=== PATIENT | male | born 1955 | race Caucasian/White ===

== ENCOUNTER 2017-06-05 07:06 | Day surgery (SDC) | payer OTHER ==
[2017-06-05] MEDS ORDERED: PROPOFOL INJ 200 MG/20 ML VIAL IV ONE (08:08)
[2017-06-05] MEDS ORDERED: DIPHENHYDRAMINE HCL 50 MG/ML VIAL IV PRN (09:28)
[2017-06-05] MEDS ORDERED: ONDANSETRON HCL INJ/PF 4 MG/2 ML SDV IV PRN (09:28)
[2017-06-05] MEDS ORDERED: FENTANYL CITRATE INJ/PF 100 MCG/2 ML AMPUL IV PRN ×3 (09:28)
[2017-06-05] MEDS ORDERED: SIMETHICONE 80 MG TAB.CHEW PO PRN (10:00)
[2017-06-05] MEDS ORDERED: DEXTROSE 5%-1/2 NORMAL SALINE 1,000 ML IV PRN (10:00)
[2017-06-05] MEDS ORDERED: PROMETHAZINE HCL INJ 25 MG/1 ML VIAL INJ PRN (10:00)
[2017-06-05] MEDS ORDERED: ACETAMINOPHEN 325 MG TABLET PO PRN (10:00)
[2017-06-05 10:26] VITALS: BP 146/88
--- NOTE | 2017-06-05 10:49 | Operative Report ---
Operative Report DATE OF SURGERY: 06/05/17 Operative Report: The risks, benefits and alternatives of the procedure including risks of bleeding, perforation requiring surgery are explained to the patient in detail and informed consent was obtained. Patient was taken back to the endoscopy suite and placed in the left, lateral decubital position. Timeout was called. Propofol medications administered. A rectal examination was done which did not reveal any masses, tears or fissures. An Olympus videoscope was inserted into the patient's rectum. Following insufflation the scope was then carefully advanced all the way to the cecum. The cecum was identified by the usual anatomical landmarks including the ileocecal valve as well as the appendiceal office. Photodocumentation is obtained. The scope was then sequentially pulled back via the various segments of the colon including the ascending colon , hepatic flexure, transverse colon, splenic flexure, descending colon, and finally to the rectosigmoid portions of the colon. Retroflexion maneuvers performed. PREOPERATIVE DIAGNOSIS: Colorectal cancer screening POSTOPERATIVE DIAGNOSIS: Large rectal polyp removed via snare polypectomy. Small polyp also in the rectum removed via snare polypectomy. These were placed in separate containers. Right side colon biopsy obtained. Diverticulosis. Internal hemorrhoids OPERATION: Colonoscopy with snare polypectomy. Colonoscopy with biopsy SURGEON: CECE MOORE ANESTHESIA: LMAC TISSUE REMOVED OR ALTERED: As noted above. COMPLICATIONS: None. ESTIMATED BLOOD LOSS: None. INTRAOPERATIVE FINDINGS: As noted above. PROCEDURE: Patient tolerated procedure well. No immediate postprocedure complications are noted. Patient discharged in good condition. Discharge date 06/05/2017. Discharge diet: Regular. Discharge activity: Regular. 2-3 week follow-up to discuss findings. We will wait on pathology. Likely will need 3 year surveillance colonoscopy. Patient is instructed to call the office or proceed to the emergency room should there be any further problems or questions.
== END 2017-06-05 10:32 | disposition home or self-care (01) ==
LOC: OROUT 07:06
PROVIDERS: ATTEND Internal Medicine Gastroenterology
PROC: 0DBF8ZX Excision of Right Large Intestine, Via Natural or Artificial Opening Endoscopic, Diagnostic (ICD-10-PCS; principal; 2017-06-05 09:00)
PROC: 0DBP8ZX Excision of Rectum, Via Natural or Artificial Opening Endoscopic, Diagnostic (ICD-10-PCS; 2017-06-05 09:00)
DX: Z12.11 Encounter for screening for malignant neoplasm of colon (principal); D12.8 Benign neoplasm of rectum; K64.8 Other hemorrhoids; K57.30 Diverticulosis of large intestine without perforation or abscess without bleeding; K63.5 Polyp of colon; F17.210 Nicotine dependence, cigarettes, uncomplicated; Z79.899 Other long term (current) drug therapy
CPT/HCPCS: 45380; 45385; 88305 ×2; J2704; 810

== ENCOUNTER 2019-02-20 09:51 | Emergency (ER) | payer SELFPAY ==
[2019-02-20] MEDS ORDERED: IPRATROPIUM/ALBUTEROL 0.5-2.5 MG/3 ML AMPUL NEB ONE ×2 (10:19→14:00)
[2019-02-20] MEDS ORDERED: METHYLPREDNISOLONE INJ 125 MG/2 ML SDV IV ONE (10:19)
--- NOTE | 2019-02-20 10:24 | ER Document Report ---
ED Medical Screen (RME) - General Chief Complaint: Breathing Difficulty Stated Complaint: DIFFICULTY BREATHING Time Seen by Provider: 02/20/19 10:19 Primary Care Provider: JUDE ROSE PA-C [Primary Care Provider] - Follow up as needed Mode of Arrival: Wheelchair Information source: Patient Notes: 63-year-old male presented to ED for severe difficulty breathing. He can hear him audibly wheezing across the room. Patient and states that he has not been to the doctor in at least 2 years so they do not really know what his medical history is. She states he is always spoken low but his voice is gone lower and lower recently. He states he does smoke close to 2 packs of cigarettes a day and his breathing is gotten worse and worse and worse and he continues to smoke. I have greeted and performed a rapid initial assessment of this patient. A comprehensive ED assessment and evaluation of the patient, analysis of test results and completion of medical decision making process will be conducted by an additional ED providers. Dictation of this chart was performed using voice recognition software; therefore, there may be some unintended grammatical errors. TRAVEL OUTSIDE OF THE [place] IN LAST 30 DAYS: No - Related Data Allergies/Adverse Reactions: No Known Allergies Allergy (Verified 02/20/19 09:51) Past Medical History - Past Medical History Cardiac Medical History: Denies: Hx Coronary Artery Disease, Hx Heart Attack, Hx Hypertension Pulmonary Medical History: Reports: Hx Asthma - as child Denies: Hx Bronchitis, Hx COPD, Hx Pneumonia Neurological Medical History: Denies: Hx Cerebrovascular Accident, Hx Seizures Musculoskeltal Medical History: Reports Hx Arthritis - Immunizations Hx Diphtheria, Pertussis, Tetanus Vaccination: No History of Influenza Vaccine for 05/2017 - 10/2017 Season: No Physical Exam - Vital signs Vitals: Temp Pulse Resp BP Pulse Ox 98.2 F 80 16 148/91 H 98 02/20/19 09:56 02/20/19 09:56 02/20/19 09:56 02/20/19 09:56 02/20/19 09:56 Course - Vital Signs Vital signs: Temp Pulse Resp BP Pulse Ox 98.2 F 80 16 148/91 H 98 02/20/19 09:56 02/20/19 09:56 02/20/19 09:56 02/20/19 09:56 02/20/19 09:56 Doctor's Discharge - Discharge Referrals: JUDE ROSE PA-C [Primary Care Provider] - Follow up as needed
[2019-02-20 11:01] LABS: ABSOLUTE BASOPHILS # (AUTO) 0.1 10^3/uL (0.0-0.2); ABSOLUTE EOSINOPHILS # (AUTO) 0.4 10^3/uL (0.0-0.6); ABSOLUTE LYMPHOCYTES (AUTO) 1.5 10^3/uL (0.5-4.7); ABSOLUTE MONOCYTES (AUTO) 0.8 10^3/uL (0.1-1.4); ABSOLUTE NEUT (AUTO) 10.1 10^3/uL (1.7-8.2); BASOPHILS % (AUTO) 0.5 % (0-2); EOSINOPHILS % (AUTO) 3.2 % (0-6); HEMATOCRIT 42.4 % (37.9-51.0); HEMOGLOBIN 14.5 g/dL (13.5-17.0); LYMPHOCYTES % (AUTO) 11.5 % (13-45); MEAN CORPUSCULAR HGB CONC 34.1 g/dL (32.0-36.0); MEAN CORPUSCULAR VOLUME 91 fl (80-97); MONOCYTES % (AUTO) 6.4 % (3-13); PLATELET COUNT 324 10^3/uL (150-450); RED BLOOD COUNT 4.68 10^6/uL (4.35-5.55); RED CELL DISTRIBUTION WIDTH 13.3 % (11.5-14.0); SEGMENTED NEUTROPHILS % (AUTO) 78.4 % (42-78); TOTAL CELLS COUNTED % (AUTO) 100 %; WHITE BLOOD COUNT 12.9 10^3/uL (4.0-10.5)
--- NOTE | 2019-02-20 11:17 | RADIOLOGY REPORT (SQ) ---
EXAM DESCRIPTION: CHEST 2 VIEWS COMPLETED DATE/TIME: 02/20/2019 11:05 am REASON FOR STUDY: Difficulty breathing COMPARISON: None. EXAM PARAMETERS: NUMBER OF VIEWS: two views TECHNIQUE: Digital Frontal and Lateral radiographic views of the chest acquired. RADIATION DOSE: NA LIMITATIONS: none FINDINGS: LUNGS AND PLEURA: No opacities, masses or pneumothorax. No pleural effusion. MEDIASTINUM AND HILAR STRUCTURES: No masses or contour abnormalities. HEART AND VASCULAR STRUCTURES: Heart normal size. No evidence for failure. BONES: No acute findings. Degenerative changes in the spine. HARDWARE: None in the chest. OTHER: No other significant finding. IMPRESSION: NO ACUTE RADIOGRAPHIC FINDING IN THE CHEST. TECHNICAL DOCUMENTATION: JOB ID: [id number] [employer]- All Rights Reserved Reading location - IP/workstation name: [email or web address]
[2019-02-20 11:24] LABS: ALANINE AMINOTRANSFERASE 38 U/L (21-72); ALBUMIN 4.3 g/dL (3.5-5.0); ALKALINE PHOSPHATASE 70 U/L (38-126); ANION GAP 6 (5-19); ASPARTATE AMINO TRANSFERASE 28 U/L (17-59); BILIRUBIN,DIRECT 0.4 mg/dL (0.0-0.4); BILIRUBIN,TOTAL 0.8 mg/dL (0.2-1.3); BLOOD UREA NITROGEN 10 mg/dL (7-20); CALCIUM 9.1 mg/dL (8.4-10.2); CARBON DIOXIDE 28 mmol/L (22-30); CHLORIDE 104 mmol/L (98-107); CREATINE KINASE 118 U/L (55-170); GLUCOSE 101 mg/dL (75-110); LIPASE 83.4 U/L (23-300); POTASSIUM 4.5 mmol/L (3.6-5.0); SODIUM 138.1 mmol/L (137-145); TOTAL PROTEIN 7.7 g/dL (6.3-8.2)
[2019-02-20 11:36] LABS: CREATINE KINASE MB 3.44 ng/mL (<4.55); TROPONIN I < 0.012 ng/mL
[2019-02-20] MEDS ORDERED: ALBUTEROL SULFATE 0.083% NEB 2.5 MG/3 ML AMPUL NEB ONE (14:01)
--- NOTE | 2019-02-20 14:14 | ER Document Report ---
ED General - General Chief Complaint: Breathing Difficulty Stated Complaint: DIFFICULTY BREATHING Time Seen by Provider: 02/20/19 10:19 Primary Care Provider: JUDE ROSE PA-C [NO LOCAL MD] - Follow up as needed Mode of Arrival: Wheelchair TRAVEL OUTSIDE OF THE [place] IN LAST 30 DAYS: No - HPI Notes: 63-year-old male to the emergency department with his significant other with complaints of progressively worsening shortness of breath for the last 3 days. He admits that over the past several months he has noticed baseline increase in shortness of breath and has more difficulty walking than he used to. However in the past 3 days, his shortness of breath has gotten significantly worse, he is actively wheezing, has difficulty speaking, and has also noticed a productive cough. He denies any fevers, chills, chest pain, lightheadedness, passing out, belly pain, back pain. He denies any leg swelling, recent travel, history of any DVTs. It is noted that he reports he has not seen a physician in over 2 years. He also has been smoking a pack of cigarettes a day for well over 20 years. - Related Data Allergies/Adverse Reactions: No Known Allergies Allergy (Verified 02/20/19 09:51) Past Medical History - General Information source: Patient, Relative - Social History Smoking Status: Current Every Day Smoker Cigarette use (# per day): Yes - 1 pack a day for years Chew tobacco use (# tins/day): No Smoking Education Provided: Yes Frequency of alcohol use: Social Drug Abuse: None Lives with: Spouse/Significant other Family History: Reviewed & Not Pertinent Patient has suicidal ideation: No Patient has homicidal ideation: No - Past Medical History Cardiac Medical History: Denies: Hx Coronary Artery Disease, Hx Heart Attack, Hx Hypertension Pulmonary Medical History: Reports: Hx Asthma - as child Denies: Hx Bronchitis, Hx COPD, Hx Pneumonia Neurological Medical History: Denies: Hx Cerebrovascular Accident, Hx Seizures Renal/ Medical History: Denies: Hx Peritoneal Dialysis Musculoskeletal Medical History: Reports Hx Arthritis Past Surgical History: Reports: Hx Orthopedic Surgery - back - Immunizations Hx Diphtheria, Pertussis, Tetanus Vaccination: No Review of Systems - Review of Systems Constitutional: denies: Chills, Fever EENT: No symptoms reported Cardiovascular: denies: Chest pain, Palpitations, Syncope, Dizziness, Lighthe aded Respiratory: Cough, Short of breath, Wheezing. denies: Hurts to breathe, Stridor Gastrointestinal: denies: Abdominal pain, Diarrhea, Nausea, Vomiting Genitourinary: denies: Frequency, Flank pain Musculoskeletal: denies: Back pain Skin: denies: No symptoms reported Hematologic/Lymphatic: denies: No symptoms reported Neurological/Psychological: denies: No symptoms reported -: No All other systems reviewed and negative Physical Exam - Vital signs Vitals: Temp Pulse Resp BP Pulse Ox 98.2 F 80 16 148/91 H 98 02/20/19 09:56 02/20/19 09:56 02/20/19 09:56 02/20/19 09:56 02/20/19 09:56 Interpretation: Hypertensive - General General appearance: Alert In distress: None - HEENT Head: Normocephalic, Atraumatic Eyes: Normal Pupils: PERRL Nasal: Normal Mouth/Lips: Normal. No: Angioedema Mucous membranes: Normal Pharynx: Normal. No: Erythema, Exudate, Uvular edema Neck: Normal - Respiratory Respiratory status: Other - Prolonged expiration.. No: Pursed lip breathing Chest status: Nontender Breath sounds: Wheezing - Diffuse inspiratory and expiratory wheezing and very coarse breath sounds. Patient gets breathy when he is speaking to me. He does not have any accessory muscle use, he is not diaphoretic, he is not tripoding.. No: Decreased air movement, Rales, Rhonchi, Stridor Chest palpation: Normal - Cardiovascular Rhythm: Regular Heart sounds: Normal auscultation Murmur: No - Abdominal Inspection: Normal Distension: No distension Bowel sounds: Normal Tenderness: Nontender Organomegaly: No organomegaly - Back Back: Normal, Nontender - Extremities General upper extremity: Normal inspection, Nontender, Normal color, Normal ROM, Normal temperature General lower extremity: Normal inspection, Nontender, Normal color, Normal ROM, Normal temperature, Normal weight bearing. No: Sohan's sign - Neurological Neuro grossly intact: Yes Cognition: Normal Orientation: AAOx4 [place] Coma Scale Eye Opening: Spontaneous [place] Coma Scale Verbal: Oriented [place] Coma Scale Motor: Obeys Commands Betito Coma Scale Total: 15 Speech: Normal Motor strength normal: LUE, RUE, LLE, RLE Sensory: Normal - Psychological Associated symptoms: Normal affect, Normal mood - Skin Skin Temperature: Warm Skin Moisture: Dry Skin Color: Normal Course - Vital Signs Vital signs: Temp Pulse Resp BP Pulse Ox 97.9 F 80 17 146/92 H 96 02/20/19 14:15 02/20/19 09:56 02/20/19 13:00 02/20/19 14:15 02/20/19 13:00 - Laboratory Result Diagrams: 02/20/19 10:49 02/20/19 10:49 Laboratory results interpreted by me: 02/20/19 10:49 WBC 12.9 H Seg Neutrophils % 78.4 H Lymphocytes % 11.5 L Absolute Neutrophils 10.1 H - Diagnostic Test Radiology reviewed: Image reviewed, Reports reviewed - Transfer of Care Notes: 02/20/19 after seeing patient we discussed the most important course of action for his wheezing and shortness of breath. Patient did tell me that he does not have a lot of patience states that he was willing to stay for CTA of the chest and further treatments. Approximately 20 minutes after we had our conversation and CT as well as medicines were ordered, he decided he wanted to leave. I rounded back with the patient and expressed my concern over him leaving. I again reiterated the importance of CT scan as well as getting his shortness of breath under better control. Despite this and the urging of his spouse to stay for further treatment patient states that he does not want to stay. Thus, I have the patient sign an AGAINST MEDICAL ADVICE form. We discussed the benefits of him staying to include improvement of his shortness of breath, etiology of his shortness of breath, further management of his wheezing. We also discussed the serious risks of his leaving which include worsening shortness of breath, worsening wheezing, respiratory distress, respiratory arrest, prolonged hospita lization, . He voiced understanding that by leaving he seriously risks these complications and still decided to leave. I urged him to return at any point for further treatment. I also wrote him for steroids as well as albuterol. Also discussed this patient with Dr. Hensley and discussed his wishes to leave AGAINST MEDICAL ADVICE. She is aware our our conversation, of the AMA form. Discharge - Discharge Clinical Impression: Shortness of breath, Tobacco abuse, Wheezing Disposition: AGAINST MEDICAL ADVICE Additional Instructions: PLEASE RETURN AT ANY TIME. YOU HAVE DECIDED TO LEAVE AGAINST MEDICAL ADVICE, DESPITE NEEDING MORE TREATMENT AND FURTHER MANAGEMENT. YOU ARE RISKING WORSENING SHORTNESS OF BREATH, RESPIRATORY DISTRESS, RESPIRATORY ARREST, AND . I RECOMMEND CT OF THE CHEST TO EVALUATE FOR EVALUATION FOR LUNG MASS, PNEUMONIA, PULMONARY EMBOLISM. ALSO RECOMMEND TO GET MORE BREATHING TREATMENTS. YOU HAVE DECIDED TO LEAVE DESPITE THESE RECOMMENDATIONS. YOU MAY RETURN AT ANY TIME FOR FURTHER TESTING AND TREATMENT. Prescriptions: Albuterol Sulfate [Proair HFA Inhalation Aerosol 8.5 gm MDI] 2 puff IH Q4H PRN #1 mdi PRN Reason: Methylprednisolone [Medrol Dosepack (4 mg/Tab) 21 Tab/Dosepak] 4 mg PO ASDIR PRN #21 tab.ds.pk PRN Reason: Referrals: JUDE ROSE PA-C [NO LOCAL MD] - Follow up as needed
[2019-02-20 14:26] VITALS: BP 146/92
--- NOTE | 2019-02-21 23:57 | EKG REPORT ---
SEVERITY:- ABNORMAL ECG - SINUS RHYTHM VENTRICULAR PREMATURE COMPLEXE PROBABLE LEFT ATRIAL ABNORMALITY NONSPECIFIC INTRAVENTRICULAR CONDUCTION DELAY LEFT VENTRICULAR HYPERTROPHY : Confirmed by: Reyes Adame 21-Feb-2019 23:56:37
== END 2019-02-20 14:26 | disposition left against medical advice (07) ==
LOC: ER 09:51
DX: R06.02 Shortness of breath (principal); R06.2 Wheezing; F17.210 Nicotine dependence, cigarettes, uncomplicated
CPT/HCPCS: 93005; 94640; 99285; 96374; 36415; 82553; 82550; 83690; 85025; 80053; 84484; 71046; 93010; J2930; J7620

== ENCOUNTER 2019-02-22 22:59 | Inpatient (IN) | payer SELFPAY ==
[2019-02-22] MEDS ORDERED: IPRATROPIUM/ALBUTEROL 0.5-2.5 MG/3 ML AMPUL NEB ONE ×3 (23:05)
[2019-02-22] MEDS ORDERED: METHYLPREDNISOLONE INJ 125 MG/2 ML SDV IV ONE (23:07)
--- NOTE | 2019-02-22 23:14 | ER Document Report ---
ED Respiratory Problem - General Stated Complaint: DIFFICULTY BREATHING Time Seen by Provider: 02/22/19 23:05 Notes: Patient is a 63-year-old male that comes to the emergency department for chief complaint of difficulty breathing. On arrival patient is in respiratory d istress with severely labored breathing, he is diaphoretic, very decreased breath sounds, barely able to talk. He tells me he smokes and that he was seen 2 days ago, given prednisone and an albuterol inhaler, states he is much worse now. He denies any cardiac history, he denies any medical history otherwise. He denies ever being intubated. TRAVEL OUTSIDE OF THE [place] IN LAST 30 DAYS: No - Related Data Allergies/Adverse Reactions: No Known Allergies Allergy (Verified 02/20/19 09:51) Past Medical History - General Information source: Patient - Social History Smoking Status: Current Every Day Smoker Smoking Education Provided: Yes - <3 min Drug Abuse: None Lives with: Family Family History: Reviewed & Not Pertinent - Past Medical History Cardiac Medical History: Denies: Hx Coronary Artery Disease, Hx Heart Attack, Hx Hypertension Pulmonary Medical History: Reports: Hx Asthma - as child, Hx COPD Denies: Hx Bronchitis, Hx Pneumonia Neurological Medical History: Denies: Hx Cerebrovascular Accident, Hx Seizures Renal/ Medical History: Denies: Hx Peritoneal Dialysis Musculoskeletal Medical History: Reports Hx Arthritis Past Surgical History: Reports: Hx Orthopedic Surgery - back - Immunizations Hx Diphtheria, Pertussis, Tetanus Vaccination: No Review of Systems - Review of Systems Constitutional: No symptoms reported EENT: No symptoms reported Cardiovascular: See HPI Respiratory: See HPI Gastrointestinal: No symptoms reported Genitourinary: No symptoms reported Male Genitourinary: No symptoms reported Musculoskeletal: No symptoms reported Skin: No symptoms reported Hematologic/Lymphatic: No symptoms reported Neurological/Psychological: No symptoms reported Physical Exam - Vital signs Vitals: BP Pulse Ox 223/107 H 91 L 02/22/19 23:01 02/22/19 23:01 - Notes Notes: GENERAL: Severe distress, bent over, diaphoretic, flushed HEAD: Normocephalic, atraumatic. EYES: Pupils equal, round, and reactive to light. Extraocular movements intact. ENT: Oral mucosa moist, tongue midline. Oropharynx unremarkable. Airway patent. NECK: Full range of motion. Supple. Trachea midline. LUNGS: Very decreased breath sounds, rapid and labored breathing with respiratory distress HEART: Regular rate and rhythm. No murmur ABDOMEN: Soft, non-tender. Non-distended. GENITOURINARY: Deferred EXTREMITIES: Moves all 4 extremities spontaneously. No edema, normal radial and dorsalis pedis pulses bilaterally. BACK: no cervical, thoracic, lumbar midline tenderness. Moves all extremities in full range of motion. NEUROLOGICAL: Alert and oriented x3. Cranial nerves II through XII grossly intact. SKIN: Diaphoretic Course - Re-evaluation Re-evalutation: 02/22/19 23:12 I have been in the room up until this time with the patient. On presentation he was in severe respiratory distress with very labored breathing, diaphoretic, very decreased breath sounds, hypoxic at 84% when placed on the monitor after I had already placed him on 4 L nasal cannula. Patient immediately placed on DuoNebs, IV was placed, he was given 125 mg of Solu-Medrol, 2 g of magnesium, and respiratory was called for BIpap. Patient significantly improved with initial treatments although he still remained hypoxic with labored breathing at 89% on 4 L nc. He has been placed on BiPAP now, his respiratory rate has slowed down to 18, his oxygen saturation is up to 97%, he appears much more comfortable, respiratory distress has resolved. 02/22/19 23:46 Patient is much improved. He still has decreased breath sounds and a few sca ttered wheezes but his respiratory distress is gone. CBC that shows leukocytosis but this is nonspecific given patient's prednisone use. Chemistry generally unremarkable. Venous blood gas shows respiratory acidosis with elevated CO2 at 71.2. Chest x-ray shows COPD. Troponin is not elevated. Patient is still requiring BiPAP and will require admission for acute respiratory failure in the setting of COPD exacerbation. I discussed this with patient, he does state agreement with this plan and gratefulness. Discussed with Dr. Castillo, hospitalist, patient accepted for admission. - Vital Signs Vital signs: Temp Pulse Resp BP Pulse Ox 97.7 F 62 18 171/86 H 98 02/23/19 04:11 02/23/19 04:11 02/23/19 04:11 02/23/19 04:11 02/23/19 04:11 - Laboratory Result Diagrams: 02/22/19 23:06 02/22/19 23:06 Laboratory results interpreted by me: 02/22/19 02/22/19 02/22/19 23:06 23:06 23:06 WBC 17.2 H Absolute Neutrophils 13.1 H VBG pH 7.27 L VBG pCO2 71.2 H* Carbon Dioxide 31 H Glucose 124 H Total Protein 8.4 H - EKG Interpretation by Me Additional EKG results interpreted by me: 02/22/19 23:54 EKG shows sinus rhythm at a rate of 94, borderline inferior Q waves, left ventricular hypertrophy although patient is extremely skinny. QTc is 521. No T wave inversions or ST segment changes in consecutive leads. Critical Care Note - Critical Care Note Total time excluding time spent on procedures (mins): 35 - Respiratory distress, hypoxia, COPD exacerbation Comments: Please allow 35 minutes of critical care for evaluation and management of patient with respiratory distress, acute hypercapnic hypoxic respiratory failure. Multiple re-evaluations performed, interventions including oxygen, BiPAP, steroids, magnesium, duo nebs. Time spent reviewing previous records. Time spent consulting and admitting to the hospital. Discharge - Discharge Clinical Impression: Tobacco abuse, Respiratory distress, Hypoxia, Respiratory acidosis, COPD exacerbation Condition: Stable Disposition: ADMITTED INPATIENT Admitting Provider: Anna (Hospitalist) Unit Admitted: [facility]
[2019-02-22 23:16] LABS: ABSOLUTE BASOPHILS # (AUTO) 0.1 10^3/uL (0.0-0.2); ABSOLUTE EOSINOPHILS # (AUTO) 0.3 10^3/uL (0.0-0.6); ABSOLUTE LYMPHOCYTES (AUTO) 2.3 10^3/uL (0.5-4.7); ABSOLUTE MONOCYTES (AUTO) 1.3 10^3/uL (0.1-1.4); ABSOLUTE NEUT (AUTO) 13.1 10^3/uL (1.7-8.2); BASOPHILS % (AUTO) 0.8 % (0-2); HEMATOCRIT 46.1 % (37.9-51.0); HEMOGLOBIN 15.5 g/dL (13.5-17.0); LYMPHOCYTES % (AUTO) 13.2 % (13-45); MEAN CORPUSCULAR HEMOGLOBIN 30.8 pg (27.0-33.4); MEAN CORPUSCULAR HGB CONC 33.6 g/dL (32.0-36.0); MEAN CORPUSCULAR VOLUME 92 fl (80-97); MONOCYTES % (AUTO) 7.8 % (3-13); PLATELET COUNT 415 10^3/uL (150-450); RED BLOOD COUNT 5.02 10^6/uL (4.35-5.55); RED CELL DISTRIBUTION WIDTH 13.9 % (11.5-14.0); SEGMENTED NEUTROPHILS % (AUTO) 76.2 % (42-78); TOTAL CELLS COUNTED % (AUTO) 100 %; WHITE BLOOD COUNT 17.2 10^3/uL (4.0-10.5)
[2019-02-22 23:21] LABS: VENOUS BLOOD BASE EXCESS 2.1 mmol/L; VENOUS BLOOD HCO3 31.7 mmol/L (20-32); VENOUS BLOOD PH 7.27 (7.30-7.42)
[2019-02-22] MEDS: MAGNESIUM SULFATE/D5W 1 GM/100 ML RTUPB IV SCH ×2 (23:21→23:28)
[2019-02-22 23:22] LABS: VENOUS BLOOD PCO2 71.2 mmHg (35-63)
[2019-02-22 23:36] LABS: ALANINE AMINOTRANSFERASE 36 U/L (21-72); ALKALINE PHOSPHATASE 72 U/L (38-126); ANION GAP 10 (5-19); ASPARTATE AMINO TRANSFERASE 28 U/L (17-59); BILIRUBIN,DIRECT 0.4 mg/dL (0.0-0.4); BILIRUBIN,TOTAL 0.5 mg/dL (0.2-1.3); BLOOD UREA NITROGEN 19 mg/dL (7-20); CARBON DIOXIDE 31 mmol/L (22-30); CHLORIDE 100 mmol/L (98-107); GLUCOSE 124 mg/dL (75-110); POTASSIUM 4.3 mmol/L (3.6-5.0); SODIUM 141.3 mmol/L (137-145); TOTAL PROTEIN 8.4 g/dL (6.3-8.2)
--- NOTE | 2019-02-22 23:43 | RADIOLOGY REPORT (SQ) ---
EXAM DESCRIPTION: XR CHEST 1 VIEW COMPLETED DATE/TME: 02/22/2019 23:08 CLINICAL HISTORY: 63 years, Male, shortness of breath, hypoxia EXAM DESCRIPTION: CLINICAL HISTORY: shortness of breath, hypoxia COMPARISON: None. FINDINGS: Single view of the chest is submitted. There is a left ninth rib acute fracture. No pneumothorax. Detail is limited. Cardiac silhouette is normal. No focal parenchymal or pleural disease. There is no significant pulmonary vascular engorgement. IMPRESSION: Left ninth rib fracture. No other evidence of acute cardiopulmonary disease.
[2019-02-23] MEDS ORDERED: MAG HYDROX/AL HYDROX/SIMETH SUSP 30 ML UDCUP PO PRN (01:15)
[2019-02-23] MEDS ORDERED: MAGNESIUM HYDROXIDE SUSP 30 ML UDCUP PO PRN (01:15)
[2019-02-23] MEDS ORDERED: ONDANSETRON HCL INJ/PF 4 MG/2 ML SDV IV PRN (01:15)
[2019-02-23] MEDS ORDERED: TEMAZEPAM 15 MG CAPSULE PO PRN (01:15)
[2019-02-23] MEDS ORDERED: HYDRALAZINE HCL INJ/PF 20 MG/1 ML SDV IV PRN (01:22)
[2019-02-23] MEDS ORDERED: MORPHINE SULFATE 10 MG/ML INJ IV PRN (01:22)
[2019-02-23] MEDS ORDERED: ACETAMINOPHEN 325 MG TABLET PO PRN (01:22)
[2019-02-23] MEDS ORDERED: NICOTINE 21 MG/24 HR PATCH.TD24 TD PRN (01:22)
[2019-02-23] MEDS ORDERED: LEVALBUTEROL HCL NEB 0.63 MG/3 ML AMPUL NEB PRN (01:22)
--- NOTE | 2019-02-23 02:23 | ADVANCED CARE ---
- Diagnosis (1) COPD exacerbation Diagnosis Current: Yes (2) Acute respiratory failure with hypoxia and hypercapnia Diagnosis Current: Yes (3) Closed rib fracture Diagnosis Current: Yes (4) Leukocytosis Diagnosis Current: Yes (5) Tobacco use disorder, severe, dependence Diagnosis Current: Yes Attendance: The patient and myself Resuscitation Status: Full Code Discussion: After brief discussion the patient has determined that he wishes to be a full code resuscitation status if he were to develop a cardiac or respiratory arrest during this hospital stay. Additionally he has named Marie Rascon as his designated surrogate medical decision-maker. Care Planning Goals: 1. Patient will be full CODE STATUS for this admission. 2. Marie Rascon is the patient's designated surrogate medical decision maker Document(s) Completed: Following entries were made into the patient's permanent medical record as well as his current medical orders and record via EMR entry: 1. Patient will be full CODE STATUS for this admission. 2. Marie Rascon is the patient's designated surrogate medical decision maker Time Spent: 7 minutes
--- NOTE | 2019-02-23 02:23 | PDOC H&P ---
History of Present Illness Admission Date/PCP: 02/23/2019 12:25 AM JUDE ROSE PA-C Patient complains of: Dyspnea History of Present Illness: REJI FERRELL is a 63 year old male who presented to the emergency room with a 5- day history of dyspnea. He admits progressively worsening dyspnea over the last 5 days despite therapy. He was seen here in the [facility] ER 2 days prior to this visit and was started on prednisone and an albuterol inhaler. He did continue to smoke (2 packs/day) but complains that his dyspnea is very severe and much worse than at his prior visit. Currently his dyspnea was accompanied by a productive cough (clear phlegm), severe wheezing, diaphoresis and the inability to speak more than 1 or 2 words in a sentence. He acknowledges his current dyspnea became much worse with any activity. He has not identified any additional aggravating or ameliorating factors for his dyspnea. He denies prior similar episodes. In the emergency room he was found to be severely hypoxic as well as hypercapnic with a respiratory acidosis and was placed on BiPAP and treated with intravenous steroids and nebulizer therapy. He showed significant improvement but will need to be hospitalized for further evaluation and treatment. Past Medical History Cardiac Medical History: Denies: Atrial Fibrillation, Congestive Heart Failure, Coronary Artery Disease, Myocardial Infarction, Hyperlipidema, Hypertension, Peripheral Vascular Disease Pulmonary Medical History: Reports: Asthma - as child, Chronic Obstructive Pulmonary Disease (COPD) - Recently diagnosed on his previous ER visit Denies: Bronchitis, Intubation, Pneumonia, Respiratory Failure, Sleep Apnea EENT Medical History: Denies: Cataracts, Ears - Hearing aids Neurological Medical History: Denies: Hemorrhagic CVA, Ischemic CVA, Multiple Sclerosis, Seizures Endocrine Medical History: Denies: Diabetes Mellitus Type 1, Diabetes Mellitus Type 2, Hyperthyroidism, Hypothyroidism Renal/ Medical History: Denies: Chronic Kidney Disease, Nephrolithiasis Malignancy Medical History: Reports: None GI Medical History: Denies: Cirrhosis, Crohn's Disease, Hepatitis, Ulcerative Colitis Musculoskeltal Medical History: Reports: Other - Back problems Denies: Arthritis, Gout Skin Medical History: Denies: Eczema, Psoriasis Psychiatric Medical History: Reports: Tobacco Dependency Denies: Alcohol Dependency, Substance Abuse Traumatic Medical History: Reports: None Hematology: Denies: Anemia, Bleeding Tendencies Infectious Medical History: Reports: None Past Surgical History Past Surgical History: Reports: Appendectomy, Orthopedic Surgery - back surgery, right femur fracture, left wrist fracture, Other - Colonoscopy Social History Information Source: Patient Lives with: Spouse/Significant other Smoking Status: Current Every Day Smoker Cigarettes Packs Per Day: 2 Frequency of Alcohol Use: Rare Hx Recreational Drug Use: No Drugs: None Hx Prescription Drug Abuse: No - Advance Directive Resuscitation Status: Full Code Surrogate healthcare decision maker:: Marie Rascon Family History Family History: Other - Many if not most of his immediate family members have of unnatural causes. denies: CAD, CVA, DM, Hypertension, Malignancy Parental Family History Reviewed: Yes Children Family History Reviewed: No Sibling(s) Family History Reviewed.: Yes Medication/Allergy Home Medications: Dronabinol [Marinol] 15 mg PO QID 06/04/17 Flexeril 1 tab PO BID 06/04/17 Albuterol Sulfate [Proair HFA Inhalation Aerosol 8.5 gm MDI] 2 puff IH Q4H PRN #1 mdi 02/20/19 Methylprednisolone [Medrol Dosepack (4 mg/Tab) 21 Tab/Dosepak] 4 mg PO ASDIR PRN #21 tab.ds.pk 02/20/19 Allergies/Adverse Reactions: No Known Allergies Allergy (Verified 02/20/19 09:51) Review of Systems Constitutional: ABSENT: chills, fever(s) Eyes: ABSENT: visual disturbances, other - Eye pain Ears: ABSENT: hearing changes, other - Ear pain Nose, Mouth, and Throat: ABSENT: headache(s), mouth pain, sore throat Cardiovascular: PRESENT: as per HPI, dyspnea on exertion. ABSENT: chest pain, orthropnea, palpitations Respiratory: PRESENT: as per HPI, cough, dyspnea, sputum - Clear phlegm, other - Wheezing. ABSENT: hemoptysis Gastrointestinal: ABSENT: abdominal pain, constipation, diarrhea, nausea, vomiting Genitourinary: ABSENT: difficulty urinating, dysuria, hematuria Musculoskeletal: ABSENT: back pain, joint swelling, muscle weakness Integumentary: PRESENT: as per HPI, diaphoresis. ABSENT: pruritus, rash Neurological: PRESENT: as per HPI, abnormal speech. ABSENT: confusion, convulsions, focal weakness, memory loss, syncope Psychiatric: ABSENT: anxiety, depression Endocrine: ABSENT: cold intolerance, heat intolerance Hematologic/Lymphatic: ABSENT: easy bleeding, easy bruising Physical Exam Vital Signs: Temp Pulse Resp BP Pulse Ox 16 97 02/22/19 23:15 02/22/19 23:15 Intake & Output 02/21/19 02/22/19 02/23/19 23:59 23:59 23:59 Intake Total 12 Balance 12 General appearance: PRESENT: cooperative, mild distress - Mild respiratory distress even on BiPAP, other - Currently on BiPAP Head exam: PRESENT: atraumatic, normocephalic Eye exam: PRESENT: conjunctiva pink. ABSENT: conjunctival injection, scleral icterus Ear exam: PRESENT: normal external ear exam. ABSENT: bleeding, drainage Mouth exam: PRESENT: dry mucosa, neck supple Neck exam: ABSENT: JVD, thyromegaly, tracheal deviation Respiratory exam: PRESENT: accessory muscle use - Mild accessory muscle use is noted, decreased breath sounds - Moderately diminished breath sounds throughout all la consistent with moderate to severe COPD, prolonged expiratory phas - Moderately prolonged expiratory phase in all la, retraction - Mild supraclavicular and subclavicular retractions are present, symmetrical, wheezes - High-pitched "tight" and expiratory wheezes noted in all la, other - On BiPAP. ABSENT: chest wall tenderness Cardiovascular exam: PRESENT: RRR. ABSENT: clicks, gallop, rubs Pulses: PRESENT: normal radial pulses, normal dorsalis pedis pul Vascular exam: PRESENT: normal capillary refill. ABSENT: pallor GI/Abdominal exam: PRESENT: normal bowel sounds, soft Rectal exam: PRESENT: deferred Extremities exam: ABSENT: joint swelling, pedal edema Musculoskeletal exam: PRESENT: full ROM, normal inspection Neurological exam: PRESENT: alert, oriented to person, oriented to place, o riented to time, oriented to situation, CN II-XII grossly intact. ABSENT: motor sensory deficit Psychiatric exam: PRESENT: appropriate affect, normal mood Skin exam: PRESENT: dry, intact, warm. ABSENT: jaundice, rash, urticaria Results Laboratory Results: 02/22/19 23:06 02/22/19 23:06 02/22/19 02/22/19 02/22/19 23:06 23:06 23:06 WBC 17.2 H RBC 5.02 Hgb 15.5 Hct 46.1 MCV 92 MCH 30.8 MCHC 33.6 RDW 13.9 Plt Count 415 Seg Neutrophils % 76.2 Lymphocytes % 13.2 Monocytes % 7.8 Eosinophils % 2.0 Basophils % 0.8 Absolute Neutrophils 13.1 H Absolute Lymphocytes 2.3 Absolute Monocytes 1.3 Absolute Eosinophils 0.3 Absolute Basophils 0.1 VBG pH 7.27 L VBG pCO2 71.2 H* VBG HCO3 31.7 VBG Base Excess 2.1 Sodium 141.3 Potassium 4.3 Chloride 100 Carbon Dioxide 31 H Anion Gap 10 BUN 19 Creatinine 0.86 Est GFR ( Amer) > 60 Est GFR (Non-Af Amer) > 60 Glucose 124 H Calcium 10.0 Total Bilirubin 0.5 AST 28 ALT 36 Alkaline Phosphatase 72 Total Protein 8.4 H Albumin 5.0 02/22/19 23:06 Troponin I < 0.012 EKG Comments: EKG interpreted by me with the following findings: Normal sinus rhythm at 94 bpm, left ventricular hypertrophy with mild strain pattern changes in the lateral leads, nonspecific interventricular conduction defect, left atrial enlargement. Impressions: Chest X-Ray 02/22/19 23:08 IMPRESSION: Left ninth rib fracture. No other evidence of acute cardiopulmonary disease. Status: Image reviewed by me - Chest x-ray reviewed by me with the following findings: Marked hyperlucency and volumetric increase of the thorax. Marked flattening of the diaphragms noted. All findings consistent with moderate to severe COPD. No acute cardiopulmonary processes are noted. I see no evidence of the left 9th rib fracture reported by radiology. Assessment and Plan - Diagnosis (1) COPD exacerbation Is this a current diagnosis for this admission?: Yes Plan: Patient be treated with an aggressive pulmonary toilet utilizing nebulized Xopenex, Atrovent and Pulmicort. He will also receive IV Solu-Medrol and will be given supplemental oxygen as required to maintain an O2 sat between 90 and 94% utilizing BiPAP until the patient can tolerate being on nasal cannula oxygen or no oxygen supplementation. A daily CBC, metabolic profile and magnesium level will be obtained as a means to follow patient's therapeutic process and course of improvement. ABGs will be obtained as necessary. (2) Acute respiratory failure with hypoxia and hypercapnia Is this a current diagnosis for this admission?: Yes Plan: Patient will be treated with supplemental oxygen and noninvasive airway pressure support in order to maintain adequate oxygenation at 90 to 94% O2 sat. His O2 sat will be monitored on a regular basis for his hospital course. ABGs will be obtained as necessary. (3) Closed rib fracture Qualifiers: Encounter type: initial encounter Rib fracture type: single rib Laterality: left Qualified Code(s): S22.32XA - Fracture of one rib, left side, initial encounter for closed fracture Is this a current diagnosis for this admission?: Yes Plan: Patient will be treated with usual supportive and symptomatic therapy. He will receive morphine sulfate 2 to 4 mg IV every 2 hours as needed for pain based on a sliding scale. It is noted that I have not able to appreciate the rib fracture on the patient's chest x-ray and the patient is asymptomatic for palpation over all of his ribs and he has no pain or discomfort with deep inspiration or cough. (4) Leukocytosis Qualifiers: Leukocytosis type: unspecified Qualified Code(s): D72.829 - Elevated white blood cell count, unspecified Is this a current diagnosis for this admission?: Yes Plan: Patient will have a daily CBC during his hospital course. Most likely cause of patient's leukocytosis is his steroid therapy. (5) Tobacco use disorder, severe, dependence Is this a current diagnosis for this admission?: Yes Plan: Smoking cessation is advised and counseled briefly. Patient will have a nicotine replacement patch available for his use. - Time Time Spent with patient: 25-34 minutes Smoking Cessation Education: 3 to 10 minutes Medications reviewed and adjusted accordingly: Yes Anticipated discharge: Home - Inpatient Certification Based on my medical assessment, after consideration of the patient's comorbidities, presenting symptoms, or acuity I expect that the services needed warrant INPATIENT care.: Yes I certify that my determination is in accordance with my understanding of Medicare's requirements for reasonable and necessary INPATIENT services [42 CFR 412.3e].: Yes Medical Necessity: Failure to Improve With Outpatient Therapy, Need Close Monit oring Due to Risk of Patient Decompensation, Need for Nebulizer Therapy and Monitoring of Response, Need for Pain Control, Risk of Complication if Not Cared For in Hospital
[2019-02-23] MEDS: HEPARIN SOD (PORCINE) 5,000 UNIT/ML 1 ML SYRINGE SUBCUT SCH ×3 (05:39→22:00)
[2019-02-23] MEDS: METHYLPREDNISOLONE INJ 40 MG/1 ML SDV IV SCH ×2 (05:39→12:28)
[2019-02-23] MEDS ORDERED: KETOROLAC TROMETHAMINE INJ/PF 30 MG/1 ML SDV IV SCH (06:00)
[2019-02-23] MEDS: RINGERS SOLUTION,LACTATED 1,000 ML IV PRN ×2 (07:43→14:31)
[2019-02-23] MEDS ORDERED: LEVALBUTEROL HCL NEB 1.25 MG/3 ML AMPUL NEB SCH (08:00)
[2019-02-23] MEDS: IPRATROPIUM BROMIDE 0.02% NEB 0.5 MG/2.5 ML AMPUL NEB SCH ×3 (08:22→20:24)
[2019-02-23] MEDS: BUDESONIDE NEB 0.5 MG/2 ML AMPUL NEB SCH ×2 (08:23→20:24)
[2019-02-23] MEDS: LEVALBUTEROL HCL NEB 1.25 MG/3 ML AMPUL NEB SCH ×3 (08:27→20:24)
[2019-02-23 08:29] LABS: ARTERIAL BLOOD BASE EXCESS 5.9 mmol/L; ARTERIAL BLOOD H2CO3 1.22 mmol/L (1.05-1.35); ARTERIAL BLOOD HCO3 29.8 mmol/L (20-24); ARTERIAL BLOOD O2 SATURATION 98.3 % (94-98); ARTERIAL BLOOD PCO2 40.6 mmHg (35-45); ARTERIAL BLOOD PH 7.48 (7.35-7.45); ARTERIAL BLOOD PO2 109.2 mmHg (80-100); ARTERIAL BLOOD TOTAL CO2 31.1 mmol/L (23-27)
[2019-02-23 08:33] LABS: ARTERIAL BLOOD FIO2 28%
[2019-02-23] MEDS: FAMOTIDINE 20 MG TABLET PO SCH ×2 (10:16→21:59)
[2019-02-23] MEDS: DOCUSATE SODIUM 100 MG CAPSULE PO SCH ×2 (10:16→17:19)
[2019-02-23] MEDS ORDERED: BENZOCAINE 20% AEROSOL SPRAY 60 GM TP PRN (15:00)
[2019-02-23] MEDS ORDERED: BENZOCAINE/MENTHOL SORE THROAT LOZENGE BUCCAL PRN (15:00)
--- NOTE | 2019-02-23 15:00 | Progress Note ---
Provider Note Provider Note: 63 y.o. M with a PMH of COPD and tobacco dependence. He presented to [facility] emergency department with shortness of breath. Complains of a recent URI symptoms. He is admitted to the hospitalist service for COPD exacerbation. 1. Acute hypercapnic respiratory failure: Secondary to COPD exacerbation stemming from URI. Scheduled and PRN nebulizer treatments. IV steroids. Will initiate long-acting inhalers. Twice daily Mucinex. Endorses coughing up green mucus, will place patient on a course of doxycycline. 2. COPD exacerbation: See plan as above 3. Laryngitis: Stemming from URI, likely viral in nature. Hurricane spray. Throat lozenges
[2019-02-23] MEDS: METHYLPREDNISOLONE INJ 125 MG/2 ML SDV IV SCH ×2 (17:20→23:38)
[2019-02-23] MEDS: DOXYCYCLINE HYCLATE 100 MG TABLET PO SCH (21:58)
[2019-02-23] MEDS: GUAIFENESIN 600 MG TABLET.SA PO SCH (21:58)
--- NOTE | 2019-02-24 00:32 | EKG REPORT ---
SEVERITY:- ABNORMAL ECG - SINUS RHYTHM LEFT ATRIAL ABNORMALITY NONSPECIFIC INTRAVENTRICULAR CONDUCTION DELAY LEFT VENTRICULAR HYPERTROPHY BORDERLINE INFERIOR Q WAVES : Confirmed by: Reyes Adame 24-Feb-2019 00:31:12
[2019-02-24] MEDS: LEVALBUTEROL HCL NEB 1.25 MG/3 ML AMPUL NEB SCH ×3 (02:01→14:33)
[2019-02-24] MEDS: IPRATROPIUM BROMIDE 0.02% NEB 0.5 MG/2.5 ML AMPUL NEB SCH ×3 (02:01→14:33)
[2019-02-24 05:14] LABS: HEMATOCRIT 37.5 % (37.9-51.0); MEAN CORPUSCULAR HGB CONC 33.9 g/dL (32.0-36.0); MEAN CORPUSCULAR VOLUME 92 fl (80-97); PLATELET COUNT 296 10^3/uL (150-450); RED BLOOD COUNT 4.09 10^6/uL (4.35-5.55); RED CELL DISTRIBUTION WIDTH 13.3 % (11.5-14.0); WHITE BLOOD COUNT 13.5 10^3/uL (4.0-10.5)
[2019-02-24] MEDS: METHYLPREDNISOLONE INJ 125 MG/2 ML SDV IV SCH (05:23)
[2019-02-24] MEDS: HEPARIN SOD (PORCINE) 5,000 UNIT/ML 1 ML SYRINGE SUBCUT SCH ×2 (05:24→14:24)
[2019-02-24 05:25] LABS: HEMOGLOBIN 12.7 g/dL (13.5-17.0)
[2019-02-24 05:33] LABS: ANION GAP 6 (5-19); BLOOD UREA NITROGEN 20 mg/dL (7-20); CARBON DIOXIDE 29 mmol/L (22-30); CHLORIDE 102 mmol/L (98-107); CHOLESTEROL 126.09 mg/dL (0-200); GLUCOSE 98 mg/dL (75-110); POTASSIUM 4.4 mmol/L (3.6-5.0); SODIUM 136.5 mmol/L (137-145); TRIGLYCERIDES 83 mg/dL (<150)
[2019-02-24 05:48] LABS: FREE T3 3.05 pg/mL (2.77-5.27); FREE T4 (FREE THYROXINE) 1.05 ng/dL (0.78-2.19)
[2019-02-24 05:50] LABS: DIRECT LDL 68 mg/dL (<100)
[2019-02-24 06:02] LABS: THYROID STIMULATING HORMONE 0.46 uIU/mL (0.47-4.68)
[2019-02-24] MEDS: BUDESONIDE NEB 0.5 MG/2 ML AMPUL NEB SCH (08:54)
[2019-02-24] MEDS: DOCUSATE SODIUM 100 MG CAPSULE PO SCH (09:03)
[2019-02-24] MEDS: DOXYCYCLINE HYCLATE 100 MG TABLET PO SCH (09:03)
[2019-02-24] MEDS: FAMOTIDINE 20 MG TABLET PO SCH (09:03)
[2019-02-24] MEDS: GUAIFENESIN 600 MG TABLET.SA PO SCH (09:03)
[2019-02-24] MEDS ORDERED: ALBUTEROL SULFATE HFA (90 MCG/PUFF) 8 GM MDI (1 MDI/ER DISP) IH ONE (13:30)
[2019-02-24] MEDS ORDERED: FLUTICASONE/VILANTEROL 200-25 MCG/DOSE IH SCH (13:30)
--- NOTE | 2019-02-24 13:58 | PDOC DISCHARGE SUMMARY ---
General - Admit/Disc Date/PCP Admission Date/Primary Care Provider: 02/23/19 00:54 Discharge Date: 02/24/19 - Discharge Diagnosis (1) COPD exacerbation Is this a current diagnosis for this admission?: Yes Summary: Improved; patient with minimal wheezing, comfortable at rest. He is maintaining oxygen saturations while ambulatory on room air without difficulty. Requesting to be discharged home. Patient endorses a history of COPD. He is not on any maintenance inhalers at home secondary to insurance/financial concerns. Patient was admitted to the medical floor on continuous cardiac telemetry. He was provided supplemental oxygen and BiPAP as needed to maintain saturations. He was started on scheduled and as needed nebulizer treatments. He is provided IV Solu-Medrol; have weaned to a prednisone taper. Patient was placed on p.o. doxycycline secondary to COPD exacerbation with productive cough. At time of discharge, patient is in stable condition, maintaining oxygen s aturations while ambulatory on room air, and requesting to be discharged home. He is provided prescriptions for Breo, Ventolin rescue inhaler, doxycycline, guaifenesin, NicoDerm patches, and a prednisone taper. He is instructed to stop smoking. He is advised to follow-up with his primary care provider within 1 week and to return to the emergency department as needed for concerning symptoms. (2) Acute respiratory failure with hypoxia and hypercapnia Is this a current diagnosis for this admission?: Yes Summary: Resolved; now maintaining oxygen saturations in the high 90s while ambulatory on room air. Secondary to #1 (3) Closed rib fracture Is this a current diagnosis for this admission?: Yes Summary: Incidental finding on CXR. OTC Tylenol or Motrin as needed for discomfort. (4) Tobacco use disorder, severe, dependence Is this a current diagnosis for this admission?: Yes Summary: Smoking cessation strongly encouraged. Nicotine replacement therapies provided while admitted. Discharge with prescription for NicoDerm patches. (5) Leukocytosis Is this a current diagnosis for this admission?: Yes Summary: Trending down; patient is afebrile. Likely secondary to steroid therapy. No indications for active infection. - Additional Information Resuscitation Status: Full Code Discharge Diet: Regular Discharge Activity: Activity As Tolerated, Balance Activity w/Rest Prescriptions: Albuterol Sulfate [Ventolin Hfa 8 gm Mdi (1 Mdi/ER Disp)] 2 puff IH Q4HP PRN #1 inhaler PRN Reason: Shortness Of Breath Doxycycline Hyclate [Vibramycin 100 mg Tablet] 100 mg PO Q12 #20 tablet Fluticasone/Vilanterol [Breo 200-25 Mcg Ellipta 14 Dose/Dpi] 1 inh IH DAILY #1 inhaler Guaifenesin [Mucinex Sr 600 mg Tablet.sa] 600 mg PO Q12 #28 tablet.sa Nicotine [Nicoderm 21 mg/24 Hr Transderm Patch] 1 each TD DAILYP PRN #30 patch.td24 PRN Reason: Phenol/Glycerin [Chloraseptic Max [place]] 30 ml MM Q2HP PRN #1 bottle PRN Reason: Sore throat Prednisone [Deltasone 20 mg Tablet] 20 mg PO ASDIR PRN #20 tablet PRN Reason: Home Medications: Ibuprofen 200 mg PO ASDIR PRN 02/23/19 Acetaminophen [Tylenol 325 mg Tablet] 650 mg PO Q4HP PRN tablet 02/24/19 Albuterol Sulfate [Ventolin Hfa 8 gm Mdi (1 Mdi/ER Disp)] 2 puff IH Q4HP PRN #1 inhaler 02/24/19 Docusate Sodium [Colace 100 mg Capsule] 100 mg PO BID capsule 02/24/19 Doxycycline Hyclate [Vibramycin 100 mg Tablet] 100 mg PO Q12 #20 tablet 02/24/19 Fluticasone/Vilanterol [Breo 200-25 Mcg Ellipta 14 Dose/Dpi] 1 inh IH DAILY #1 inhaler 02/24/19 Guaifenesin [Mucinex Sr 600 mg Tablet.sa] 600 mg PO Q12 #28 tablet.sa 02/24/19 Nicotine [Nicoderm 21 mg/24 Hr Transderm Patch] 1 each TD DAILYP PRN #30 patch.td24 02/24/19 Phenol/Glycerin [Chloraseptic Max [place]] 30 ml MM Q2HP PRN #1 bottle 02/24/19 Prednisone [Deltasone 20 mg Tablet] 20 mg PO ASDIR PRN #20 tablet 02/24/19 History of Present Illness History of Present Illness: Per H&P by Dr. Castillo: REJI FERRELL is a 63 year old male who presented to the emergency room with a 5-day history of dyspnea. He admits progressively worseni ng dyspnea over the last 5 days despite therapy. He was seen here in the [facility] ER 2 days prior to this visit and was started on prednisone and an albuterol inhaler. He did continue to smoke (2 packs/day) but complains that his dyspnea is very severe and much worse than at his prior visit. Currently his dyspnea was accompanied by a productive cough (clear phlegm), severe wheezing, diaphoresis and the inability to speak more than 1 or 2 words in a sentence. He acknowledges his current dyspnea became much worse with any activity. He has not identified any additional aggravating or ameliorating factors for his dyspnea. He denies prior similar episodes. In the emergency room he was found to be severely hypoxic as well as hypercapnic with a respiratory acidosis and was placed on BiPAP and treated with intravenous steroids and nebulizer therapy. He showed significant improvement but will need to be hospitalized for further evaluation and treatment. Physical Exam Vital Signs: Temp Pulse Resp BP Pulse Ox 98.1 F 61 16 135/79 H 95 02/24/19 12:45 02/24/19 12:45 02/24/19 12:45 02/24/19 12:45 02/24/19 12:45 Intake & Output 02/23/19 02/24/19 02/25/19 06:59 06:59 06:59 Intake Total 332 2445 980 Output Total 300 800 Balance 32 1645 980 Weight 67.7 kg 67.8 kg General appearance: PRESENT: no acute distress, cooperative, well-developed, well-nourished Head exam: PRESENT: atraumatic, normocephalic Eye exam: PRESENT: conjunctiva pink, EOMI, PERRLA. ABSENT: scleral icterus Ear exam: PRESENT: normal external ear exam Mouth exam: PRESENT: moist, tongue midline Neck exam: ABSENT: carotid bruit, JVD, lymphadenopathy, thyromegaly Respiratory exam: PRESENT: prolonged expiratory phas, symmetrical, unlabored, wheezes - slight expiratory wheeze, other - ambulatory on room air. ABSENT: r ales, rhonchi Cardiovascular exam: PRESENT: RRR, +S1, +S2. ABSENT: diastolic murmur, rubs, systolic murmur Pulses: PRESENT: normal dorsalis pedis pul Vascular exam: PRESENT: normal capillary refill GI/Abdominal exam: PRESENT: normal bowel sounds, soft. ABSENT: distended, guarding, mass, organolmegaly, rebound, tenderness Rectal exam: PRESENT: deferred Extremities exam: PRESENT: full ROM. ABSENT: calf tenderness, clubbing, pedal edema Musculoskeletal exam: PRESENT: ambulatory Neurological exam: PRESENT: alert, awake, oriented to person, oriented to place, oriented to time, oriented to situation, CN II-XII grossly intact. ABSENT: motor sensory deficit Psychiatric exam: PRESENT: appropriate affect, normal mood. ABSENT: homicidal ideation, suicidal ideation Skin exam: PRESENT: dry, intact, warm. ABSENT: cyanosis, rash Results Laboratory Results: 02/24/19 04:16 02/24/19 04:16 02/24/19 02/24/19 02/24/19 04:16 04:16 04:16 WBC 13.5 H RBC 4.09 L Hgb 12.7 L D Hct 37.5 L MCV 92 MCH 31.0 MCHC 33.9 RDW 13.3 Plt Count 296 Sodium 136.5 L Potassium 4.4 Chloride 102 Carbon Dioxide 29 Anion Gap 6 BUN 20 Creatinine 0.74 Est GFR ( Amer) > 60 Est GFR (Non-Af Amer) > 60 Glucose 98 Calcium 9.0 Magnesium 2.2 Triglycerides 83 Cholesterol 126.09 LDL Cholesterol Direct 68 VLDL Cholesterol 17.0 HDL Cholesterol 47 TSH 0.46 L Free T4 1.05 Free T3 pg/mL 3.05 02/22/19 23:06 Troponin I < 0.012 Impressions: Chest X-Ray 02/22/19 23:08 IMPRESSION: Left ninth rib fracture. No other evidence of acute cardiopulmonary disease. Qualifiers - * PATIENT BEING DISCHARGED WITH ANY OF THE FOLLOWING DIAGNOSIS: No Acute Heart Failure - Is this a Heart Failure Patient?: No Plan Discharge Plan: Follow-up with primary care provider within 1 week. Stop smoking. Avoid known triggers (heat/humidity, pollen, dust, pet dander, smoke exposure). Return to the emergency department as needed for concerning symptoms. Time Spent: Greater than 30 Minutes
[2019-02-24] MEDS ORDERED: METHYLPREDNISOLONE INJ 40 MG/1 ML SDV IV SCH (14:00)
[2019-02-24] MEDS ORDERED: ALBUTEROL SULFATE HFA (90 MCG/PUFF) 200 PUFF/8.5 GM MDI IH ONE (14:00)
[2019-02-24 14:47] VITALS: BP 135/79
== END 2019-02-24 15:43 | disposition home or self-care (01) | DRG 190 ==
LOC: ER 22:59 → EH 02-23 00:54 → 4S 02-23 04:05
PROVIDERS: ADMIT Emergency Medicine; ATTEND Emergency Medicine
PROC: 5A09357 Assistance with Respiratory Ventilation, Less than 24 Consecutive Hours, Continuous Positive Airway Pressure (ICD-10-PCS; principal; 2019-02-22)
DX: J44.1 Chronic obstructive pulmonary disease with (acute) exacerbation (principal); J96.01 Acute respiratory failure with hypoxia; J96.02 Acute respiratory failure with hypercapnia; S22.39XA Fracture of one rib, unspecified side, initial encounter for closed fracture; F17.210 Nicotine dependence, cigarettes, uncomplicated; X58.XXXA Exposure to other specified factors, initial encounter; Z59.9 Problem related to housing and economic circumstances, unspecified; Z91.19 Patient's noncompliance with other medical treatment and regimen; Z79.899 Other long term (current) drug therapy
CPT/HCPCS: 36415; 36600; 71045; 80048; 80053; 80061; 82803; 83735; 84439; 84443; 84481; 84484; 85025; 85027; 93005; 93010; 94640; 94660; 96365; 96366; 96375; 99285; J0360; J1644; J2920; J2930; J3475; J3490; J7120; J7620

== ENCOUNTER 2019-02-25 23:56 | Inpatient (IN) | payer SELFPAY ==
[2019-02-26] MEDS ORDERED: IPRATROPIUM/ALBUTEROL 0.5-2.5 MG/3 ML AMPUL NEB ONE
--- NOTE | 2019-02-26 00:02 | ER Document Report ---
ED General - General Stated Complaint: DIFFICULTY BREATHING Time Seen by Provider: 02/26/19 00:00 Notes: Patient is a pleasant 63-year-old male presents with complaint of difficulty breathing and wheezing. Patient was just recently admitted for COPD exacerbation discharged home yesterday. Does not have a primary care doctor. He says he did smoke 2 cigarettes today. Describes the wheezing difficulty breathing which was not improving at home and therefore called 9 months. When EMS arrived he was in respiratory distress I did place him on CPAP. Patient denies any fevers. No other complaints this time. Denies chest pain. TRAVEL OUTSIDE OF THE [place] IN LAST 30 DAYS: No - Related Data Allergies/Adverse Reactions: No Known Allergies Allergy (Verified 02/20/19 09:51) Past Medical History - Social History Smoking Status: Current Every Day Smoker Frequency of alcohol use: None Drug Abuse: None Family History: Reviewed & Not Pertinent - Past Medical History Cardiac Medical History: Denies: Hx Atrial Fibrillation, Hx Congestive Heart Failure, Hx Coronary Artery Disease, Hx Heart Attack, Hx Hypercholesterolemia, Hx Hypertension, Hx Peripheral Vascular Disease Pulmonary Medical History: Reports: Hx Asthma - as child, Hx COPD Denies: Hx Bronchitis, Hx Pneumonia, Hx Intubation, Hx Respiratory Failure, Hx Sleep Apnea Neurological Medical History: Denies: Hx Cerebrovascular Accident, Hx Seizures Endocrine Medical History: Denies: Hx Diabetes Mellitus Type 1, Hx Diabetes Mellitus Type 2, Hx Hyperthyroidism, Hx Hypothyroidism Renal/ Medical History: Denies: Hx Peritoneal Dialysis GI Medical History: Denies: Hx Cirrhosis, Hx Crohn's Disease, Hx Hepatitis, Hx Ulcerative Colitis Musculoskeletal Medical History: Reports Hx Arthritis, Denies Hx Gout Skin Medical History: Denies Hx Eczema, Denies Hx Psoriasis Infectious Medical History: Denies: Hx Hepatitis Past Surgical History: Reports: Hx Appendectomy, Hx Orthopedic Surgery - back, Other - Colonoscopy - Immunizations Hx Diphtheria, Pertussis, Tetanus Vaccination: No Review of Systems - Review of Systems Notes: My Normal Review Basic REVIEW OF SYSTEMS: CONSTITUTIONAL : Denies fever, chills, or sweats. Denies recent illness. EENT: Denies eye, ear, throat, or mouth pain or symptoms. Denies nasal or sin us congestion. CARDIOVASCULAR: Denies chest pain. RESPIRATORY: Difficulty breathing. GASTROINTESTINAL: Denies abdominal pain. Denies nausea, vomiting, or diarrhea. MUSCULOSKELETAL: Denies neck or back pain or joint pain or swelling. SKIN: Denies rash or skin lesions. NEUROLOGICAL: Denies altered mental status or loss of consciousness. Denies headache. Denies weakness or paralysis or loss of use of either side. Denies problems with gait or speech. Denies sensory or motor loss. ALL OTHER SYSTEMS REVIEWED AND NEGATIVE. Physical Exam - Notes Notes: General Appearance: Well nourished, alert, cooperative, moderate acute distress, no obvious discomfort. Vitals: reviewed, See vital signs table. Head: no swelling or tenderness to the head Eyes: PERRL, EOMI, Conjuctiva clear Mouth: No decreasd moisture Neck: Supple, no neck tenderness Lungs: Diffuse wheezing. Fair air exchange. Heart: Normal rate, Regular rythm, No murmur, no rub Abdomen: Normal BS, soft, No rigidity, No abdominal tenderness, No guarding, no rebound, Extremities: strength 5/5 in all extremities, good pulses in all extremities, no edema. Skin: warm, dry, appropriate color, no rash Neuro: speech clear, oriented x 3, normal affect, responds appropriately to questions. Course - Re-evaluation Re-evalutation: 02/26/19 00:01 Patient presents with respiratory distress. Placed on CPAP by the paramedics. Has had one DuoNeb treatment and Solu-Medrol 125 mg IV as well as 2 mg of magnesium. Had some improvement in his distress but still has some obvious distress. He still has diffuse wheezing with some tightness and restriction his air movement. He was recently discharged admits to smoking 2 cigarettes today. I will give him further breathing treatments. We will place him on BiPAP. We will place him on a monitor. We will continue to closely monitor to make sure he is improving. 02/26/19 01:00 On reevaluation patient's difficulty breathing is improving. His distress seems to be resolved on the BiPAP. He still has diffuse wheezing but he has better air movement that he did when he initially arrived. I will order another albuterol treatment for him. - Laboratory Result Diagrams: 02/26/19 00:12 02/26/19 00:12 Laboratory results interpreted by me: 02/26/19 02/26/19 02/26/19 00:12 00:12 00:12 WBC 12.7 H Absolute Neutrophils 9.1 H Glucose 136 H Creatine Kinase 298 H CK-MB (CK-2) 02/26/19 00:12 WBC Absolute Neutrophils Glucose Creatine Kinase CK-MB (CK-2) 5.89 H - EKG Interpretation by Me Additional EKG results interpreted by me: 02/26/19 00:11 EKG is reviewed and interpreted by me. EKG shows sinus rhythm with rate of 87 bpm. There is occasional PACs. [place] interval within normal range. QRS duration is just slightly prolonged. QTc interval is within normal range. No concerning ST segment changes in comparison to old EKG from February 22, 2019. 02/26/19 00:12 Discharge - Discharge Clinical Impression: COPD exacerbation, Tobacco use disorder, severe, dependence Condition: Stable Disposition: ADMITTED OBSERVATION Admitting Provider: Jovi (Hospitalist) Unit Admitted: Telemetry
[2019-02-26 00:24] LABS: VENOUS BLOOD BASE EXCESS 2.7 mmol/L; VENOUS BLOOD HCO3 29.3 mmol/L (20-32); VENOUS BLOOD PCO2 52.7 mmHg (35-63); VENOUS BLOOD PH 7.36 (7.30-7.42)
[2019-02-26 00:28] LABS: ABSOLUTE EOSINOPHILS # (AUTO) 0.6 10^3/uL (0.0-0.6); ABSOLUTE LYMPHOCYTES (AUTO) 2.1 10^3/uL (0.5-4.7); ABSOLUTE NEUT (AUTO) 9.1 10^3/uL (1.7-8.2); BASOPHILS % (AUTO) 0.4 % (0-2); EOSINOPHILS % (AUTO) 4.5 % (0-6); HEMATOCRIT 44.3 % (37.9-51.0); LYMPHOCYTES % (AUTO) 16.2 % (13-45); MEAN CORPUSCULAR HEMOGLOBIN 30.7 pg (27.0-33.4); MEAN CORPUSCULAR HGB CONC 33.4 g/dL (32.0-36.0); MEAN CORPUSCULAR VOLUME 92 fl (80-97); MONOCYTES % (AUTO) 7.8 % (3-13); PLATELET COUNT 336 10^3/uL (150-450); RED BLOOD COUNT 4.83 10^6/uL (4.35-5.55); RED CELL DISTRIBUTION WIDTH 13.7 % (11.5-14.0); SEGMENTED NEUTROPHILS % (AUTO) 71.1 % (42-78); TOTAL CELLS COUNTED % (AUTO) 100 %; WHITE BLOOD COUNT 12.7 10^3/uL (4.0-10.5)
[2019-02-26 00:30] LABS: HEMOGLOBIN 14.8 g/dL (13.5-17.0)
[2019-02-26 00:36] LABS: ANION GAP 9 (5-19); BLOOD UREA NITROGEN 16 mg/dL (7-20); CALCIUM 8.9 mg/dL (8.4-10.2); CARBON DIOXIDE 30 mmol/L (22-30); CHLORIDE 98 mmol/L (98-107); GLUCOSE 136 mg/dL (75-110); POTASSIUM 3.7 mmol/L (3.6-5.0); SODIUM 137.2 mmol/L (137-145)
[2019-02-26] MEDS ORDERED: ALBUTEROL SULFATE 0.083% NEB 2.5 MG/3 ML AMPUL NEB ONE (01:00)
--- NOTE | 2019-02-26 01:19 | RADIOLOGY REPORT (SQ) ---
EXAM DESCRIPTION: XR CHEST 1 VIEW COMPLETED DATE/TME: 02/26/2019 00:00 CLINICAL HISTORY: 63 years Male, dyspnea COMPARISON:Feb 23 2019 NUMBER OF VIEWS/TECHNIQUE: 1/AP FINDINGS: Increased emphysematous lung volume, clear parenchyma, normal cardiac silhouette, and stable left ninth posterior lateral rib deformity. Nuchal soft tissue emphysema. IMPRESSION: 1. Nuchal soft tissue emphysema. 2. Emphysematous hyperinflation.
[2019-02-26] MEDS ORDERED: IPRATROPIUM/ALBUTEROL 0.5-2.5 MG/3 ML AMPUL NEB PRN (02:21)
[2019-02-26] MEDS ORDERED: HYDRALAZINE HCL INJ/PF 20 MG/1 ML SDV IV PRN (02:21)
[2019-02-26] MEDS ORDERED: ACETAMINOPHEN 325 MG TABLET PO PRN (02:21)
[2019-02-26] MEDS ORDERED: GUAIFENESIN SYRP 200 MG/10 ML UDC PO PRN (02:21)
[2019-02-26 02:57] LABS: CREATINE KINASE MB 5.89 ng/mL (<4.55)
[2019-02-26 03:02] LABS: TROPONIN I < 0.012 ng/mL
[2019-02-26] MEDS ORDERED: AZITHROMYCIN INJ 500 MG VIAL IV PRN (03:06)
[2019-02-26] MEDS ORDERED: NICOTINE 21 MG/24 HR PATCH.TD24 TD ONE (03:30)
[2019-02-26] MEDS ORDERED: AZITHROMYCIN 500 MG in DEXTROSE 5%-WATER 250 ML IV ONE (04:00)
--- NOTE | 2019-02-26 04:53 | PDOC H&P ---
History of Present Illness Admission Date/PCP: 02/26/19 02:31 Patient complains of: Shortness of breath History of Present Illness: REJI FERRELL is a 63 year old male with a past medical history of COPD, chronic bronchitis and persistent tobacco abuse. Patient was discharged at his insistence yesterday following an observation of COPD exacerbation. At home he resumed smoking triggering exacerbation of shortness of breath prompting reevaluation the emergency room is found to be in acute respiratory distress. He receives several albuterol, atropine nebulizer treatments, stress dose steroids with suboptimal response. He is referred to the hospitalist for admission. Patient denies chest pain Past Medical History Cardiac Medical History: Denies: Atrial Fibrillation, Congestive Heart Failure, Coronary Artery Dis ease, Myocardial Infarction, Hyperlipidema, Hypertension, Peripheral Vascular Disease Pulmonary Medical History: Reports: Asthma - as child, Chronic Obstructive Pulmonary Disease (COPD) Denies: Bronchitis, Intubation, Pneumonia, Respiratory Failure, Sleep Apnea Neurological Medical History: Denies: Seizures Endocrine Medical History: Denies: Diabetes Mellitus Type 1, Diabetes Mellitus Type 2, Hyperthyroidism, Hypothyroidism GI Medical History: Denies: Cirrhosis, Crohn's Disease, Hepatitis, Ulcerative Colitis Musculoskeltal Medical History: Reports: Arthritis Denies: Gout Skin Medical History: Denies: Eczema, Psoriasis Psychiatric Medical History: Reports: Tobacco Dependency Hematology: Denies: Anemia, Bleeding Tendencies Past Surgical History Past Surgical History: Reports: Appendectomy, Orthopedic Surgery - back, Other - Colonoscopy Social History Information Source: Patient, [facility] Records Smoking Status: Current Every Day Smoker Frequency of Alcohol Use: Occasional Hx Recreational Drug Use: No - denies Drugs: None Hx Prescription Drug Abuse: No Family History Family History: COPD, Hypertension Parental Family History Reviewed: Yes Children Family History Reviewed: Yes Sibling(s) Family History Reviewed.: Yes Medication/Allergy Home Medications: Ibuprofen 200 mg PO ASDIR PRN 02/23/19 Acetaminophen [Tylenol 325 mg Tablet] 650 mg PO Q4HP PRN tablet 02/24/19 Albuterol Sulfate [Ventolin Hfa 8 gm Mdi (1 Mdi/ER Disp)] 2 puff IH Q4HP PRN #1 inhaler 02/24/19 Docusate Sodium [Colace 100 mg Capsule] 100 mg PO BID capsule 02/24/19 Doxycycline Hyclate [Vibramycin 100 mg Tablet] 100 mg PO Q12 #20 tablet 02/24/19 Fluticasone/Vilanterol [Breo 200-25 Mcg Ellipta 14 Dose/Dpi] 1 inh IH DAILY #1 inhaler 02/24/19 Guaifenesin [Mucinex Sr 600 mg Tablet.sa] 600 mg PO Q12 #28 tablet.sa 02/24/19 Nicotine [Nicoderm 21 mg/24 Hr Transderm Patch] 1 each TD DAILYP PRN #30 patch.td24 02/24/19 Phenol/Glycerin [Chloraseptic Max [place]] 30 ml MM Q2HP PRN #1 bottle 02/24/19 Prednisone [Deltasone 20 mg Tablet] 20 mg PO ASDIR PRN #20 tablet 02/24/19 Allergies/Adverse Reactions: No Known Allergies Allergy (Verified 02/20/19 09:51) Review of Systems Constitutional: PRESENT: as per HPI, anorexia, fatigue, weakness. ABSENT: chills, fever(s), headache(s), weight gain, weight loss Eyes: ABSENT: visual disturbances Ears: ABSENT: hearing changes Cardiovascular: PRESENT: dyspnea on exertion. ABSENT: chest pain, edema, orthropnea, palpitations Respiratory: PRESENT: as per HPI, cough, dyspnea. ABSENT: hemoptysis, sputum Gastrointestinal: ABSENT: abdominal pain, constipation, diarrhea, hematemesis, hematochezia, nausea, vomiting Genitourinary: ABSENT: dysuria, hematuria Musculoskeletal: ABSENT: joint swelling Integumentary: ABSENT: rash, wounds Neurological: ABSENT: abnormal gait, abnormal speech, confusion, dizziness, focal weakness, syncope Psychiatric: ABSENT: anxiety, depression, homidical ideation, suicidal ideation Endocrine: ABSENT: cold intolerance, heat intolerance, polydipsia, polyuria Hematologic/Lymphatic: ABSENT: easy bleeding, easy bruising Physical Exam Vital Signs: Temp Pulse Resp BP Pulse Ox 97.8 F 13 133/94 H 99 02/26/19 03:47 02/26/19 04:02 02/26/19 04:02 02/26/19 04:02 Intake & Output 02/24/19 02/25/19 02/26/19 11:59 11:59 11:59 Weight 72.575 kg General appearance: PRESENT: cooperative, severe distress, thin, well-developed, well-nourished Head exam: PRESENT: atraumatic, normocephalic Eye exam: PRESENT: conjunctiva pink, EOMI, PERRLA. ABSENT: scleral icterus Ear exam: PRESENT: normal external ear exam Mouth exam: PRESENT: moist, tongue midline Neck exam: ABSENT: carotid bruit, JVD, lymphadenopathy, thyromegaly Respiratory exam: PRESENT: accessory muscle use, crackles, decreased breath sounds, prolonged expiratory phas, retraction, symmetrical Cardiovascular exam: PRESENT: RRR. ABSENT: diastolic murmur, rubs, systolic murmur Pulses: PRESENT: normal dorsalis pedis pul Vascular exam: PRESENT: normal capillary refill GI/Abdominal exam: PRESENT: normal bowel sounds, soft. ABSENT: distended, guarding, mass, organolmegaly, rebound, tenderness Rectal exam: PRESENT: deferred Extremities exam: PRESENT: full ROM. ABSENT: calf tenderness, clubbing, pedal edema Neurological exam: PRESENT: alert, awake, oriented to person, oriented to place, oriented to time, oriented to situation, CN II-XII grossly intact. ABSENT: motor sensory deficit Psychiatric exam: PRESENT: appropriate affect, normal mood. ABSENT: homicidal ideation, suicidal ideation Skin exam: PRESENT: dry, intact, warm. ABSENT: cyanosis, rash Results Laboratory Results: 02/26/19 00:12 02/26/19 00:12 02/26/19 02/26/19 02/26/19 00:12 00:12 00:12 WBC 12.7 H RBC 4.83 Hgb 14.8 D Hct 44.3 MCV 92 MCH 30.7 MCHC 33.4 RDW 13.7 Plt Count 336 Seg Neutrophils % 71.1 Lymphocytes % 16.2 Monocytes % 7.8 Eosinophils % 4.5 Basophils % 0.4 Absolute Neutrophils 9.1 H Absolute Lymphocytes 2.1 Absolute Monocytes 1.0 Absolute Eosinophils 0.6 Absolute Basophils 0.0 VBG pH 7.36 VBG pCO2 52.7 VBG HCO3 29.3 VBG Base Excess 2.7 Sodium 137.2 Potassium 3.7 Chloride 98 Carbon Dioxide 30 Anion Gap 9 BUN 16 Creatinine 0.77 Est GFR ( Amer) > 60 Est GFR (Non-Af Amer) > 60 Glucose 136 H Calcium 8.9 02/26/19 02/26/19 02/26/19 00:12 00:12 00:12 Creatine Kinase 298 H CK-MB (CK-2) 5.89 H Troponin I < 0.012 NT-Pro-B Natriuret Pep 411 Impressions: Chest X-Ray 02/26/19 00:00 IMPRESSION: 1. Nuchal soft tissue emphysema. 2. Emphysematous hyperinflation. Assessment and Plan - Diagnosis (1) Acute exacerbation of chronic bronchitis Is this a current diagnosis for this admission?: Yes Plan: Prednisone, empiric antibiotics, albuterol and Atrovent, flutter valve and PEEP, follow-up CBC (2) COPD exacerbation Is this a current diagnosis for this admission?: Yes Plan: Please see #1 (3) Tobacco use disorder, severe, dependence Is this a current diagnosis for this admission?: Yes Plan: Tobacco Dependence patient received tobacco cessation counseling and offered nicotine replacement options - Time Time Spent with patient: 25-34 minutes - Inpatient Certification Medical Necessity: Significant Comorbidiites Make Outpatient Treatment Too Risky, Need Close Monitoring Due to Risk of Patient Decompensation
[2019-02-26] MEDS: CHLORPHENIRAMINE MALEATE 4 MG TABLET PO SCH ×3 (05:53→18:50)
[2019-02-26] MEDS: HEPARIN SOD (PORCINE) 5,000 UNIT/ML 1 ML SYRINGE SUBCUT SCH ×3 (05:54→22:01)
[2019-02-26] MEDS: CEFTRIAXONE 1 GM/D5W RTU 1 GM/50 ML RTUPB IV SCH (05:56)
[2019-02-26 06:24] LABS: ABSOLUTE LYMPHOCYTES (AUTO) 0.5 10^3/uL (0.5-4.7); ABSOLUTE MONOCYTES (AUTO) 0.2 10^3/uL (0.1-1.4); ABSOLUTE NEUT (AUTO) 9.4 10^3/uL (1.7-8.2); BASOPHILS % (AUTO) 0.1 % (0-2); EOSINOPHILS % (AUTO) 0.1 % (0-6); HEMATOCRIT 44.3 % (37.9-51.0); HEMOGLOBIN 15.1 g/dL (13.5-17.0); LYMPHOCYTES % (AUTO) 5.1 % (13-45); MEAN CORPUSCULAR HEMOGLOBIN 31.1 pg (27.0-33.4); MEAN CORPUSCULAR VOLUME 92 fl (80-97); MONOCYTES % (AUTO) 1.7 % (3-13); PLATELET COUNT 327 10^3/uL (150-450); RED BLOOD COUNT 4.84 10^6/uL (4.35-5.55); RED CELL DISTRIBUTION WIDTH 13.4 % (11.5-14.0); TOTAL CELLS COUNTED % (AUTO) 100 %; WHITE BLOOD COUNT 10.1 10^3/uL (4.0-10.5)
[2019-02-26 06:33] LABS: ANION GAP 9 (5-19); BLOOD UREA NITROGEN 17 mg/dL (7-20); CALCIUM 9.1 mg/dL (8.4-10.2); CARBON DIOXIDE 31 mmol/L (22-30); CHLORIDE 98 mmol/L (98-107); GLUCOSE 155 mg/dL (75-110); SODIUM 137.7 mmol/L (137-145)
[2019-02-26 06:41] LABS: POTASSIUM 4.8 mmol/L (3.6-5.0)
[2019-02-26 07:07] LABS: CREATINE KINASE MB 4.75 ng/mL (<4.55); TROPONIN I 0.02 ng/mL
[2019-02-26] MEDS: IPRATROPIUM/ALBUTEROL 0.5-2.5 MG/3 ML AMPUL NEB SCH ×2 (08:19→15:41)
[2019-02-26] MEDS: PREDNISONE 20 MG TABLET PO SCH ×2 (09:49→18:50)
[2019-02-26] MEDS: LORAZEPAM INJ 2 MG/1 ML VIAL IV PRN (09:49)
[2019-02-26] MEDS: FLUTICASONE NASAL SPRAY 50 MCG/SPRY 120 SPRAY/16 GM NASL SCH ×2 (10:06→22:00)
[2019-02-26 13:05] LABS: CREATINE KINASE MB 3.2 ng/mL (<4.55); TROPONIN I 0.013 ng/mL
--- NOTE | 2019-02-26 18:32 | EKG REPORT ---
SEVERITY:- ABNORMAL ECG - SINUS RHYTHM MULTIPLE ATRIAL PREMATURE COMPLEXES NONSPECIFIC INTRAVENTRICULAR CONDUCTION DELAY CONSIDER LEFT VENTRICULAR HYPERTROPHY INFERIOR INFARCT, OLD : Confirmed by: Reyes Adame 26-Feb-2019 18:31:35
--- NOTE | 2019-02-26 18:34 | Progress Note ---
Provider Note Provider Note: REJI FERRELL is a 63 year old male with a past medical history of COPD, chronic bronchitis and persistent tobacco abuse who was admitted early this morning by the [employer] for COPD exacerbation. Of note, the patient was discharged seven 10/14 after observational admission for COPD exacerbation. The patient confirms today that he did not fill his prescriptions for prednisone, Mucinex, Breo, or pro-air rescue inhaler. He also reports that he did resume smoking. Patient advises he feels that combination of his tobacco use and high humidity preempted his recurrent COPD exacerbation today. Overnight events, vital signs, laboratory and imaging evaluations reviewed. Agree with the plan of care as established by the previous provider.
[2019-02-26] MEDS: AZITHROMYCIN 500 MG in DEXTROSE 5%-WATER 250 ML IV SCH (22:08)
[2019-02-27] MEDS: CHLORPHENIRAMINE MALEATE 4 MG TABLET PO SCH (00:12)
[2019-02-27] MEDS: IPRATROPIUM/ALBUTEROL 0.5-2.5 MG/3 ML AMPUL NEB SCH ×4 (01:52→20:26)
[2019-02-27] MEDS: HEPARIN SOD (PORCINE) 5,000 UNIT/ML 1 ML SYRINGE SUBCUT SCH ×3 (05:30→21:25)
[2019-02-27] MEDS: CEFTRIAXONE 1 GM/D5W RTU 1 GM/50 ML RTUPB IV SCH (05:31)
[2019-02-27 05:54] LABS: ABSOLUTE EOSINOPHILS # (AUTO) 0.1 10^3/uL (0.0-0.6); ABSOLUTE LYMPHOCYTES (AUTO) 1.4 10^3/uL (0.5-4.7); ABSOLUTE MONOCYTES (AUTO) 0.7 10^3/uL (0.1-1.4); BASOPHILS % (AUTO) 0.2 % (0-2); EOSINOPHILS % (AUTO) 0.9 % (0-6); HEMATOCRIT 40.5 % (37.9-51.0); HEMOGLOBIN 13.7 g/dL (13.5-17.0); LYMPHOCYTES % (AUTO) 12.8 % (13-45); MEAN CORPUSCULAR HEMOGLOBIN 31.1 pg (27.0-33.4); MEAN CORPUSCULAR HGB CONC 33.9 g/dL (32.0-36.0); MEAN CORPUSCULAR VOLUME 92 fl (80-97); MONOCYTES % (AUTO) 6.2 % (3-13); PLATELET COUNT 304 10^3/uL (150-450); RED BLOOD COUNT 4.42 10^6/uL (4.35-5.55); RED CELL DISTRIBUTION WIDTH 13.5 % (11.5-14.0); SEGMENTED NEUTROPHILS % (AUTO) 79.9 % (42-78); TOTAL CELLS COUNTED % (AUTO) 100 %; WHITE BLOOD COUNT 11.3 10^3/uL (4.0-10.5)
[2019-02-27 06:19] LABS: BLOOD UREA NITROGEN 25 mg/dL (7-20); CALCIUM 9.1 mg/dL (8.4-10.2); GLUCOSE 104 mg/dL (75-110); POTASSIUM 4.7 mmol/L (3.6-5.0)
[2019-02-27 06:24] LABS: CARBON DIOXIDE 30 mmol/L (22-30); CHLORIDE 100 mmol/L (98-107)
[2019-02-27 06:26] LABS: ANION GAP 8 (5-19)
[2019-02-27] MEDS ORDERED: LORAZEPAM INJ 2 MG/1 ML VIAL IV ONE (09:14)
[2019-02-27] MEDS ORDERED: METHYLPREDNISOLONE INJ 125 MG/2 ML SDV IV ONE (09:14)
[2019-02-27] MEDS: FLUTICASONE NASAL SPRAY 50 MCG/SPRY 120 SPRAY/16 GM NASL SCH ×2 (09:19→21:26)
[2019-02-27] MEDS: GUAIFENESIN 600 MG TABLET.SA PO SCH ×2 (09:39→21:25)
[2019-02-27 10:04] LABS: ARTERIAL BLOOD BASE EXCESS 5.9 mmol/L; ARTERIAL BLOOD H2CO3 1.57 mmol/L (1.05-1.35); ARTERIAL BLOOD HCO3 32.1 mmol/L (20-24); ARTERIAL BLOOD O2 SATURATION 94.5 % (94-98); ARTERIAL BLOOD PH 7.41 (7.35-7.45); ARTERIAL BLOOD PO2 72.5 mmHg (80-100); ARTERIAL BLOOD TOTAL CO2 33.7 mmol/L (23-27)
[2019-02-27 10:05] LABS: ARTERIAL BLOOD FIO2 30%
[2019-02-27] MEDS: AMLODIPINE BESYLATE 5 MG TABLET PO SCH (11:26)
--- NOTE | 2019-02-27 12:00 | Progress Note Acknowledgement ---
Progress Note Acknowledgement Progess Note Acknowledgement: I, the undersigned member of the medical staff with appropriate privileges and with supervisory authority over Gely Colvin, a [facility] practice allied health professional, acknowledge that I have reviewed the progress notes entered on this patient, and in my professional judgment believe that the assessment made and/or any care evidenced was appropriate
[2019-02-27] MEDS: METHYLPREDNISOLONE INJ 40 MG/1 ML SDV IV SCH ×2 (14:15→21:25)
--- NOTE | 2019-02-27 19:12 | PDOC PROGRESS REPORT ---
Subjective Progress Note for:: 02/27/19 Subjective:: REJI FERRELL is a 63 year old male with a past medical history of COPD, chronic bronchitis and persistent tobacco abuse admitted 02/26/2019 for COPD exacerbation. Patient is seen on morning rounds. He is found sitting high Harrell's in bed on BiPAP with sensory muscle use, retractions, tachypnea, with diminished lung sounds and end expiratory wheezing throughout. Patient is clearly in respiratory distress and worsened from yesterday. He reports productive cough and shortness of breath at rest. He also reports significant anxiety making it difficult for him to tolerate BiPAP. He denies fever, chills, chest pain, palpitations, abdominal pain, nausea vomiting diarrhea. Reason For Visit: COPD EXACERBATION,TOBACCO Physical Exam Vital Signs: Temp Pulse Resp BP Pulse Ox 97.5 F 80 14 150/90 H 95 02/27/19 08:00 02/27/19 08:27 02/27/19 08:27 02/27/19 08:00 02/27/19 08:27 Intake & Output 02/26/19 02/27/19 02/28/19 06:59 06:59 06:59 Intake Total 300 1200 Balance 300 1200 Weight 55.7 kg 55.6 kg General appearance: PRESENT: no acute distress, cooperative, thin, well- developed Head exam: PRESENT: atraumatic, normocephalic Eye exam: PRESENT: conjunctiva pink, EOMI, PERRLA. ABSENT: scleral icterus Ear exam: PRESENT: normal external ear exam Mouth exam: PRESENT: moist, tongue midline Neck exam: ABSENT: carotid bruit, JVD, lymphadenopathy, thyromegaly Respiratory exam: PRESENT: accessory muscle use, decreased breath sounds, prolonged expiratory phas, retraction, rhonchi, symmetrical, tachypnea, wheezes, other - BiPAP. ABSENT: rales Cardiovascular exam: PRESENT: RRR. ABSENT: diastolic murmur, rubs, systolic murmur Pulses: PRESENT: normal dorsalis pedis pul Vascular exam: PRESENT: normal capillary refill GI/Abdominal exam: PRESENT: normal bowel sounds, soft. ABSENT: distended, guarding, mass, organolmegaly, rebound, tenderness Rectal exam: PRESENT: deferred Extremities exam: PRESENT: full ROM. ABSENT: calf tenderness, clubbing, pedal edema Neurological exam: PRESENT: alert, awake, oriented to person, oriented to place, oriented to time, oriented to situation, CN II-XII grossly intact. ABSENT: motor sensory deficit Psychiatric exam: PRESENT: anxious, appropriate affect. ABSENT: homicidal ideation, suicidal ideation Skin exam: PRESENT: dry, intact, warm. ABSENT: cyanosis, rash Results Laboratory Results: 02/27/19 05:12 02/27/19 05:12 02/27/19 02/27/19 02/27/19 05:12 05:12 09:43 WBC 11.3 H RBC 4.42 Hgb 13.7 Hct 40.5 MCV 92 MCH 31.1 MCHC 33.9 RDW 13.5 Plt Count 304 Seg Neutrophils % 79.9 H Lymphocytes % 12.8 L Monocytes % 6.2 Eosinophils % 0.9 Basophils % 0.2 Absolute Neutrophils 9.0 H Absolute Lymphocytes 1.4 Absolute Monocytes 0.7 Absolute Eosinophils 0.1 Absolute Basophils 0.0 Carbonic Acid 1.57 H HCO3/H2CO3 Ratio 20:1 ABG pH 7.41 ABG pCO2 52.0 H ABG pO2 72.5 L ABG HCO3 32.1 H ABG O2 Saturation 94.5 ABG Base Excess 5.9 FiO2 30% Sodium 138.0 Potassium 4.7 Chloride 100 Carbon Dioxide 30 Anion Gap 8 BUN 25 H Creatinine 0.74 Est GFR ( Amer) > 60 Est GFR (Non-Af Amer) > 60 Glucose 104 Calcium 9.1 02/26/19 02/26/19 02/26/19 00:12 00:12 00:12 Creatine Kinase 298 H CK-MB (CK-2) 5.89 H Troponin I < 0.012 NT-Pro-B Natriuret Pep 411 02/26/19 02/26/19 02/26/19 06:11 06:11 12:18 Creatine Kinase 196 H 114 CK-MB (CK-2) 4.75 H Troponin I 0.020 NT-Pro-B Natriuret Pep 02/26/19 12:18 Creatine Kinase CK-MB (CK-2) 3.20 Troponin I 0.013 NT-Pro-B Natriuret Pep Impressions: Chest X-Ray 02/26/19 00:00 IMPRESSION: 1. Nuchal soft tissue emphysema. 2. Emphysematous hyperinflation. Assessment and Plan - Diagnosis (1) COPD exacerbation Is this a current diagnosis for this admission?: Yes Plan: Patient is upgraded to IMCU. He is provided supplemental oxygen and BiPAP as needed to maintain saturations >89% IV Solu-Medrol 125 mg now followed by 40 mg every 8 hours. Scheduled and as needed nebulizer treatments; increased frequency today. Continue empiric IV azithromycin and ceftriaxone for empiric treatment of acute bronchitis Start Mucomyst nebs twice daily. Mucinex twice daily. Incentive spirometer and flutter valve when off BiPAP. (2) Acute on chronic respiratory failure with hypoxia and hypercapnia Is this a current diagnosis for this admission?: Yes Plan: Secondary to COPD exacerbation. Management as above. (3) Hypertension Is this a current diagnosis for this admission?: Yes Plan: Cardiac diet Start amlodipine 5 mg daily IV hydralazine as needed for blood pressure control. (4) Tobacco use disorder, severe, dependence Is this a current diagnosis for this admission?: Yes Plan: Smoking cessation encouraged, nicotine or placement therapies provided. - Time Time Spent with patient: 35 or more minutes Smoking Cessation Education: 3 to 10 minutes Medications reviewed and adjusted accordingly: Yes Anticipated discharge: Home Within: within 72 hours - Inpatient Certification Based on my medical assessment, after consideration of the patient's comorbidities, presenting symptoms, or acuity I expect that the services needed warrant INPATIENT care.: Yes I certify that my determination is in accordance with my understanding of Medicare's requirements for reasonable and necessary INPATIENT services [42 CFR 412.3e].: Yes Medical Necessity: Need Close Monitoring Due to Risk of Patient Decompensation, Need For Continuous Telemetry Monitoring, Need for Nebulizer Therapy and Monitoring of Response, Risk of Complication if Not Cared For in Hospital
[2019-02-27] MEDS: LORAZEPAM INJ 2 MG/1 ML VIAL IV PRN (19:57)
[2019-02-27] MEDS: ACETYLCYSTEINE 20% SOLN 800 MG/4 ML VIAL.NEB NEB SCH (20:26)
[2019-02-27] MEDS: NICOTINE 21 MG/24 HR PATCH.TD24 TD SCH (21:24)
[2019-02-27] MEDS: AZITHROMYCIN 500 MG in DEXTROSE 5%-WATER 250 ML IV SCH (21:25)
[2019-02-28] MEDS: IPRATROPIUM/ALBUTEROL 0.5-2.5 MG/3 ML AMPUL NEB SCH ×4 (02:20→20:12)
[2019-02-28 04:43] LABS: HEMATOCRIT 39.9 % (37.9-51.0); HEMOGLOBIN 13.4 g/dL (13.5-17.0); MEAN CORPUSCULAR HEMOGLOBIN 30.9 pg (27.0-33.4); MEAN CORPUSCULAR HGB CONC 33.5 g/dL (32.0-36.0); MEAN CORPUSCULAR VOLUME 92 fl (80-97); PLATELET COUNT 313 10^3/uL (150-450); RED BLOOD COUNT 4.33 10^6/uL (4.35-5.55); RED CELL DISTRIBUTION WIDTH 13.2 % (11.5-14.0); WHITE BLOOD COUNT 15.8 10^3/uL (4.0-10.5)
[2019-02-28] MEDS: HEPARIN SOD (PORCINE) 5,000 UNIT/ML 1 ML SYRINGE SUBCUT SCH ×3 (05:33→21:07)
[2019-02-28] MEDS: METHYLPREDNISOLONE INJ 40 MG/1 ML SDV IV SCH ×3 (05:34→21:04)
[2019-02-28] MEDS: CEFTRIAXONE SODIUM 1,000 MG in DEXTROSE 5%-WATER 50 ML IV SCH (05:36)
[2019-02-28] MEDS: LORAZEPAM INJ 2 MG/1 ML VIAL IV PRN ×2 (07:39→18:24)
[2019-02-28] MEDS: ACETYLCYSTEINE 20% SOLN 800 MG/4 ML VIAL.NEB NEB SCH ×2 (07:48→20:12)
[2019-02-28] MEDS: NICOTINE 21 MG/24 HR PATCH.TD24 TD SCH (10:34)
[2019-02-28] MEDS: FLUTICASONE NASAL SPRAY 50 MCG/SPRY 120 SPRAY/16 GM NASL SCH ×2 (10:35→21:03)
[2019-02-28] MEDS: GUAIFENESIN 600 MG TABLET.SA PO SCH ×2 (10:35→21:04)
[2019-02-28] MEDS: AMLODIPINE BESYLATE 5 MG TABLET PO SCH (10:35)
[2019-02-28] MEDS: BUSPIRONE HCL 10 MG TABLET PO SCH ×2 (13:10→21:04)
--- NOTE | 2019-02-28 14:16 | PDOC PROGRESS REPORT ---
Subjective Progress Note for:: 02/28/19 Subjective:: REJI FERRELL is a 63 year old male with a past medical history of COPD, chronic bronchitis and persistent tobacco abuse admitted 02/26/2019 for COPD exacerbation. Patient is seen on morning rounds. He is found resting in bed comfortably on supplemental oxygen via NC. He is noted to be tachypnic w/ shallow respirations and accessory muscle use. He does appear to be more comfortable than yesterday and is speaking in full sentences. He reports increased sputum after addition of mucomist nebulizer. He additionally reports anxiety/ptsd symptoms; requests medications to assist w/ management of symptoms. Otherwise, he states that he is feeling better and is requesting to be discharged. He denies fever, chills, chest pain, palpitations, orthopnea, abdominal pain, nausea and vomiting. He has no other questions or concerns. No concerns per nursing. Reason For Visit: ACUTE ON CHRONIC RESPIRATORY FAILURE WITH HYPOXIA Physical Exam Vital Signs: Temp Pulse Resp BP Pulse Ox 97.8 F 89 18 149/91 H 96 02/28/19 08:03 02/28/19 08:03 02/28/19 10:45 02/28/19 08:03 02/28/19 10:45 Intake & Output 02/27/19 02/28/19 03/01/19 06:59 06:59 06:59 Intake Total 1200 240 300 Output Total 525 Balance 1200 -285 300 Weight 55.6 kg 65.8 kg General appearance: PRESENT: no acute distress, well-developed, well-nourished Head exam: PRESENT: atraumatic, normocephalic Eye exam: PRESENT: conjunctiva pink, EOMI, PERRLA. ABSENT: scleral icterus Ear exam: PRESENT: normal external ear exam Mouth exam: PRESENT: moist, tongue midline Neck exam: ABSENT: carotid bruit, JVD, lymphadenopathy, thyromegaly Respiratory exam: PRESENT: accessory muscle use, prolonged expiratory phas, rhonchi, symmetrical, tachypnea, other - supplemental oxygen via NC. ABSENT: rales, wheezes Cardiovascular exam: PRESENT: RRR. ABSENT: diastolic murmur, rubs, systolic murmur Pulses: PRESENT: normal dorsalis pedis pul Vascular exam: PRESENT: normal capillary refill GI/Abdominal exam: PRESENT: normal bowel sounds, soft. ABSENT: distended, guarding, mass, organolmegaly, rebound, tenderness Rectal exam: PRESENT: deferred Extremities exam: PRESENT: full ROM. ABSENT: calf tenderness, clubbing, pedal edema Neurological exam: PRESENT: alert, awake, oriented to person, oriented to place, oriented to time, oriented to situation, CN II-XII grossly intact. ABSENT: motor sensory deficit Psychiatric exam: PRESENT: appropriate affect, normal mood. ABSENT: homicidal ideation, suicidal ideation Skin exam: PRESENT: dry, intact, warm. ABSENT: cyanosis, rash Results Laboratory Results: 02/28/19 03:56 02/27/19 05:12 02/28/19 03:56 WBC 15.8 H RBC 4.33 L Hgb 13.4 L Hct 39.9 MCV 92 MCH 30.9 MCHC 33.5 RDW 13.2 Plt Count 313 02/26/19 02/26/19 02/26/19 00:12 00:12 00:12 Creatine Kinase 298 H CK-MB (CK-2) 5.89 H Troponin I < 0.012 NT-Pro-B Natriuret Pep 411 02/26/19 02/26/19 02/26/19 06:11 06:11 12:18 Creatine Kinase 196 H 114 CK-MB (CK-2) 4.75 H Troponin I 0.020 NT-Pro-B Natriuret Pep 02/26/19 12:18 Creatine Kinase CK-MB (CK-2) 3.20 Troponin I 0.013 NT-Pro-B Natriuret Pep Impressions: Chest X-Ray 02/26/19 00:00 IMPRESSION: 1. Nuchal soft tissue emphysema. 2. Emphysematous hyperinflation. Assessment and Plan - Diagnosis (1) COPD exacerbation Is this a current diagnosis for this admission?: Yes Plan: Patient is admitted to [facility]. He is provided supplemental oxygen and BiPAP as needed IV Solu-Medrol 40 mg every 8 hours. Scheduled and as needed nebulizer treatments Continue empiric IV azithromycin and ceftriaxone for empiric treatment of acute bronchitis Start Mucomyst nebs twice daily. Mucinex twice daily. Incentive spirometer and flutter valve (2) Acute on chronic respiratory failure with hypoxia and hypercapnia Is this a current diagnosis for this admission?: Yes Plan: Secondary to COPD exacerbation. Management as above. (3) Hypertension Is this a current diagnosis for this admission?: Yes Plan: Improved. Cardiac diet Continue amlodipine 5 mg daily IV hydralazine as needed for blood pressure control. (4) Tobacco use disorder, severe, dependence Is this a current diagnosis for this admission?: Yes Plan: Smoking cessation encouraged, nicotine or placement therapies provided. (5) PTSD (post-traumatic stress disorder) Is this a current diagnosis for this admission?: Yes Plan: Start Celexa daily and BuSPAR twice daily. As needed ativan. - Time Time Spent with patient: 25-34 minutes Medications reviewed and adjusted accordingly: Yes Anticipated discharge: Home Within: within 48 hours
[2019-02-28] MEDS: AZITHROMYCIN 500 MG in DEXTROSE 5%-WATER 250 ML IV SCH (21:06)
[2019-02-28] MEDS ORDERED: CITALOPRAM HYDROBROMIDE 20 MG TABLET PO SCH (22:00)
[2019-03-01] MEDS: IPRATROPIUM/ALBUTEROL 0.5-2.5 MG/3 ML AMPUL NEB SCH ×3 (02:31→13:46)
[2019-03-01] MEDS: METHYLPREDNISOLONE INJ 40 MG/1 ML SDV IV SCH ×2 (05:26→13:26)
[2019-03-01] MEDS: CEFTRIAXONE SODIUM 1,000 MG in DEXTROSE 5%-WATER 50 ML IV SCH (05:26)
[2019-03-01] MEDS: HEPARIN SOD (PORCINE) 5,000 UNIT/ML 1 ML SYRINGE SUBCUT SCH ×2 (05:27→13:21)
[2019-03-01 05:44] LABS: HEMATOCRIT 38.7 % (37.9-51.0); HEMOGLOBIN 13.1 g/dL (13.5-17.0); MEAN CORPUSCULAR HEMOGLOBIN 30.8 pg (27.0-33.4); MEAN CORPUSCULAR HGB CONC 33.8 g/dL (32.0-36.0); MEAN CORPUSCULAR VOLUME 91 fl (80-97); PLATELET COUNT 297 10^3/uL (150-450); RED BLOOD COUNT 4.25 10^6/uL (4.35-5.55); RED CELL DISTRIBUTION WIDTH 13.7 % (11.5-14.0); WHITE BLOOD COUNT 16.3 10^3/uL (4.0-10.5)
[2019-03-01 06:12] LABS: ANION GAP 6 (5-19); BLOOD UREA NITROGEN 18 mg/dL (7-20); CALCIUM 9.1 mg/dL (8.4-10.2); CARBON DIOXIDE 33 mmol/L (22-30); CHLORIDE 97 mmol/L (98-107); GLUCOSE 117 mg/dL (75-110); SODIUM 136.2 mmol/L (137-145)
[2019-03-01] MEDS: ACETYLCYSTEINE 20% SOLN 800 MG/4 ML VIAL.NEB NEB SCH (07:30)
[2019-03-01] MEDS: LORAZEPAM INJ 2 MG/1 ML VIAL IV PRN (08:12)
[2019-03-01] MEDS: GUAIFENESIN 600 MG TABLET.SA PO SCH (09:38)
[2019-03-01] MEDS: NICOTINE 21 MG/24 HR PATCH.TD24 TD SCH (09:39)
[2019-03-01] MEDS: AMLODIPINE BESYLATE 5 MG TABLET PO SCH (09:39)
[2019-03-01] MEDS: FLUTICASONE NASAL SPRAY 50 MCG/SPRY 120 SPRAY/16 GM NASL SCH (09:39)
[2019-03-01] MEDS: BUSPIRONE HCL 10 MG TABLET PO SCH (09:39)
[2019-03-01 12:02] VITALS: BP 149/95
--- NOTE | 2019-03-01 12:38 | PDOC PROGRESS REPORT ---
Subjective Progress Note for:: 03/01/19 Subjective:: REJI FERRELL is a 63 year old male with a past medical history of COPD, chronic bronchitis and persistent tobacco abuse admitted 02/26/2019 for COPD exacerbation. Patient is seen on morning rounds. He is found resting in bed comfortably on supplemental oxygen via NC. He icontinues to have accessory muscle use and retractions. Speaking 4-5 word senteces; though w/ frequent pauses to catch breath. He does appear to be more comfortable than yesterday. Continues to have a hoarse/raspy voice. Again asks to be discharged. He denies fever, chills, chest pain, palpitations, orthopnea, abdominal pain, nausea and vomiting. He has no other questions or concerns. No concerns per nursing. Reason For Visit: ACUTE ON CHRONIC RESPIRATORY FAILURE WITH HYPOXIA Physical Exam Vital Signs: Temp Pulse Resp BP Pulse Ox 98.0 F 80 18 149/95 H 100 03/01/19 11:10 03/01/19 11:10 03/01/19 11:10 03/01/19 11:10 03/01/19 11:10 Intake & Output 02/28/19 03/01/19 03/02/19 06:59 06:59 06:59 Intake Total 240 1970 50 Output Total 525 625 Balance -285 1345 50 Weight 65.8 kg 67.7 kg General appearance: PRESENT: no acute distress, thin, well-developed, well- nourished Head exam: PRESENT: atraumatic, normocephalic Eye exam: PRESENT: conjunctiva pink, EOMI, PERRLA. ABSENT: scleral icterus Ear exam: PRESENT: normal external ear exam Mouth exam: PRESENT: moist, tongue midline Teeth exam: PRESENT: poor dentation Neck exam: ABSENT: carotid bruit, JVD, lymphadenopathy, thyromegaly Respiratory exam: PRESENT: accessory muscle use, decreased breath sounds - throughout; tight, prolonged expiratory phas, retraction, rhonchi, symmetrical, wheezes, other - supplemental oxygen. Hoase/raspy voice; not classic stridor. ABSENT: rales Cardiovascular exam: PRESENT: RRR, +S1, +S2. ABSENT: diastolic murmur, rubs, systolic murmur Pulses: PRESENT: normal dorsalis pedis pul Vascular exam: PRESENT: normal capillary refill GI/Abdominal exam: PRESENT: normal bowel sounds, soft. ABSENT: distended, guarding, mass, organolmegaly, rebound, tenderness Rectal exam: PRESENT: deferred Extremities exam: PRESENT: full ROM. ABSENT: calf tenderness, clubbing, pedal edema Musculoskeletal exam: PRESENT: ambulatory Neurological exam: PRESENT: alert, awake, oriented to person, oriented to place, oriented to time, oriented to situation, CN II-XII grossly intact. ABSENT: motor sensory deficit Psychiatric exam: PRESENT: appropriate affect, normal mood. ABSENT: homicidal ideation, suicidal ideation Skin exam: PRESENT: dry, intact, warm. ABSENT: cyanosis, rash Results Laboratory Results: 03/01/19 05:32 03/01/19 05:32 03/01/19 03/01/19 05:32 05:32 WBC 16.3 H RBC 4.25 L Hgb 13.1 L Hct 38.7 MCV 91 MCH 30.8 MCHC 33.8 RDW 13.7 Plt Count 297 Sodium 136.2 L Potassium 5.0 Chloride 97 L Carbon Dioxide 33 H Anion Gap 6 BUN 18 Creatinine 0.67 Est GFR ( Amer) > 60 Est GFR (Non-Af Amer) > 60 Glucose 117 H Calcium 9.1 02/26/19 02/26/19 02/26/19 00:12 00:12 00:12 Creatine Kinase 298 H CK-MB (CK-2) 5.89 H Troponin I < 0.012 NT-Pro-B Natriuret Pep 411 02/26/19 02/26/19 02/26/19 06:11 06:11 12:18 Creatine Kinase 196 H 114 CK-MB (CK-2) 4.75 H Troponin I 0.020 NT-Pro-B Natriuret Pep 02/26/19 12:18 Creatine Kinase CK-MB (CK-2) 3.20 Troponin I 0.013 NT-Pro-B Natriuret Pep Impressions: Chest X-Ray 02/26/19 00:00 IMPRESSION: 1. Nuchal soft tissue emphysema. 2. Emphysematous hyperinflation. Assessment and Plan - Diagnosis (1) COPD exacerbation Is this a current diagnosis for this admission?: Yes Plan: Unchanged; continues to be oxygen/BiPAP dependent with accessory muscle use and retractions. (+) rhonchi and wheezing Patient is admitted to [facility]. He is provided supplemental oxygen and BiPAP as needed IV Solu-Medrol 40 mg every 8 hours. Scheduled and as needed nebulizer treatments Continue empiric IV azithromycin and ceftriaxone for empiric treatment of acute bronchitis Continue Mucomyst nebs twice daily. Start Daliresp and Singulair Mucinex twice daily. Incentive spirometer and flutter valve Plan for Pulmonology consultation tomorrow. (2) Acute on chronic respiratory failure with hypoxia and hypercapnia Is this a current diagnosis for this admission?: Yes Plan: Secondary to COPD exacerbation. Management as above. (3) Hypertension Is this a current diagnosis for this admission?: Yes Plan: Improved. Cardiac diet Continue amlodipine 5 mg daily IV hydralazine as needed for blood pressure control. (4) Tobacco use disorder, severe, dependence Is this a current diagnosis for this admission?: Yes Plan: Smoking cessation encouraged, nicotine or placement therapies provided. (5) PTSD (post-traumatic stress disorder) Is this a current diagnosis for this admission?: Yes Plan: Start Celexa daily and BuSPAR twice daily. As needed ativan. (6) Laryngitis Is this a current diagnosis for this admission?: Yes Plan: Patient with hoarse, raspy voice; no stridor. Patient reports symptoms have been present for 2 to 3 weeks; they were noted during his previous admission on 02/23. Patient has been receiving steroid therapy (for COPD exacerbation) since that time without improvement. History of heavy tobacco use. Will obtain Soft Tissue CT w/ contrast. Consider ENT consultation. - Time Time Spent with patient: 25-34 minutes Medications reviewed and adjusted accordingly: Yes Anticipated discharge: Home
--- NOTE | 2019-03-01 13:06 | RADIOLOGY REPORT (SQ) ---
EXAM DESCRIPTION: CT SOFT TISSUE NECK WITH COMPLETED DATE/TIME: 03/01/2019 12:49 pm REASON FOR STUDY: stridor COMPARISON: Chest films 02/26/2019 TECHNIQUE: Post IV contrasted scanning from skull base through lung apices with review of bone, soft tissue and lung windows. Reconstructed coronal and sagittal MPR images reviewed. All images stored on PACS. All CT scanners at this facility use dose modulation, iterative reconstruction, and/or weight based d osing when appropriate to reduce radiation dose to as low as reasonably achievable (ALARA). [facility]: Dose Right [facility]: CareDose [facility]: Dose Right [facility]: Teradose 4D [facility]: Everypost CONTRAST TYPE AND DOSE: contrast/concentration: Isovue mg/ml; Total Contrast Delivered: 0.0 ml; Tot al Saline Delivered: 20.0 ml RENAL FUNCTION: Creatinine 0.7 RADIATION DOSE: 18 mGy . LIMITATIONS: None. FINDINGS: There is a tumor in the immediate subglottic airway 2.5 cm craniocaudad by 2.5 cm AP by 2 cm transverse. On axial image 66, greater than 75% airway narrowing is present. This is also seen o wn coronal image 16 and sagittal image 25. This report was called as a critical finding to Gely mcclendon COURT REPORTER. Just lateral to the larynx, a 3.7 x 4.7 x 3 cm malignant lymph node is present occluding the left jug ular vein and displacing the left common carotid artery ventrally. Remainder of the airway is patent. No other neck masses or adenopathy. SKULL BASE: Inferior brain parenchyma unremarkable MAJOR SALIVARY GLANDS: No solid or cystic masses. No inflammatory changes. LYMPHADENOPATHY: Malignant left carotid space lymph node MUCOSAL MASSES OR ASYMMETRY: Subglottic airway tumor as above LARYNX/CORDS: Subglottic airway tumor as above VASCULAR STRUCTURES: Occluded left IJ by malignant lymph nodes LUNG APICES: Obstructive lung disease BONES: Multilevel degenerative disc changes in the cervical spine THYROID: Old left lobe thyroidectomy. Right lobe thyroid unremarkable PARANASAL SINUSES: Clear. OTHER: No other significant finding. IMPRESSION: Greater than 75% diameter in subglottic airway narrowing is present due to an endobronch ial tumor 2.5 x 2.5 x 2 cm in size. Left cervical lymph node immediately adjacent to the airway tumor, occluding the left jugular vein an d displacing the left common carotid artery ventrally. COMMENT: Pertinent findings on the imaging study reported as a CRITICAL RESULT to GELY Hu at13:00 on 03/01/2019. Category of Critical Result: Significant Subglottic airway narrowing TECHNICAL DOCUMENTATION: JOB ID: [id number] Quality ID # [id number]: Final reports with documentation of one or more dose reduction techniques (e.g., Au tomated exposure control, adjustment of the mA and/or kV according to patient size, use of iterative reconstruction technique) 2010 [employer]- All Rights Reserved Reading location - IP/workstation name: [email or web address]
[2019-03-01] MEDS ORDERED: LORAZEPAM INJ 2 MG/1 ML VIAL IV PRN (13:56)
--- NOTE | 2019-03-01 14:37 | PDOC TRANSFER SUMMARY ---
General Admission Date/PCP: 02/27/19 19:12 Admission Date: 02/26/19 Transfer Date: 03/01/19 Accepting Facility: [facility] Accepting Physician: Dr. Norman Resuscitation Status: Full Code - Transfer Diagnosis (1) Subglottic stenosis Is this a current diagnosis for this admission?: Yes Diagnosis Summary: Patient with hoarse, raspy voice; no stridor. Patient reports symptoms have been present for 2 to 3 weeks; they were noted during his previous admission on 02/23. Has been receiving steroid therapy (for COPD exacerbation) since that time without improvement. History of heavy tobacco use. CT Soft Tissue Neck w/ contrast demonstrated an Endobronchial mass measuring 2.5 x 2.5 x 2 cm in size with associated left cervical lymphadenopathy. Unfortunately, ENT services are not available at our facility until mid week. Spoke with anesthesiologist, Dr. Quiñonez, who recommended immediate transfer to tertiary care center for further evaluation and airway management. [facility] was contacted. Dr. Norman, energy conservation technician, has graciously agreed to accept this patient for continued care. (2) Endobronchial mass Is this a current diagnosis for this admission?: Yes Diagnosis Summary: CT Soft Tissue Neck w/ contrast demonstrates an Endobronchial mass measuring 2.5 x 2.5 x 2 cm in size with associated left cervical lymphadenopathy. Unfortunately, ENT services are not available at our facility until mid week. Therefore, [facility] was contacted; Dr. Norman has graciously agreed to accept this patient for continued care.cted to arrange transfer. (3) COPD exacerbation Is this a current diagnosis for this admission?: Yes Diagnosis Summary: Unchanged; continues to be oxygen/BiPAP dependent with accessory muscle use and retractions. (+) rhonchi and wheezing ABG (02/27/19 on BiPAP 12/6/30%) revealed 7.41/52/72.5/32.1 Patient was admitted to [facility] and supported with oxygen and BiPAP. He has been provided IV Solu-Medrol 40 mg every 8 hours and scheduled and as needed nebulizer treatments (Duoneb, Mucomyst, and Albuterol). He was empirically placed on IV azithromycin and ceftriaxone for empiric treatment of acute bronchitis; he does have a slightly productive cough but has remained afebrile and leukocytosis is likely secondary to escalation of steroid use. As the patient did not appear to be clinically improving and continues to have a hoarse raspy voice (reportedly present for 2 to 3 weeks following URI) and patient with history of heavy tobacco use a soft tissue CT with contrast was obtained today demonstrating subglottic airway narrowing >75% r/t endobronchial tumor. (4) Acute respiratory failure with hypoxia and hypercapnia Is this a current diagnosis for this admission?: Yes Diagnosis Summary: Secondary to #1-2 Evaluation and management as above. (5) Hypertension Is this a current diagnosis for this admission?: Yes Diagnosis Summary: Improved following initiation of amlodipine 5 mg daily. (6) Tobacco use disorder, severe, dependence Is this a current diagnosis for this admission?: Yes (7) PTSD (post-traumatic stress disorder) Is this a current diagnosis for this admission?: Yes Diagnosis Summary: Started on Celexa and BuSPAR this admission. Have been providing IV ativan 0.5 mg q6h prn anxiety/panic attack. (8) Laryngitis Is this a current diagnosis for this admission?: Yes Diagnosis Summary: Secondary to subglottic airway narrowing r/t endobronchial tumor. - Transfer Medications Home Medications: Ibuprofen [Advil] 200 mg PO ASDIR PRN 02/26/19 Transfer Medications: Current Medications Acetaminophen (Tylenol 325 Mg Tablet) 650 mg PO Q4HP PRN PRN Reason: pain or temp greater than 101F Stop: 03/28/19 02:20 Acetylcysteine (Mucomist 20% Soln 800 Mg/4 Ml) 600 mg NEB RTBID ANA Stop: 03/29/19 19:59 Last Admin: 03/01/19 07:30 Dose: 600 mg Documented by: Albuterol/Ipratropium (Duoneb 3 Ml Ampul) 3 ml NEB [id number] PRN PRN Reason: SHORTNESS OF BREATH Stop: 03/28/19 02:20 Albuterol/Ipratropium (Duoneb 3 Ml Ampul) 3 ml NEB RTQ6 ANA Stop: 03/29/19 13:59 Last Admin: 03/01/19 13:46 Dose: Not Given Documented by: Amlodipine Besylate (Norvasc 5 Mg Tablet) 5 mg PO DAILY [facility] Stop: 03/29/19 10:14 Last Admin: 03/01/19 09:39 Dose: 5 mg Documented by: Buspirone HCl (Buspar 10 Mg Tablet) 10 mg PO Q12 [facility] Stop: 03/30/19 11:59 Last Admin: 03/01/19 09:39 Dose: 10 mg Documented by: Citalopram Hydrobromide (Celexa 20 Mg Tablet) 20 mg PO QHS [facility] Stop: 03/30/19 21:59 Last Admin: 02/28/19 21:04 Dose: 20 mg Documented by: Fluticasone Propionate (Flonase Nasal [place] 50 Mcg/[place] 16 Gm) 2 spray NASL Q12 [facility] Stop: 03/28/19 09:59 Last Admin: 03/01/19 09:39 Dose: 2 spr Documented by: Guaifenesin (Robitussin Syrup 200 Mg/10 Ml Ud Cup) 200 mg PO Q4HP PRN PRN Reason: COUGH Stop: 03/28/19 02:20 Guaifenesin (Mucinex Sr 600 Mg Tablet.Sa) 1,200 mg PO Q12 [facility] Stop: 03/29/19 09:59 Last Admin: 03/01/19 09:38 Dose: 1,200 mg Documented by: Heparin Sodium (Porcine) (Heparin Inj 5,000 Units/Ml 1 Ml Syringe) 5,000 unit SUBCUT Q8 [facility] Stop: 03/28/19 05:59 Last Admin: 03/01/19 13:21 Dose: Not Given Documented by: Hydralazine HCl (Apresoline Inj/Pf 20 Mg/1 Ml Sdv) 10 mg IV Q6HP PRN PRN Reason: Sbp>160 Stop: 03/28/19 02:20 Azithromycin 500 mg/ Dextrose 250 mls @ 250 mls/hr IV QHS [facility] Stop: 03/05/19 21:59 Last Infusion: 02/28/19 22:06 Dose: Infused Documented by: Ceftriaxone Sodium 1,000 mg/ (Dextrose) 50 mls @ 100 mls/hr IV Q6AM [facility] Stop: 03/05/19 05:59 Last Infusion: 03/01/19 08:56 Dose: Infused Documented by: Lorazepam (Ativan Inj 2 Mg/1 Ml Vial) 0.5 mg IV Q6HP PRN PRN Reason: ANXIETY/AGITATION Stop: 03/08/19 13:55 Methylprednisolone Sodium Succinate (Solu-Medrol Inj/Pf 40 Mg/1 Ml Sdv) 40 mg IV Q8 [facility] Stop: 03/29/19 13:59 Last Admin: 03/01/19 13:26 Dose: 40 mg Documented by: Montelukast Sodium (Singulair 10 Mg Tablet) 10 mg PO QHS ANA Stop: 03/31/19 21:59 Nicotine (Nicoderm 21 Mg/24 Hr Transderm Patch) 1 each TD DAILY ANA Stop: 03/29/19 20:29 Last Admin: 03/01/19 09:39 Dose: 1 each Documented by: Roflumilast (Daliresp 500 Mcg Tablet) 500 mcg PO DAILY ANA Stop: 04/01/19 09:59 Sodium Chloride (Saline Flush 2.5 Ml Monoject Prefil Syrin) 2.5 ml IV Q8 ANA Stop: 03/28/19 05:59 Last Admin: 03/01/19 13:26 Dose: 2.5 ml Documented by: - Allergies Allergies/Adverse Reactions: No Known Allergies Allergy (Verified 02/20/19 09:51) - Diet/Activity Discharge Diet: Other (Comments) - NPO; last p.o. intake 1400 Physical Exam Vital Signs: Temp Pulse Resp BP Pulse Ox 98.0 F 80 18 149/95 H 100 03/01/19 11:10 03/01/19 11:10 03/01/19 11:10 03/01/19 11:10 03/01/19 11:10 Intake & Output 02/28/19 03/01/19 03/02/19 06:59 06:59 06:59 Intake Total 240 1970 50 Output Total 525 625 Balance -285 1345 50 Weight 65.8 kg 67.7 kg General appearance: PRESENT: no acute distress, cooperative, mild distress, thin, well-developed Head exam: PRESENT: atraumatic, normocephalic Eye exam: PRESENT: conjunctiva pink, EOMI, PERRLA. ABSENT: scleral icterus Ear exam: PRESENT: normal external ear exam Mouth exam: PRESENT: moist, tongue midline Neck exam: ABSENT: carotid bruit, JVD, lymphadenopathy, thyromegaly Respiratory exam: PRESENT: decreased breath sounds - throughout, prolonged expiratory phas, retraction, symmetrical, tachypnea, wheezes. ABSENT: rales, rhonchi Cardiovascular exam: PRESENT: RRR, +S1, +S2. ABSENT: diastolic murmur, rubs, systolic murmur Pulses: PRESENT: normal dorsalis pedis pul Vascular exam: PRESENT: normal capillary refill GI/Abdominal exam: PRESENT: normal bowel sounds, soft. ABSENT: distended, guarding, mass, organolmegaly, rebound, tenderness Rectal exam: PRESENT: deferred Extremities exam: PRESENT: full ROM. ABSENT: calf tenderness, clubbing, pedal edema Neurological exam: PRESENT: alert, awake, oriented to person, oriented to place, oriented to time, oriented to situation, CN II-XII grossly intact. ABSENT: motor sensory deficit Psychiatric exam: PRESENT: anxious, appropriate affect. ABSENT: homicidal ideation, suicidal ideation Skin exam: PRESENT: dry, intact, warm. ABSENT: cyanosis, rash Results Laboratory Results: 03/01/19 05:32 03/01/19 05:32 03/01/19 03/01/19 05:32 05:32 WBC 16.3 H RBC 4.25 L Hgb 13.1 L Hct 38.7 MCV 91 MCH 30.8 MCHC 33.8 RDW 13.7 Plt Count 297 Sodium 136.2 L Potassium 5.0 Chloride 97 L Carbon Dioxide 33 H Anion Gap 6 BUN 18 Creatinine 0.67 Est GFR ( Amer) > 60 Est GFR (Non-Af Amer) > 60 Glucose 117 H Calcium 9.1 02/26/19 02/26/19 02/26/19 00:12 00:12 00:12 Creatine Kinase 298 H CK-MB (CK-2) 5.89 H Troponin I < 0.012 NT-Pro-B Natriuret Pep 411 02/26/19 02/26/19 02/26/19 06:11 06:11 12:18 Creatine Kinase 196 H 114 CK-MB (CK-2) 4.75 H Troponin I 0.020 NT-Pro-B Natriuret Pep 02/26/19 12:18 Creatine Kinase CK-MB (CK-2) 3.20 Troponin I 0.013 NT-Pro-B Natriuret Pep Impressions: Chest X-Ray 02/26/19 00:00 IMPRESSION: 1. Nuchal soft tissue emphysema. 2. Emphysematous hyperinflation. Soft Tissue Neck CT 03/01/19 00:00 IMPRESSION: Greater than 75% diameter in subglottic airway narrowing is present due to an endobronchial tumor 2.5 x 2.5 x 2 cm in size. Left cervical lymph node immediately adjacent to the airway tumor, occluding the left jugular vein and displacing the left common carotid artery ventrally. Plan Discharge Plan: Transfer to [facility], in the care of Dr. Connolly, energy conservation technician. Time Spent: Greater than 30 Minutes
[2019-03-01] MEDS ORDERED: MONTELUKAST SODIUM 10 MG TABLET PO SCH (22:00)
[2019-03-02] MEDS ORDERED: ROFLUMILAST 500 MCG TABLET PO SCH (10:00)
== END 2019-03-01 15:06 | disposition short-term general hospital (02) | DRG 202 ==
LOC: ER 23:56 → EH 02-26 02:31 → 4S 02-26 12:34 → 3S 02-27 12:27 → OBSVTOIN 02-27 19:12
PROVIDERS: ADMIT Internal Medicine; ATTEND Internal Medicine
PROC: 5A09457 Assistance with Respiratory Ventilation, 24-96 Consecutive Hours, Continuous Positive Airway Pressure (ICD-10-PCS; principal; 2019-02-26)
DX: J20.9 Acute bronchitis, unspecified (principal); J96.21 Acute and chronic respiratory failure with hypoxia; J96.22 Acute and chronic respiratory failure with hypercapnia; J44.1 Chronic obstructive pulmonary disease with (acute) exacerbation; J44.0 Chronic obstructive pulmonary disease with (acute) lower respiratory infection; J38.6 Stenosis of larynx; R91.8 Other nonspecific abnormal finding of lung field; I10 Essential (primary) hypertension; F17.210 Nicotine dependence, cigarettes, uncomplicated; F43.10 Post-traumatic stress disorder, unspecified; J04.0 Acute laryngitis; Z79.899 Other long term (current) drug therapy; Z79.1 Long term (current) use of non-steroidal anti-inflammatories (NSAID)
CPT/HCPCS: 36415; 36600; 70491; 71045; 80048; 82550; 82553; 82803; 82962; 83880; 84484; 85025; 85027; 93005; 93010; 94640; 94660; 94668; 94799; 96365; 96366; 96367; 96375; 99285; G0378; J0456; J0696; J1644; J2060; J2920; J2930; J3490; J7060; J7512; J7620

== ENCOUNTER 2019-04-03 16:09 | Emergency (ER) | payer SELFPAY ==
[2019-04-03 16:15] VITALS: BP 149/90
--- NOTE | 2019-04-03 16:48 | ER Document Report ---
HPI - HPI Patient complains to provider of: pain medication Time Seen by Provider: 04/03/19 16:35 Onset: Other Onset/Duration: Persistent - Since diagnosed with cancer Quality of pain: Achy Pain Level: 3 Context: 63-year-old male presented to ED for complaint of pain to his neck and throat. He states he was recently diagnosed with neck cancer went to [place] and had a trach placed and cannot get into see Dr. Whelan until April 06 at which time he plans to give him pain medications. He states he was given Toradol before and this helped with his pain. He states he has been told he only had a 50-50 chance of living. Associated Symptoms: Other - Neck pain large tumor in the left side of his neck Exacerbated by: Movement Relieved by: Denies Similar symptoms previously: Yes Recently seen / treated by doctor: Yes - ROS ROS below otherwise negative: Yes - CONSTITUTIONAL Constitutional: DENIES: Fever, Chills - EENT EENT: DENIES: Sore Throat, Ear Pain, Nasal Drainage-Clear, Nasal Drainage- Purulent, Congestion, Eye problems Notes: pain to left side of th neck at the sight of the large tumor - NEURO Neurology: DENIES: Headache, Weakness, Vision blurred, Dizzinesss / Vertigo - CARDIOVASCULAR Cardiovascular: DENIES: Chest pain - RESPIRATORY Respiratory: DENIES: Trouble Breathing, Coughing - GASTROINTESTINAL Gastrointestinal: DENIES: Abdominal Pain, Nausea, Patient vomiting, Diarrhea, Constipation, Black / Bloody Stools - URINARY Urinary: DENIES: Dysuria, Urgency, Frequency - REPRODUCTIVE Reproductive: DENIES: :, Postmenopausal, Abnormal bleeding / discharge - MUSCULOSKELETAL Musculoskeletal: REPORTS: Neck Pain. DENIES: Extremity pain, Back Pain, Swelling - DERM Skin Color: Normal Skin Problems: None Past Medical History - General Information source: Patient - Social History Smoking Status: Former Smoker Frequency of alcohol use: Heavy Drug Abuse: None Lives with: Family Family History: COPD, Hypertension - Past Medical History Cardiac Medical History: Reports: Hx Hypertension Pulmonary Medical History: Reports: Hx COPD EENT Medical History: Reports: None Neurological Medical History: Reports: None Endocrine Medical History: Reports: None Renal/ Medical History: Reports: None Malignancy Medical History: Reports Other - neck cancer unsure what type GI Medical History: Reports: None Musculoskeletal Medical History: Reports Hx Arthritis Skin Medical History: Reports None Psychiatric Medical History: Reports: Hx Anxiety Traumatic Medical History: Reports: None Infectious Medical History: Reports: None Past Surgical History: Reports: Hx Appendectomy, Hx Orthopedic Surgery - back, Other - Colonoscopy, trach - Immunizations Hx Diphtheria, Pertussis, Tetanus Vaccination: No Vertical Provider Document - CONSTITUTIONAL Agree With Documented VS: Yes Exam Limitations: No Limitations - INFECTION CONTROL TRAVEL OUTSIDE OF THE [place] IN LAST 30 DAYS: No - HEENT Notes: trach, large neck tumor to left neck - NECK Neck: Other - large tumor left neck - RESPIRATORY Notes: has trach due to neck tumor - CARDIOVASCULAR Cardiovascular: Tachycardia - GI/ABDOMEN Gastrointestinal: Abdomen Soft, Abdomen Non-Tender, No Organomegaly, Normal Bowel Sounds - MUSCULOSKELETAL/EXTREMETIES Musculoskeletal/Extremeties: Tender - left neck - NEURO Level of Consciousness: Awake, Alert, Appropriate Course - Re-evaluation Re-evalutation: 04/03/19 16:59 Patient was given prescription for Toradol to last until April 06 at which time he states he has a doctor's appointment to follow-up concerning his cancer to the neck. He does have a trach which he is able to breathe with no difficulty. He does have lung sounds that are clear at this time. He states there is pain with any movement of his neck. He states he cannot get into see anybody get any medicine until his follow-up appointment on the . - Vital Signs Vital signs: Temp Pulse Resp BP Pulse Ox 99.2 F 101 H 18 149/90 H 99 04/03/19 16:14 04/03/19 16:14 04/03/19 16:14 04/03/19 16:14 04/03/19 16:14 Discharge - Discharge Clinical Impression: pain at site of tumor left neck Condition: Stable Disposition: HOME, SELF-CARE Additional Instructions: You were seen today for pain to the left side your neck where you are at large tumor is. I have agreed to give you enough Ultram to give you 2 a day until April 06 2019 at which time he states she will follow-up with your primary care doctor. Ultram Ultram is an excellent drug for pain relief. It is not a narcotic, but it works in a similar way. Ultram can take up to two hours for full effect. Although not addicting, Ultram is best avoided in patients with a history of drug abuse. Ultram should not be used with alcohol, sleeping pills, or narcotics. If you're prone to seizures, Ultram can make you more likely to have a seizure. Ultram can be hazardous when combined with MAO-inhibitor antidepressants (such as Nardil or Parnate). Be sure your doctor is aware of all medicines you are taking. Persons with severe liver or kidney disease should increase the time between doses of Ultram. Discuss this with your doctor if you're uncertain. Side effects of Ultram can include dizziness, nausea, constipation, sleepiness, and itching. (These side effects are also seen with narcotic pain medicines.) Please call your doctor if you have other disturbing effects. FOLLOW-UP CARE: If you have been referred to a physician for follow-up care, call the physicians office for an appointment as you were instructed or within the next two days. If you experience worsening or a significant change in your symptoms, notify the physician immediately or return to the Emergency Department at any time for re-evaluation. Prescriptions: Tramadol HCl [Ultram 50 mg Tablet] 50 mg PO BIDP PRN #10 tablet PRN Reason: Forms: Elevated Blood Pressure Referrals: TOM WHELAN MD [HONORARY] - Follow up as needed
== END 2019-04-03 16:58 | disposition home or self-care (01) ==
LOC: ER 16:09
DX: G89.3 Neoplasm related pain (acute) (chronic) (principal); M54.2 Cervicalgia; C76.0 Malignant neoplasm of head, face and neck; Z93.0 Tracheostomy status; I10 Essential (primary) hypertension; J44.9 Chronic obstructive pulmonary disease, unspecified; Z87.891 Personal history of nicotine dependence
CPT/HCPCS: 99283

== ENCOUNTER 2019-04-09 14:56 | Emergency (ER) | payer MEDICAID ==
[2019-04-09] MEDS ORDERED: IPRATROPIUM/ALBUTEROL 0.5-2.5 MG/3 ML AMPUL NEB ONE (15:09)
[2019-04-09 15:19] LABS: VENOUS BLOOD BASE EXCESS -3.6 mmol/L; VENOUS BLOOD HCO3 26.4 mmol/L (20-32)
[2019-04-09 15:22] LABS: ABSOLUTE BASOPHILS # (AUTO) 0.2 10^3/uL (0.0-0.2); ABSOLUTE EOSINOPHILS # (AUTO) 1.2 10^3/uL (0.0-0.6); ABSOLUTE LYMPHOCYTES (AUTO) 3.2 10^3/uL (0.5-4.7); ABSOLUTE MONOCYTES (AUTO) 1.7 10^3/uL (0.1-1.4); ABSOLUTE NEUT (AUTO) 10.5 10^3/uL (1.7-8.2); BASOPHILS % (AUTO) 0.9 % (0-2); EOSINOPHILS % (AUTO) 7.2 % (0-6); HEMATOCRIT 37.5 % (37.9-51.0); HEMOGLOBIN 12.3 g/dL (13.5-17.0); MEAN CORPUSCULAR HEMOGLOBIN 30.1 pg (27.0-33.4); MEAN CORPUSCULAR HGB CONC 32.8 g/dL (32.0-36.0); MEAN CORPUSCULAR VOLUME 92 fl (80-97); MONOCYTES % (AUTO) 9.9 % (3-13); PLATELET COUNT 469 10^3/uL (150-450); RED BLOOD COUNT 4.08 10^6/uL (4.35-5.55); RED CELL DISTRIBUTION WIDTH 13.8 % (11.5-14.0); TOTAL CELLS COUNTED % (AUTO) 100 %; VENOUS BLOOD PCO2 72.6 mmHg (35-63); VENOUS BLOOD PH 7.18 (7.30-7.42); WHITE BLOOD COUNT 16.8 10^3/uL (4.0-10.5)
[2019-04-09 15:23] LABS: INTERNATIONAL RATION (INR) 1.06; PROTHROMBIN TIME 13.8 SEC (11.4-15.4)
--- NOTE | 2019-04-09 15:39 | RADIOLOGY REPORT (SQ) ---
EXAM DESCRIPTION: CHEST SINGLE VIEW COMPLETED DATE/TIME: 04/09/2019 3:29 pm REASON FOR STUDY: bed 17 sepsis protocol COMPARISON: 02/26/2019 EXAM PARAMETERS: NUMBER OF VIEWS: One view. TECHNIQUE: Single frontal radiographic view of the chest acquired. RADIATION DOSE: NA LIMITATIONS: None. FINDINGS: LUNGS AND PLEURA: No opacities, masses or pneumothorax. No pleural effusion. MEDIASTINUM AND HILAR STRUCTURES: No masses. Contour normal. HEART AND VASCULAR STRUCTURES: Cardiomegaly. No pulmonary edema. BONES: No acute findings. HARDWARE: Tracheostomy tube. OTHER: No other significant finding. IMPRESSION: Cardiomegaly without pulmonary edema. TECHNICAL DOCUMENTATION: JOB ID: [id number] [employer]- All Rights Reserved Reading location - IP/workstation name: [email or web address]
[2019-04-09 15:41] LABS: ALKALINE PHOSPHATASE 76 U/L (38-126); ANION GAP 17 (5-19); ASPARTATE AMINO TRANSFERASE 15 U/L (17-59); BILIRUBIN,DIRECT 0.4 mg/dL (0.0-0.4); BILIRUBIN,TOTAL 0.8 mg/dL (0.2-1.3); BLOOD UREA NITROGEN 7 mg/dL (7-20); CALCIUM 9.9 mg/dL (8.4-10.2); CARBON DIOXIDE 25 mmol/L (22-30); CHLORIDE 95 mmol/L (98-107); GLUCOSE 181 mg/dL (75-110); TOTAL PROTEIN 7.1 g/dL (6.3-8.2)
--- NOTE | 2019-04-09 16:20 | ER Document Report ---
ED General - General Stated Complaint: DIFFICULTY BREATHING Time Seen by Provider: 04/09/19 15:21 Primary Care Provider: TOM WHELAN MD [Primary Care Provider] - Follow up tomorrow Mode of Arrival: Medic Information source: Patient, Emergency Med Personnel, [facility] Records Cannot obtain history due to: Unstable vital signs Notes: 63-year-old male with hypertension, COPD, laryngeal cancer with tracheostomy presents via EMS from home in severe respiratory distress. Upon my arrival into the room patient is ashen in color. He is unable to speak secondary to his c ancer. EMS reports that upon their arrival patient had an oxygen saturation of 77%. They were able to suction the patient's trach and did see some improvement of his oxygenation. Upon my arrival into the room respiratory is at bedside attempting to suction the patient who is significantly hypoxic, has increased work of breathing, accessory muscle use, diffuse wheezing and is gagging. TRAVEL OUTSIDE OF THE U.S[place] IN LAST 30 DAYS: No - HPI Onset: Just prior to arrival Onset/Duration: Sudden Quality of pain: No pain Severity: None Pain Level: Denies Associated symptoms: Nonproductive cough, Shortness of breath - Related Data Allergies/Adverse Reactions: No Known Allergies Allergy (Verified 04/03/19 16:14) Past Medical History - General Information source: Patient, Emergency Med Personnel, [facility] Records Cannot obtain history due to: Unstable vital signs - Social History Smoking Status: Former Smoker Frequency of alcohol use: Occasional Drug Abuse: None Lives with: Alone Family History: COPD, Hypertension - Past Medical History Cardiac Medical History: Reports: Hx Hypertension Denies: Hx Atrial Fibrillation, Hx Congestive Heart Failure, Hx Coronary Artery Disease, Hx Heart Attack, Hx Hypercholesterolemia, Hx Peripheral Vascular Disease Pulmonary Medical History: Reports: Hx COPD Denies: Hx Asthma, Hx Bronchitis, Hx Pneumonia, Hx Intubation, Hx Respiratory Failure, Hx Sleep Apnea, Hx Tuberculosis Neurological Medical History: Denies: Hx Cerebrovascular Accident, Hx Seizures Endocrine Medical History: Denies: Hx Diabetes Mellitus Type 1, Hx Diabetes Mellitus Type 2, Hx Hyperthyroidism, Hx Hypothyroidism Renal/ Medical History: Denies: Hx Benign Prostatic Hyperplasia, Hx End Stage Renal Disease, Hx Kidney Stones, Hx Peritoneal Dialysis GI Medical History: Denies: Hx Cirrhosis, Hx Crohn's Disease, Hx Gastroesophageal Reflux Disease, Hx Hepatitis, Hx Ulcer, Hx Ulcerative Colitis Musculoskeletal Medical History: Reports Hx Arthritis, Denies Hx Gout, Denies Hx Multiple Sclerosis Skin Medical History: Denies Hx Eczema, Denies Hx Psoriasis Psychiatric Medical History: Reports: Hx Anxiety Denies: Hx Bipolar Disorder, Hx Depression, Hx Schizophrenia Infectious Medical History: Denies: Hx Hepatitis Past Surgical History: Reports: Hx Appendectomy, Hx Orthopedic Surgery - back, Other - Colonoscopy, trach - Immunizations Hx Diphtheria, Pertussis, Tetanus Vaccination: No Review of Systems - Review of Systems -: Yes ROS unobtainable due to patient's medical condition Respiratory: Short of breath, Wheezing Physical Exam - Vital signs Vitals: Resp 17 04/09/19 15:12 - Notes Notes: PHYSICAL EXAMINATION: GENERAL: In extremis, ashen in coloration, severe respiratory distress is tripoding. Cachectic HEAD: Atraumatic, normocephalic. EYES: Pupils equal round and reactive to light, extraocular movements intact, sclera anicteric, conjunctiva are normal. ENT: Nares patent, oropharynx clear without exudates. Moist mucous membranes. NECK: Tracheostomy in place large left-sided neck mass diminished breath sounds throughout with LUNGS: Tachypnea, cyanosis, expiratory wheezing, accessory muscle use, increased work of breathing, bagging through the tracheostomy HEART: Tachycardic, regular rhythm, no murmurs hythm without murmurs ABDOMEN: Soft, nontender, nondistended abdomen. No guarding, no rebound. No masses appreciated. Musculoskeletal: Normal range of motion, no pitting or edema. No cyanosis. NEUROLOGICAL: Cranial nerves grossly intact. Anxious normal gait. Normal sensory, motor exams PSYCH: Anxious SKIN: Ashen, skin tenting Course - Re-evaluation Re-evalutation: Chest X-Ray 04/09/19 15:00 IMPRESSION: Cardiomegaly without pulmonary edema. Temp Pulse Resp BP Pulse Ox 22 H 92 04/09/19 17:00 04/09/19 17:00 04/10/19 15:26 Patient presented via EMS in extremis, severe respiratory distress, hypoxic EMS reported that upon their arrival patient had oxygen saturations in the mid 70s. They were able to suction the patient and did have temporary improvement of patient's oxygenation status. Upon his arrival into the department patient is ashen, in extremis, has severe respiratory distress. Respiratory at the bedside and patient's trach was suctioned with minimal return. We then decided to excha nge the patient's 6 [place] uncuffed trach with a cuffed trach due to concern that the patient may require ventilation. During this exchange patient coughed up a large mucous plug and his oxygen saturation immediately improved. I did place the cuffed trach into the tracheostomy site and the patient did maintain an oxygenation of 98 to 100% but it did not sit flush against the patient's skin. I did contact general surgery Dr. Horan who evaluated the patient and decided to place the uncuffed trach back which did sit flush against the patient's neck comfortably. Patient now able to communicate through writing. He states that he is lacking some supplies that he needs for his treatments at home. He is now joking and standing up stating he is ready to leave. Patient was monitored and taken off any supplemental air support and maintained oxygen saturations in the high 90s on room air. Patient reports that he is due for surgery on April 30 at [facility]. Patient's initial lab work which was reflexively sent down to lab did show significant abnormalities which are associated to the patient's 1 hour bout of hypoxia which has completely resolved. Patient is insistent on discharge home. We did supply him with a chamber and supplies for his trach. Patient was discharged home in stable condition.. - Vital Signs Vital signs: Temp Pulse Resp BP Pulse Ox 22 H 92 04/09/19 17:00 04/09/19 17:00 - Laboratory Result Diagrams: 04/09/19 15:10 04/09/19 15:10 Laboratory results interpreted by me: 04/09/19 04/09/19 04/09/19 15:10 15:10 15:10 WBC 16.8 H RBC 4.08 L Hgb 12.3 L Hct 37.5 L Plt Count 469 H Eosinophils % 7.2 H Absolute Neutrophils 10.5 H Absolute Monocytes 1.7 H Absolute Eosinophils 1.2 H VBG pH VBG pCO2 Chloride 95 L Glucose 181 H Lactic Acid 7.9 H AST 15 L 04/09/19 15:10 WBC RBC Hgb Hct Plt Count Eosinophils % Absolute Neutrophils Absolute Monocytes Absolute Eosinophils VBG pH 7.18 L* VBG pCO2 72.6 H* Chloride Glucose Lactic Acid AST - Diagnostic Test Radiology reviewed: Image reviewed, Reports reviewed Procedures - Additional Procedures Gastric tube replacement Time performed: 15:33 - Trach exchange Critical Care Note - Critical Care Note Total time excluding time spent on procedures (mins): 40 - Minutes of critical care time spent in direct contact evaluating and reevaluating the patient, treating symptoms, reviewing labs and studies and speaking with family and consultants excluding any procedures Discharge - Discharge Clinical Impression: Respiratory distress, COPD exacerbation, Mucus plugging of bronchi Condition: Stable Disposition: HOME, SELF-CARE Instructions: Chronic Obstructive Lung Disease ([facility]), Dyspnea, Nonspecific ([facility]) Additional Instructions: Follow up with your [id number] hours for further care or return to the ED IMMEDIATELY if symptoms worsen or you have any concerns. If you cannot afford to follow up with your primary care physician a list of low cost clinics have been provided at the end of your discharge papers as well. Most prescribed medications have multiple side effects. The safest thing to do is when filling your prescription speak to your pharmacist regarding possible interactions with your normal home medications and over the counter medications such as Ibuprofen, Tylenol, Benadryl. If you experience any symptoms that cause you discomfort or concern you should discontinue the medication immediately and return to the emergency room or call your primary care physician. Referrals: TOM WHELAN MD [Primary Care Provider] - Follow up tomorrow
--- NOTE | 2019-04-09 16:23 | PDOC CONSULTATION ---
Consultation Consult Date: 04/09/19 Provider Consulted: MARCELLUS FERNANDES History of Present Illness Admission Date/PCP: TOM WHELAN MD History of Present Illness: REJI FERRELL is a 63 year old male status post tracheostomy placement several weeks ago for laryngeal cancer who presented to the ER with respiratory distress and was noted with a mucous plug. During initial treatment in the ER, the ER physician had removed his pre-existing trach which was uncuffed and replaced it with a cuffed tracheostomy but had felt some resistance during the passage and could not insert the tracheostomy all the way. The patient has been able to ventilate well however since the mucous plug had been removed. And end-tidal CO2 has been confirmed. S Past Medical History Cardiac Medical History: Reports: Hypertension Denies: Atrial Fibrillation, Congestive Heart Failure, Coronary Artery Disease, Myocardial Infarction, Hyperlipidema, Peripheral Vascular Disease Pulmonary Medical History: Reports: Chronic Obstructive Pulmonary Disease (COPD) Denies: Asthma, Bronchitis, Intubation, Pneumonia, Respiratory Failure, Sleep Apnea, Tuberculosis Neurological Medical History: Denies: Seizures Endocrine Medical History: Denies: Diabetes Mellitus Type 1, Diabetes Mellitus Type 2, Hyperthyroidism, Hypothyroidism Renal/ Medical History: Denies: End Stage Renal Disease GI Medical History: Denies: Cirrhosis, Crohn's Disease, Gastroesophageal Reflux Disease, Hepatitis, Ulcerative Colitis Musculoskeltal Medical History: Reports: Arthritis Denies: Gout Skin Medical History: Denies: Eczema, Psoriasis Psychiatric Medical History: Denies: Bipolar Disorder, Depression Hematology: Denies: Anemia, Bleeding Tendencies Past Surgical History Past Surgical History: Reports: Appendectomy, Orthopedic Surgery - back, Other - Colonoscopy, trach Social History Smoking Status: Smoker,Current Status Unk Frequency of Alcohol Use: Occasional Hx Recreational Drug Use: No - denies Drugs: Marijuana Hx Prescription Drug Abuse: No Family History Family History: COPD, Hypertension Parental Family History Reviewed: No Children Family History Reviewed: No Sibling(s) Family History Reviewed.: No Medication/Allergy Home Medications: Ibuprofen [Advil] 200 mg PO ASDIR PRN 02/26/19 Tramadol HCl [Ultram 50 mg Tablet] 50 mg PO BIDP PRN #10 tablet 04/03/19 Allergies/Adverse Reactions: No Known Allergies Allergy (Verified 04/03/19 16:14) Physical Exam General appearance: PRESENT: no acute distress, cooperative Neck exam: PRESENT: tracheostomy - Tracheostomy in place but it is not all the way in. Patient ventilating easily and his saturations are in the mid 90s. Respiratory exam: PRESENT: clear to auscultation [place] Cardiovascular exam: PRESENT: RRR Results Laboratory Results: 04/09/19 15:10 04/09/19 15:10 04/09/19 04/09/19 04/09/19 15:10 15:10 15:10 WBC 16.8 H RBC 4.08 L Hgb 12.3 L Hct 37.5 L MCV 92 MCH 30.1 MCHC 32.8 RDW 13.8 Plt Count 469 H Seg Neutrophils % 63.0 Lymphocytes % 19.0 Monocytes % 9.9 Eosinophils % 7.2 H Basophils % 0.9 Absolute Neutrophils 10.5 H Absolute Lymphocytes 3.2 Absolute Monocytes 1.7 H Absolute Eosinophils 1.2 H Absolute Basophils 0.2 VBG pH VBG pCO2 VBG HCO3 VBG Base Excess Sodium 137.3 Potassium 4.0 Chloride 95 L Carbon Dioxide 25 Anion Gap 17 BUN 7 Creatinine 0.90 Est GFR ( Amer) > 60 Est GFR (Non-Af Amer) > 60 Glucose 181 H Lactic Acid 7.9 H Calcium 9.9 Total Bilirubin 0.8 AST 15 L Alkaline Phosphatase 76 Total Protein 7.1 Albumin 4.0 04/09/19 15:10 WBC RBC Hgb Hct MCV MCH MCHC RDW Plt Count Seg Neutrophils % Lymphocytes % Monocytes % Eosinophils % Basophils % Absolute Neutrophils Absolute Lymphocytes Absolute Monocytes Absolute Eosinophils Absolute Basophils VBG pH 7.18 L* VBG pCO2 72.6 H* VBG HCO3 26.4 VBG Base Excess -3.6 Sodium Potassium Chloride Carbon Dioxide Anion Gap BUN Creatinine Est GFR ( Amer) Est GFR (Non-Af Amer) Glucose Lactic Acid Calcium Total Bilirubin AST Alkaline Phosphatase Total Protein Albumin Impressions: Chest X-Ray 04/09/19 15:00 IMPRESSION: Cardiomegaly without pulmonary edema. Assessment & Plan - Diagnosis (1) Tracheostomy dysfunction Is this a current diagnosis for this admission?: Yes Plan: After hyperventilating the patient, the tracheostomy balloon was deflated and the tracheostomy was removed. The tract appear very mature although there is some excess tissue on the left externally. Track appear clean with no bleeding. Patient's uncuffed tracheostomy was easily replaced with absolutely no resistance. Patient ventilated well after the replacement. The tracheostomy seated well and the external fixator devices were applied. Will defer to emergency department concerning disposition but currently the tracheostomy is positioned well and functioning well.
--- NOTE | 2019-04-11 10:16 | EKG REPORT ---
SEVERITY:- ABNORMAL ECG - SINUS TACHYCARDIA PROBABLE LEFT ATRIAL ABNORMALITY BORDERLINE RIGHT AXIS DEVIATION BORDERLINE INFERIOR Q WAVES BORDERLINE PROLONGED QT INTERVAL : Confirmed by: Reyes Adame 11-Apr-2019 10:15:40
== END 2019-04-09 17:46 | disposition home or self-care (01) ==
LOC: ER 14:56
DX: T17.590A Other foreign object in bronchus causing asphyxiation, initial encounter (principal); X58.XXXA Exposure to other specified factors, initial encounter; Z43.0 Encounter for attention to tracheostomy; J44.1 Chronic obstructive pulmonary disease with (acute) exacerbation; C32.9 Malignant neoplasm of larynx, unspecified; R06.03 Acute respiratory distress; R05 Cough; R06.02 Shortness of breath; R00.0 Tachycardia, unspecified; I10 Essential (primary) hypertension; Z87.891 Personal history of nicotine dependence
CPT/HCPCS: 93005; 94640; 99291; 36415; 87040; 87070; 87205; 85025; 85610; 87077; 80053; 87186; 82803; 83605; 71045; 93010; J7620

== ENCOUNTER 2019-11-09 12:05 | Emergency (ER) | payer SELFPAY ==
--- NOTE | 2019-11-09 13:26 | ER Document Report ---
ED Medical Screen (RME) - General Chief Complaint: Displaced G-tube Stated Complaint: FEEDING TUBE CAME OUT Time Seen by Provider: 11/09/19 13:20 Primary Care Provider: TOM WHELAN MD [Primary Care Provider] - Follow up as needed Mode of Arrival: Ambulatory Information source: Patient Notes: 64-year-old male with history of throat cancer presents to the emergency department with trach that was put in 2 weeks ago and G-tube that was put in at the end of July. He is here because his G-tube has become dislodged and it is hurting. Patient reports he is able to eat has not been using the G-tube. No other complaints such as fever vomiting diarrhea. Patient is unable to talk mouth everything or right side on a paper. I have greeted and performed a rapid initial assessment of this patient. A comprehensive ED assessment and evaluation of the patient, analysis of test results and completion of the medical decision making process will be conducted by additional ED providers. TRAVEL OUTSIDE OF THE [place] IN LAST 30 DAYS: No - Related Data Allergies/Adverse Reactions: No Known Allergies Allergy (Verified 04/03/19 16:14) Past Medical History - Past Medical History Cardiac Medical History: Reports: Hx Hypertension Denies: Hx Atrial Fibrillation, Hx Congestive Heart Failure, Hx Coronary Artery Disease, Hx Heart Attack, Hx Hypercholesterolemia, Hx Peripheral Vascular Disease Pulmonary Medical History: Reports: Hx COPD Denies: Hx Asthma, Hx Bronchitis, Hx Pneumonia, Hx Intubation, Hx Respiratory Failure, Hx Sleep Apnea, Hx Tuberculosis Neurological Medical History: Denies: Hx Cerebrovascular Accident, Hx Seizures, Hx Parkinson's Disease Endocrine Medical History: Denies: Hx Diabetes Mellitus Type 1, Hx Diabetes Mellitus Type 2, Hx Hyperthyroidism, Hx Hypothyroidism Renal/ Medical History: Denies: Hx Benign Prostatic Hyperplasia, Hx End Stage Renal Disease, Hx Kidney Stones, Hx Peritoneal Dialysis GI Medical History: Denies: Hx Cirrhosis, Hx Crohn's Disease, Hx Gastroesophageal Reflux Disease, Hx Hepatitis, Hx Ulcer, Hx Ulcerative Colitis Musculoskeltal Medical History: Reports Hx Arthritis, Denies Hx Gout, Denies Hx Multiple Sclerosis Skin Medical History: Denies Hx Eczema, Denies Hx Psoriasis Psychiatric Medical History: Reports: Hx Anxiety Denies: Hx Bipolar Disorder, Hx Depression, Hx Schizophrenia Infectious Medical History: Denies: Hx Hepatitis Past Surgical History: Reports: Hx Appendectomy, Hx Orthopedic Surgery - back, Other - Colonoscopy, trach - Immunizations Hx Diphtheria, Pertussis, Tetanus Vaccination: No Physical Exam - Vital signs Vitals: Temp Pulse Resp BP Pulse Ox 98.4 F 52 L 18 144/82 H 100 11/09/19 13:19 11/09/19 13:19 11/09/19 13:19 11/09/19 13:19 11/09/19 13:19 Course - Vital Signs Vital signs: Temp Pulse Resp BP Pulse Ox 98.4 F 52 L 18 144/82 H 100 11/09/19 13:19 11/09/19 13:19 11/09/19 13:19 11/09/19 13:19 11/09/19 13:19 Doctor's Discharge - Discharge Referrals: TOM WHELAN MD [Primary Care Provider] - Follow up as needed
--- NOTE | 2019-11-09 17:44 | ER Document Report ---
ED GI/ - General Chief Complaint: Displaced G-tube Stated Complaint: FEEDING TUBE CAME OUT Time Seen by Provider: 11/09/19 13:20 Primary Care Provider: TOM WHELAN MD [Primary Care Provider] - Follow up as needed Mode of Arrival: Ambulatory Cannot obtain history due to: Other Notes: Patient is a 64-year-old male who has a history of throat cancer and is seen by oncology. Patient comes in today because he wants his G-tube removed. States that it is painful and was placed at [place]. States that he is eating and drinking at this time and he does not need it anymore. He would like me to remove it. TRAVEL OUTSIDE OF THE [place] IN LAST 30 DAYS: No - HPI Patient complains to provider of: Feeding tube problem Quality of pain: Achy, Dull Severity at maximum: Mild Severity in ED: Mild Pain Level: 2 Associated symptoms: denies: None, Blood in emesis, Blood in stool, Chest pain, Chills, Coffee ground emesis, Constipation, Diarrhea, Dizzy, Dysuria, Erection problem, Fever, Foreskin problem, Hard stool, Hematuria, Hematospermia, Hurts to breath, Inguinal mass, Lightheaded, Loss of appetite, Nausea, Painful intercourse, Penile discharge, Radiates to back, Radiates to chest, Radiates to testicles, Radiates to shoulder, Shortness of breath, Sweaty, Syncope, Urinary hesitancy, Urinary frequency, Urinary retention, Urinary urgency, Vomiting, Other - Related Data Allergies/Adverse Reactions: No Known Allergies Allergy (Verified 04/03/19 16:14) Past Medical History - General Information source: Patient - Social History Smoking Status: Unknown if Ever Smoked Frequency of alcohol use: None Drug Abuse: None Family History: COPD, Hypertension Patient has suicidal ideation: No Patient has homicidal ideation: No - Past Medical History Cardiac Medical History: Reports: Hx Hypertension Denies: Hx Atrial Fibrillation, Hx Congestive Heart Failure, Hx Coronary Artery Disease, Hx Heart Attack, Hx Hypercholesterolemia, Hx Peripheral Vascular Disease Pulmonary Medical History: Reports: Hx COPD Denies: Hx Asthma, Hx Bronchitis, Hx Pneumonia, Hx Intubation, Hx Respiratory Failure, Hx Sleep Apnea, Hx Tuberculosis Neurological Medical History: Denies: Hx Cerebrovascular Accident, Hx Seizures, Hx Parkinson's Disease Endocrine Medical History: Denies: Hx Diabetes Mellitus Type 1, Hx Diabetes Mellitus Type 2, Hx Hyperthyroidism, Hx Hypothyroidism Renal/ Medical History: Denies: Hx Benign Prostatic Hyperplasia, Hx End Stage Renal Disease, Hx Kidney Stones, Hx Peritoneal Dialysis GI Medical History: Denies: Hx Cirrhosis, Hx Crohn's Disease, Hx Gastroesophageal Reflux Disease, Hx Hepatitis, Hx Ulcer, Hx Ulcerative Colitis Musculoskeletal Medical History: Reports Hx Arthritis, Denies Hx Gout, Denies Hx Multiple Sclerosis Skin Medical History: Denies Hx Eczema, Denies Hx Psoriasis Psychiatric Medical History: Reports: Hx Anxiety Denies: Hx Bipolar Disorder, Hx Depression, Hx Schizophrenia Infectious Medical History: Denies: Hx Hepatitis Past Surgical History: Reports: Hx Appendectomy, Hx Orthopedic Surgery - back, Other - Colonoscopy, trach - Immunizations Hx Diphtheria, Pertussis, Tetanus Vaccination: No Review of Systems - Review of Systems -: Yes All other systems reviewed and negative Physical Exam - Vital signs Vitals: Temp Pulse Resp BP Pulse Ox 98.4 F 52 L 18 144/82 H 100 11/09/19 13:19 11/09/19 13:19 11/09/19 13:19 11/09/19 13:19 11/09/19 13:19 Interpretation: Normal - General General appearance: Appears well, Alert - HEENT Head: Normocephalic, Atraumatic Eyes: Normal Pupils: PERRL - Respiratory Respiratory status: No respiratory distress Chest status: Nontender Breath sounds: Normal Chest palpation: Normal - Cardiovascular Rhythm: Regular Heart sounds: Normal auscultation Murmur: No - Abdominal Inspection: Other - G tube falling out with skin excoriated at LUQ site. Distension: No distension Organomegaly: No organomegaly - Back Back: Normal, Nontender - Extremities General upper extremity: Normal inspection, Nontender, Normal color, Normal ROM, Normal temperature General lower extremity: Normal inspection, Nontender, Normal color, Normal ROM, Normal temperature, Normal weight bearing. No: Sohan's sign - Neurological Neuro grossly intact: Yes Cognition: Normal Orientation: AAOx4 [place] Coma Scale Eye Opening: Spontaneous [place] Coma Scale Verbal: Oriented [place] Coma Scale Motor: Obeys Commands Betito Coma Scale Total: 15 Speech: Normal Motor strength normal: LUE, RUE, LLE, RLE Sensory: Normal - Psychological Associated symptoms: Normal affect, Normal mood - Skin Skin Temperature: Warm Skin Moisture: Dry Skin Color: Normal Course - Re-evaluation Re-evalutation: 11/09/19 18:29 Spoke with patient's oncologist and Dr. Ortiz. Dr. Ortiz came down to remove the G-tube after discussion with patient. Patient understands that he very well may need this tube as he is still receiving treatment but he would like it removed as it is painful and he does not like it. States that he is otherwise eating and drinking. Vitals are stable. No other concerns. Stable for discharge. - Vital Signs Vital signs: Temp Pulse Resp BP Pulse Ox 98.4 F 52 L 18 144/82 H 100 11/09/19 13:19 11/09/19 13:19 11/09/19 13:19 11/09/19 13:19 11/09/19 13:19 Discharge - Discharge Clinical Impression: Problem with gastrostomy tube Condition: Stable Disposition: HOME, SELF-CARE Instructions: Transdermal Gastric Tube Placement ([facility]) Additional Instructions: Please follow-up with your oncologist and PMD. Keep the g-tube site clean and covered. Prescriptions: Tramadol HCl [Ultram 50 mg Tablet] 50 mg PO BIDP PRN #10 tablet PRN Reason: Referrals: TOM WHELAN MD [Primary Care Provider] - Follow up as needed
[2019-11-09] MEDS ORDERED: TRAMADOL HCL 50 MG TABLET PO ONE (17:46)
--- NOTE | 2019-11-09 18:21 | Operative Report ---
Operative Report DATE OF SURGERY: 11/09/19 PREOPERATIVE DIAGNOSIS: peg tube partially removed with a lot of pain but eating POSTOPERATIVE DIAGNOSIS: same OPERATION: removal of peg tube SURGEON: LEILA [place] ANESTHESIA: Other TISSUE REMOVED OR ALTERED: peg tube COMPLICATIONS: none ESTIMATED BLOOD LOSS: 0 cc QUANTITATIVE BLOOD LOSS: 0 INTRAOPERATIVE FINDINGS: peg tube parially out with tethered sutures keeping it in PROCEDURE: Patient is post laryngectomy wit tracheostomy and peg tube placement last year at [facility]. Has been eating well and peg tube not being used. Complaining of a lot of pain peg tube site.Explained to patient that he might still need the tube but insistent on having tube removed because of pains and also not being used since he is eating. ER physician also talked to Dr Acosta who said that the tube maybe pulled out. Sutures where cut and peg tube aspirated about 2 ccs from baloon which is partially inside the skin level. Peg tube pulled out easily without gastric contents coming out of track indicating proximal site likely healed. Dry dressing placed over tube site. Tolerated well.
[2019-11-09 18:37] VITALS: BP 128/87
== END 2019-11-09 18:37 | disposition home or self-care (01) ==
LOC: ER 12:05
DX: T85.528A Displacement of other gastrointestinal prosthetic devices, implants and grafts, initial encounter (principal); Y83.3 Surgical operation with formation of external stoma as the cause of abnormal reaction of the patient, or of later complication, without mention of misadventure at the time of the procedure; Z46.59 Encounter for fitting and adjustment of other gastrointestinal appliance and device; I10 Essential (primary) hypertension; J44.9 Chronic obstructive pulmonary disease, unspecified; S30.811A Abrasion of abdominal wall, initial encounter; X58.XXXA Exposure to other specified factors, initial encounter
CPT/HCPCS: 99282

== ENCOUNTER 2019-11-11 08:43 | Outpatient (CLI) | payer SELFPAY ==
[~2019-11-11 08:43] MED LIST: NORMAL SALINE 250 ML IV PRN; PEMBROLIZUMAB 200 MG in NORMAL SALINE 50 ML IV PRN
[2019-11-11 09:03] VITALS: BP 112/87
== END 2019-11-11 09:59 | disposition home or self-care (01) ==
LOC: II 08:43 → 5TH 08:43 → II 09:59
PROVIDERS: ATTEND Internal Medicine
DX: Z51.11 Encounter for antineoplastic chemotherapy (principal); D49.1 Neoplasm of unspecified behavior of respiratory system
CPT/HCPCS: 96413; J9271

== ENCOUNTER 2019-12-02 08:03 | Outpatient (CLI) | payer SELFPAY ==
[2019-12-02 08:17] VITALS: BP 132/75
== END 2019-12-02 10:15 | disposition home or self-care (01) ==
LOC: II 08:03 → 5TH 08:04 → II 10:15
PROVIDERS: ATTEND Internal Medicine
DX: Z51.11 Encounter for antineoplastic chemotherapy (principal); C32.0 Malignant neoplasm of glottis
CPT/HCPCS: 96413; J9271

== ENCOUNTER 2019-12-24 10:01 | Outpatient (CLI) | payer SELFPAY ==
[2019-12-24 10:23] VITALS: BP 106/66
== END 2019-12-24 11:18 | disposition home or self-care (01) ==
LOC: II 10:01 → 5TH 10:03 → II 11:18
PROVIDERS: ATTEND Internal Medicine
DX: Z51.11 Encounter for antineoplastic chemotherapy (principal); C32.0 Malignant neoplasm of glottis
CPT/HCPCS: 96413; J9271

== ENCOUNTER → 2020-01-05 | Outpatient (CLI) | payer SELFPAY ==
--- NOTE | 2020-01-05 13:49 | RADIOLOGY REPORT (SQ) ---
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 TECHNIQUE: Blood glucose level was verified. Above dose of FDG was injected intravenously. 2-D seg mented attenuation correction images were obtained from the base of the skull to the midthighs. Nonc ontrast CT images were obtained for attenuation correction and fusion with emission images. CT image s were performed without oral or intravenous contrast and are not sensitive for parenchymal lesions. A series of overlapping emission PET images were obtained. Images reviewed and manipulated at [facility] work station by the radiologist. Images stored on PACS. LIMITATIONS: None. FINDINGS: HEAD AND NECK: There is abnormal uptake in the right and left supraclavicular regions cons istent with adenopathy. SUV is as high as 5.47 consistent with neoplasm. CHEST: Abnormal uptake in both axillary regions. There are large soft tissue masses. On the right s oft tissue mass measures over 9 cm in AP dimensions. On the left the soft tissue mass measures over 5 cm. SUV ranges between 9 and 12. There is central decreased attenuation and decreased metabolic a ctivity consistent with necrosis. Uptake along the left anterior chest wall is most likely postsurgi wanda in nature. ABDOMEN AND PELVIS: No areas of abnormal metabolic activity in the abdomen or pelvis. Expected physi ologic activity is present in the genitourinary system and bowel. PROXIMAL LOWER EXTREMITIES: No areas of abnormal metabolic activity in the soft tissues of the lower extremities. BONES: No abnormal metabolic activity in the visualized skeleton. ADDITIONAL CT FINDINGS: No additional significant findings on the noncontrast CT images. OTHER: No other significant findings. IMPRESSION: Bilateral axillary and supraclavicular adenopathy. SUVs in the axilla range from 9 to 1 2. SUV in the clavicular nodes measures as high as 5.47. Findings are consistent with metastatic di sease. Axillary nodes would be amendable to percutaneous biopsy if clinically indicated. TECHNICAL DOCUMENTATION: JOB ID: [id number] 2011 [employer]- All Rights Reserved Reading location - IP/workstation name: [email or web address]
== END ==
LOC: RAD 08:14
PROVIDERS: ATTEND Physician Assistant Medical
DX: C32.0 Malignant neoplasm of glottis (principal)
CPT/HCPCS: 78815; A9552

== ENCOUNTER 2020-01-08 15:01 | Inpatient (IN) | payer SELFPAY ==
--- NOTE | 2020-01-08 15:27 | ER Document Report ---
ED Medical Screen (RME) - General Chief Complaint: Abscess Stated Complaint: ABSCESS/UNDER RIGHT ARM Time Seen by Provider: 01/08/20 15:23 Primary Care Provider: OJ CASILLAS PA-C [Primary Care Provider] - Follow up as needed Mode of Arrival: Wheelchair Information source: Patient Notes: 64-year-old male patient presenting to the emergency department with concern for abscesses to bilateral axillary areas. Patient is tachypneic and tachycardic on arrival. He has a tracheostomy. He states the abscesses have been present for the last 2 to 3 months. Patient taken straight to a room. I have greeted and performed a rapid initial assessment of this patient. A comprehensive ED assessment and evaluation of the patient, analysis of test results and completion of the medical decision making process will be conducted by additional ED providers. I have specifically instructed the patient or family members with the patient to immediately return to any nursing staff should anything change in the patient's condition or with their chief complaint. TRAVEL OUTSIDE OF THE [place] IN LAST 30 DAYS: No - Related Data Allergies/Adverse Reactions: No Known Allergies Allergy (Verified 04/03/19 16:14) Past Medical History - Past Medical History Cardiac Medical History: Reports: Hx Hypertension Denies: Hx Atrial Fibrillation, Hx Congestive Heart Failure, Hx Coronary Artery Disease, Hx Heart Attack, Hx Hypercholesterolemia, Hx Peripheral Vascular Disease Pulmonary Medical History: Reports: Hx COPD Denies: Hx Asthma, Hx Bronchitis, Hx Pneumonia, Hx Intubation, Hx Respiratory Failure, Hx Sleep Apnea, Hx Tuberculosis Neurological Medical History: Denies: Hx Cerebrovascular Accident, Hx Seizures, Hx Parkinson's Disease Endocrine Medical History: Denies: Hx Diabetes Mellitus Type 1, Hx Diabetes Mellitus Type 2, Hx Hyperthyroidism, Hx Hypothyroidism Renal/ Medical History: Denies: Hx Benign Prostatic Hyperplasia, Hx End Stage Renal Disease, Hx Kidney Stones, Hx Peritoneal Dialysis GI Medical History: Denies: Hx Cirrhosis, Hx Crohn's Disease, Hx Gastroesophageal Reflux Disease, Hx Hepatitis, Hx Ulcer, Hx Ulcerative Colitis Musculoskeltal Medical History: Reports Hx Arthritis, Denies Hx Gout, Denies Hx Multiple Sclerosis Skin Medical History: Denies Hx Eczema, Denies Hx Psoriasis Psychiatric Medical History: Reports: Hx Anxiety Denies: Hx Bipolar Disorder, Hx Depression, Hx Schizophrenia Infectious Medical History: Denies: Hx Hepatitis Past Surgical History: Reports: Hx Appendectomy, Hx Orthopedic Surgery - back, Other - Colonoscopy, trach - Immunizations Hx Diphtheria, Pertussis, Tetanus Vaccination: No Physical Exam - Vital signs Vitals: Temp Pulse Resp BP Pulse Ox 99.4 F 112 H 24 H 150/90 H 94 01/08/20 15:10 01/08/20 15:10 01/08/20 15:10 01/08/20 15:10 01/08/20 15:10 Course - Vital Signs Vital signs: Temp Pulse Resp BP Pulse Ox 99.4 F 112 H 24 H 150/90 H 94 01/08/20 15:10 01/08/20 15:10 01/08/20 15:10 01/08/20 15:10 01/08/20 15:10 Doctor's Discharge - Discharge Referrals: OJ CASILLAS PA-C [Primary Care Provider] - Follow up as needed
[2020-01-08 16:32] LABS: HEMATOCRIT 37.5 % (37.9-51.0); HEMOGLOBIN 12.7 g/dL (13.5-17.0); MEAN CORPUSCULAR HEMOGLOBIN 30.3 pg (27.0-33.4); MEAN CORPUSCULAR HGB CONC 33.9 g/dL (32.0-36.0); MEAN CORPUSCULAR VOLUME 90 fl (80-97); PLATELET COUNT 402 10^3/uL (150-450); RED BLOOD COUNT 4.19 10^6/uL (4.35-5.55); RED CELL DISTRIBUTION WIDTH 14.2 % (11.5-14.0); VENOUS BLOOD BASE EXCESS 6.2 mmol/L; VENOUS BLOOD HCO3 34.4 mmol/L (20-32); VENOUS BLOOD PH 7.33 (7.30-7.42); WHITE BLOOD COUNT 15.9 10^3/uL (4.0-10.5)
--- NOTE | 2020-01-08 16:45 | ER Document Report ---
ED General - General Chief Complaint: Abscess Stated Complaint: ABSCESS/UNDER RIGHT ARM Time Seen by Provider: 01/08/20 15:23 Mode of Arrival: Wheelchair Notes: 64-year-old male past medical history significant for hypertension, COPD, chronic bronchitis, throat cancer who presented to the emergency room today complaining of worsening swelling under both his axillary regions for the past several months. States they have gotten bigger over the past few days and are now draining. Denies any fevers. States he did have a CT and PET scan a few days ago but has not gotten the results as of yet. Patient was brought back to his room from triage and became tachypneic and tachycardic . After patient was placed in his room he did aspirate a moderate amount of emesis causing his trach to fall out of his tracheostomy. TRAVEL OUTSIDE OF THE [place] IN LAST 30 DAYS: No - Related Data Allergies/Adverse Reactions: No Known Allergies Allergy (Verified 04/03/19 16:14) Past Medical History - General Information source: Patient - Social History Smoking Status: Current Every Day Smoker Chew tobacco use (# tins/day): No Frequency of alcohol use: None Drug Abuse: None Family History: COPD, Hypertension Patient has homicidal ideation: No - Past Medical History Cardiac Medical History: Reports: Hx Hypertension Denies: Hx Atrial Fibrillation, Hx Congestive Heart Failure, Hx Coronary Artery Disease, Hx Heart Attack, Hx Hypercholesterolemia, Hx Peripheral Vascular Disease Pulmonary Medical History: Reports: Hx COPD Denies: Hx Asthma, Hx Bronchitis, Hx Pneumonia, Hx Intubation, Hx Respiratory Failure, Hx Sleep Apnea, Hx Tuberculosis Neurological Medical History: Denies: Hx Cerebrovascular Accident, Hx Seizures, Hx Parkinson's Disease Endocrine Medical History: Denies: Hx Diabetes Mellitus Type 1, Hx Diabetes Mellitus Type 2, Hx Hyperthyroidism, Hx Hypothyroidism Renal/ Medical History: Denies: Hx Benign Prostatic Hyperplasia, Hx End Stage Renal Disease, Hx Kidney Stones, Hx Peritoneal Dialysis GI Medical History: Denies: Hx Cirrhosis, Hx Crohn's Disease, Hx Gastroesophageal Reflux Disease, Hx Hepatitis, Hx Ulcer, Hx Ulcerative Colitis Musculoskeletal Medical History: Reports Hx Arthritis, Denies Hx Gout, Denies Hx Multiple Sclerosis Skin Medical History: Denies Hx Eczema, Denies Hx Psoriasis Psychiatric Medical History: Reports: Hx Anxiety Denies: Hx Bipolar Disorder, Hx Depression, Hx Schizophrenia Infectious Medical History: Denies: Hx Hepatitis Past Surgical History: Reports: Hx Appendectomy, Hx Orthopedic Surgery - back, Other - Colonoscopy, trach - Immunizations Hx Diphtheria, Pertussis, Tetanus Vaccination: No Review of Systems - Review of Systems Constitutional: denies: No symptoms reported EENT: No symptoms reported Cardiovascular: No symptoms reported Respiratory: Short of breath Gastrointestinal: No symptoms reported. denies: Abdominal pain, Diarrhea, Nausea, Vomiting Musculoskeletal: No symptoms reported Skin: Other - Bilateral axillary abscesses Neurological/Psychological: No symptoms reported -: Yes All other systems reviewed and negative Physical Exam - Vital signs Vitals: Temp Pulse Resp BP Pulse Ox 99.4 F 112 H 24 H 150/90 H 94 01/08/20 15:10 01/08/20 15:10 01/08/20 15:10 01/08/20 15:10 01/08/20 15:10 - General General appearance: Anxious, Other - Ill-appearing In distress: Moderate - HEENT Head: Normocephalic, Atraumatic Neck: Other - Tracheostomy - Respiratory Respiratory status: Respiratory distress Chest status: Nontender Breath sounds: Wheezing - Audible Chest palpation: Normal - Cardiovascular Rhythm: Tachycardia Heart sounds: Normal auscultation Murmur: No - Abdominal Inspection: Normal Distension: No distension Bowel sounds: Normal Tenderness: Nontender Organomegaly: No organomegaly - Extremities General upper extremity: Other - Right axillary with a 9 cm hardened abscess that is actively draining purulent drainage. Erythema, warm and tender to pa lpation. Unable to fully lift arm secondary to pain. Left axillary region with a 5 cm hardened abscess that is erythematous not actively discharge or draining. - Neurological Neuro grossly intact: Yes Cognition: Normal Orientation: AAOx4 [place] Coma Scale Eye Opening: Spontaneous Betito Coma Scale Verbal: Oriented Betito Coma Scale Motor: Obeys Commands [place] Coma Scale Total: 15 Speech: Normal Motor strength normal: LUE, RUE, LLE, RLE Sensory: Normal - Skin Skin Temperature: Warm Skin Moisture: Dry Skin irregularity: Abscess Location of irregularity: Other - Bilateral axillary regions Irregularity with: Swelling, Tenderness, Warmth, Lymphangitis, Inflammation - Right axillary abscess draining purulent drainage, left axillary abscess erythematous without any active discharge or draining noted. Course - Re-evaluation Re-evalutation: 01/08/20 16:44 Aspirated through his trach which caused his trach to come out. Patient cleaned his own trach and was able to bring up a moderate amount of thick brown and yellow discharge. Now has light-colored sputum noted. Patient came in very tachycardic and tachypneic was put on oxygen, labs and EKG were done. Patient was able to clean out his tracheostomy hole the use of Q-tips that were dipped in hydrogen peroxide solution, was able to produce a moderate amount of sputum that was thick, chunks of yellow and brown were noted. Area was cleansed thoroughly 01/08/20 17:22 Patient requested that we use his old trach instead of a new trach. Trach was cleansed with hydrogen peroxide under sterile technique. Trach was inserted into previous tracheostomy by Dena Costa nurse practitioner. 01/08/20 19:11 Patient is resting comfortably easily arousable. Reviewed lab results with patient. Aware of need for admission. Patient is agreeable to admission. 01/08/20 19:51 Dr. Sheppard consulted and evaluated patient emergency room. States he spoke with patient's oncologist Dr. Brian ramírez vancomycin and meropenem IV antibiotics started. Orders were placed. 01/08/20 22:15 - Vital Signs Vital signs: Temp Pulse Resp BP Pulse Ox 99.5 F 112 H 11 L 134/82 H 98 01/08/20 20:01 01/08/20 15:10 01/08/20 20:01 01/08/20 20:01 01/08/20 20:01 - Laboratory Result Diagrams: 01/08/20 16:10 01/08/20 16:10 Laboratory results interpreted by me: 01/08/20 01/08/20 01/08/20 16:10 16:10 16:10 WBC 15.9 H RBC 4.19 L Hgb 12.7 L Hct 37.5 L RDW 14.2 H Seg Neuts % (Manual) 92 H Lymphocytes % (Manual) 2 L Abs Neuts (Manual) 14.6 H Abs Lymphs (Manual) 0.3 L VBG pH VBG pCO2 67.0 H* VBG HCO3 34.4 H Sodium 132.5 L Potassium 3.4 L Chloride 88 L Carbon Dioxide 37 H Glucose 135 H Calcium 12.9 H* 01/08/20 18:44 WBC RBC Hgb Hct RDW Seg Neuts % (Manual) Lymphocytes % (Manual) Abs Neuts (Manual) Abs Lymphs (Manual) VBG pH 7.44 H VBG pCO2 VBG HCO3 36.7 H Sodium Potassium Chloride Carbon Dioxide Glucose Calcium - Diagnostic Test Radiology reviewed: Reports reviewed - EKG Interpretation by Me EKG shows normal: Sinus rhythm Additional EKG results interpreted by me: 01/08/20 17:47 EKG interpreted by ED MD Dr. Coello. NO acute STEMI flipped T waves - Consults Dr Castillo Time consulted: 19:21 Reason for consultation: 01/08/20 19:21 admission Consulted provider: will see as inpatient Dr Sheppard Time consulted: 19:22 Reason for consultation: 01/08/20 19:24 Possible incision and drainage of abscesses. Consulted provider: will come to ER Discharge - Discharge Clinical Impression: Abscesses of both axillae, Tracheostomy dysfunction, Tachycardia Leukocytosis Qualifiers: Leukocytosis type: unspecified Qualified Code(s): D72.829 - Elevated white blood cell count, unspecified Condition: Stable Disposition: ADMITTED INPATIENT Admitting Provider: Anna (Hospitalist) Unit Admitted: Medical Floor
[2020-01-08 16:48] LABS: ALBUMIN 4.2 g/dL (3.5-5.0); ALKALINE PHOSPHATASE 104 U/L (38-126); ANION GAP 8 (5-19); ASPARTATE AMINO TRANSFERASE 22 U/L (17-59); BILIRUBIN,DIRECT 0.1 mg/dL (0.0-0.4); BILIRUBIN,TOTAL 0.9 mg/dL (0.2-1.3); BLOOD UREA NITROGEN 17 mg/dL (7-20); CARBON DIOXIDE 37 mmol/L (22-30); CHLORIDE 88 mmol/L (98-107); GLUCOSE 135 mg/dL (75-110); POTASSIUM 3.4 mmol/L (3.6-5.0); TOTAL PROTEIN 7.6 g/dL (6.3-8.2)
--- NOTE | 2020-01-08 16:52 | RADIOLOGY REPORT (SQ) ---
EXAM DESCRIPTION: CHEST SINGLE VIEW IMAGES COMPLETED DATE/TIME: 01/08/2020 4:26 pm REASON FOR STUDY: dyspnea COMPARISON: None. EXAM PARAMETERS: NUMBER OF VIEWS: One view. TECHNIQUE: Single frontal radiographic view of the chest acquired. RADIATION DOSE: NA LIMITATIONS: None. FINDINGS: LUNGS AND PLEURA: No opacities, masses or pneumothorax. No pleural effusion. MEDIASTINUM AND HILAR STRUCTURES: No masses. Contour normal. HEART AND VASCULAR STRUCTURES: Tracheostomy tube is not identified. BONES: No acute findings. HARDWARE: None in the chest. OTHER: No other significant finding. IMPRESSION: Tracheostomy tube is not identified. No acute cardiopulmonary findings. TECHNICAL DOCUMENTATION: JOB ID: [id number] 2010 [employer]- All Rights Reserved Reading location - IP/workstation name: [email or web address]
[2020-01-08 16:57] LABS: ABSOLUTE LYMPHOCYTES# (MANUAL) 0.3 10^3/uL (0.5-4.7); ABSOLUTE MONOCYTES # (MANUAL) 0.8 10^3/uL (0.1-1.4); BASOPHILS % (MANUAL) 0 % (0-2); CALCIUM 12.9 mg/dL (8.4-10.2); EOSINOPHILS % (MANUAL) 1 % (0-6); LYMPHOCYTES % (MANUAL) 2 % (13-45); MONOCYTES % (MANUAL) 5 % (3-13); SEGMENTED NEUTROPHILS % (MAN) 92 % (42-78); TOTAL CELLS COUNTED 100
[2020-01-08 16:58] LABS: PLATELET COMMENT ADEQUATE; RBC MORPHOLOGY COMMENT NORMO-CYTIC/CHROMIC
[2020-01-08] MEDS ORDERED: CLINDAMYCIN 600 MG/D5W RTU 600 MG/50 ML RTUPB IV ONE (18:09)
[2020-01-08] MEDS: NORMAL SALINE 1000 ML 1,000 ML IV PRN (18:29)
[2020-01-08 18:54] LABS: VENOUS BLOOD BASE EXCESS 10.3 mmol/L; VENOUS BLOOD HCO3 36.7 mmol/L (20-32); VENOUS BLOOD PCO2 55.9 mmHg (35-63); VENOUS BLOOD PH 7.44 (7.30-7.42)
[2020-01-08] MEDS ORDERED: VANCOMYCIN HCL INJ 1000 MG VIAL IV ONE (19:48)
[2020-01-08] MEDS ORDERED: MEROPENEM 1 GM VIAL IV ONE (19:49)
[2020-01-08] MEDS ORDERED: LEVALBUTEROL HCL NEB 0.63 MG/3 ML AMPUL NEB PRN (20:06)
[2020-01-08] MEDS ORDERED: MAG HYDROX/AL HYDROX/SIMETH SUSP 30 ML UDCUP PO PRN (20:06)
[2020-01-08] MEDS ORDERED: PROMETHAZINE HCL INJ 25 MG/1 ML VIAL IV PRN (20:06)
[2020-01-08] MEDS ORDERED: VANCOMYCIN HCL INJ 1000 MG VIAL IV SCH (20:15)
[2020-01-08] MEDS ORDERED: MEROPENEM 1 GM VIAL IV SCH (20:15)
[2020-01-08] MEDS ORDERED: GUAIFENESIN SYRP 200 MG/10 ML UDC PO PRN (20:20)
[2020-01-08] MEDS ORDERED: HYDRALAZINE HCL INJ/PF 20 MG/1 ML SDV IV PRN (20:20)
[2020-01-08] MEDS ORDERED: ACETAMINOPHEN 325 MG TABLET PO PRN (20:20)
[2020-01-08] MEDS ORDERED: NICOTINE 21 MG/24 HR PATCH.TD24 TD PRN (20:20)
[2020-01-08] MEDS ORDERED: IBUPROFEN 800 MG TABLET PO PRN (20:20)
[2020-01-08] MEDS ORDERED: MORPHINE SULFATE 10 MG/ML INJ IV PRN (20:20)
[2020-01-08] MEDS ORDERED: LORAZEPAM INJ 2 MG/1 ML VIAL IV PRN (20:20)
[2020-01-08] MEDS: HEPARIN SOD (PORCINE) 5,000 UNIT/ML 1 ML VIAL SUBCUT SCH (21:29)
[2020-01-08] MEDS: MORPHINE SULFATE 10 MG/ML INJ IV PRN (21:30)
[2020-01-08] MEDS: FAMOTIDINE 20 MG TABLET PO SCH (21:33)
--- NOTE | 2020-01-08 21:46 | PDOC CONSULTATION ---
Consultation Consult Date: 01/08/20 Attending physician:: WESTLEY LUO Provider Consulted: SHMUEL JOLLY Consult reason:: axillary abscess bilateral History of Present Illness Admission Date/PCP: 01/08/20 19:39 OJ SIMON PA-C History of Present Illness: REJI FERRELL is a 64 year old [id number] male past medical history significant for hypertension, COPD, chronic bronchitis, throat cancer who presented to the emergency room today complaining of worsening swelling under both his axillary regions for the past several months. States they have gotten bigger over the past few days and are now draining. Denies any fevers. States he did have a CT and PET scan a few days ago but has not gotten the results as of yet. Patient was brought back to his room from triage and became tachypneic and tachycardic after aspirating through his tracheostomy Past Medical History Cardiac Medical History: Reports: Hypertension Denies: Atrial Fibrillation, Congestive Heart Failure, Coronary Artery Disease, Myocardial Infarction, Hyperlipidema, Peripheral Vascular Disease Pulmonary Medical History: Reports: Asthma - Childhood asthma, Chronic Obstructive Pulmonary Disease (COPD) Denies: Bronchitis, Intubation, Pneumonia, Respiratory Failure, Sleep Apnea, Tuberculosis EENT Medical History: Denies: Cataracts, Ears - Hearing aids Neurological Medical History: Denies: Hemorrhagic CVA, Ischemic CVA, Seizures Endocrine Medical History: Denies: Diabetes Mellitus Type 1, Diabetes Mellitus Type 2, Hyperthyroidism, Hypothyroidism Renal/ Medical History: Denies: Chronic Kidney Disease, End Stage Renal Disease, Nephrolithiasis Malignancy Medical History: 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 GI Medical History: Denies: Cirrhosis, Crohn's Disease, Gastroesophageal Reflux Disease, Hepatitis, Peptic Ulcer Disease, Ulcerative Colitis Musculoskeltal Medical History: Reports: Arthritis Denies: Gout Skin Medical History: Denies: Eczema, Psoriasis Psychiatric Medical History: Denies: Alcohol Dependency, Bipolar Disorder, Depression, Substance Abuse, Tobacco Dependency Traumatic Medical History: Reports: None Hematology: Denies: Anemia, Bleeding Tendencies Infectious Medical History: Reports: None Past Surgical History Past Surgical History: Reports: Appendectomy, Orthopedic Surgery - Back surgery, right femur fracture, left wrist fracture, Other - Colonoscopy with biopsies, tracheostomy Social History Lives with: Spouse/Significant other Smoking Status: Former Smoker Electronic Cigarette use?: No Frequency of Alcohol Use: Rare Hx Recreational Drug Use: No Drugs: None Hx Prescription Drug Abuse: No - Advance Directive Resuscitation Status: Full Code Family History Family History: COPD, Hypertension, Other - Many family members of other than natural causes. denies: CAD, CVA, DM, Malignancy Parental Family History Reviewed: No Children Family History Reviewed: NA Sibling(s) Family History Reviewed.: NA Medication/Allergy Home Medications: Ibuprofen [Advil] 200 mg PO ASDIR PRN 02/26/19 Tramadol HCl [Ultram 50 mg Tablet] 50 mg PO BIDP PRN #10 tablet 04/03/19 Tramadol HCl [Ultram 50 mg Tablet] 50 mg PO BIDP PRN #10 tablet 11/09/19 Allergies/Adverse Reactions: No Known Allergies Allergy (Verified 04/03/19 16:14) Review of Systems Constitutional: PRESENT: fatigue, weakness, weight loss Eyes: ABSENT: visual disturbances Ears: ABSENT: as per HPI, hearing changes, other Nose, Mouth, and Throat: PRESENT: other - tracheostomy Breasts: ABSENT: as per HPI, other Cardiovascular: PRESENT: dyspnea on exertion Respiratory: PRESENT: cough Gastrointestinal: ABSENT: as per HPI, abdominal pain, bloating, coffee ground emesis, constipation, diarrhea, dysphagia, heartburn, hematemesis, hematochezia, melena, nausea, vomiting, other Genitourinary: ABSENT: as per HPI, difficulty urinating, dysuria, hematuria, nocturia, other Musculoskeletal: ABSENT: as per HPI, back pain, deformity, joint swelling, muscle weakness, other Integumentary: PRESENT: other - draining abscess rt axilla and pain and ten derness left axilla Neurological: ABSENT: as per HPI, abnormal gait, abnormal movements, abnormal speech, confusion, convulsions, dizziness, focal weakness, frequent falls, lack of coordination, memory loss, numbness, paresthesias, restless legs, syncope, tingling, tremor(s), vertigo, weakness, other Endocrine: ABSENT: as per HPI, cold intolerance, flushing, heat intolerance, menstrual abnormalities, polydipsia, polyphagia, polyuria, other Hematologic/Lymphatic: ABSENT: as per HPI, easy bleeding, easy bruising, lymphadenopathy, other Allergic/Immunologic: ABSENT: as per HPI, seasonal rhinorrhea, other Physical Exam Vital Signs: Temp Pulse Resp BP Pulse Ox 99.5 F 112 H 11 L 134/82 H 98 01/08/20 20:01 01/08/20 15:10 01/08/20 20:01 01/08/20 20:01 01/08/20 20:01 Intake & Output 01/07/20 01/08/20 01/09/20 06:59 06:59 06:59 Intake Total 1050 Balance 1050 Weight 67 kg General appearance: PRESENT: cooperative, mild distress, thin Head exam: PRESENT: normocephalic Eye exam: PRESENT: EOMI Ear exam: PRESENT: normal external ear exam Mouth exam: PRESENT: moist Teeth exam: PRESENT: poor dentation - tracheostomy Respiratory exam: PRESENT: rhonchi, other - rt axillia ;with large area of skin necrosis purulent drainage and necrotic tissue wit skin breakdonw axilla is firm with fixed mass extending deep into the axillia. left axilla similiar fixed mass iwth no skin breakdown. Cardiovascular exam: PRESENT: RRR GI/Abdominal exam: PRESENT: soft Rectal exam: PRESENT: deferred Extremities exam: PRESENT: full ROM Musculoskeletal exam: PRESENT: full ROM Neurological exam: PRESENT: alert, awake, oriented to person, oriented to place Psychiatric exam: PRESENT: appropriate affect Skin exam: PRESENT: dry Results Laboratory Results: 01/08/20 16:10 01/08/20 16:10 01/08/20 01/08/20 01/08/20 16:10 16:10 16:10 WBC 15.9 H RBC 4.19 L Hgb 12.7 L Hct 37.5 L MCV 90 MCH 30.3 MCHC 33.9 RDW 14.2 H Plt Count 402 Seg Neutrophils % Not Reportable VBG pH VBG pCO2 VBG HCO3 VBG Base Excess Sodium 132.5 L Potassium 3.4 L Chloride 88 L Carbon Dioxide 37 H Anion Gap 8 BUN 17 Creatinine 1.21 Est GFR ( Amer) > 60 Glucose 135 H Lactic Acid 1.3 Calcium 12.9 H* Total Bilirubin 0.9 AST 22 Alkaline Phosphatase 104 Total Protein 7.6 Albumin 4.2 01/08/20 01/08/20 01/08/20 16:10 18:44 18:44 WBC RBC Hgb Hct MCV MCH MCHC RDW Plt Count Seg Neutrophils % VBG pH 7.33 7.44 H VBG pCO2 67.0 H* 55.9 VBG HCO3 34.4 H 36.7 H VBG Base Excess 6.2 10.3 Sodium Potassium Chloride Carbon Dioxide Anion Gap BUN Creatinine Est GFR ( Amer) Glucose Lactic Acid 1.4 Calcium Total Bilirubin AST Alkaline Phosphatase Total Protein Albumin 01/08/20 18:44 Troponin I 0.025 Impressions: Chest X-Ray 01/08/20 15:50 IMPRESSION: Tracheostomy tube is not identified. No acute cardiopulmonary findings. Assessment & Plan - Plan Summary Plan Summary: Impression is metastatic laryngeal carcinoma bilateral axillary masses and necrotic skin breakdown in the right axilla with a large fixed axillary mass. There is drainage of pus from the right axilla but there is no undrained abscess most of the drainage is necrotic tissue. There is no active bleeding from the open wound. Case discussed with Dr. Luisa victor from hematology oncology at this point surgical excision of the mass would be difficult and fraught with complications such as breakdown of axillary artery and exsanguination. Plan is for consultation with radiation oncology on Saturday. For now we will begin dressing changes to the right axillary necrotic mass.
[2020-01-08] MEDS ORDERED: VANCOMYCIN HCL 1,000 MG in DEXTROSE 5%-WATER 250 ML IV ONE (22:00)
[2020-01-09] MEDS: LEVALBUTEROL HCL NEB 1.25 MG/3 ML AMPUL NEB SCH ×3 (00:14→17:13)
--- NOTE | 2020-01-09 01:49 | PDOC H&P ---
History of Present Illness Admission Date/PCP: 01/08/2020 19:23 OJ SIMON PA-C Patient complains of: Axillary "abscesses" History of Present Illness: REJI FERRELL is a 64 year old male who presented to the emergency room with a 3- month history of axillary "abscesses". He admits to the gradual development and worsening of bilateral axillary "abscesses" over the course of the last 3 months. The "abscesses" have gradually enlarged and have been accompanied by the draining of foul-smelling purulent material for several weeks. 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 He admits the "abscess" of his right axilla is larger and more uncomfortable than the one on the left side. He rates his constant discomfort as a mild to moderate localized "pain" in the bilateral axillae. He denies other associated or accompanying signs and symptoms. He denies prior similar episodes. He has not identified any aggravating or ameliorating factors for his axillary "abscesses". In the emergency room he was found to have a white blood count of 16,000 with a potassium of 3.4 and a temperature of 99.5 F. The purulent drainage of his bilateral axillary absce sses was cultured and blood cultures were obtained. Patient also experienced acute obstruction of his chronic tracheostomy due to mucous plugging, resulting in acute respiratory failure with hypoxia and hypercapnia, and required self- cleaning of the tracheostomy with replacement of the airway device during his ER visit. He was subsequently admitted to the hospital for further evaluation and treatment with Dr. Sheppard agreed to see the patient in consultation. Past Medical History Cardiac Medical History: Reports: Hypertension Denies: Atrial Fibrillation, Congestive Heart Failure, Coronary Artery Disease, Myocardial Infarction, Hyperlipidema, Peripheral Vascular Disease Pulmonary Medical History: Reports: Asthma - Childhood asthma, Chronic Obstructive Pulmonary Disease (COPD) Denies: Bronchitis, Intubation, Pneumonia, Respiratory Failure, Sleep Apnea, Tuberculosis EENT Medical History: Denies: Cataracts, Ears - Hearing aids Neurological Medical History: Denies: Hemorrhagic CVA, Ischemic CVA, Seizures Endocrine Medical History: Denies: Diabetes Mellitus Type 1, Diabetes Mellitus Type 2, Hyperthyroidism, Hypothyroidism Renal/ Medical History: Denies: Chronic Kidney Disease, Nephrolithiasis Malignancy Medical History: 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 GI Medical History: Denies: Cirrhosis, Crohn's Disease, Gastroesophageal Reflux Disease, Hepatitis, Peptic Ulcer Disease, Ulcerative Colitis Musculoskeltal Medical History: Reports: Arthritis Denies: Gout Skin Medical History: Denies: Eczema, Psoriasis Psychiatric Medical History: Denies: Alcohol Dependency, Bipolar Disorder, Depression, Substance Abuse, Tobacco Dependency Traumatic Medical History: Reports: None Hematology: Denies: Anemia, Bleeding Tendencies Infectious Medical History: Reports: None Past Surgical History Past Surgical History: Reports: Appendectomy, Orthopedic Surgery - Back surgery, right femur fracture, left wrist fracture, Other - Colonoscopy with biopsies, tr acheostomy Social History Information Source: Patient Lives with: Spouse/Significant other Smoking Status: Former Smoker Electronic Cigarette use?: No Frequency of Alcohol Use: Rare Hx Recreational Drug Use: No Drugs: None Hx Prescription Drug Abuse: No - Advance Directive Resuscitation Status: Full Code Surrogate healthcare decision maker:: Marie Rascon Family History Family History: COPD, Hypertension, Other - Many family members of other than natural causes. denies: CAD, CVA, DM, Malignancy Parental Family History Reviewed: Yes Children Family History Reviewed: No Sibling(s) Family History Reviewed.: Yes Medication/Allergy Home Medications: Diazepam [Valium 5 mg Tablet] 5 mg PO TID PRN 01/08/20 Levothyroxine Sodium 50 mcg PO QAM 01/08/20 Oxycodone HCl 2 tab PO Q4H PRN 01/08/20 Allergies/Adverse Reactions: No Known Allergies Allergy (Verified 04/03/19 16:14) Review of Systems Constitutional: ABSENT: chills, fever(s) Eyes: ABSENT: visual disturbances, other - Eye pain Ears: ABSENT: hearing changes, other - Ear pain Nose, Mouth, and Throat: ABSENT: headache(s), sore throat Cardiovascular: ABSENT: chest pain, palpitations Respiratory: PRESENT: as per HPI, cough - Chronic, dyspnea - Acute in the ER due to tracheostomy obstruction Gastrointestinal: ABSENT: abdominal pain, constipation, diarrhea, nausea, v omiting Genitourinary: ABSENT: dysuria, hematuria Musculoskeletal: ABSENT: joint swelling, muscle weakness Integumentary: ABSENT: pruritus, rash Neurological: ABSENT: confusion, convulsions, focal weakness, memory loss, syncope Psychiatric: ABSENT: anxiety, depression Endocrine: ABSENT: cold intolerance, heat intolerance, polydipsia, polyphagia, polyuria Hematologic/Lymphatic: ABSENT: easy bleeding, easy bruising Allergic/Immunologic: ABSENT: seasonal rhinorrhea Physical Exam Vital Signs: Temp Pulse Resp BP Pulse Ox 99.5 F 112 H 24 H 150/90 H 99 01/08/20 18:55 01/08/20 15:10 01/08/20 16:00 01/08/20 15:10 01/08/20 16:00 Intake & Output 01/06/20 01/07/20 01/08/20 23:59 23:59 23:59 Weight 67 kg General appearance: PRESENT: no acute distress, cooperative Head exam: PRESENT: atraumatic, normocephalic Eye exam: PRESENT: conjunctiva pink. ABSENT: conjunctival injection, scleral icterus Ear exam: PRESENT: normal external ear exam. ABSENT: bleeding, drainage Mouth exam: PRESENT: dry mucosa, neck supple Neck exam: PRESENT: tracheostomy. ABSENT: JVD, thyromegaly, tracheal deviation Respiratory exam: PRESENT: decreased breath sounds - Mildly decreased breath sounds throughout all la, prolonged expiratory phas - Mildly prolonged expiratory phase in all la, rhonchi - Rare scattered rhonchi, symmetrical, unlabored, wheezes - Mild expiratory wheezes in all la Cardiovascular exam: PRESENT: RRR. ABSENT: clicks, gallop, rubs Pulses: PRESENT: normal radial pulses, normal dorsalis pedis pul Vascular exam: PRESENT: normal capillary refill. ABSENT: pallor GI/Abdominal exam: PRESENT: normal bowel sounds, soft. ABSENT: tenderness Rectal exam: PRESENT: deferred Extremities exam: ABSENT: joint swelling, pedal edema Musculoskeletal exam: ABSENT: deformity, dislocation Neurological exam: PRESENT: CN II-XII grossly intact. ABSENT: alert, oriented to person, oriented to place, oriented to time, oriented to situation, motor sensory deficit Psychiatric exam: PRESENT: appropriate affect, normal mood Skin exam: PRESENT: dry, erythema - Erythema and edema with induration and fluctuant/draining fungating mass/abscesses of the bilateral axillae noted. Right axillary mass/abscess is approximately 9 cm in diameter and left axillary abscess is approximately 5 cm in diameter., warm. ABSENT: jaundice, rash, urticaria Results Laboratory Results: 01/08/20 16:10 01/08/20 16:10 01/08/20 01/08/20 01/08/20 16:10 16:10 16:10 WBC 15.9 H RBC 4.19 L Hgb 12.7 L Hct 37.5 L MCV 90 MCH 30.3 MCHC 33.9 RDW 14.2 H Plt Count 402 Seg Neutrophils % Not Reportable VBG pH VBG pCO2 VBG HCO3 VBG Base Excess Sodium 132.5 L Potassium 3.4 L Chloride 88 L Carbon Dioxide 37 H Anion Gap 8 BUN 17 Creatinine 1.21 Est GFR ( Amer) > 60 Glucose 135 H Lactic Acid 1.3 Calcium 12.9 H* Total Bilirubin 0.9 AST 22 Alkaline Phosphatase 104 Total Protein 7.6 Albumin 4.2 01/08/20 01/08/20 16:10 18:44 WBC RBC Hgb Hct MCV MCH MCHC RDW Plt Count Seg Neutrophils % VBG pH 7.33 7.44 H VBG pCO2 67.0 H* 55.9 VBG HCO3 34.4 H 36.7 H VBG Base Excess 6.2 10.3 Sodium Potassium Chloride Carbon Dioxide Anion Gap BUN Creatinine Est GFR ( Amer) Glucose Lactic Acid Calcium Total Bilirubin AST Alkaline Phosphatase Total Protein Albumin Impressions: Chest X-Ray 01/08/20 15:50 IMPRESSION: Tracheostomy tube is not identified. No acute cardiopulmonary findings. 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 Is this a current diagnosis for this admission?: Yes (3) Leukocytosis Qualifiers: Leukocytosis type: unspecified Qualified Code(s): D72.829 - Elevated white blood cell count, unspecified Is this a current diagnosis for this admission?: Yes (4) Hypokalemia Is this a current diagnosis for this admission?: Yes (5) Tracheostomy dysfunction Is this a current diagnosis for this admission?: Yes (6) Acute respiratory failure with hypoxia and hypercapnia Is this a current diagnosis for this admission?: Yes (7) Endobronchial mass Is this a current diagnosis for this admission?: Yes (8) Chronic obstructive pulmonary disease Qualifiers: COPD type: chronic bronchitis Chronic bronchitis type: mucopurulent Qualified Code(s): J41.1 - Mucopurulent chronic bronchitis Is this a current diagnosis for this admission?: Yes (9) Hypertension Qualifiers: Hypertension type: essential hypertension Qualified Code(s): I10 - Essential (primary) hypertension Is this a current diagnosis for this admission?: Yes - Plan Summary Summary: Patient will be admitted to the medical floor where he will receive routine supportive and symptomatic cares. He will be placed on IV antibiotic therapy utilizing vancomycin and meropenem pending wound and blood culture results. A surgical consultation with Dr. Shailesh Sheppard will be obtained. Patient use morphine sulfate 2 to 4 mg IV every 2 hours as needed for pain using a sliding scale for dosage. He will receive Ativan 1 mg IV every 4 hours as needed for anxiety or restlessness. He will be placed on a standard pulmonary toilet utilizing nebulized Xopenex, Atrovent, Mucomyst and Pulmicort. Serial CBCs, metabolic profiles and magnesium levels will be obtained as appropriate. Add itional laboratory and radiographic diagnostic testing will be obtained as needed. Patient will be on a cardiac diet. Routine tracheostomy cares will be provided. He will be continued on his usual home medications, as appropriate, when his medication list has been verified and reconciled. Consideration for a palliative care referral is recommended. - Time Time Spent with patient: 15-24 minutes Medications reviewed and adjusted accordingly: Yes Anticipated discharge: Home with Homehealth - Inpatient Certification Based on my medical assessment, after consideration of the patient's comorbidities, presenting symptoms, or acuity I expect that the services needed warrant INPATIENT care.: Yes I certify that my determination is in accordance with my understanding of Medicare's requirements for reasonable and necessary INPATIENT services [42 CFR 412.3e].: Yes Medical Necessity: Failure to Improve With Outpatient Therapy, Need for IV Antibiotics, Need for Surgery, Risk of Complication if Not Cared For in Hospital
[2020-01-09] MEDS: MEROPENEM 1 GM in NORMAL SALINE 50 ML IV SCH ×3 (02:45→17:16)
[2020-01-09 04:58] LABS: HEMATOCRIT 33.4 % (37.9-51.0); HEMOGLOBIN 11.4 g/dL (13.5-17.0); MEAN CORPUSCULAR HEMOGLOBIN 30.3 pg (27.0-33.4); MEAN CORPUSCULAR HGB CONC 34.1 g/dL (32.0-36.0); MEAN CORPUSCULAR VOLUME 89 fl (80-97); PLATELET COUNT 302 10^3/uL (150-450); RED BLOOD COUNT 3.76 10^6/uL (4.35-5.55); RED CELL DISTRIBUTION WIDTH 13.7 % (11.5-14.0); WHITE BLOOD COUNT 9.7 10^3/uL (4.0-10.5)
[2020-01-09 05:17] LABS: ANION GAP 8 (5-19); BLOOD UREA NITROGEN 15 mg/dL (7-20); CARBON DIOXIDE 30 mmol/L (22-30); CHLORIDE 95 mmol/L (98-107); GLUCOSE 91 mg/dL (75-110); POTASSIUM 3.2 mmol/L (3.6-5.0)
[2020-01-09 05:27] LABS: CALCIUM 12.2 mg/dL (8.4-10.2)
[2020-01-09] MEDS: HEPARIN SOD (PORCINE) 5,000 UNIT/ML 1 ML VIAL SUBCUT SCH ×3 (06:02→22:39)
[2020-01-09] MEDS: BUDESONIDE NEB 0.5 MG/2 ML AMPUL NEB SCH ×2 (08:03→21:20)
[2020-01-09] MEDS: ACETYLCYSTEINE 20% SOLN 800 MG/4 ML VIAL.NEB NEB SCH ×2 (08:03→21:20)
--- NOTE | 2020-01-09 09:03 | PDOC CONSULTATION ---
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 Had PET on 01/04 and was going to come this week to discuss but comes with R axillary swelling and drainage. The PET does indicate progression of disease w/ b/l axillary LAD enlarging as well as supraclav LAD enlarging but no other organ involvment or bone involvement on imaging. He does have elev calcium on admit also. R axilla is draining pus, called by surgery, he is not surgical candidate, so I recommended broad spec atbx with consult to rad onc on saturday. Past Medical History Cardiac Medical History: Reports: Hypertension Denies: Atrial Fibrillation, Congestive Heart Failure, Coronary Artery Disease, Myocardial Infarction, Hyperlipidema, Peripheral Vascular Disease Pulmonary Medical History: Reports: Asthma - Childhood asthma, Chronic Obstructive Pulmonary Disease (COPD) Denies: Bronchitis, Intubation, Pneumonia, Respiratory Failure, Sleep Apnea, Tuberculosis EENT Medical History: Denies: Cataracts, Ears - Hearing aids Neurological Medical History: Denies: Hemorrhagic CVA, Ischemic CVA, Seizures Endocrine Medical History: Denies: Diabetes Mellitus Type 1, Diabetes Mellitus Type 2, Hyperthyroidism, Hypothyroidism Renal/ Medical History: Denies: Chronic Kidney Disease, End Stage Renal Disease, Nephrolithiasis Malignancy Medical History: 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 GI Medical History: Denies: Cirrhosis, Crohn's Disease, Gastroesophageal Reflux Disease, Hepatitis, Peptic Ulcer Disease, Ulcerative Colitis Musculoskeltal Medical History: Reports: Arthritis Denies: Gout Skin Medical History: Denies: Eczema, Psoriasis Psychiatric Medical History: Denies: Alcohol Dependency, Bipolar Disorder, Depression, Substance Abuse, Tobacco Dependency Traumatic Medical History: Reports: None Hematology: Denies: Anemia, Bleeding Tendencies Infectious Medical History: Reports: None Past Surgical History Past Surgical History: Reports: Appendectomy, Orthopedic Surgery - Back surgery, right femur fracture, left wrist fracture, Other - Colonoscopy with biopsies, tracheostomy Social History Lives with: Spouse/Significant other Smoking Status: Former Smoker Electronic Cigarette use?: No Frequency of Alcohol Use: Rare Hx Recreational Drug Use: No Drugs: None Hx Prescription Drug Abuse: No - Advance Directive Resuscitation Status: Full Code Family History Family History: COPD, Hypertension, Other - Many family members of other than natural causes. denies: CAD, CVA, DM, Malignancy Parental Family History Reviewed: Yes Children Family History Reviewed: Yes Sibling(s) Family History Reviewed.: Yes Medication/Allergy Home Medications: Diazepam [Valium 5 mg Tablet] 5 mg PO TID PRN 01/08/20 Levothyroxine Sodium 50 mcg PO QAM 01/08/20 Oxycodone HCl 2 tab PO Q4H PRN 01/08/20 Allergies/Adverse Reactions: No Known Allergies Allergy (Verified 04/03/19 16:14) Physical Exam Vital Signs: Temp Pulse Resp BP Pulse Ox 98.9 F 65 18 136/69 H 98 01/09/20 08:10 01/09/20 08:10 01/09/20 08:10 01/09/20 08:10 01/09/20 08:10 Intake & Output 01/08/20 01/09/20 01/10/20 06:59 06:59 06:59 Intake Total 2150 Output Total 750 Balance 1400 Weight 63.9 kg Results Laboratory Results: 01/09/20 04:42 01/09/20 04:42 01/08/20 01/08/20 01/08/20 16:10 16:10 16:10 WBC 15.9 H RBC 4.19 L Hgb 12.7 L Hct 37.5 L MCV 90 MCH 30.3 MCHC 33.9 RDW 14.2 H Plt Count 402 Seg Neutrophils % Not Reportable VBG pH VBG pCO2 VBG HCO3 VBG Base Excess Sodium 132.5 L Potassium 3.4 L Chloride 88 L Carbon Dioxide 37 H Anion Gap 8 BUN 17 Creatinine 1.21 Est GFR ( Amer) > 60 Glucose 135 H Lactic Acid 1.3 Calcium 12.9 H* Magnesium Total Bilirubin 0.9 AST 22 Alkaline Phosphatase 104 Total Protein 7.6 Albumin 4.2 01/08/20 01/08/20 01/08/20 16:10 18:44 18:44 WBC RBC Hgb Hct MCV MCH MCHC RDW Plt Count Seg Neutrophils % VBG pH 7.33 7.44 H VBG pCO2 67.0 H* 55.9 VBG HCO3 34.4 H 36.7 H VBG Base Excess 6.2 10.3 Sodium Potassium Chloride Carbon Dioxide Anion Gap BUN Creatinine Est GFR ( Amer) Glucose Lactic Acid 1.4 Calcium Magnesium Total Bilirubin AST Alkaline Phosphatase Total Protein Albumin 01/08/20 01/09/20 01/09/20 21:42 01:36 04:42 WBC RBC Hgb Hct MCV MCH MCHC RDW Plt Count Seg Neutrophils % VBG pH VBG pCO2 VBG HCO3 VBG Base Excess Sodium Potassium Chloride Carbon Dioxide Anion Gap BUN Creatinine Est GFR ( Amer) Glucose Lactic Acid 1.9 0.9 1.3 Calcium Magnesium Total Bilirubin AST Alkaline Phosphatase Total Protein Albumin 01/09/20 01/09/20 04:42 04:42 WBC 9.7 RBC 3.76 L Hgb 11.4 L Hct 33.4 L MCV 89 MCH 30.3 MCHC 34.1 RDW 13.7 Plt Count 302 Seg Neutrophils % VBG pH VBG pCO2 VBG HCO3 VBG Base Excess Sodium 133.1 L Potassium 3.2 L Chloride 95 L Carbon Dioxide 30 Anion Gap 8 BUN 15 Creatinine 0.95 Est GFR ( Amer) > 60 Glucose 91 Lactic Acid Calcium 12.2 H* Magnesium 2.0 Total Bilirubin AST Alkaline Phosphatase Total Protein Albumin 01/08/20 18:44 Troponin I 0.025 Impressions: Chest X-Ray 01/08/20 15:50 IMPRESSION: Tracheostomy tube is not identified. No acute cardiopulmonary findings. Assessment & Plan - Diagnosis (1) Cutaneous abscesses of both axillae Is this a current diagnosis for this admission?: Yes Plan: Cont w/ broad spec atbx, hopefully rad onc can consider xrt palliatively to R axilla to stop drainage but unsure if possible. Will discuss w/ them on saturday. (2) Larynx cancer Is this a current diagnosis for this admission?: Yes Plan: stage IV, was going to offer 3rd line therapy as outpt but we will see first was rad onc says.
[2020-01-09] MEDS: DOCUSATE SODIUM 100 MG CAPSULE PO SCH ×2 (09:43→17:23)
[2020-01-09] MEDS: FAMOTIDINE 20 MG TABLET PO SCH ×2 (09:43→22:38)
[2020-01-09] MEDS: MORPHINE SULFATE 10 MG/ML INJ IV PRN ×4 (10:06→22:56)
[2020-01-09] MEDS: VANCOMYCIN HCL 750 MG in DEXTROSE 5%-WATER 250 ML IV SCH ×2 (11:09→22:38)
--- NOTE | 2020-01-09 14:44 | PDOC PROGRESS REPORT ---
Subjective Progress Note for:: 01/09/20 Reason For Visit: BILATERAL AXILLARY ABSCESSES 01/09/2020 Bilateral axillary abscesses with probable metastatic involvement from age for laryngeal carcinoma Physical Exam Vital Signs: Temp Pulse Resp BP Pulse Ox 98.9 F 65 18 136/69 H 98 01/09/20 08:10 01/09/20 08:10 01/09/20 08:10 01/09/20 08:10 01/09/20 08:10 Intake & Output 01/08/20 01/09/20 01/10/20 06:59 06:59 06:59 Intake Total 2150 50 Output Total 750 Balance 1400 50 Weight 63.9 kg General appearance: PRESENT: no acute distress, other - Patient has long-term trach in place Respiratory exam: PRESENT: clear to auscultation [place]illy. ABSENT: rales, rhonchi, wheezes Cardiovascular exam: PRESENT: RRR. ABSENT: diastolic murmur, rubs, systolic murmur Neurological exam: PRESENT: alert, awake, oriented to person, oriented to place, oriented to time, oriented to situation, CN II-XII grossly intact, other - Commu nicates by writing notes. ABSENT: motor sensory deficit Psychiatric exam: PRESENT: appropriate affect, normal mood. ABSENT: homicidal ideation, suicidal ideation Results Laboratory Results: 01/09/20 04:42 01/09/20 04:42 01/08/20 01/08/20 01/08/20 16:10 16:10 16:10 WBC 15.9 H RBC 4.19 L Hgb 12.7 L Hct 37.5 L MCV 90 MCH 30.3 MCHC 33.9 RDW 14.2 H Plt Count 402 Seg Neutrophils % Not Reportable VBG pH VBG pCO2 VBG HCO3 VBG Base Excess Sodium 132.5 L Potassium 3.4 L Chloride 88 L Carbon Dioxide 37 H Anion Gap 8 BUN 17 Creatinine 1.21 Est GFR ( Amer) > 60 Glucose 135 H Lactic Acid 1.3 Calcium 12.9 H* Magnesium Total Bilirubin 0.9 AST 22 Alkaline Phosphatase 104 Total Protein 7.6 Albumin 4.2 01/08/20 01/08/20 01/08/20 16:10 18:44 18:44 WBC RBC Hgb Hct MCV MCH MCHC RDW Plt Count Seg Neutrophils % VBG pH 7.33 7.44 H VBG pCO2 67.0 H* 55.9 VBG HCO3 34.4 H 36.7 H VBG Base Excess 6.2 10.3 Sodium Potassium Chloride Carbon Dioxide Anion Gap BUN Creatinine Est GFR ( Amer) Glucose Lactic Acid 1.4 Calcium Magnesium Total Bilirubin AST Alkaline Phosphatase Total Protein Albumin 01/08/20 01/09/20 01/09/20 21:42 01:36 04:42 WBC RBC Hgb Hct MCV MCH MCHC RDW Plt Count Seg Neutrophils % VBG pH VBG pCO2 VBG HCO3 VBG Base Excess Sodium Potassium Chloride Carbon Dioxide Anion Gap BUN Creatinine Est GFR ( Amer) Glucose Lactic Acid 1.9 0.9 1.3 Calcium Magnesium Total Bilirubin AST Alkaline Phosphatase Total Protein Albumin 01/09/20 01/09/20 04:42 04:42 WBC 9.7 RBC 3.76 L Hgb 11.4 L Hct 33.4 L MCV 89 MCH 30.3 MCHC 34.1 RDW 13.7 Plt Count 302 Seg Neutrophils % VBG pH VBG pCO2 VBG HCO3 VBG Base Excess Sodium 133.1 L Potassium 3.2 L Chloride 95 L Carbon Dioxide 30 Anion Gap 8 BUN 15 Creatinine 0.95 Est GFR ( Amer) > 60 Glucose 91 Lactic Acid Calcium 12.2 H* Magnesium 2.0 Total Bilirubin AST Alkaline Phosphatase Total Protein Albumin 01/08/20 18:44 Troponin I 0.025 Impressions: Chest X-Ray 01/08/20 15:50 IMPRESSION: Tracheostomy tube is not identified. No acute cardiopulmonary findings. 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 He will be placed on IV antibiotic therapy ut ilizing vancomycin and meropenem pending wound and blood culture results. A surgical consultation with Dr. Shailesh Sheppard will be obtained. Patient use morphine sulfate 2 to 4 mg IV every 2 hours as needed for pain using a sliding scale for dosage. He will receive Ativan 1 mg IV every 4 hours as needed for anxiety or restlessness. He will be placed on a standard pulmonary toilet utilizing nebulized Xopenex, Atrovent, Mucomyst and Pulmicort. Serial CBCs, metabolic profiles and magnesium levels will be obtained as appropriate. Additional laboratory and radiographic diagnostic testing will be obtained as needed. Patient will be on a cardiac diet. Routine tracheostomy cares will be provided. He will be continued on his usual home medications, as appropriate, when his medication list has been verified and reconciled. Consideration for a palliative care referral is recommended. 01/09/2020 Temperature 98.5. Admitted with low-grade fever 99 4. Pulse this morning 66 blood pressure 130/91 weight 57 kg white blood cell count is down to 9.7 from 15.9 Sodium 133 potassium is now 3.2 and it was 3.4 Lactic acids have always been normal since admission Serum remains high at 12.2 magnesium therapeutic at 2 Patient has been seen by general surgery who recommended antibiotics and oncol maikely consult Oncology the patient well and is recommended patient oncology consult Saturday for possible treatment of bilateral metastases to the axilla with abscess formation 10 you broad-spectrum antibiotics in the meantime Repeat labs this afternoon - Time Time Spent with patient: 25-34 minutes
[2020-01-10] MEDS: MEROPENEM 1 GM in NORMAL SALINE 50 ML IV SCH ×3 (02:50→17:07)
[2020-01-10] MEDS: LEVALBUTEROL HCL NEB 1.25 MG/3 ML AMPUL NEB SCH ×2 (05:14→11:15)
[2020-01-10 06:12] LABS: HEMATOCRIT 29.7 % (37.9-51.0); HEMOGLOBIN 10.4 g/dL (13.5-17.0); MEAN CORPUSCULAR HEMOGLOBIN 30.6 pg (27.0-33.4); MEAN CORPUSCULAR HGB CONC 34.9 g/dL (32.0-36.0); MEAN CORPUSCULAR VOLUME 88 fl (80-97); PLATELET COUNT 285 10^3/uL (150-450); RED BLOOD COUNT 3.39 10^6/uL (4.35-5.55); RED CELL DISTRIBUTION WIDTH 13.8 % (11.5-14.0); WHITE BLOOD COUNT 8.6 10^3/uL (4.0-10.5)
[2020-01-10] MEDS: HEPARIN SOD (PORCINE) 5,000 UNIT/ML 1 ML VIAL SUBCUT SCH ×3 (06:39→22:33)
[2020-01-10] MEDS: MORPHINE SULFATE 10 MG/ML INJ IV PRN ×3 (06:44→20:27)
[2020-01-10 10:29] LABS: VANCOMYCIN,TROUGH 8.9 ug/mL (5.0-20.0)
--- NOTE | 2020-01-10 10:35 | EKG REPORT ---
SEVERITY:- ABNORMAL ECG - SINUS RHYTHM MULTIPLE ATRIAL PREMATURE COMPLEXES PROBABLE LEFT VENTRICULAR HYPERTROPHY : Confirmed by: Reyes Adame 10-Jan-2020 10:35:07
[2020-01-10] MEDS: DOCUSATE SODIUM 100 MG CAPSULE PO SCH ×2 (10:40→17:29)
[2020-01-10] MEDS: FAMOTIDINE 20 MG TABLET PO SCH ×2 (10:40→22:33)
[2020-01-10] MEDS: ACETYLCYSTEINE 20% SOLN 800 MG/4 ML VIAL.NEB NEB SCH (11:15)
[2020-01-10] MEDS: BUDESONIDE NEB 0.5 MG/2 ML AMPUL NEB SCH (11:15)
[2020-01-10] MEDS: VANCOMYCIN HCL 750 MG in DEXTROSE 5%-WATER 250 ML IV SCH ×3 (11:57→18:16)
--- NOTE | 2020-01-10 16:39 | PDOC PROGRESS REPORT ---
Subjective Progress Note for:: 01/10/20 Reason For Visit: BILATERAL AXILLARY ABSCESSES 01/10/2020 Bilateral axillary abscesses with probable metastatic involvement from laryngeal carcinoma Physical Exam Vital Signs: Temp Pulse Resp BP Pulse Ox 98.2 F 59 L 15 144/74 H 96 01/10/20 12:00 01/10/20 12:00 01/10/20 12:00 01/10/20 12:00 01/10/20 12:00 Intake & Output 01/09/20 01/10/20 01/11/20 06:59 06:59 06:59 Intake Total 2150 2120 300 Output Total 750 2450 Balance 1400 -330 300 Weight 63.9 kg 64.6 kg General appearance: PRESENT: no acute distress Respiratory exam: PRESENT: clear to auscultation [place]illy. ABSENT: rales, rhonchi, wheezes Cardiovascular exam: PRESENT: RRR. ABSENT: diastolic murmur, rubs, systolic murmur Neurological exam: PRESENT: alert, awake, oriented to person, oriented to place, oriented to time, oriented to situation, CN II-XII grossly intact. ABSENT: motor sensory deficit Psychiatric exam: PRESENT: appropriate affect, normal mood. ABSENT: homicidal ideation, suicidal ideation Results Laboratory Results: 01/10/20 05:04 01/10/20 09:35 01/10/20 01/10/20 05:04 09:35 WBC 8.6 RBC 3.39 L Hgb 10.4 L Hct 29.7 L MCV 88 MCH 30.6 MCHC 34.9 RDW 13.8 Plt Count 285 Creatinine 0.97 Est GFR ( Amer) > 60 01/08/20 18:44 Troponin I 0.025 Impressions: Chest X-Ray 01/08/20 15:50 IMPRESSION: Tracheostomy tube is not identified. No acute cardiopulmonary findings. 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 He will be placed on IV antibiotic therapy utilizing vancomycin and meropenem pending wound and blood culture results. A surgical consultation with Dr. Shailesh Sheppard will be obtained. Patient use morphine sulfate 2 to 4 mg IV every 2 hours as needed for pain using a sliding scale for dosage. He will receive Ativan 1 mg IV every 4 hours as needed for anxiety or restlessness. He will be placed on a standard pulmonary toilet utilizing nebulized Xopenex, Atrovent, Mucomyst and Pulmicort. Serial CBCs, metabolic profiles and magnesium levels will be obtained as appropriate. Additional laboratory and radiographic diagnostic testing will be obtained as needed. Patient will be on a cardiac diet. Routine tracheostomy cares will be provided. He will be continued on his usual home medications, as appropriate, when his medication list has been verified and reconciled. Consideration for a palliative care referral is recommended. 01/09/2020 Temperature 98.5. Admitted with low-grade fever 99 4. Pulse this morning 66 blood pressure 130/91 weight 57 kg white blood cell count is down to 9.7 from 15.9 Sodium 133 potassium is now 3.2 and it was 3.4 Lactic acids have always been normal since admission Serum remains high at 12.2 magnesium therapeutic at 2 Patient has been seen by general surgery who recommended antibiotics and oncology consult Oncology the patient well and is recommended patient oncology consult Saturday for possible treatment of bilateral metastases to the axilla with abscess formation 10 you broad-spectrum antibiotics in the meantime Repeat labs this afternoon 01/10/2020 Temperature 99 pulse 66, blood pressure 137/75, O2 sat 94% on room air. Had a slight temperature last night 100.3 White count on admission 15.9 went down to 9.7 today is 8.6 Wound cultures growing out gram-negative rods. Patient is on vancomycin and meropenem. Patient for discussion tomorrow concerning radiation oncology - Time Time Spent with patient: 25-34 minutes
[2020-01-11] MEDS: VANCOMYCIN HCL 750 MG in DEXTROSE 5%-WATER 250 ML IV SCH ×3 (03:08→19:31)
[2020-01-11] MEDS: MEROPENEM 1 GM in NORMAL SALINE 50 ML IV SCH ×3 (03:08→17:47)
[2020-01-11] MEDS: HEPARIN SOD (PORCINE) 5,000 UNIT/ML 1 ML VIAL SUBCUT SCH ×3 (06:07→23:05)
[2020-01-11] MEDS: MORPHINE SULFATE 10 MG/ML INJ IV PRN ×6 (06:19→23:02)
[2020-01-11 06:26] LABS: HEMATOCRIT 33.4 % (37.9-51.0); HEMOGLOBIN 11.6 g/dL (13.5-17.0); MEAN CORPUSCULAR HEMOGLOBIN 30.3 pg (27.0-33.4); MEAN CORPUSCULAR HGB CONC 34.7 g/dL (32.0-36.0); MEAN CORPUSCULAR VOLUME 88 fl (80-97); PLATELET COUNT 273 10^3/uL (150-450); RED BLOOD COUNT 3.82 10^6/uL (4.35-5.55); RED CELL DISTRIBUTION WIDTH 13.7 % (11.5-14.0); WHITE BLOOD COUNT 10.5 10^3/uL (4.0-10.5)
--- NOTE | 2020-01-11 08:21 | PDOC PROGRESS REPORT ---
Subjective Progress Note for:: 01/11/20 Subjective:: Drainage b/l continually, discussed case with radiation oncology, they will see patient today, patient still having a lot of pain but not asking for pain medications frequently, told nursing to weight loss counselor patient on this. Reason For Visit: BILATERAL AXILLARY ABSCESSES Physical Exam Vital Signs: Temp Pulse Resp BP Pulse Ox 98.4 F 61 16 126/68 H 95 01/11/20 00:00 01/11/20 00:00 01/11/20 00:00 01/11/20 00:00 01/11/20 00:00 Intake & Output 01/10/20 01/11/20 01/12/20 06:59 06:59 06:59 Intake Total 2120 2520 Output Total 2450 3800 Balance -330 -1280 Weight 64.6 kg 64 kg Results Laboratory Results: 01/11/20 05:48 01/10/20 09:35 01/10/20 01/11/20 09:35 05:48 WBC 10.5 RBC 3.82 L Hgb 11.6 L Hct 33.4 L MCV 88 MCH 30.3 MCHC 34.7 RDW 13.7 Plt Count 273 Creatinine 0.97 Est GFR ( Amer) > 60 01/08/20 18:44 Troponin I 0.025 Impressions: Chest X-Ray 01/08/20 15:50 IMPRESSION: Tracheostomy tube is not identified. No acute cardiopulmonary findings. Assessment & Plan - Diagnosis (1) Cutaneous abscesses of both axillae Is this a current diagnosis for this admission?: Yes Plan: Broad-spectrum antibiotics for now. Radiation planned. (2) Larynx cancer Is this a current diagnosis for this admission?: Yes Plan: Would attempt palliative radiation to at least right axilla but bilateral axilla would be reasonable. Thereafter, we will need to consider second line chemotherapy as an outpatient. - Time Time Spent with patient: 35 or more minutes - Inpatient Certification Based on my medical assessment, after consideration of the patient's comorbidities, presenting symptoms, or acuity I expect that the services needed warrant INPATIENT care.: Yes I certify that my determination is in accordance with my understanding of Medicare's requirements for reasonable and necessary INPATIENT services [42 CFR 412.3e].: Yes Medical Necessity: Need for Pain Control, Need for IV Antibiotics
[2020-01-11] MEDS: DOCUSATE SODIUM 100 MG CAPSULE PO SCH ×2 (10:22→17:41)
[2020-01-11] MEDS: FAMOTIDINE 20 MG TABLET PO SCH ×2 (10:25→23:05)
[2020-01-11 10:36] LABS: VANCOMYCIN,TROUGH 16.6 ug/mL (5.0-20.0)
--- NOTE | 2020-01-11 11:46 | PDOC PROGRESS REPORT ---
Subjective Progress Note for:: 01/11/20 Reason For Visit: BILATERAL AXILLARY ABSCESSES Patient admitted with bilateral axillary abscesses secondary to probable metastatic laryngeal carcinoma Physical Exam Vital Signs: Temp Pulse Resp BP Pulse Ox 98.2 F 55 L 16 124/65 96 01/11/20 07:18 01/11/20 07:18 01/11/20 07:18 01/11/20 07:18 01/11/20 07:18 Intake & Output 01/10/20 01/11/20 01/12/20 06:59 06:59 06:59 Intake Total 2120 2520 Output Total 2450 3800 Balance -330 -1280 Weight 64.6 kg 64 kg General appearance: PRESENT: no acute distress Respiratory exam: PRESENT: decreased breath sounds - Right lower lobe, rhonchi - Left lower lobe Cardiovascular exam: PRESENT: RRR. ABSENT: diastolic murmur, rubs, systolic murmur Neurological exam: PRESENT: alert, awake, oriented to person, oriented to place, oriented to time, oriented to situation, CN II-XII grossly intact. ABSENT: motor sensory deficit Psychiatric exam: PRESENT: anxious, appropriate affect, normal mood, other - Patient communicates with writing secondary to trach stoma. ABSENT: homicidal ideation, suicidal ideation Results Laboratory Results: 01/11/20 05:48 01/11/20 09:30 01/11/20 01/11/20 05:48 09:30 WBC 10.5 RBC 3.82 L Hgb 11.6 L Hct 33.4 L MCV 88 MCH 30.3 MCHC 34.7 RDW 13.7 Plt Count 273 Creatinine 0.87 Est GFR ( Amer) > 60 01/08/20 18:44 Troponin I 0.025 Impressions: Chest X-Ray 01/08/20 15:50 IMPRESSION: Tracheostomy tube is not identified. No acute cardiopulmonary findings. 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 He will be placed on IV antibiotic therapy utilizing vancomycin and meropenem pending wound and blood culture results. A surgical consultation with Dr. Shailesh Sheppard will be obtained. Patient use morphine sulfate 2 to 4 mg IV every 2 hours as needed for pain using a sliding s gallo for dosage. He will receive Ativan 1 mg IV every 4 hours as needed for anxiety or restlessness. He will be placed on a standard pulmonary toilet utilizing nebulized Xopenex, Atrovent, Mucomyst and Pulmicort. Serial CBCs, metabolic profiles and magnesium levels will be obtained as appropriate. Additional laboratory and radiographic diagnostic testing will be obtained as needed. Patient will be on a cardiac diet. Routine tracheostomy cares will be provided. He will be continued on his usual home medications, as appropriate, when his medication list has been verified and reconciled. Consideration for a palliative care referral is recommended. 01/09/2020 Temperature 98.5. Admitted with low-grade fever 99 4. Pulse this morning 66 blood pressure 130/91 weight 57 kg white blood cell count is down to 9.7 from 15.9 Sodium 133 potassium is now 3.2 and it was 3.4 Lactic acids have always been normal since admission Serum remains high at 12.2 magnesium therapeutic at 2 Patient has been seen by general surgery who recommended antibiotics and oncology consult Oncology the patient well and is recommended patient oncology consult Saturday for possible treatment of bilateral metastases to the axilla with abscess formation 10 you broad-spectrum antibiotics in the meantime Repeat labs this afternoon 01/10/2020 Temperature 99 pulse 66, blood pressure 137/75, O2 sat 94% on room air. Had a slight temperature last night 100.3 White count on admission 15.9 went down to 9.7 today is 8.6 Wound cultures growing out gram-negative rods. Patient is on vancomycin and meropenem. Patient for discussion tomorrow concerning radiation oncology 01/11/2020 Was originally admitted for bilateral axillary abscesses. Possible metastatic disease from laryngeal cancer Patient's labs are stable in fact his white count is coming down today to 10.5 potassium is a little low at 3.2 Temperature 98.2 pulse 55 blood pressure 124/65 and surprisingly his oxygen saturation is good at 96% on room air Patient is scheduled to see radiation oncology today for further treatment plan Patient currently on day 3 of meropenem and vancomycin And communicates through a note pad since he does not talk. Tell me he sounds as though he got up a big mucous plug this morning Treatment plan will be dictated by oncology and radiation oncology - Time Time Spent with patient: 25-34 minutes
[2020-01-12] MEDS: VANCOMYCIN HCL 750 MG in DEXTROSE 5%-WATER 250 ML IV SCH ×2 (02:28→09:07)
[2020-01-12] MEDS: MEROPENEM 1 GM in NORMAL SALINE 50 ML IV SCH ×3 (02:28→18:28)
[2020-01-12] MEDS: HEPARIN SOD (PORCINE) 5,000 UNIT/ML 1 ML VIAL SUBCUT SCH ×3 (06:46→21:23)
[2020-01-12] MEDS: MORPHINE SULFATE 10 MG/ML INJ IV PRN ×5 (07:03→18:29)
--- NOTE | 2020-01-12 08:30 | PDOC PROGRESS REPORT ---
Subjective Progress Note for:: 01/12/20 Subjective:: Pt had severe pain in back yesterday, could not get XRT simulation, made changes to pain meds, added MSSR and inc morphine IV dose. Hopeful start of xrt today with these changes Reason For Visit: BILATERAL AXILLARY ABSCESSES Physical Exam Vital Signs: Temp Pulse Resp BP Pulse Ox 98.4 F 88 16 132/78 H 93 01/12/20 00:50 01/12/20 00:50 01/12/20 00:50 01/12/20 00:50 01/12/20 00:50 Intake & Output 01/11/20 01/12/20 01/13/20 06:59 06:59 06:59 Intake Total 2520 940 Output Total 3800 800 Balance -1280 140 Weight 64 kg 64 kg General appearance: PRESENT: no acute distress, well-developed, well-nourished Head exam: PRESENT: atraumatic, normocephalic Eye exam: PRESENT: conjunctiva pink, EOMI, PERRLA. ABSENT: scleral icterus Ear exam: PRESENT: normal external ear exam Mouth exam: PRESENT: moist, tongue midline Neck exam: ABSENT: carotid bruit, JVD, lymphadenopathy, thyromegaly Respiratory exam: PRESENT: clear to auscultation philly. ABSENT: rales, rhonchi, wheezes Cardiovascular exam: PRESENT: RRR. ABSENT: diastolic murmur, rubs, systolic murmur Pulses: PRESENT: normal dorsalis pedis pul Vascular exam: PRESENT: normal capillary refill GI/Abdominal exam: PRESENT: normal bowel sounds, soft. ABSENT: distended, guarding, mass, organolmegaly, rebound, tenderness Rectal exam: PRESENT: deferred Extremities exam: PRESENT: full ROM. ABSENT: calf tenderness, clubbing, pedal edema Neurological exam: PRESENT: alert, awake, oriented to person, oriented to place, oriented to time, oriented to situation, CN II-XII grossly intact. ABSENT: motor sensory deficit Psychiatric exam: PRESENT: appropriate affect, normal mood. ABSENT: homicidal ideation, suicidal ideation Skin exam: PRESENT: dry, intact, warm. ABSENT: cyanosis, rash Results Laboratory Results: 01/11/20 05:48 01/11/20 09:30 01/11/20 09:30 Creatinine 0.87 Est GFR ( Amer) > 60 01/08/20 20:12 Axilla - Right Side Abscess Gram Stain - Final 01/08/20 20:12 Axilla - Right Side Abscess Wound Culture - Final Providencia Rettgeri Staphylococcus Aureus Klebsiella(Enterobac)Aerogenes Anaerococcus (Peptostrep) Sp. 01/08/20 18:44 Troponin I 0.025 Impressions: Chest X-Ray 01/08/20 15:50 IMPRESSION: Tracheostomy tube is not identified. No acute cardiopulmonary findings. Assessment & Plan - Diagnosis (1) Cutaneous abscesses of both axillae Is this a current diagnosis for this admission?: Yes Plan: Cont atbx, start xrt today hopefully (2) Larynx cancer Is this a current diagnosis for this admission?: Yes Plan: XRT planned as above (3) Pain, neoplasm-related Is this a current diagnosis for this admission?: Yes Plan: STart MSSR 30mg PO q 12 hours (received total IV dose yesterday of 16 mg so should be ok), inc morphine IV to 5mg q 2 h prn. - Time Time Spent with patient: 15-24 minutes
[2020-01-12] MEDS: DOCUSATE SODIUM 100 MG CAPSULE PO SCH ×2 (09:06→18:28)
[2020-01-12] MEDS: MORPHINE SULFATE SR 30 MG TABLET PO SCH ×2 (09:06→21:22)
[2020-01-12] MEDS: FAMOTIDINE 20 MG TABLET PO SCH ×2 (09:06→21:23)
--- NOTE | 2020-01-12 17:55 | PDOC PROGRESS REPORT ---
Subjective Progress Note for:: 01/12/20 Subjective:: Patient was seen on afternoon rounds after returning from radiation therapy. He just received morphine for his discomfort prior to my arrival. He was sleeping comfortably but woke easily when I said his name; made eye contact and smiled but then quickly fell back to sleep. He again later smiled at me, while I was auscultating lung sounds, before quickly falling back to sleep. He does appear to be quite comfortable and is not noted to be any acute distress at this time. No concerns per nursing. Reason For Visit: BILATERAL AXILLARY ABSCESSES Physical Exam Vital Signs: Temp Pulse Resp BP Pulse Ox 98.7 F 62 19 122/69 93 01/12/20 12:00 01/12/20 12:00 01/12/20 12:00 01/12/20 12:00 01/12/20 12:00 Intake & Output 01/11/20 01/12/20 01/13/20 06:59 06:59 06:59 Intake Total 2520 1140 1134 Output Total 3800 800 575 Balance -1280 340 559 Weight 64 kg 64 kg General appearance: PRESENT: no acute distress, thin, well-developed, well- nourished Head exam: PRESENT: atraumatic, normocephalic Eye exam: PRESENT: conjunctiva pink, EOMI, PERRLA. ABSENT: scleral icterus Mouth exam: PRESENT: moist, tongue midline Respiratory exam: PRESENT: decreased breath sounds - bibasilar, symmetrical, unlabored. ABSENT: rales, rhonchi, wheezes Cardiovascular exam: PRESENT: RRR. ABSENT: diastolic murmur, rubs, systolic murmur Pulses: PRESENT: normal dorsalis pedis pul Vascular exam: PRESENT: normal capillary refill Rectal exam: PRESENT: deferred Extremities exam: PRESENT: full ROM. ABSENT: calf tenderness, clubbing, pedal edema Neurological exam: PRESENT: CN II-XII grossly intact, other - Sleeping soundly; has just received analgesic medications. ABSENT: motor sensory deficit Psychiatric exam: PRESENT: appropriate affect, normal mood. ABSENT: homicidal ideation, suicidal ideation Skin exam: PRESENT: dry, warm. ABSENT: cyanosis, rash Results Laboratory Results: 01/11/20 05:48 01/11/20 09:30 01/08/20 18:44 Troponin I 0.025 Impressions: Chest X-Ray 01/08/20 15:50 IMPRESSION: Tracheostomy tube is not identified. No acute cardiopulmonary findings. 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 Analgesics as needed. Will see if WOC Nurse from wound care center can provide assessment/brandon mmendations for wound care both while admitted and post discharge. (2) Cutaneous abscesses of both axillae Is this a current diagnosis for this admission?: Yes Plan: Improved. Patient is afebrile, leukocytosis has resolved. Secondary to #1 Cultures NGTD Wound culture to right axilla with procidentia, MSSA, Klebsiella, Pepto strep. All sensitive to meropenem, Levaquin, ceftriaxone, and Bactrim. We will continue IV meropenem; day #4. Consider transition to Levaquin or Bactrim at discharge; will discuss with Dr. Torres to ensure that there is not an interaction between these and any chemotherapy/immune modifiers. Will ask wound care center WOC nurse to provide wound care recommendations. (3) Stage IV laryngeal cancer Is this a current diagnosis for this admission?: Yes Plan: Dr. Trores is consulted; primary management per his expertise. Analgesics per Dr. Torres. Patient appears quite comfortable after adjustments made this morning. (4) Tracheostomy dysfunction Is this a current diagnosis for this admission?: Yes Plan: Tracheostomy care per nursing protocol daily and as needed. - Time Time Spent with patient: 35 or more minutes Medications reviewed and adjusted accordingly: Yes Anticipated discharge: Home
[2020-01-13] MEDS: MORPHINE SULFATE 10 MG/ML INJ IV PRN ×6 (00:12→16:29)
[2020-01-13] MEDS: PROMETHAZINE HCL INJ 25 MG/1 ML VIAL IV PRN ×2 (00:12→16:29)
[2020-01-13] MEDS: MEROPENEM 1 GM in NORMAL SALINE 50 ML IV SCH ×3 (02:37→17:37)
[2020-01-13] MEDS: HEPARIN SOD (PORCINE) 5,000 UNIT/ML 1 ML VIAL SUBCUT SCH ×3 (05:38→22:34)
[2020-01-13] MEDS: NORMAL SALINE 1000 ML 1,000 ML IV PRN ×2 (06:12→20:42)
[2020-01-13 07:00] LABS: BLOOD UREA NITROGEN 17 mg/dL (7-20); CARBON DIOXIDE 36 mmol/L (22-30); CHLORIDE 99 mmol/L (98-107); GLUCOSE 83 mg/dL (75-110); POTASSIUM 4.1 mmol/L (3.6-5.0)
[2020-01-13 07:15] LABS: HEMATOCRIT 37.6 % (37.9-51.0); HEMOGLOBIN 12.6 g/dL (13.5-17.0); MEAN CORPUSCULAR HGB CONC 33.5 g/dL (32.0-36.0); MEAN CORPUSCULAR VOLUME 90 fl (80-97); PLATELET COUNT 295 10^3/uL (150-450); RED CELL DISTRIBUTION WIDTH 13.9 % (11.5-14.0); WHITE BLOOD COUNT 14.2 10^3/uL (4.0-10.5)
[2020-01-13 07:17] LABS: ANION GAP 3 (5-19)
--- NOTE | 2020-01-13 07:57 | PDOC PROGRESS REPORT ---
Subjective Progress Note for:: 01/13/20 Subjective:: Pt seems a little more off today, reviewed ca level, was 15. Likely either related bone invasion not readily evident on imaging or paraneoplastic from the progressive Sq ca cell ca. Will give zometa today Reason For Visit: BILATERAL AXILLARY ABSCESSES Physical Exam Vital Signs: Temp Pulse Resp BP Pulse Ox 98.3 F 60 19 140/67 H 92 01/12/20 23:48 01/12/20 23:48 01/12/20 23:48 01/12/20 23:48 01/12/20 23:48 Intake & Output 01/12/20 01/13/20 01/14/20 06:59 06:59 06:59 Intake Total 1140 1454 Output Total 800 1435 Balance 340 19 Weight 64 kg 64.5 kg General appearance: PRESENT: no acute distress, well-developed, well-nourished Head exam: PRESENT: atraumatic, normocephalic Eye exam: PRESENT: conjunctiva pink, EOMI, PERRLA. ABSENT: scleral icterus Ear exam: PRESENT: normal external ear exam Mouth exam: PRESENT: moist, tongue midline Neck exam: ABSENT: carotid bruit, JVD, lymphadenopathy, thyromegaly Respiratory exam: PRESENT: clear to auscultation philly. ABSENT: rales, rhonchi, wheezes Cardiovascular exam: PRESENT: RRR. ABSENT: diastolic murmur, rubs, systolic murmur Pulses: PRESENT: normal dorsalis pedis pul Vascular exam: PRESENT: normal capillary refill GI/Abdominal exam: PRESENT: normal bowel sounds, soft. ABSENT: distended, guarding, mass, organolmegaly, rebound, tenderness Rectal exam: PRESENT: deferred Extremities exam: PRESENT: full ROM. ABSENT: calf tenderness, clubbing, pedal edema Neurological exam: PRESENT: alert, awake, oriented to person, oriented to place, oriented to time, oriented to situation, CN II-XII grossly intact. ABSENT: motor sensory deficit Psychiatric exam: PRESENT: appropriate affect, normal mood. ABSENT: homicidal ideation, suicidal ideation Skin exam: PRESENT: dry, intact, warm. ABSENT: cyanosis, rash Results Laboratory Results: 01/13/20 06:08 01/13/20 06:08 01/13/20 01/13/20 06:08 06:08 WBC 14.2 H RBC 4.20 L Hgb 12.6 L Hct 37.6 L MCV 90 MCH 30.0 MCHC 33.5 RDW 13.9 Plt Count 295 Sodium 137.8 Potassium 4.1 Chloride 99 Carbon Dioxide 36 H Anion Gap 3 L BUN 17 Creatinine 0.99 Est GFR ( Amer) > 60 Glucose 83 Calcium 15.0 H* 01/08/20 18:44 Troponin I 0.025 Impressions: Chest X-Ray 01/08/20 15:50 IMPRESSION: Tracheostomy tube is not identified. No acute cardiopulmonary findings. Assessment & Plan - Diagnosis (1) Cutaneous abscesses of both axillae Is this a current diagnosis for this admission?: Yes Plan: reviewed gram stain, cont carbapenum for now. When pt ready for d/c, maybe bactrim? Defer to surgery and hospitalist team (2) Larynx cancer Is this a current diagnosis for this admission?: Yes Plan: Cont xrt, pt tolerated w/ inc pain meds yesterday (3) Pain, neoplasm-related Is this a current diagnosis for this admission?: Yes Plan: Pt a bit more confused/off today, maybe the higher ca level but may also be some inc SE from higher dose pain meds initiated yesterday, d/w nursing to assess thru the day, if still confused, suggest decrease MSSR to 15mg - Time Time Spent with patient: 35 or more minutes
[2020-01-13] MEDS ORDERED: ZOLEDRONIC ACID 4 MG/100 ML RTU IV ONE (09:00)
[2020-01-13] MEDS: MORPHINE SULFATE SR 30 MG TABLET PO SCH ×2 (09:39→22:35)
[2020-01-13] MEDS: DOCUSATE SODIUM 100 MG CAPSULE PO SCH ×2 (09:39→17:39)
[2020-01-13] MEDS: FAMOTIDINE 20 MG TABLET PO SCH ×2 (09:39→22:34)
--- NOTE | 2020-01-13 16:35 | PDOC PROGRESS REPORT ---
Subjective Progress Note for:: 01/13/20 Subjective:: Patient was seen on morning rounds; resting in bed on room air. He does appear to be in some physical discomfort at this time; slightly tremulous with facial grimacing. He denies shortness of breath but does confirm increased difficulty managing sputum production and asks to have humidified collar. Otherwise, he indicates that he is tired. He denies fever, chest pain, abdominal pain, nausea and vomiting. No other questions or concerns at this time. No concerns per nursing. Reason For Visit: BILATERAL AXILLARY ABSCESSES Physical Exam Vital Signs: Temp Pulse Resp BP Pulse Ox 98.4 F 71 18 159/90 H 95 01/13/20 11:35 01/13/20 11:35 01/13/20 11:35 01/13/20 11:35 01/13/20 11:35 Intake & Output 01/12/20 01/13/20 01/14/20 06:59 06:59 06:59 Intake Total 1140 1454 325 Output Total 800 1435 Balance 340 19 325 Weight 64 kg 64.5 kg General appearance: PRESENT: no acute distress, thin, well-developed, well- nourished Head exam: PRESENT: atraumatic, normocephalic Eye exam: PRESENT: conjunctiva pink, EOMI, PERRLA. ABSENT: scleral icterus Mouth exam: PRESENT: moist, tongue midline Neck exam: PRESENT: tracheostomy Respiratory exam: PRESENT: decreased breath sounds, symmetrical, unlabored, other - room air. ABSENT: rales, rhonchi, wheezes Cardiovascular exam: PRESENT: RRR. ABSENT: diastolic murmur, rubs, systolic murmur Vascular exam: PRESENT: normal capillary refill GI/Abdominal exam: PRESENT: normal bowel sounds, soft. ABSENT: distended, guarding, mass, organolmegaly, rebound, tenderness Rectal exam: PRESENT: deferred Extremities exam: PRESENT: full ROM. ABSENT: calf tenderness, clubbing, pedal edema Neurological exam: PRESENT: alert, awake, oriented to person, oriented to place, oriented to time, oriented to situation, CN II-XII grossly intact. ABSENT: motor sensory deficit Psychiatric exam: PRESENT: appropriate affect, normal mood. ABSENT: homicidal ideation, suicidal ideation Skin exam: PRESENT: dry, intact, warm. ABSENT: cyanosis, rash Results Laboratory Results: 01/13/20 06:08 05/20/20 06:08 01/13/20 01/13/20 06:08 06:08 WBC 14.2 H RBC 4.20 L Hgb 12.6 L Hct 37.6 L MCV 90 MCH 30.0 MCHC 33.5 RDW 13.9 Plt Count 295 Sodium 137.8 Potassium 4.1 Chloride 99 Carbon Dioxide 36 H Anion Gap 3 L BUN 17 Creatinine 0.99 Est GFR ( Amer) > 60 Glucose 83 Calcium 15.0 H* 01/08/20 16:10 Blood Blood Culture - Final NO GROWTH IN 5 DAYS 01/08/20 16:10 Blood Blood Culture - Final NO GROWTH IN 5 DAYS 01/08/20 18:44 Troponin I 0.025 Impressions: Chest X-Ray 01/08/20 15:50 IMPRESSION: Tracheostomy tube is not identified. No acute cardiopulmonary findings. 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 Analgesics as needed. Will see if WOC Nurse from wound care center can provide assessment/recommendations for wound care both while admitted and post disc harge. (2) Cutaneous abscesses of both axillae Is this a current diagnosis for this admission?: Yes Plan: Improved. Patient is afebrile. WBC 15.9-> 9.7-> 8.6-> 10.5-> 14.2 (following 1st radiation tx; perhaps inflamation reaction). Secondary to #1 Blood Cultures NGTD Wound culture to right axilla with procidentia, MSSA, Klebsiella, Pepto strep. All sensitive to meropenem, Levaquin, ceftriaxone, and Bactrim. We will continue IV meropenem; day #5. Consider transition to Levaquin or Bactrim at discharge; will discuss with Dr. Torres to ensure that there is not an interaction between these and any chemotherapy/immune modifiers. Will ask wound care center WOC nurse to provide wound care recommendations. (3) Stage IV laryngeal cancer Is this a current diagnosis for this admission?: Yes Plan: Dr. Torres is consulted; primary management per his expertise. Analgesics per Dr. Torres. Patient appears quite comfortable after adjustments made this morning. (4) Tracheostomy dysfunction Is this a current diagnosis for this admission?: Yes Plan: Tracheostomy care per nursing protocol daily and as needed. (5) Hypothyroidism Is this a current diagnosis for this admission?: Yes Plan: Continue home dose levothyroxine. - Time Time Spent with patient: 35 or more minutes Medications reviewed and adjusted accordingly: Yes
[2020-01-14] MEDS: MEROPENEM 1 GM in NORMAL SALINE 50 ML IV SCH ×3 (01:59→19:05)
[2020-01-14] MEDS: MORPHINE SULFATE 10 MG/ML INJ IV PRN ×3 (04:25→23:41)
[2020-01-14] MEDS: HEPARIN SOD (PORCINE) 5,000 UNIT/ML 1 ML VIAL SUBCUT SCH ×3 (06:15→21:37)
[2020-01-14 06:49] LABS: HEMATOCRIT 33.8 % (37.9-51.0); HEMOGLOBIN 11.1 g/dL (13.5-17.0); MEAN CORPUSCULAR HEMOGLOBIN 29.7 pg (27.0-33.4); MEAN CORPUSCULAR HGB CONC 32.9 g/dL (32.0-36.0); MEAN CORPUSCULAR VOLUME 90 fl (80-97); PLATELET COUNT 273 10^3/uL (150-450); RED BLOOD COUNT 3.75 10^6/uL (4.35-5.55); RED CELL DISTRIBUTION WIDTH 14.1 % (11.5-14.0); WHITE BLOOD COUNT 12.2 10^3/uL (4.0-10.5)
[2020-01-14 07:42] LABS: BLOOD UREA NITROGEN 21 mg/dL (7-20); CARBON DIOXIDE 31 mmol/L (22-30); CHLORIDE 105 mmol/L (98-107); GLUCOSE 101 mg/dL (75-110)
[2020-01-14 07:50] LABS: ANION GAP 4 (5-19)
[2020-01-14 07:52] LABS: CALCIUM 12.9 mg/dL (8.4-10.2)
--- NOTE | 2020-01-14 07:56 | PDOC PROGRESS REPORT ---
Subjective Progress Note for:: 01/14/20 Subjective:: Confused all day yesterday, not writing to communicate much over last 24 hours. Today I decreased his MSSR to 15 q 8 hours and Morphine IV to 4mg/dose. R axilla is draining less and looking better per nursing. Reason For Visit: BILATERAL AXILLARY ABSCESSES Physical Exam Vital Signs: Temp Pulse Resp BP Pulse Ox 97.8 F 63 18 116/53 L 94 01/14/20 00:06 01/14/20 00:06 01/14/20 00:06 01/14/20 00:06 01/14/20 00:06 Intake & Output 01/13/20 01/14/20 01/15/20 06:59 06:59 06:59 Intake Total 1454 1425 Output Total 1435 600 Balance 19 825 Weight 64.5 kg 65.2 kg General appearance: PRESENT: no acute distress, well-developed, well-nourished Head exam: PRESENT: atraumatic, normocephalic Eye exam: PRESENT: conjunctiva pink, EOMI, PERRLA. ABSENT: scleral icterus Ear exam: PRESENT: normal external ear exam Mouth exam: PRESENT: moist, tongue midline Neck exam: ABSENT: carotid bruit, JVD, lymphadenopathy, thyromegaly Respiratory exam: PRESENT: clear to auscultation philly. ABSENT: rales, rhonchi, wheezes Cardiovascular exam: PRESENT: RRR. ABSENT: diastolic murmur, rubs, systolic murmur Pulses: PRESENT: normal dorsalis pedis pul Vascular exam: PRESENT: normal capillary refill GI/Abdominal exam: PRESENT: normal bowel sounds, soft. ABSENT: distended, gu arding, mass, organolmegaly, rebound, tenderness Rectal exam: PRESENT: deferred Extremities exam: PRESENT: full ROM. ABSENT: calf tenderness, clubbing, pedal edema Neurological exam: PRESENT: alert, awake, oriented to person, oriented to place, oriented to time, oriented to situation, CN II-XII grossly intact. ABSENT: mot or sensory deficit Psychiatric exam: PRESENT: appropriate affect, normal mood. ABSENT: homicidal ideation, suicidal ideation Skin exam: PRESENT: dry, intact, warm. ABSENT: cyanosis, rash Results Laboratory Results: 01/14/20 06:00 01/14/20 06:00 01/14/20 01/14/20 06:00 06:00 WBC 12.2 H RBC 3.75 L Hgb 11.1 L Hct 33.8 L MCV 90 MCH 29.7 MCHC 32.9 RDW 14.1 H Plt Count 273 Sodium 139.9 Potassium 4.0 Chloride 105 Carbon Dioxide 31 H Anion Gap 4 L BUN 21 H Creatinine 1.09 Est GFR ( Amer) > 60 Glucose 101 Calcium 12.9 H* 01/08/20 16:10 Blood Blood Culture - Final NO GROWTH IN 5 DAYS 01/08/20 16:10 Blood Blood Culture - Final NO GROWTH IN 5 DAYS 01/08/20 18:44 Troponin I 0.025 Impressions: Chest X-Ray 01/08/20 15:50 IMPRESSION: Tracheostomy tube is not identified. No acute cardiopulmonary findings. Assessment & Plan - Diagnosis (1) Cutaneous abscesses of both axillae Is this a current diagnosis for this admission?: Yes Plan: Improving, cont atbx (2) Larynx cancer Is this a current diagnosis for this admission?: Yes Plan: Cont XRT to axilla (3) Pain, neoplasm-related Is this a current diagnosis for this admission?: Yes Plan: Change in pain control as above b/c of persistent confusion - Time Time Spent with patient: 15-24 minutes
[2020-01-14] MEDS: FAMOTIDINE 20 MG TABLET PO SCH ×2 (09:25→21:37)
[2020-01-14] MEDS: LEVOTHYROXINE SODIUM 0.05 MG TABLET PO SCH (09:25)
[2020-01-14] MEDS: MORPHINE SULFATE SR 30 MG TABLET PO SCH (09:25)
[2020-01-14] MEDS: DOCUSATE SODIUM 100 MG CAPSULE PO SCH ×2 (09:25→19:05)
[2020-01-14] MEDS: NORMAL SALINE 1000 ML 1,000 ML IV PRN (12:30)
[2020-01-14] MEDS: MORPHINE SULFATE SR 15 MG TABLET PO SCH ×2 (13:45→21:37)
--- NOTE | 2020-01-14 17:41 | PDOC PROGRESS REPORT ---
Subjective Progress Note for:: 01/14/20 Subjective:: Patient was seen on afternoon rounds following return from radiation treatment. He was found resting in bed, comfortably, with minified air via trach collar. He was sleeping soundly and did not wake when I said his name. Did not make further attempts to wake him. He appears comfortable and is not noted to be in any acute distress at this time. Per nursing, the patient had a difficult morning with pain but was able to tolerate his radiation treatments well. They have no questions or concerns at this time. Reason For Visit: BILATERAL AXILLARY ABSCESSES Physical Exam Vital Signs: Temp Pulse Resp BP Pulse Ox 98.9 F 75 16 118/71 94 01/14/20 15:17 01/14/20 15:17 01/14/20 15:17 01/14/20 15:17 01/14/20 15:55 Intake & Output 01/13/20 01/14/20 01/15/20 06:59 06:59 06:59 Intake Total 1454 2425 360 Output Total 1435 600 175 Balance 19 1825 185 Weight 64.5 kg 65.2 kg General appearance: PRESENT: no acute distress, thin, well-developed, well- nourished Head exam: PRESENT: atraumatic, normocephalic Ear exam: PRESENT: normal external ear exam Mouth exam: PRESENT: moist, tongue midline Neck exam: PRESENT: tracheostomy. ABSENT: carotid bruit, JVD, lymphadenopathy, thyromegaly Respiratory exam: PRESENT: clear to auscultation philly, decreased breath sounds, symmetrical, unlabored. ABSENT: rales, rhonchi, wheezes Cardiovascular exam: PRESENT: RRR. ABSENT: diastolic murmur, rubs, systolic murmur Pulses: PRESENT: normal dorsalis pedis pul Vascular exam: PRESENT: normal capillary refill Extremities exam: PRESENT: full ROM. ABSENT: calf tenderness, clubbing, pedal edema Neurological exam: PRESENT: CN II-XII grossly intact, other - Sleeping soundly. ABSENT: motor sensory deficit Skin exam: PRESENT: dry, warm. ABSENT: cyanosis, rash Results Laboratory Results: 01/14/20 06:00 01/14/20 06:00 01/14/20 01/14/20 06:00 06:00 WBC 12.2 H RBC 3.75 L Hgb 11.1 L Hct 33.8 L MCV 90 MCH 29.7 MCHC 32.9 RDW 14.1 H Plt Count 273 Sodium 139.9 Potassium 4.0 Chloride 105 Carbon Dioxide 31 H Anion Gap 4 L BUN 21 H Creatinine 1.09 Est GFR ( Amer) > 60 Glucose 101 Calcium 12.9 H* 01/08/20 16:10 Blood Blood Culture - Final NO GROWTH IN 5 DAYS 01/08/20 16:10 Blood Blood Culture - Final NO GROWTH IN 5 DAYS 01/08/20 18:44 Troponin I 0.025 Impressions: Chest X-Ray 01/08/20 15:50 IMPRESSION: Tracheostomy tube is not identified. No acute cardiopulmonary findings. 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 Analgesics as needed. Will see if WOC Nurse from wound care center can provide assessment/recommendations for wound care both while admitted and post discharge. (2) Cutaneous abscesses of both axillae Is this a current diagnosis for this admission?: Yes Plan: Improved. Patient is afebrile. WBC 15.9-> 9.7-> 8.6-> 10.5-> 14.2 (following 1st radiation tx; perhaps inflammation reaction)-> 12.2. Secondary to #1 Blood Cultures NGTD Wound culture to right axilla with procidentia, MSSA, Klebsiella, Pepto strep. All sensitive to meropenem, Levaquin, ceftriaxone, and Bactrim. We will continue IV meropenem; day #6. Consider transition to Levaquin or Bactrim at discharge; will discuss with Dr. Torres to ensure that there is not an interaction between these and any chemotherapy/immune modifiers. Will ask wound care center WOC nurse to provide wound care recommendations. (3) Stage IV laryngeal cancer Is this a current diagnosis for this admission?: Yes Plan: Dr. Torres is consulted; primary management per his expertise. Analgesics per Dr. Torres. Patient appears quite comfortable after adjustments made this morning. (4) Tracheostomy dysfunction Is this a current diagnosis for this admission?: Yes Plan: Tracheostomy care per nursing protocol daily and as needed. Improved secretion clearance with addition of humidified air. (5) Hypothyroidism Is this a current diagnosis for this admission?: Yes Plan: Continue home dose levothyroxine. - Time Time Spent with patient: 15-24 minutes Medications reviewed and adjusted accordingly: Yes Anticipated discharge: Home with Homehealth
[2020-01-15] MEDS: MEROPENEM 1 GM in NORMAL SALINE 50 ML IV SCH ×3 (02:28→17:35)
[2020-01-15] MEDS: MORPHINE SULFATE SR 15 MG TABLET PO SCH ×3 (05:24→21:29)
[2020-01-15] MEDS: HEPARIN SOD (PORCINE) 5,000 UNIT/ML 1 ML VIAL SUBCUT SCH ×3 (05:24→21:30)
[2020-01-15] MEDS: NORMAL SALINE 1000 ML 1,000 ML IV PRN (05:26)
[2020-01-15 05:43] LABS: HEMATOCRIT 29.9 % (37.9-51.0); HEMOGLOBIN 10.2 g/dL (13.5-17.0); MEAN CORPUSCULAR HEMOGLOBIN 30.5 pg (27.0-33.4); MEAN CORPUSCULAR HGB CONC 34.1 g/dL (32.0-36.0); MEAN CORPUSCULAR VOLUME 89 fl (80-97); PLATELET COUNT 243 10^3/uL (150-450); RED BLOOD COUNT 3.35 10^6/uL (4.35-5.55); RED CELL DISTRIBUTION WIDTH 14.1 % (11.5-14.0); WHITE BLOOD COUNT 10.6 10^3/uL (4.0-10.5)
[2020-01-15 06:05] LABS: BLOOD UREA NITROGEN 20 mg/dL (7-20); CALCIUM 11.1 mg/dL (8.4-10.2); CHLORIDE 101 mmol/L (98-107); GLUCOSE 110 mg/dL (75-110); POTASSIUM 3.7 mmol/L (3.6-5.0)
[2020-01-15 06:11] LABS: ANION GAP 1 (5-19); CARBON DIOXIDE 35 mmol/L (22-30)
--- NOTE | 2020-01-15 07:53 | PDOC PROGRESS REPORT ---
Subjective Progress Note for:: 01/15/20 Subjective:: Less confused this am, was writing out questions and comments but some difficulty writing noted. Feels pain is well controlled. Understands plan to some extent Reason For Visit: BILATERAL AXILLARY ABSCESSES Physical Exam Vital Signs: Temp Pulse Resp BP Pulse Ox 97.9 F 84 18 155/90 H 98 01/15/20 00:00 01/15/20 00:00 01/15/20 00:00 01/15/20 00:00 01/15/20 00:00 Intake & Output 01/14/20 01/15/20 01/16/20 06:59 06:59 06:59 Intake Total 2425 1989 Output Total 600 955 Balance 1825 1035 Weight 65.2 kg 65.2 kg General appearance: PRESENT: no acute distress, well-developed, well-nourished Head exam: PRESENT: atraumatic, normocephalic Eye exam: PRESENT: conjunctiva pink, EOMI, PERRLA. ABSENT: scleral icterus Ear exam: PRESENT: normal external ear exam Mouth exam: PRESENT: moist, tongue midline Neck exam: ABSENT: carotid bruit, JVD, lymphadenopathy, thyromegaly Respiratory exam: PRESENT: clear to auscultation philly. ABSENT: rales, rhonchi, wheezes Cardiovascular exam: PRESENT: RRR. ABSENT: diastolic murmur, rubs, systolic murmur Pulses: PRESENT: normal dorsalis pedis pul Vascular exam: PRESENT: normal capillary refill GI/Abdominal exam: PRESENT: normal bowel sounds, soft. ABSENT: distended, guarding, mass, organolmegaly, rebound, tenderness Rectal exam: PRESENT: deferred Extremities exam: PRESENT: full ROM. ABSENT: calf tenderness, clubbing, pedal edema Neurological exam: PRESENT: alert, awake, oriented to person, oriented to place, oriented to time, oriented to situation, CN II-XII grossly intact. ABSENT: motor sensory deficit Psychiatric exam: PRESENT: appropriate affect, normal mood. ABSENT: homicidal ideation, suicidal ideation Skin exam: PRESENT: dry, intact, warm. ABSENT: cyanosis, rash Results Laboratory Results: 01/15/20 05:29 01/15/20 05:29 01/14/20 01/15/20 01/15/20 06:00 05:29 05:29 WBC 10.6 H RBC 3.35 L Hgb 10.2 L Hct 29.9 L MCV 89 MCH 30.5 MCHC 34.1 RDW 14.1 H Plt Count 243 Sodium 139.9 137.4 Potassium 4.0 3.7 Chloride 105 101 Carbon Dioxide 31 H 35 H Anion Gap 4 L 1 L BUN 21 H 20 Creatinine 1.09 0.97 Est GFR ( Amer) > 60 > 60 Glucose 101 110 Calcium 12.9 H* 11.1 H 01/08/20 18:44 Troponin I 0.025 Impressions: Chest X-Ray 01/08/20 15:50 IMPRESSION: Tracheostomy tube is not identified. No acute cardiopulmonary findings. Assessment & Plan - Diagnosis (1) Cutaneous abscesses of both axillae Is this a current diagnosis for this admission?: Yes Plan: Cont atbx thru weekend. Reassess on saturday. (2) Larynx cancer Is this a current diagnosis for this admission?: Yes Plan: Cont xrt, after today 2 more xrt treatments, plan to keep pt inpt until then. Will give a chance for pain control to be adjusted also (3) Pain, neoplasm-related Is this a current diagnosis for this admission?: Yes Plan: Cont MSSR and prn morphine IV. If hospitalist team feels confusion related to drug over weekend, can decrease MSSR to 15mg q 12 hours and can go down on dose of IV also. - Time Time Spent with patient: 15-24 minutes
[2020-01-15] MEDS: DOCUSATE SODIUM 100 MG CAPSULE PO SCH ×2 (10:15→17:40)
[2020-01-15] MEDS: FAMOTIDINE 20 MG TABLET PO SCH ×2 (10:15→21:30)
[2020-01-15] MEDS: LEVOTHYROXINE SODIUM 0.05 MG TABLET PO SCH (10:15)
[2020-01-15] MEDS: MORPHINE SULFATE 10 MG/ML INJ IV PRN ×2 (10:19→14:18)
--- NOTE | 2020-01-15 18:31 | PDOC PROGRESS REPORT ---
Subjective Progress Note for:: 01/15/20 Subjective:: Patient was seen on morning rounds. He was found resting in bed, comfortably, on room air. He was awake and alert and attempted to speak with my; unfortunately I could not understand him. I offered his paper/pen, but he shook his head no; he did not seem upset/frustrated by the difficulty communicating. He appears comfortable and is not noted to be in any acute distress at this time. No concerns per nursing. Reason For Visit: BILATERAL AXILLARY ABSCESSES Physical Exam Vital Signs: Temp Pulse Resp BP Pulse Ox 98.8 F 67 16 114/60 92 01/15/20 15:27 01/15/20 15:27 01/15/20 15:27 01/15/20 15:27 01/15/20 16:00 Intake & Output 01/14/20 01/15/20 01/16/20 06:59 06:59 06:59 Intake Total 2425 1990 530 Output Total 600 955 200 Balance 1825 1035 330 Weight 65.2 kg 65.2 kg General appearance: PRESENT: no acute distress, thin, well-developed Head exam: PRESENT: atraumatic, normocephalic Eye exam: PRESENT: conjunctiva pink, EOMI, PERRLA. ABSENT: scleral icterus Mouth exam: PRESENT: moist, tongue midline Neck exam: PRESENT: tracheostomy. ABSENT: carotid bruit, JVD, lymphadenopathy, thyromegaly Respiratory exam: PRESENT: clear to auscultation philly, symmetrical, unlabored. A BSENT: rales, rhonchi, wheezes Cardiovascular exam: PRESENT: RRR. ABSENT: diastolic murmur, rubs, systolic murmur Vascular exam: PRESENT: normal capillary refill Extremities exam: PRESENT: full ROM. ABSENT: calf tenderness, clubbing, pedal edema Neurological exam: PRESENT: alert, awake, oriented to person, oriented to place, oriented to time, oriented to situation, CN II-XII grossly intact. ABSENT: motor sensory deficit Psychiatric exam: PRESENT: appropriate affect, normal mood. ABSENT: homicidal ideation, suicidal ideation Skin exam: PRESENT: dry, warm. ABSENT: cyanosis, intact, rash Results Laboratory Results: 01/15/20 05:29 01/15/20 05:29 01/15/20 01/15/20 05:29 05:29 WBC 10.6 H RBC 3.35 L Hgb 10.2 L Hct 29.9 L MCV 89 MCH 30.5 MCHC 34.1 RDW 14.1 H Plt Count 243 Sodium 137.4 Potassium 3.7 Chloride 101 Carbon Dioxide 35 H Anion Gap 1 L BUN 20 Creatinine 0.97 Est GFR ( Amer) > 60 Glucose 110 Calcium 11.1 H 01/08/20 18:44 Troponin I 0.025 Impressions: Chest X-Ray 01/08/20 15:50 IMPRESSION: Tracheostomy tube is not identified. No acute cardiopulmonary findings. 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 Analgesics as needed. Continue wound care TID. (2) Cutaneous abscesses of both axillae Is this a current diagnosis for this admission?: Yes Plan: Improved. Patient is afebrile. WBC 15.9-> 10.5-> 14.2-> 10.6. Secondary to #1 Blood Cultures NGTD Wound culture to right axilla with procidentia, MSSA, Klebsiella, Pepto strep. All sensitive to meropenem, Levaquin, ceftriaxone, and Bactrim. We will continue IV meropenem; day #7. Consider transition to Levaquin or Bactrim at discharge; will discuss with Dr. Torres to ensure that there is not an interaction between these and any chemotherapy/immune modifiers. Will ask wound care center [facility] nurse to provide wound care recommendations. (3) Stage IV laryngeal cancer Is this a current diagnosis for this admission?: Yes Plan: Dr. Torres is consulted; primary management per his expertise. Analgesics per Dr. Torres. Patient appears quite comfortable after adjustments made this morning. (4) Tracheostomy dysfunction Is this a current diagnosis for this admission?: Yes Plan: Tracheostomy care per nursing protocol daily and as needed. Improved secretion clearance with addition of humidified air. (5) Hypothyroidism Is this a current diagnosis for this admission?: Yes Plan: Continue home dose levothyroxine. - Time Time Spent with patient: 15-24 minutes Medications reviewed and adjusted accordingly: Yes Anticipated discharge: Home with Homehealth
[2020-01-16] MEDS: MORPHINE SULFATE 10 MG/ML INJ IV PRN ×2 (04:34→20:24)
[2020-01-16] MEDS: MORPHINE SULFATE SR 15 MG TABLET PO SCH ×3 (05:27→21:37)
[2020-01-16] MEDS: HEPARIN SOD (PORCINE) 5,000 UNIT/ML 1 ML VIAL SUBCUT SCH ×3 (05:28→21:37)
[2020-01-16] MEDS: MAGNESIUM HYDROXIDE SUSP 30 ML UDCUP PO PRN ×2 (05:28→21:41)
[2020-01-16 06:31] LABS: HEMATOCRIT 29.6 % (37.9-51.0); HEMOGLOBIN 10.3 g/dL (13.5-17.0); MEAN CORPUSCULAR HEMOGLOBIN 30.6 pg (27.0-33.4); MEAN CORPUSCULAR HGB CONC 34.8 g/dL (32.0-36.0); MEAN CORPUSCULAR VOLUME 88 fl (80-97); PLATELET COUNT 268 10^3/uL (150-450); RED BLOOD COUNT 3.36 10^6/uL (4.35-5.55); RED CELL DISTRIBUTION WIDTH 14.1 % (11.5-14.0); WHITE BLOOD COUNT 12.3 10^3/uL (4.0-10.5)
[2020-01-16 06:47] LABS: BLOOD UREA NITROGEN 16 mg/dL (7-20); CALCIUM 9.8 mg/dL (8.4-10.2); CARBON DIOXIDE 32 mmol/L (22-30); CHLORIDE 98 mmol/L (98-107); GLUCOSE 98 mg/dL (75-110); POTASSIUM 3.4 mmol/L (3.6-5.0)
[2020-01-16 06:52] LABS: ANION GAP 2 (5-19)
[2020-01-16] MEDS ORDERED: POTASSIUM CHLORIDE 20 MEQ PACKET PO ONE (07:35)
[2020-01-16] MEDS: LEVOTHYROXINE SODIUM 0.05 MG TABLET PO SCH (09:29)
[2020-01-16] MEDS: FAMOTIDINE 20 MG TABLET PO SCH ×2 (09:29→21:37)
[2020-01-16] MEDS: DOCUSATE SODIUM 100 MG CAPSULE PO SCH ×2 (09:29→17:27)
--- NOTE | 2020-01-16 12:32 | PDOC PROGRESS REPORT ---
Subjective Progress Note for:: 01/16/20 Subjective:: Patient was seen on morning rounds. He was found resting in bed, comfortably, on room air. He was awake and alert; better time communicating today. He tells me that his pain is adequately controlled. He asks about the timeline for his discharge. He has no other questions or concerns today. He appears comfortable and is not noted to be in any acute distress at this time. No concerns per nursing. Reason For Visit: BILATERAL AXILLARY ABSCESSES Physical Exam Vital Signs: Temp Pulse Resp BP Pulse Ox 99.0 F 71 18 121/63 95 01/16/20 07:41 01/16/20 07:41 01/16/20 07:41 01/16/20 07:41 01/16/20 12:02 Intake & Output 01/15/20 01/16/20 01/17/20 06:59 06:59 06:59 Intake Total 1989 1680 Output Total 955 800 Balance 1035 880 Weight 65.2 kg 70 kg General appearance: PRESENT: no acute distress, cooperative, thin, well- developed Head exam: PRESENT: atraumatic, normocephalic Eye exam: PRESENT: conjunctiva pink, EOMI, PERRLA. ABSENT: scleral icterus Mouth exam: PRESENT: moist, tongue midline Neck exam: PRESENT: tracheostomy Respiratory exam: PRESENT: clear to auscultation philly, symmetrical, unlabored. ABSENT: rales, rhonchi, wheezes Cardiovascular exam: PRESENT: RRR. ABSENT: diastolic murmur, rubs, systolic murmur Vascular exam: PRESENT: normal capillary refill Extremities exam: PRESENT: full ROM. ABSENT: calf tenderness, clubbing, pedal edema Neurological exam: PRESENT: alert, awake, oriented to person, oriented to place, oriented to time, oriented to situation, CN II-XII grossly intact. ABSENT: motor sensory deficit Psychiatric exam: PRESENT: appropriate affect, normal mood. ABSENT: homicidal ideation, suicidal ideation Skin exam: PRESENT: dry, intact, warm. ABSENT: cyanosis, rash Results Laboratory Results: 01/16/20 06:18 01/16/20 06:18 01/16/20 01/16/20 06:18 06:18 WBC 12.3 H RBC 3.36 L Hgb 10.3 L Hct 29.6 L MCV 88 MCH 30.6 MCHC 34.8 RDW 14.1 H Plt Count 268 Sodium 132.2 L Potassium 3.4 L Chloride 98 Carbon Dioxide 32 H Anion Gap 2 L BUN 16 Creatinine 0.90 Est GFR ( Amer) > 60 Glucose 98 Calcium 9.8 01/08/20 18:44 Troponin I 0.025 Impressions: Chest X-Ray 01/08/20 15:50 IMPRESSION: Tracheostomy tube is not identified. No acute cardiopulmonary findings. 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 Analgesics as needed. Continue wound care TID. (2) Cutaneous abscesses of both axillae Is this a current diagnosis for this admission?: Yes Plan: Improved. Patient is afebrile. WBC 15.9-> 10.5-> 14.2-> 10.6-> 12.3 Secondary to #1 Blood Cultures NGTD Wound culture to right axilla with procidentia, MSSA, Klebsiella, Pepto strep. All sensitive to meropenem, Levaquin, ceftriaxone, and Bactrim. We will continue IV meropenem; day #8 of 10. Consider transition to Levaquin or Bactrim at discharge; will discuss with Dr. Torres to ensure that there is not an interaction between these and any chemotherapy/immune modifiers. Will ask wound care center [facility] nurse to provide wound care recommendations. (3) Stage IV laryngeal cancer Is this a current diagnosis for this admission?: Yes Plan: Dr. Torres is consulted; primary management per his expertise. Analgesics per Dr. Torres. Patient appears quite comfortable after adjustments made this morning. (4) Tracheostomy dysfunction Is this a current diagnosis for this admission?: Yes Plan: Tracheostomy care per nursing protocol daily and as needed. Improved secretion clearance with addition of humidified air. (5) Hypothyroidism Is this a current diagnosis for this admission?: Yes Plan: Continue home dose levothyroxine. - Time Time Spent with patient: 15-24 minutes Medications reviewed and adjusted accordingly: Yes Anticipated discharge: Home with Homehealth Within: within 72 hours - likely on Saturday following last radiation treatment
[2020-01-16] MEDS ORDERED: MEROPENEM 500 MG in NORMAL SALINE 50 ML IV SCH (14:00)
[2020-01-16] MEDS: MEROPENEM 500 MG in NORMAL SALINE 50 ML IV SCH (17:41)
[2020-01-17] MEDS: MEROPENEM 500 MG in NORMAL SALINE 50 ML IV SCH ×3 (02:32→17:37)
[2020-01-17] MEDS: HEPARIN SOD (PORCINE) 5,000 UNIT/ML 1 ML VIAL SUBCUT SCH ×3 (06:26→21:54)
[2020-01-17] MEDS: MORPHINE SULFATE 10 MG/ML INJ IV PRN (06:26)
[2020-01-17 06:41] LABS: HEMATOCRIT 28.8 % (37.9-51.0); MEAN CORPUSCULAR HEMOGLOBIN 30.6 pg (27.0-33.4); MEAN CORPUSCULAR HGB CONC 34.8 g/dL (32.0-36.0); MEAN CORPUSCULAR VOLUME 88 fl (80-97); PLATELET COUNT 257 10^3/uL (150-450); RED BLOOD COUNT 3.28 10^6/uL (4.35-5.55); RED CELL DISTRIBUTION WIDTH 13.8 % (11.5-14.0)
[2020-01-17 07:02] LABS: BLOOD UREA NITROGEN 15 mg/dL (7-20); CALCIUM 8.9 mg/dL (8.4-10.2); CARBON DIOXIDE 30 mmol/L (22-30); CHLORIDE 98 mmol/L (98-107); GLUCOSE 90 mg/dL (75-110); POTASSIUM 3.4 mmol/L (3.6-5.0)
[2020-01-17 07:05] LABS: ANION GAP 5 (5-19)
[2020-01-17] MEDS: MORPHINE SULFATE SR 15 MG TABLET PO SCH ×3 (07:44→21:53)
[2020-01-17] MEDS: LEVOTHYROXINE SODIUM 0.05 MG TABLET PO SCH (07:45)
[2020-01-17] MEDS: DOCUSATE SODIUM 100 MG CAPSULE PO SCH ×3 (09:14→17:36)
[2020-01-17] MEDS: FAMOTIDINE 20 MG TABLET PO SCH ×2 (09:14→21:54)
[2020-01-17] MEDS ORDERED: BISACODYL 10 MG SUPP.RECT PR PRN (09:23)
[2020-01-17] MEDS ORDERED: MINERAL OIL ENEMA 133 ML PR PRN (09:23)
[2020-01-17] MEDS: MEGESTROL ACETATE SUSP 400 MG/10 ML UDCUP PO SCH (10:57)
--- NOTE | 2020-01-17 15:23 | PDOC PROGRESS REPORT ---
Subjective Progress Note for:: 01/17/20 Subjective:: Patient was seen on morning rounds. He was found resting in bed, comfortably, on room air and humidifier via trach collar. He was awake and alert; better time communicating today. He tells me that his pain is adequately controlled. He again asks about the timeline for his discharge. He is agreeable to home health services. He has no other questions or concerns today. He appears comfortable and is not noted to be in any acute distress at this time. No concerns per nursing. Reason For Visit: BILATERAL AXILLARY ABSCESSES Physical Exam Vital Signs: Temp Pulse Resp BP Pulse Ox 99.3 F 69 19 113/61 95 01/17/20 11:19 01/17/20 11:19 01/17/20 11:19 01/17/20 11:19 01/17/20 12:30 Intake & Output 01/16/20 01/17/20 01/18/20 06:59 06:59 06:59 Intake Total 1680 1105 50 Output Total 800 1875 200 Balance 880 -770 -150 Weight 70 kg 67 kg General appearance: PRESENT: no acute distress, cooperative, thin, well- developed Head exam: PRESENT: atraumatic, normocephalic Eye exam: PRESENT: conjunctiva pink, EOMI, PERRLA. ABSENT: scleral icterus Mouth exam: PRESENT: moist, tongue midline Teeth exam: PRESENT: poor dentation Neck exam: PRESENT: tracheostomy. ABSENT: carotid bruit, JVD, lymphadenopathy, thyromegaly Respiratory exam: PRESENT: clear to auscultation philly, symmetrical, unlabored. ABSENT: rales, rhonchi, wheezes Cardiovascular exam: PRESENT: RRR. ABSENT: diastolic murmur, rubs, systolic murmur Vascular exam: PRESENT: normal capillary refill Extremities exam: PRESENT: full ROM. ABSENT: calf tenderness, clubbing, pedal edema Neurological exam: PRESENT: alert, awake, oriented to person, oriented to place, oriented to time, oriented to situation, CN II-XII grossly intact. ABSENT: motor sensory deficit Psychiatric exam: PRESENT: appropriate affect, normal mood. ABSENT: homicidal ideation, suicidal ideation Skin exam: PRESENT: dry, warm. ABSENT: cyanosis, rash Results Laboratory Results: 01/17/20 06:12 01/17/20 06:12 01/17/20 01/17/20 06:12 06:12 WBC 10.0 RBC 3.28 L Hgb 10.0 L Hct 28.8 L MCV 88 MCH 30.6 MCHC 34.8 RDW 13.8 Plt Count 257 Sodium 132.3 L Potassium 3.4 L Chloride 98 Carbon Dioxide 30 Anion Gap 5 BUN 15 Creatinine 0.83 Est GFR ( Amer) > 60 Glucose 90 Calcium 8.9 01/08/20 18:44 Troponin I 0.025 Impressions: Chest X-Ray 01/08/20 15:50 IMPRESSION: Tracheostomy tube is not identified. No acute cardiopulmonary findings. 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 Analgesics as needed. Continue wound care TID. (2) Cutaneous abscesses of both axillae Is this a current diagnosis for this admission?: Yes Plan: Improved. Patient is afebrile. WBC 15.9-> 10.5-> 14.2-> 10.6-> 12.3-> 10 Secondary to #1 Blood Cultures NGTD Wound culture to right axilla with procidentia, MSSA, Klebsiella, Pepto strep. All sensitive to meropenem, Levaquin, ceftriaxone, and Bactrim. We will continue IV meropenem; day #9 of 10. Will have completed antibiotic course at time of discharge (anticipate Saturday following last radiation treatment) Will ask wound care center [facility] nurse to provide wound care recommendations. (3) Stage IV laryngeal cancer Is this a current diagnosis for this admission?: Yes Plan: Dr. Torres is consulted; primary management per his expertise. Analgesics per Dr. Torres. (4) Tracheostomy dysfunction Is this a current diagnosis for this admission?: Yes Plan: Tracheostomy care per nursing protocol daily and as needed. Improved secretion clearance with addition of humidified air. (5) Hypothyroidism Is this a current diagnosis for this admission?: Yes Plan: Continue home dose levothyroxine. (6) Anemia Qualifiers: Anemia type: unspecified type Qualified Code(s): D64.9 - Anemia, unspecified Is this a current diagnosis for this admission?: Yes Plan: Likely related to chronic disease and malignant process. Gradual downward drift; Hgb 12.7-> 10.0 No evidence of active bleeding. Will check anemia panel. - Time Time Spent with patient: 25-34 minutes Medications reviewed and adjusted accordingly: Yes Anticipated discharge: Home with Homehealth Within: within 48 hours
[2020-01-18] MEDS ORDERED: ZOLPIDEM TARTRATE 5 MG TABLET PO PRN (01:19)
[2020-01-18] MEDS: MEROPENEM 500 MG in NORMAL SALINE 50 ML IV SCH ×2 (01:35→09:39)
[2020-01-18] MEDS: MORPHINE SULFATE 10 MG/ML INJ IV PRN ×3 (02:05→15:49)
[2020-01-18] MEDS: MORPHINE SULFATE SR 15 MG TABLET PO SCH ×3 (06:19→22:25)
[2020-01-18] MEDS: HEPARIN SOD (PORCINE) 5,000 UNIT/ML 1 ML VIAL SUBCUT SCH ×3 (06:19→22:26)
[2020-01-18 06:34] LABS: ABSOLUTE RETICS # 0.025 10^6/uL (0.028-0.122); HEMATOCRIT 31.4 % (37.9-51.0); HEMOGLOBIN 10.6 g/dL (13.5-17.0); MEAN CORPUSCULAR HGB CONC 33.9 g/dL (32.0-36.0); MEAN CORPUSCULAR VOLUME 89 fl (80-97); PLATELET COUNT 284 10^3/uL (150-450); RED BLOOD COUNT 3.54 10^6/uL (4.35-5.55); RED CELL DISTRIBUTION WIDTH 14.2 % (11.5-14.0); RETICULOCYTE COUNT (AUTO) 0.71 % (0.66-2.85); WHITE BLOOD COUNT 11.7 10^3/uL (4.0-10.5)
[2020-01-18 06:57] LABS: ANION GAP 8 (5-19); BLOOD UREA NITROGEN 13 mg/dL (7-20); CALCIUM 8.7 mg/dL (8.4-10.2); CARBON DIOXIDE 27 mmol/L (22-30); CHLORIDE 97 mmol/L (98-107); GLUCOSE 80 mg/dL (75-110); POTASSIUM 3.5 mmol/L (3.6-5.0)
[2020-01-18 08:03] LABS: FOLATE 9.55 ng/mL (>2.76)
[2020-01-18 08:13] LABS: IRON(TIBC) 15.6 ug/dL (49-181)
[2020-01-18] MEDS: LEVOTHYROXINE SODIUM 0.05 MG TABLET PO SCH (09:01)
[2020-01-18] MEDS: DOCUSATE SODIUM 100 MG CAPSULE PO SCH ×2 (09:37→17:23)
[2020-01-18] MEDS: FAMOTIDINE 20 MG TABLET PO SCH ×2 (09:37→22:25)
[2020-01-18] MEDS: MEGESTROL ACETATE SUSP 400 MG/10 ML UDCUP PO SCH (09:38)
--- NOTE | 2020-01-18 13:50 | PDOC PROGRESS REPORT ---
Subjective Progress Note for:: 01/18/20 Subjective:: Patient was seen on morning rounds. He was found resting in bed, comfortably, on room air and humidifier via trach collar. He was awake and alert; better time communicating today. He tells me that his pain is adequately controlled. He asks about the timeline for his discharge. He writes out that he would like to take a nap and asks me to shut the door. He has no other questions or concerns today. He appears comfortable and is not noted to be in any acute distress at this time. No concerns per nursing. Reason For Visit: BILATERAL AXILLARY ABSCESSES Physical Exam Vital Signs: Temp Pulse Resp BP Pulse Ox 98.9 F 79 16 93/60 L 99 01/18/20 11:16 01/18/20 11:16 01/18/20 11:16 01/18/20 11:16 01/18/20 11:16 Intake & Output 01/17/20 01/18/20 01/19/20 06:59 06:59 06:59 Intake Total 1105 1010 240 Output Total 1875 435 200 Balance -770 575 40 Weight 67 kg 67 kg General appearance: PRESENT: no acute distress, thin, well-developed, well- nourished Head exam: PRESENT: atraumatic, normocephalic Eye exam: PRESENT: conjunctiva pink, EOMI, PERRLA. ABSENT: scleral icterus Mouth exam: PRESENT: moist, tongue midline Neck exam: PRESENT: tracheostomy. ABSENT: carotid bruit, JVD, lymphadenopathy, thyromegaly Respiratory exam: PRESENT: clear to auscultation philly, symmetrical, unlabored. ABSENT: rales, rhonchi, wheezes Cardiovascular exam: PRESENT: RRR, +S1, +S2. ABSENT: diastolic murmur, rubs, systolic murmur Vascular exam: PRESENT: normal capillary refill Extremities exam: PRESENT: full ROM. ABSENT: calf tenderness, clubbing, pedal edema Neurological exam: PRESENT: alert, awake, oriented to person, oriented to place, oriented to time, oriented to situation, CN II-XII grossly intact. ABSENT: motor sensory deficit Psychiatric exam: PRESENT: appropriate affect, normal mood. ABSENT: homicidal ideation, suicidal ideation Skin exam: PRESENT: dry, warm. ABSENT: cyanosis, rash Results Laboratory Results: 01/18/20 05:47 01/18/20 05:40 01/18/20 01/18/20 01/18/20 05:40 05:47 05:47 WBC 11.7 H RBC 3.54 L Hgb 10.6 L Hct 31.4 L MCV 89 MCH 30.0 MCHC 33.9 RDW 14.2 H Plt Count 284 Retic Count (auto) 0.71 Sodium 131.8 L Potassium 3.5 L Chloride 97 L Carbon Dioxide 27 Anion Gap 8 BUN 13 Creatinine 0.77 Est GFR ( Amer) > 60 Glucose 80 Calcium 8.7 Iron 15.6 L TIBC 182 L % Saturation 9 Transferrin 118.00 L Ferritin 556.00 H Vitamin B12 366.0 Folate 9.55 01/08/20 18:44 Troponin I 0.025 Impressions: Chest X-Ray 01/08/20 15:50 IMPRESSION: Tracheostomy tube is not identified. No acute cardiopulmonary findings. 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 Analgesics as needed. Continue wound care TID. (2) Cutaneous abscesses of both axillae Is this a current diagnosis for this admission?: Yes Plan: Improved. Patient is afebrile. WBC 15.9-> 10.5-> 14.2-> 10.6-> 12.3-> 10 Secondary to #1 Blood Cultures NGTD Wound culture to right axilla with procidentia, MSSA, Klebsiella, Pepto strep. All sensitive to meropenem, Levaquin, ceftriaxone, and Bactrim. We will continue IV meropenem; day #10 of 10. Last dose today. (3) Stage IV laryngeal cancer Is this a current diagnosis for this admission?: Yes Plan: Dr. Torres is consulted; primary management per his expertise. Analgesics per Dr. Torres. (4) Tracheostomy dysfunction Is this a current diagnosis for this admission?: Yes Plan: Tracheostomy care per nursing protocol daily and as needed. Improved secretion clearance with addition of humidified air. (5) Hypothyroidism Is this a current diagnosis for this admission?: Yes Plan: Continue home dose levothyroxine. (6) Anemia Qualifiers: Anemia type: unspecified type Qualified Code(s): D64.9 - Anemia, unspecified Is this a current diagnosis for this admission?: Yes Plan: Likely related to chronic disease and malignant process. Gradual downward drift; Hgb 12.7-> 10.0 No evidence of active bleeding. Anemia panel shows low iron 15.6 but with ferritin 556. Will deffer iron infusion to Heme/Onc. Will begin multivitamin w/ iron supplementation. - Time Time Spent with patient: 25-34 minutes Medications reviewed and adjusted accordingly: Yes Anticipated discharge: Home with Homehealth Within: within 24 hours
[2020-01-19] MEDS: MORPHINE SULFATE SR 15 MG TABLET PO SCH ×3 (05:24→21:58)
[2020-01-19] MEDS: HEPARIN SOD (PORCINE) 5,000 UNIT/ML 1 ML VIAL SUBCUT SCH ×3 (05:25→21:57)
[2020-01-19 06:25] LABS: HEMATOCRIT 30.2 % (37.9-51.0); HEMOGLOBIN 10.4 g/dL (13.5-17.0); MEAN CORPUSCULAR HEMOGLOBIN 30.3 pg (27.0-33.4); MEAN CORPUSCULAR HGB CONC 34.5 g/dL (32.0-36.0); MEAN CORPUSCULAR VOLUME 88 fl (80-97); PLATELET COUNT 290 10^3/uL (150-450); RED BLOOD COUNT 3.45 10^6/uL (4.35-5.55); RED CELL DISTRIBUTION WIDTH 13.9 % (11.5-14.0); WHITE BLOOD COUNT 12.1 10^3/uL (4.0-10.5)
[2020-01-19 06:46] LABS: BLOOD UREA NITROGEN 13 mg/dL (7-20); CALCIUM 8.4 mg/dL (8.4-10.2); GLUCOSE 92 mg/dL (75-110); POTASSIUM 3.6 mmol/L (3.6-5.0)
[2020-01-19 06:52] LABS: CARBON DIOXIDE 29 mmol/L (22-30); CHLORIDE 97 mmol/L (98-107)
[2020-01-19 06:54] LABS: ANION GAP 5 (5-19)
--- NOTE | 2020-01-19 08:14 | PDOC PROGRESS REPORT ---
Subjective Progress Note for:: 01/19/20 Subjective:: Patient states that his pain is doing better. It is difficult to move his arms due to the pain. He is eating and drinking well. Denies dyspnea. Reason For Visit: BILATERAL AXILLARY ABSCESSES Physical Exam Vital Signs: Temp Pulse Resp BP Pulse Ox 99.2 F 70 17 108/61 98 01/19/20 00:00 01/19/20 00:00 01/19/20 00:00 01/19/20 00:00 01/19/20 05:04 Intake & Output 01/18/20 01/19/20 01/20/20 06:59 06:59 06:59 Intake Total 1010 1050 Output Total 435 1200 Balance 575 -150 Weight 67 kg 70 kg General appearance: PRESENT: no acute distress Exam: Very thin, male. Head exam: PRESENT: atraumatic, normocephalic Neck exam: PRESENT: tracheostomy Respiratory exam: PRESENT: unlabored Extremities exam: ABSENT: pedal edema Neurological exam: PRESENT: alert, awake Psychiatric exam: PRESENT: appropriate affect Skin exam: PRESENT: other - wounds were clean and dressed. Results Laboratory Results: 01/19/20 06:10 01/19/20 06:10 01/18/20 01/19/20 01/19/20 05:40 06:10 06:10 WBC 12.1 H RBC 3.45 L Hgb 10.4 L Hct 30.2 L MCV 88 MCH 30.3 MCHC 34.5 RDW 13.9 Plt Count 290 Sodium 131.4 L Potassium 3.6 Chloride 97 L Carbon Dioxide 29 Anion Gap 5 BUN 13 Creatinine 0.68 Est GFR ( Amer) > 60 Glucose 92 Calcium 8.4 Iron 15.6 L TIBC 182 L % Saturation 9 Ferritin 556.00 H Vitamin B12 366.0 Folate 9.55 01/08/20 18:44 Troponin I 0.025 Impressions: Chest X-Ray 01/08/20 15:50 IMPRESSION: Tracheostomy tube is not identified. No acute cardiopulmonary findings. Assessment & Plan - Diagnosis (1) Cutaneous abscesses of both axillae Is this a current diagnosis for this admission?: Yes Plan: Continue current management. (2) Larynx cancer Is this a current diagnosis for this admission?: Yes Plan: receiving radiation therapy. (3) Pain, neoplasm-related Is this a current diagnosis for this admission?: Yes Plan: Currently adequate pain control. Will continue to adjust as needed. Watch for constipation. - Time Time Spent with patient: 15-24 minutes
[2020-01-19] MEDS: LEVOTHYROXINE SODIUM 0.05 MG TABLET PO SCH (08:28)
[2020-01-19] MEDS: MORPHINE SULFATE 10 MG/ML INJ IV PRN ×3 (08:53→20:02)
[2020-01-19] MEDS: FAMOTIDINE 20 MG TABLET PO SCH ×2 (09:09→21:58)
[2020-01-19] MEDS: MULTIVITAMINS W-IRON TABLET, CHEWABLE PO SCH (09:10)
[2020-01-19] MEDS: DOCUSATE SODIUM 100 MG CAPSULE PO SCH ×2 (09:10→17:22)
[2020-01-19] MEDS: MEGESTROL ACETATE SUSP 400 MG/10 ML UDCUP PO SCH (09:17)
--- NOTE | 2020-01-19 16:58 | PDOC PROGRESS REPORT ---
Subjective Progress Note for:: 01/19/20 Subjective:: No adverse events overnight. No new complaints. Vital signs been stable. He is having his last radiation treatment today. Antibiotics have been completed. He is still insisting that he wants to go home. Reason For Visit: BILATERAL AXILLARY ABSCESSES Physical Exam Vital Signs: Temp Pulse Resp BP Pulse Ox 99.0 F 96 16 95/65 L 99 01/19/20 15:31 01/19/20 15:31 01/19/20 15:31 01/19/20 15:31 01/19/20 15:31 Intake & Output 01/18/20 01/19/20 01/20/20 06:59 06:59 06:59 Intake Total 1010 1050 240 Output Total 435 1200 1100 Balance 575 -150 -860 Weight 67 kg 70 kg General appearance: PRESENT: no acute distress, thin, well-developed, well- nourished Neck exam: PRESENT: tracheostomy. ABSENT: carotid bruit, JVD, lymphadenopathy, thyromegaly Respiratory exam: PRESENT: clear to auscultation philly, symmetrical, unlabored. ABSENT: rales, rhonchi, wheezes Cardiovascular exam: PRESENT: RRR, +S1, +S2. ABSENT: diastolic murmur, rubs, systolic murmur Vascular exam: PRESENT: normal capillary refill Extremities exam: PRESENT: full ROM. ABSENT: calf tenderness, clubbing, pedal edema Neurological exam: PRESENT: alert, awake, oriented to person, oriented to place, oriented to time, oriented to situation Psychiatric exam: PRESENT: appropriate affect, normal mood. Skin exam: PRESENT: dry, warm. ABSENT: cyanosis, rash Results Laboratory Results: 01/19/20 06:10 01/19/20 06:10 01/19/20 01/19/20 06:10 06:10 WBC 12.1 H RBC 3.45 L Hgb 10.4 L Hct 30.2 L MCV 88 MCH 30.3 MCHC 34.5 RDW 13.9 Plt Count 290 Sodium 131.4 L Potassium 3.6 Chloride 97 L Carbon Dioxide 29 Anion Gap 5 BUN 13 Creatinine 0.68 Est GFR ( Amer) > 60 Glucose 92 Calcium 8.4 01/08/20 18:44 Troponin I 0.025 Impressions: Chest X-Ray 01/08/20 15:50 IMPRESSION: Tracheostomy tube is not identified. No acute cardiopulmonary findings. Assessment and Plan - Diagnosis (1) Anemia Qualifiers: Anemia type: unspecified type Qualified Code(s): D64.9 - Anemia, unspecified Is this a current diagnosis for this admission?: Yes Plan: Likely related to chronic disease and malignant process. No evidence of active bleeding. Anemia panel shows low iron 15.6 but with ferritin 556. Will defer iron infusion to Heme/Onc. multivitamin w/ iron supplementation. 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 Last treatment today. Analgesics as needed. Continue wound care TID. (3) Chronic obstructive pulmonary disease Qualifiers: COPD type: chronic bronchitis Chronic bronchitis type: mucopurulent Qualified Code(s): J41.1 - Mucopurulent chronic bronchitis Is this a current diagnosis for this admission?: Yes Plan: Not acutely exacerbated (4) Cutaneous abscesses of both axillae Is this a current diagnosis for this admission?: Yes Plan: Improved. Patient is afebrile. WBC trended down Blood Cultures NGTD Wound culture to right axilla with procidentia, MSSA, Klebsiella, Pepto strep. All sensitive to meropenem, Levaquin, ceftriaxone, and Bactrim. Antibiotics completed (5) Hypokalemia Is this a current diagnosis for this admission?: Yes Plan: Resolved (6) Hypothyroidism Is this a current diagnosis for this admission?: Yes Plan: Continue home dose levothyroxine. (7) Pain, neoplasm-related Is this a current diagnosis for this admission?: Yes (8) Stage IV laryngeal cancer Is this a current diagnosis for this admission?: Yes Plan: Dr. Torres is consulted; primary management per his expertise. Analgesics per Dr. Torres. - Time Time Spent with patient: 15-24 minutes
[2020-01-20] MEDS: HEPARIN SOD (PORCINE) 5,000 UNIT/ML 1 ML VIAL SUBCUT SCH ×2 (05:01→13:05)
[2020-01-20] MEDS: MORPHINE SULFATE SR 15 MG TABLET PO SCH ×2 (05:01→13:06)
--- NOTE | 2020-01-20 08:49 | PDOC PROGRESS REPORT ---
Subjective Progress Note for:: 01/20/20 Subjective:: No acute events overnight, patient seems to be doing better today, last day of radiation was yesterday Reason For Visit: BILATERAL AXILLARY ABSCESSES Physical Exam Vital Signs: Temp Pulse Resp BP Pulse Ox 99.1 F 70 16 115/60 93 01/20/20 07:38 01/20/20 07:38 01/20/20 07:38 01/20/20 07:38 01/20/20 07:38 Intake & Output 01/19/20 01/20/20 01/21/20 06:59 06:59 06:59 Intake Total 1050 240 Output Total 1200 2200 Balance -150 -1960 Weight 70 kg 70 kg General appearance: PRESENT: no acute distress, well-developed, well-nourished Head exam: PRESENT: atraumatic, normocephalic Eye exam: PRESENT: conjunctiva pink, EOMI, PERRLA. ABSENT: scleral icterus Ear exam: PRESENT: normal external ear exam Mouth exam: PRESENT: moist, tongue midline Neck exam: ABSENT: carotid bruit, JVD, lymphadenopathy, thyromegaly Respiratory exam: PRESENT: clear to auscultation philly. ABSENT: rales, rhonchi, wheezes Cardiovascular exam: PRESENT: RRR. ABSENT: diastolic murmur, rubs, systolic murmur Pulses: PRESENT: normal dorsalis pedis pul Vascular exam: PRESENT: normal capillary refill GI/Abdominal exam: PRESENT: normal bowel sounds, soft. ABSENT: distended, guarding, mass, organolmegaly, rebound, tenderness Rectal exam: PRESENT: deferred Extremities exam: PRESENT: full ROM. ABSENT: calf tenderness, clubbing, pedal edema Neurological exam: PRESENT: alert, awake, oriented to person, oriented to place, oriented to time, oriented to situation, CN II-XII grossly intact. ABSENT: motor sensory deficit Psychiatric exam: PRESENT: appropriate affect, normal mood. ABSENT: homicidal ideation, suicidal ideation Skin exam: PRESENT: dry, intact, warm. ABSENT: cyanosis, rash Results Laboratory Results: 01/19/20 06:10 01/19/20 06:10 01/08/20 18:44 Troponin I 0.025 Impressions: Chest X-Ray 01/08/20 15:50 IMPRESSION: Tracheostomy tube is not identified. No acute cardiopulmonary findings. Assessment & Plan - Diagnosis (1) Cutaneous abscesses of both axillae Is this a current diagnosis for this admission?: Yes Plan: Improving, status post radiation completion, he will need a home course of oral antibiotics may be something like Augmentin. (2) Larynx cancer Is this a current diagnosis for this admission?: Yes Plan: We will need to consider second line chemotherapy as an outpatient, he will need about 2 weeks to recover from radiation before we can start therapy (3) Pain, neoplasm-related Is this a current diagnosis for this admission?: Yes Plan: He will need sustained release and immediate release morphine, I written for this placed on the chart, also placed a prescription for Valium. - Time Time Spent with patient: 15-24 minutes
[2020-01-20] MEDS: MEGESTROL ACETATE SUSP 400 MG/10 ML UDCUP PO SCH (09:22)
[2020-01-20] MEDS: DOCUSATE SODIUM 100 MG CAPSULE PO SCH (09:22)
[2020-01-20] MEDS: FAMOTIDINE 20 MG TABLET PO SCH (09:22)
[2020-01-20] MEDS: LEVOTHYROXINE SODIUM 0.05 MG TABLET PO SCH (09:22)
[2020-01-20] MEDS: MULTIVITAMINS W-IRON TABLET, CHEWABLE PO SCH (09:22)
[2020-01-20 13:52] VITALS: BP 104/60
--- NOTE | 2020-01-20 15:56 | PDOC DISCHARGE SUMMARY ---
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 Is this a current diagnosis for this admission?: Yes (3) Chronic obstructive pulmonary disease Is this a current diagnosis for this admission?: Yes (4) Cutaneous abscesses of both axillae Is this a current diagnosis for this admission?: Yes (5) Hypokalemia Is this a current diagnosis for this admission?: Yes (6) Hypothyroidism Is this a current diagnosis for this admission?: Yes (7) Pain, neoplasm-related Is this a current diagnosis for this admission?: Yes (8) Stage IV laryngeal cancer Is this a current diagnosis for this admission?: Yes - Additional Information Resuscitation Status: Full Code Discharge Diet: Cardiac, Other (Comments) Discharge Activity: Activity As Tolerated, Balance Activity w/Rest, Energy Conservation, Supervised Activity Referrals: KENNY TORRES MD [ACTIVE STAFF] - 02/04/20 2:30 pm Home Medications: Diazepam [Valium 5 mg Tablet] 5 mg PO TID PRN 01/08/20 Levothyroxine Sodium 50 mcg PO QAM 01/08/20 History of Present Illiness History of Present Illness: REJI FERRELL is a 64 year old male who presented to the emergency room with a 3- month history of axillary "abscesses". He admits to the gradual development and worsening of bilateral axillary "abscesses" over the course of the last 3 months. The "abscesses" have gradually enlarged and have been accompanied by the draining of foul-smelling purulent material for several weeks. 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 He admits the "abscess" of his right axilla is larger and more uncomfortable than the one on the left side. He rates his constant discomfort as a mild to moderate localized "pain" in the bilateral axillae. He denies other associated or accompanying signs and symptoms. He denies prior similar episodes. He has not identified any aggravating or ameliorating factors for his axillary "abscesses". In the emergency room he was found to have a white blood count of 16,000 with a potassium of 3.4 and a temperature of 99.5 F. The purulent drainage of his bilateral axillary abscesses was cultured and blood cultures were obtained. Patient also experienced acute obstruction of his chronic tracheostomy due to mucous plugging, resulting in acute respiratory failure with hypoxia and hypercapnia, and required self-cleaning of the tracheostomy with replacement of the airway device during his ER visit. He was subsequently admitted to the hospital for further evaluation and treatment with Dr. Sheppard agreed to see the patient in consultation. Hospital Course Hospital Course: At times up of these bilateral axillary abscesses were not actually abscesses, but were rather necrotic metastatic deposits that were draining pus. He was not deemed to be a fit surgical candidate, so IV antibiotics were recommended, and he completed a course of 10 days total. Radiation therapy was also recommended, and he is completed his radiation treatments. He had some minor electrolyte disturbances that were corrected. Some of the staff had concerns about him going home, that he is capable of making his own decisions and decided that he wanted to go back to his own home, and that he could take care of himself. He follows up with Dr. Torres through a ruben program in his office. Patient wants to resume his cancer treatment. He has follow-up scheduled with Dr. Torres. We started a Medicaid application. His labs and examination are reassuring and he was discharged in stable condition. Physical Exam Vital Signs: Temp Pulse Resp BP Pulse Ox 98.3 F 65 15 104/60 99 01/20/20 12:00 01/20/20 12:00 01/20/20 12:00 01/20/20 12:00 01/20/20 12:00 Intake & Output 01/19/20 01/20/20 01/21/20 06:59 06:59 06:59 Intake Total 1050 240 Output Total 1200 2200 Balance -150 -1960 Weight 70 kg 70 kg General appearance: PRESENT: no acute distress, thin, well-developed, well- nourished Neck exam: PRESENT: tracheostomy. ABSENT: carotid bruit, JVD, lymphadenopathy, thyromegaly Respiratory exam: PRESENT: clear to auscultation philly, symmetrical, unlabored. ABSENT: rales, rhonchi, wheezes Cardiovascular exam: PRESENT: RRR, +S1, +S2. ABSENT: diastolic murmur, rubs, systolic murmur Vascular exam: PRESENT: normal capillary refill Extremities exam: PRESENT: full ROM. ABSENT: calf tenderness, clubbing, pedal edema Neurological exam: PRESENT: alert, awake, oriented to person, oriented to place, oriented to time, oriented to situation Psychiatric exam: PRESENT: appropriate affect, normal mood. Skin exam: PRESENT: dry, warm. ABSENT: cyanosis, rash Results Laboratory Results: WBC 12.1 10^3/uL (4.0-10.5) H 01/19/20 06:10 RBC 3.45 10^6/uL (4.35-5.55) L 01/19/20 06:10 Hgb 10.4 g/dL (13.5-17.0) L 01/19/20 06:10 Hct 30.2 % (37.9-51.0) L 01/19/20 06:10 MCV 88 fl (80-97) 01/19/20 06:10 MCH 30.3 pg (27.0-33.4) 01/19/20 06:10 MCHC 34.5 g/dL (32.0-36.0) 01/19/20 06:10 RDW 13.9 % (11.5-14.0) 01/19/20 06:10 Plt Count 290 10^3/uL (150-450) 01/19/20 06:10 Lymph % (Auto) Not Reportable 01/08/20 16:10 [place] % (Auto) Not Reportable 01/08/20 16:10 Eos % (Auto) Not Reportable 01/08/20 16:10 Baso % (Auto) Not Reportable 01/08/20 16:10 Reticulocyte # 0.025 10^6/uL (0.028-0.122) L 01/18/20 05:47 Absolute Neuts (auto) Not Reportable 01/08/20 16:10 Absolute Lymphs (auto) Not Reportable 01/08/20 16:10 Absolute Monos (auto) Not Reportable 01/08/20 16:10 Absolute Eos (auto) Not Reportable 01/08/20 16:10 Absolute Basos (auto) Not Reportable 01/08/20 16:10 Total Counted 100 01/08/20 16:10 Seg Neutrophils % Not Reportable 01/08/20 16:10 Seg Neuts % (Manual) 92 % (42-78) H 01/08/20 16:10 Lymphocytes % (Manual) 2 % (13-45) L 01/08/20 16:10 Monocytes % (Manual) 5 % (3-13) 01/08/20 16:10 Eosinophils % (Manual) 1 % (0-6) 01/08/20 16:10 Basophils % (Manual) 0 % (0-2) 01/08/20 16:10 Abs Neuts (Manual) 14.6 10^3/uL (1.7-8.2) H 01/08/20 16:10 Abs Lymphs (Manual) 0.3 10^3/uL (0.5-4.7) L 01/08/20 16:10 Abs Monocytes (Manual) 0.8 10^3/uL (0.1-1.4) 01/08/20 16:10 Absolute Eos (Manual) 0.2 10^3/uL (0.0-0.6) 01/08/20 16:10 Abs Basophils (Manual) 0.0 10^3/uL (0.0-0.2) 01/08/20 16:10 Platelet Comment ADEQUATE 01/08/20 16:10 RBC Morph Comment NORMO-CYTIC/CHROMIC 01/08/20 16:10 Retic Count (auto) 0.71 % (0.66-2.85) 01/18/20 05:47 VBG pH 7.44 (7.30-7.42) H 01/08/20 18:44 VBG pCO2 55.9 mmHg (35-63) 01/08/20 18:44 VBG HCO3 36.7 mmol/L (20-32) H 01/08/20 18:44 VBG Base Excess 10.3 mmol/L 01/08/20 18:44 Sodium 131.4 mmol/L (137-145) L 01/19/20 06:10 Potassium 3.6 mmol/L (3.6-5.0) 01/19/20 06:10 Chloride 97 mmol/L (98-107) L 01/19/20 06:10 Carbon Dioxide 29 mmol/L (22-30) 01/19/20 06:10 Anion Gap 5 (5-19) 01/19/20 06:10 BUN 13 mg/dL (7-20) 01/19/20 06:10 Creatinine 0.68 mg/dL (0.52-1.25) 01/19/20 06:10 Est GFR ( Amer) > 60 (>60) 01/19/20 06:10 Est GFR (MDRD) Non-Af > 60 (>60) 01/19/20 06:10 Glucose 92 mg/dL (75-110) 01/19/20 06:10 POC Glucose 86 mg/dL (70-110) 01/13/20 16:39 Lactic Acid 1.3 mmol/L (0.7-2.1) 01/09/20 04:42 Calcium 8.4 mg/dL (8.4-10.2) 01/19/20 06:10 Magnesium 2.0 mg/dL (1.6-2.3) 01/09/20 04:42 Iron 15.6 ug/dL (49-181) L 01/18/20 05:40 TIBC 182 ug/dL (250-450) L 01/18/20 05:40 % Saturation 9 % 01/18/20 05:40 Transferrin 118.00 mg/dL (206.00-381.00) L 01/18/20 05:47 Ferritin 556.00 ng/mL (17.9-464.0) H 01/18/20 05:40 Total Bilirubin 0.9 mg/dL (0.2-1.3) 01/08/20 16:10 Direct Bilirubin 0.1 mg/dL (0.0-0.4) 01/08/20 16:10 Neonat Total Bilirubin Not Reportable 01/08/20 16:10 Neonat Direct Bilirubin Not Reportable 01/08/20 16:10 Neonat Indirect Bili Not Reportable 01/08/20 16:10 AST 22 U/L (17-59) 01/08/20 16:10 ALT 32 U/L (<50) 01/08/20 16:10 Alkaline Phosphatase 104 U/L (38-126) 01/08/20 16:10 Troponin I 0.025 ng/mL 01/08/20 18:44 Total Protein 7.6 g/dL (6.3-8.2) 01/08/20 16:10 Albumin 4.2 g/dL (3.5-5.0) 01/08/20 16:10 Vitamin B12 366.0 pg/mL (239-931) 01/18/20 05:40 Folate 9.55 ng/mL (>2.76) 01/18/20 05:40 Time Trough Drawn 0930 01/11/20 09:30 Vancomycin Trough 16.6 ug/mL (5.0-20.0) 01/11/20 09:30 01/08/20 18:44 Troponin I 0.025 Impressions: Chest X-Ray 01/08/20 15:50 IMPRESSION: Tracheostomy tube is not identified. No acute cardiopulmonary findings. Plan Time Spent: Greater than 30 Minutes Stroke Is this a Stroke Patient?: No Acute Heart Failure - Is this a Heart Failure Patient?: No
== END 2020-01-20 16:32 | disposition home health service (06) | DRG 597 ==
LOC: ER 15:01 → EH 19:39 → 4S 21:01
PROVIDERS: ADMIT Emergency Medicine; ATTEND Family Medicine
PROC: 5A1955Z Respiratory Ventilation, Greater than 96 Consecutive Hours (ICD-10-PCS; principal; 2020-01-08)
DX: C79.2 Secondary malignant neoplasm of skin (principal); J96.02 Acute respiratory failure with hypercapnia; J96.01 Acute respiratory failure with hypoxia; J44.1 Chronic obstructive pulmonary disease with (acute) exacerbation; J95.03 Malfunction of tracheostomy stoma; C32.0 Malignant neoplasm of glottis; M19.90 Unspecified osteoarthritis, unspecified site; I10 Essential (primary) hypertension; D72.829 Elevated white blood cell count, unspecified; E87.6 Hypokalemia; D63.0 Anemia in neoplastic disease; B96.89 Other specified bacterial agents as the cause of diseases classified elsewhere; G89.3 Neoplasm related pain (acute) (chronic); B95.61 Methicillin susceptible Staphylococcus aureus infection as the cause of diseases classified elsewhere; B96.1 Klebsiella pneumoniae [K. pneumoniae] as the cause of diseases classified elsewhere; B95.4 Other streptococcus as the cause of diseases classified elsewhere; E03.9 Hypothyroidism, unspecified; Z90.02 Acquired absence of larynx; Z87.891 Personal history of nicotine dependence; Z79.899 Other long term (current) drug therapy; Z90.49 Acquired absence of other specified parts of digestive tract; Y84.9 Medical procedure, unspecified as the cause of abnormal reaction of the patient, or of later complication, without mention of misadventure at the time of the procedure
CPT/HCPCS: 36415; 71045; 80048; 80053; 80202; 82565; 82607; 82728; 82746; 82803; 82962; 83540; 83550; 83605; 83735; 84466; 84484; 85025; 85027; 85045; 87040; 87070; 87075; 87077; 87186; 87205; 93005; 93010; 94640; 96365; 99285; J1644; J2060; J2185; J2270; J2550; J3370; J3489; J3490; J7030; J7060

== ENCOUNTER → 2020-03-04 | Outpatient (CLI) | payer MEDICAID ==
--- NOTE | 2020-03-05 17:29 | RADIOLOGY REPORT (SQ) ---
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 Confusion for 1 year. Stimulus overload. Difficulty spelling and finding the right word. PTSD. COMPARISON: PET CT, 01/05/2020. TECHNIQUE: Multiplanar imaging includes noncontrasted T1, T2, FLAIR, diffusion with ADC map and post gadolinium contrast T1 sequences. Images stored on PACS. CONTRAST TYPE AND DOSE: 10 mL Prohance. RENAL FUNCTION: Not indicated. ACR Type II contrast agent associated with few, if any, unconfounded cases of NSF LIMITATIONS: None. FINDINGS: ANATOMY: No anomalies. Normal vascular flow voids. Pituitary fossa normal. CSF SPACES: Normal in size and contour. No hemorrhage. CEREBRUM: Sulci and gyri normal in size and contour. Moderate patchy hyperintense white matter signa l on FLAIR imaging. No evidence of hemorrhage, mass, or extraaxial fluid collection. No abnormal enha ncement post contrast. POSTERIOR FOSSA: No signal alteration. No hemorrhage. No edema, masses, or mass effect. Internal delphine tory canals, cerebellopontine angles, mastoids normal. No enhancing lesions. No abnormal enhancement post contrast. DIFFUSION IMAGING: Negative for acute or subacute infarction. ORBITS: No masses. Globes normal. PARANASAL SINUSES: No fluid levels. Mucosa normal. OTHER: No other significant finding. IMPRESSION: No acute intracranial ischemia, mass, mass effect or evidence of intracranial hemorrhage . Moderate chronic small vessel ischemic change. No evidence of intracranial metastasis. EVIDENCE OF ACUTE STROKE: NO. TECHNICAL DOCUMENTATION: JOB ID: [id number] [employer] All Rights Reserved Reading location - IP/workstation name: [email or web address]
== END ==
LOC: RAD 09:52
PROVIDERS: ATTEND Physician Assistant Medical
DX: C32.0 Malignant neoplasm of glottis (principal); F43.10 Post-traumatic stress disorder, unspecified
CPT/HCPCS: 70553; A9576

== ENCOUNTER → 2020-04-25 | Outpatient (CLI) | payer MEDICAID ==
--- NOTE | 2020-04-25 10:24 | RADIOLOGY REPORT (SQ) ---
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 No oral contrast. Images reviewed with lung, soft tissue, and bone windows. Reconstructed coronal and sagittal MPR images reviewed. Delayed images for evaluation of the urinary system also acquired. All images stored on PACS. All CT scanners at this facility use dose modulation, iterative reconstruction, and/or weight based d osing when appropriate to reduce radiation dose to as low as reasonably achievable (ALARA). [facility]: Dose Right [facility]: CareDose [facility]: Dose Right [facility]: Teradose 4D [facility]: [employer] CONTRAST TYPE AND DOSE: contrast/concentration: Isovue 350.00 mmol/ml; Total Contrast Delivered: 78. 0 ml; Total Saline Delivered: 40.0 ml RENAL FUNCTION: Creatinine 0.7 RADIATION DOSE: . LIMITATIONS: None. FINDINGS: LOWER CHEST: See separate report of the CT of the chest. LIVER: Normal size. No masses. No dilated ducts. SPLEEN: Normal size. No focal lesions. PANCREAS: No masses. No significant calcifications. No adjacent inflammation or peripancreatic fluid collections. Pancreatic duct not dilated. GALLBLADDER: No identified stones by CT criteria. No inflammatory changes to suggest cholecystitis. ADRENAL GLANDS: No significant masses or asymmetry. RIGHT KIDNEY AND URETER: No solid masses. No significant calcifications. No hydronephrosis or hyd roureter. LEFT KIDNEY AND URETER: No solid masses. No significant calcifications. No hydronephrosis or hydr oureter. AORTA AND VESSELS: Aortoiliac atherosclerosis without aneurysm. Celiac, SMA, and renals are opacifie d. RETROPERITONEUM: No retroperitoneal adenopathy, hemorrhage or masses. BOWEL AND PERITONEAL CAVITY: No evidence of intestinal obstruction. No focal bowel wall thickening. Moderate formed stool throughout the colon. No free fluid or intraperitoneal gas. APPENDIX: Not clearly identified. PELVIS: Unremarkable urinary bladder. No pelvic adenopathy or mass. ABDOMINAL WALL: Multiple metallic densities within the right anterior abdominal wall, etiology uncert ain. BONES: No acute bony abnormality. Partially visualized right proximal femoral hardware. Lower lumba r facet arthropathy and spondylosis. No acute findings. OTHER: No other significant finding. IMPRESSION: 1. No evidence of metastatic disease within the abdomen or pelvis. 2. Moderate formed stool throughout the colon. No other evidence of acute intra-abdominal/pelvic pr ocess. TECHNICAL DOCUMENTATION: JOB ID: [id number] Quality ID # [id number]: Final reports with documentation of one or more dose reduction techniques (e.g., Au tomated exposure control, adjustment of the mA and/or kV according to patient size, use of iterative reconstruction technique) 2010 [employer]- All Rights Reserved Reading location - IP/workstation name: [email or web address] ACQUISITIONS TECHNICIAN-[facility]-
--- NOTE | 2020-04-25 10:47 | RADIOLOGY REPORT (SQ) ---
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 Images reviewed with lung, soft tissue and bone windows. Reconstructed coronal and sagittal MPR and MIP images reviewed. All images stored on PACS. All CT scanners at this facility use dose modulation, iterative reconstruction, and/or weight based d osing when appropriate to reduce radiation dose to as low as reasonably achievable (ALARA). [facility]: Dose Right [facility]: CareDose [facility]: Dose Right [facility]: Teradose 4D [facility]: [employer] CONTRAST TYPE AND DOSE: See abdomen RENAL FUNCTION: See abdomen RADIATION DOSE: CT Rad equipment meets quality standard of care and radiation dose reduction techniq ues were employed. CTDIvol: 4.5 - 8.3 mGy. DLP: 810 mGy-cm. . LIMITATIONS: None. FINDINGS: LUNGS AND PLEURA: Chronic interstitial changes bilaterally with areas of scarring and nodu lar pleural thickening and calcification. There are new areas of mild irregular centrilobular nodula rity and consolidation within the bilateral lower lobes. For reference right lower lobe centrilobula r nodular opacity on series 6, image 106 measures 5.5 mm. There is a new 5 mm left apical nodular op acity (series 6, image 20). No pleural effusion or pneumothorax. HILAR AND MEDIASTINAL STRUCTURES: No discrete mediastinal or hilar adenopathy. Again seen is enlarge d left axillary adenopathy measuring approximately 6.9 x 5.5 cm, previously 6.3 x 5.3 cm. There is n ew ulceration with scattered focal site of gas within the prem conglomerate. There has been interva l reduction in size of the previously seen right axillary adenopathy, possibly from prior surgical ex cision. HEART AND VASCULAR STRUCTURES: Cardiomegaly with scattered three-vessel coronary atherosclerosis. No pericardial effusion. Dilation of the ascending aorta measuring up to 4.2 cm, stable. HARDWARE: Multiple surgical clips within the bilateral neck. Tracheostomy. UPPER ABDOMEN: No significant findings. Limited exam. THYROID AND OTHER SOFT TISSUES: Postsurgical changes in the neck with multiple bilateral surgical cli ps and evidence of prior tracheostomy. Left hemithyroidectomy. Persistent abnormal soft tissue with in the left neck suggestive of residual disease, partially evaluated. BONES: No acute bony abnormality. No discrete lytic or blastic osseous lesions. OTHER: No other significant finding. IMPRESSION: 1. Increased size of the the left axillary adenopathy with new associated ulceration an d scattered foci of gas. Decreased size of the previously seen right axillary adenopathy, possibly f rom prior excisional biopsy. Recommend correlation with patient surgery. 2. New scattered areas of irregular centrilobular nodularity and consolidation throughout both lower lobes with scattered sub solid 6 mm nodular opacities suggestive of infectious/ inflammatory process . Additional metastatic disease is not entirely excluded. 3. Dilation of the ascending aorta measuring up to 4.2 cm. Additional chronic findings as above. TECHNICAL DOCUMENTATION: JOB ID: [id number] Quality ID # [id number]: Final reports with documentation of one or more dose reduction techniques (e.g., Au tomated exposure control, adjustment of the mA and/or kV according to patient size, use of iterative reconstruction technique) 2010 [employer]- All Rights Reserved Reading location - IP/workstation name: [email or web address]
== END ==
LOC: RAD 08:18
PROVIDERS: ATTEND Physician Assistant Medical
DX: C32.0 Malignant neoplasm of glottis (principal); I70.0 Atherosclerosis of aorta; I51.7 Cardiomegaly; I25.10 Atherosclerotic heart disease of native coronary artery without angina pectoris
CPT/HCPCS: 71260; 74177; 82565

== ENCOUNTER → 2020-05-26 | Outpatient (CLI) | payer MEDICAID ==
--- NOTE | 2020-05-26 15:38 | RADIOLOGY REPORT (SQ) ---
EXAM DESCRIPTION: VENOUS UNILATERAL UPPER IMAGES COMPLETED DATE/TIME: 05/26/2020 3:08 pm REASON FOR STUDY: LUE R22.32 R22.32 LOCALIZED SWELLING, MASS AND LUMP, LEFT UPPER LIMB COMPARISON: None. TECHNIQUE: Dynamic and static rogers scale and color images acquired of the left arm venous system. Se lected spectral images acquired with additional compression and augmentation maneuvers. The contralat eral subclavian vein and internal jugular vein were also imaged. Images stored on PACS. LIMITATIONS: Scarring from prior surgery. FINDINGS: INTERNAL JUGULAR VEIN: Unable to visualize. SUBCLAVIAN VEIN: Normal compression, augmentation. No visualized echogenic material on rogers scale. No defects on color images. AXILLARY VEIN: Normal compression, augmentation. No visualized echogenic material on rogers scale. No d efects on color images. BRACHIAL VEIN: Normal compression, augmentation. No visualized echogenic material on rogers scale. No d efects on color images. BASILIC VEIN: Normal compression, augmentation. No visualized echogenic material on rogers scale. No de fects on color images. CEPHALIC VEIN: Normal compression, augmentation. No visualized echogenic material on rogers scale. No d efects on color images. OTHER: No other significant finding. CONTRALATERAL SUBCLAVIAN VEIN AND INTERNAL JUGULAR VEIN: Normal phasicity, compression and augmentation. No visualized echogenic material on rogers scale. No de fects on color images. IMPRESSION: NO EVIDENCE DVT OR SVT IN THE LEFT ARM. TECHNICAL DOCUMENTATION: JOB ID: [id number] 2010 [employer]- All Rights Reserved Reading location - IP/workstation name: [employer]
== END ==
LOC: SP 13:45
PROVIDERS: ATTEND Physician Assistant Medical
DX: R22.32 Localized swelling, mass and lump, left upper limb (principal)
CPT/HCPCS: 93971

== ENCOUNTER 2020-06-16 10:30 | Day surgery (SDC) | payer MEDICAID ==
[2020-06-13 12:14] LABS: HEMATOCRIT 30.3 % (37.9-51.0); HEMOGLOBIN 10.3 g/dL (13.5-17.0); MEAN CORPUSCULAR HEMOGLOBIN 32.2 pg (27.0-33.4); MEAN CORPUSCULAR HGB CONC 34.1 g/dL (32.0-36.0); MEAN CORPUSCULAR VOLUME 94 fl (80-97); PLATELET COUNT 394 10^3/uL (150-450); RED BLOOD COUNT 3.21 10^6/uL (4.35-5.55); RED CELL DISTRIBUTION WIDTH 18.9 % (11.5-14.0); WHITE BLOOD COUNT 5.7 10^3/uL (4.0-10.5)
--- NOTE | 2020-06-13 13:15 | RADIOLOGY REPORT (SQ) ---
EXAM DESCRIPTION: CHEST SINGLE VIEW IMAGES COMPLETED DATE/TIME: 06/13/2020 11:19 am REASON FOR STUDY: PRE-OP COMPARISON: 01/08/2020 EXAM PARAMETERS: NUMBER OF VIEWS: One view. TECHNIQUE: Single frontal radiographic view of the chest acquired. RADIATION DOSE: NA LIMITATIONS: None. FINDINGS: LUNGS AND PLEURA: Hyperexpansion of the lungs. Mild chronic interstitial changes. No acu te infiltrate or effusion. MEDIASTINUM AND HILAR STRUCTURES: No masses. Contour normal. HEART AND VASCULAR STRUCTURES: Heart normal in size. Normal vasculature. BONES: No acute findings. HARDWARE: None in the chest. OTHER: No other significant finding. IMPRESSION: Chronic lung changes with no acute cardiopulmonary finding. TECHNICAL DOCUMENTATION: JOB ID: [id number] 2010 [employer]- All Rights Reserved Reading location - IP/workstation name: [email or web address]
[~2020-06-16 10:30] MED LIST changes: +ACETAMINOPHEN 325 MG TABLET PO PRN; +CEFAZOLIN 2 GM/D5W RTU 2 GM/50 ML RTUPB IV PRN; +DEXMEDETOMIDINE INJ 80 MCG/20 ML VIAL IV ONE; +FENTANYL CITRATE INJ/PF 100 MCG/2 ML AMPUL ONE; +LACTATED RINGERS 1000 ML IV PRN; +LIDOCAINE 0.5% INJ-PF (5 MG/ML) 50 ML SDV SUBCUT PRN; +MIDAZOLAM 2 MG/2 ML INJ ONE; -NORMAL SALINE 250 ML IV PRN; +ONDANSETRON HCL INJ/PF 4 MG/2 ML SDV ONE; -PEMBROLIZUMAB 200 MG in NORMAL SALINE 50 ML IV PRN; +PROPOFOL INJ 200 MG/20 ML VIAL IV ONE
[2020-06-16] MEDS ORDERED: HEPARIN SOD (PORCINE) 1,000 UNIT/ML 1 ML VIAL ONE (10:56)
[2020-06-16] MEDS ORDERED: LIDOCAINE 1%/EPINEPHRINE INJ 20 ML VIAL ONE (10:56)
[2020-06-16] MEDS ORDERED: CEFAZOLIN 2 GM/D5W RTU 2 GM/50 ML RTUPB IV ONE (11:48)
[2020-06-16] MEDS ORDERED: PROMETHAZINE HCL INJ 25 MG/1 ML VIAL IV PRN (12:47)
[2020-06-16] MEDS ORDERED: MEPERIDINE HCL/PF INJ 25 MG/1 ML DISP.SYRIN IV PRN (12:47)
[2020-06-16] MEDS ORDERED: ONDANSETRON HCL INJ/PF 4 MG/2 ML SDV IV PRN (12:47)
[2020-06-16] MEDS ORDERED: FENTANYL CITRATE INJ/PF 100 MCG/2 ML AMPUL IV PRN (12:47)
[2020-06-16] MEDS ORDERED: DIPHENHYDRAMINE HCL 50 MG/ML VIAL IV PRN (12:47)
--- NOTE | 2020-06-16 12:55 | Operative Report ---
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 After appropriate timeout and site verification the procedure commenced. 1% lidocaine plain was used to anesthetize the skin underneath the right clavicle and then a right subclavian vein stick was made with a 16-gauge needle and wire was then placed through the needle and confirmed the superior vena cava on fluoroscopy. Over the wire we then placed the tear-away introducer dilator slowly into the superior vena cava confirmed on fluoroscopy. The wire and the dilator were removed in 1 unit. The catheter for the Port-A-Cath catheter was placed into the tear-away introducer confirmed in the superior vena cava and torn away. Then using 1% lidocaine with epinephrine a area on the right chest wall was anesthetized for the port. A transverse incision was made about 2 inches long dissection was carried down through subcutaneous tissue with the 15 blade pocket was fashioned for the port. The catheter was then tunneled from the subclavian stick site to the port site using the tunnel maker supplied with a kit. Was then attached to the port and placed into the pocket. It irrigated and withdrew easily. It was heparinized with heparinized saline solution. The subcutaneous tissue was reapproximated with interrupted 3-0 Vicryl and skin was reapproximated intracuticular 4-0 Biosyn Steri-Strips completed the procedure. Estimated blood loss is less than 5 cc sponge needle counts correct x2 the patient was awakened in the operating room transferred recovery in stable condition no complications
--- NOTE | 2020-06-16 12:57 | Discharge Summary ---
Discharge Summary (SDC) - Discharge Final Diagnosis: Stage IV glottic cancer Date of Surgery: 06/16/20 Discharge Date: 06/16/20 Condition: Good Treatment or Instructions: Keep the surgical site dry for 36 hours then okay to remove the top dressing Steri-Strips should remain in place Referrals: OJ CASILLAS PA-C [Primary Care Provider] - Discharge Diet: As Tolerated Discharge Activity: Activity As Tolerated Report the Following to Your Physician Immediately: Shortness of Breath
--- NOTE | 2020-06-16 13:30 | RADIOLOGY REPORT (SQ) ---
EXAM DESCRIPTION: CHEST SINGLE VIEW IMAGES COMPLETED DATE/TIME: 06/16/2020 1:20 pm REASON FOR STUDY: POST OP COMPARISON: 06/13/2020. EXAM PARAMETERS: NUMBER OF VIEWS: One view. TECHNIQUE: Single frontal radiographic view of the chest acquired. RADIATION DOSE: NA LIMITATIONS: None. FINDINGS: LUNGS AND PLEURA: Chronic interstitial changes. No infiltrates, masses or pneumothorax. N o pleural effusion. MEDIASTINUM AND HILAR STRUCTURES: No masses. Contour normal. HEART AND VASCULAR STRUCTURES: Heart normal in size. Normal vasculature. BONES: No acute findings. HARDWARE: Vascular port, tip at the level of the superior vena cava. Surgical clips in the soft tiss ues of the left neck. OTHER: No other significant finding. IMPRESSION: NO PNEUMOTHORAX FOLLOWING PORT PLACEMENT. NO ACUTE RADIOGRAPHIC FINDING IN THE CHEST. TECHNICAL DOCUMENTATION: JOB ID: [id number] 2010 [employer]- All Rights Reserved Reading location - IP/workstation name: [email or web address]
--- NOTE | 2020-06-16 14:49 | RADIOLOGY REPORT (SQ) ---
EXAM DESCRIPTION: FLUORO/CV PLACEMENT IMAGES COMPLETED DATE/TIME: 06/16/2020 2:22 pm REASON FOR STUDY: right side portacath assisted with fluoro C32.0 MALIGNANT NEOPLASM OF GLOTTIS COMPARISON: None. FLUOROSCOPY TIME: 2.6 minutes. 1 images saved to PACS. TECHNIQUE: Intra-operative images acquired during surgical procedure to evaluate progress. NUMBER OF IMAGES: 1 image. LIMITATIONS: None. FINDINGS: Image of the upper chest acquired during catheter placement. IMPRESSION: IMAGE(S) OBTAINED DURING PROCEDURE. COMMENT: Quality ID [id number]: Final reports for procedures using fluoroscopy that document radiation exp osure indices, or exposure time and number of fluorographic images (if radiation exposure indices are not available) Please consult full operative report of the attending physician for description of the procedure. TECHNICAL DOCUMENTATION: JOB ID: [id number] 2010 [employer]- All Rights Reserved Reading location - IP/workstation name: [email or web address]
[2020-06-16 15:13] VITALS: BP 135/84
== END 2020-06-16 14:30 | disposition home or self-care (01) ==
LOC: OROUT 10:30
PROVIDERS: ATTEND Surgery
DX: C32.0 Malignant neoplasm of glottis (principal); F43.10 Post-traumatic stress disorder, unspecified; I10 Essential (primary) hypertension; Z92.3 Personal history of irradiation; Z03.818 Encounter for observation for suspected exposure to other biological agents ruled out; Z79.899 Other long term (current) drug therapy
CPT/HCPCS: 36561; C1788; 36415; 532; 71045; 77001; 85027; 87635; C9803; J0690; J1644; J2250; J2405; J2704; J3010; J3490; Q9967

== ENCOUNTER 2020-08-12 11:19 | Inpatient (IN) | payer MEDICAID ==
[2020-08-12] MEDS ORDERED: NORMAL SALINE 1000 ML 1,000 ML IV ONE ×2 (11:40→16:35)
--- NOTE | 2020-08-12 12:10 | ER Document Report ---
Entered by TERESA DUNNE SCRIBE 08/12/20 1138 Acting as scribe for:DWAYNE MUKHERJEE MD ED General - General Stated Complaint: UNRESPONSIVE Time Seen by Provider: 08/12/20 11:35 Mode of Arrival: Medic Information source: Emergency Med Personnel Cannot obtain history due to: Altered mental status Notes: This 65 year old male patient with glottis malignancy presents today via EMS after being found down on the ground during a welfare check. EMS reports that on Saturday the patient missed his oncology appointment. On he missed his wound care appointment and today he did not answer his phone when they tried to call him so 911 was called by [facility]. [employer] arrived on scene and found the patient down so EMS was called. At baseline he is non-verbal but is able to communicate with a pad and paper but today he is unable to communicate with writing either. TRAVEL OUTSIDE OF THE [place] IN LAST 30 DAYS: No - Related Data Allergies/Adverse Reactions: No Known Allergies Allergy (Verified 04/03/19 16:14) Past Medical History - General Information source: [facility] Records Cannot obtain history due to: Altered mental status - Social History Smoking Status: Former Smoker Frequency of alcohol use: None Drug Abuse: None Family History: Reviewed & Not Pertinent, COPD, Hypertension, Other - Past Medical History Cardiac Medical History: Reports: Hx Hypertension Pulmonary Medical History: Reports: Hx Asthma - Childhood asthma, Hx COPD Musculoskeletal Medical History: Reports Hx Arthritis Psychiatric Medical History: Reports: Hx Anxiety Past Surgical History: Reports: Hx Appendectomy, Hx Orthopedic Surgery - Back surgery, right femur fracture, left wrist fracture, Other - Colonoscopy with biopsies, tracheostomy - Immunizations Hx Diphtheria, Pertussis, Tetanus Vaccination: No Review of Systems - Review of Systems -: Yes ROS unobtainable due to patient's medical condition Physical Exam - Vital signs Vitals: Pulse Ox 79 L 08/12/20 11:34 - General General appearance: Other - Emaciated, cachectic - HEENT Head: Normocephalic, Atraumatic Mucous membranes: Dry - thick slimy sputum Neck: Other - Trach in place - Respiratory Respiratory status: Tachypnea, Other - Trach in place Breath sounds: Normal - Cardiovascular Rhythm: Tachycardia Heart sounds: Normal auscultation Murmur: No - Abdominal Inspection: Normal Distension: No distension - Extremities General upper extremity: Normal inspection. No: Edema General lower extremity: Normal inspection. No: Edema - Neurological Neuro grossly intact: No - baseline non-verbal - Skin Skin irregularity: Decubitus ulcer - multiple covered ulcers on back, followed by wound care Course - Vital Signs Vital signs: Temp Pulse Resp BP Pulse Ox 33 H 141/120 H 98 08/12/20 19:00 08/12/20 19:00 08/12/20 18:00 - Laboratory Results Result Diagrams: 08/12/20 12:43 08/12/20 15:20 Laboratory Results Interpreted: 08/12/20 08/12/20 08/12/20 12:43 12:43 12:43 WBC 17.4 H MCHC 31.3 L RDW 18.4 H Plt Count 499 H Band Neutrophils % 22 H Lymphocytes % (Manual) 2 L Metamyelocytes % 3 H Abs Neuts (Manual) 15.1 H Abs Lymphs (Manual) 0.3 L Abs Monocytes (Manual) 1.9 H Sodium Chloride BUN Glucose Lactic Acid 5.3 H Magnesium 2.6 H Direct Bilirubin AST Alkaline Phosphatase Creatine Kinase 771 H Total Protein Albumin Urine Protein Urine Urobilinogen 08/12/20 08/12/20 13:20 15:20 WBC MCHC RDW Plt Count Band Neutrophils % Lymphocytes % (Manual) Metamyelocytes % Abs Neuts (Manual) Abs Lymphs (Manual) Abs Monocytes (Manual) Sodium 149.8 H Chloride 113 H BUN 61 H Glucose 120 H Lactic Acid Magnesium Direct Bilirubin 0.6 H AST 60 H Alkaline Phosphatase 146 H Creatine Kinase Total Protein 6.0 L Albumin 3.0 L Urine Protein 30 H Urine Urobilinogen 4.0 H Critical Laboratory Results Reviewed: Yes Attending or Supervising Physician who Reviewed Labs: DWAYNE MUKHERJEE - Severe dehydration with elevated BUN, leukocytosis with bandemia - Radiology Results Critical Radiology Results Reviewed: Yes - Chest x-ray shows a new dense left basilar consolidation. Attending or Supervising Physician who Reviewed Radiology: DWAYNE MUKHERJEE - EKG Interpretation by [place] EKG shows normal: Sinus rhythm, [place], Intervals, QRS Complexes, ST-T Waves Rate: Normal - 71 Rhythm: NSR [place]/QRS: IVCD Voltage: Consistent with LVH P Waves: LAE When compared to previous EKG there are: No significant change - Consults Dr. Mannava Time consulted: 16:50 Consulted provider: will come to ER Critical Care Note - Critical Care Note Total time excluding time spent on procedures (mins): 35 Comments: At least 35 minutes spent evaluating patient, discussing the case with hospitalist and with his oncologist. Reviewing old records. Reviewing lab work and repeat evaluations of the patient to see how well he is responding to IV fluid interventions. 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, Larynx cancer Pneumonia Qualifiers: Pneumonia type: due to unspecified organism Laterality: left Lung location: lower lobe of lung Qualified Code(s): J18.9 - Pneumonia, unspecified organism Leukocytosis Qualifiers: Leukocytosis type: bandemia Qualified Code(s): D72.825 - Bandemia Rhabdomyolysis Qualifiers: Rhabdomyolysis type: traumatic Encounter type: initial encounter Qualified Code(s): T79.6XXA - Traumatic ischemia of muscle, initial encounter COPD (chronic obstructive pulmonary disease) Qualifiers: COPD type: unspecified COPD Qualified Code(s): J44.9 - Chronic obstructive pulmonary disease, unspecified Condition: Stable Disposition: ADMITTED INPATIENT Admitting Provider: Janki (Hospitalist) Unit Admitted: IMCU I personally performed the services described in the documentation, reviewed and edited the documentation which was dictated to the scribe in my presence, and it accurately records my words and actions.
[2020-08-12 13:03] LABS: HEMOGLOBIN 14.7 g/dL (13.5-17.0); MEAN CORPUSCULAR HEMOGLOBIN 28.1 pg (27.0-33.4); MEAN CORPUSCULAR HGB CONC 31.3 g/dL (32.0-36.0); MEAN CORPUSCULAR VOLUME 90 fl (80-97); PLATELET COUNT 499 10^3/uL (150-450); RED BLOOD COUNT 5.24 10^6/uL (4.35-5.55); RED CELL DISTRIBUTION WIDTH 18.4 % (11.5-14.0); WHITE BLOOD COUNT 17.4 10^3/uL (4.0-10.5)
[2020-08-12 13:25] LABS: ABSOLUTE LYMPHOCYTES# (MANUAL) 0.3 10^3/uL (0.5-4.7); ABSOLUTE MONOCYTES # (MANUAL) 1.9 10^3/uL (0.1-1.4); BASOPHILS % (MANUAL) 0 % (0-2); EOSINOPHILS % (MANUAL) 0 % (0-6); LYMPHOCYTES % (MANUAL) 2 % (13-45); METAMYELOCYTES % (MANUAL) 3 % (0-1); MONOCYTES % (MANUAL) 11 % (3-13); SEGMENTED NEUTROPHILS % (MAN) 62 % (42-78); TOTAL CELLS COUNTED 100
[2020-08-12 13:28] LABS: ANISOCYTOSIS 1+; BAND NEUTROPHILS % (MANUAL) 22 % (3-5); OVALOCYTES SLIGHT; PLATELET COMMENT INCREASED; POIKILOCYTOSIS SLIGHT; TEAR DROP CELLS SLIGHT
[2020-08-12 13:50] LABS: VENOUS BLOOD BASE EXCESS -3.6 mmol/L; VENOUS BLOOD PCO2 41.9 mmHg (35-63); VENOUS BLOOD PH 7.34 (7.30-7.42)
[2020-08-12 13:51] LABS: APPEARANCE,URINE SLIGHTLY-CLOUDY; BILIRUBIN,URINE NEGATIVE (NEGATIVE); COLOR,URINE AMBER; GLUCOSE, URINE NEGATIVE (NEGATIVE); KETONES,URINE NEGATIVE (NEGATIVE); LEUKOCYTE ESTERASE,URINE NEGATIVE (NEGATIVE); NITRITE,URINE NEGATIVE (NEGATIVE); PROTEIN,URINE 30 mg/dL (NEGATIVE); URINE SPECIFIC GRAVITY 1.025
[2020-08-12] MEDS ORDERED: DEXTROSE 5%-LACTATED RINGERS 1,000 ML IV ONE (14:39)
[2020-08-12] MEDS ORDERED: THIAMINE HCL 100 MG in NORMAL SALINE 50 ML IV ONE (14:43)
--- NOTE | 2020-08-12 15:07 | RADIOLOGY REPORT (SQ) ---
EXAM DESCRIPTION: CHEST SINGLE VIEW IMAGES COMPLETED DATE/TIME: 08/12/2020 2:55 pm REASON FOR STUDY: Unresponsive COMPARISON: 06/16/2020 EXAM PARAMETERS: NUMBER OF VIEWS: One view. TECHNIQUE: Single frontal radiographic view of the chest acquired. RADIATION DOSE: NA LIMITATIONS: None. FINDINGS: LUNGS AND PLEURA: Dense left retrocardiac consolidation with obscuration of the hemidiaphr agm. Likely small left pleural effusion. Hyperinflation. Otherwise unremarkable right hemithorax. No pneumothorax. MEDIASTINUM AND HILAR STRUCTURES: Stable. HEART AND VASCULAR STRUCTURES: Normal heart size. BONES: No acute findings. HARDWARE: Right subclavian based chest port with catheter tip at cavoatrial junction. Surgical clips overlie left neck. OTHER: No other significant finding. IMPRESSION: New dense left basilar consolidation, possibly atelectasis or infection. Small left eff usion. TECHNICAL DOCUMENTATION: JOB ID: [id number] 2010 [employer]- All Rights Reserved Reading location - IP/workstation name: [email or web address]
[2020-08-12 15:44] LABS: ALKALINE PHOSPHATASE 146 U/L (38-126); ANION GAP 12 (5-19); ASPARTATE AMINO TRANSFERASE 60 U/L (17-59); BILIRUBIN,DIRECT 0.6 mg/dL (0.0-0.4); BLOOD UREA NITROGEN 61 mg/dL (7-20); CALCIUM 9.1 mg/dL (8.4-10.2); CARBON DIOXIDE 25 mmol/L (22-30); CHLORIDE 113 mmol/L (98-107); GLUCOSE 120 mg/dL (75-110); POTASSIUM 4.6 mmol/L (3.6-5.0)
[2020-08-12] MEDS ORDERED: LEVOFLOXACIN 750 MG/D5W RTU 750 MG/150 ML RTUPB IV ONE (16:33)
[2020-08-12] MEDS ORDERED: ONDANSETRON HCL INJ/PF 4 MG/2 ML SDV IV PRN (17:14)
[2020-08-12] MEDS ORDERED: ACETAMINOPHEN 325 MG TABLET PO PRN (17:14)
--- NOTE | 2020-08-12 17:40 | PDOC H&P ---
History of Present Illness Admission Date/PCP: OJ SIMON PA-C Patient complains of: Brought in by EMS with altered mental status History of Present Illness: REJI FERRELL is a 65 year old male history of glottis malignancy, history of tracheostomy brought to the emergency room by EMS after a welfare check. As per ER physician's note patient is missing oncology appointments, he missed wound care appointments. 911 was was called by [facility]. [employer] arrived on the scene and found the patient down so EMS was called. At the time of arrival in the ER is unresponsive. And also found to be hypotensive. Patient was given IV levofloxacin, 3 L of IV fluids. Patient perked up able to respond by nodding his head. Lab investigation indicates elevated WBC count, possible left-sided pneumonia, rhabdomyolysis. Medical consult was called for admission. At the time of my examination patient responding to verbal commands by nodding his hea d. He agreed to be DNR/DNI. At the time of examination to the nurses are with me. He verbalized understanding is that patient agreed for DNR/DNI. Past Medical History Cardiac Medical History: Reports: Hypertension Denies: Atrial Fibrillation, Congestive Heart Failure, Coronary Artery Disease, Myocardial Infarction, Hyperlipidema, Peripheral Vascular Disease Pulmonary Medical History: Reports: Asthma - Childhood asthma, Chronic Obstructive Pulmonary Disease (COPD) Denies: Bronchitis, Intubation, Pneumonia, Respiratory Failure, Sleep Apnea, Tuberculosis Neurological Medical History: Denies: Seizures Endocrine Medical History: Denies: Diabetes Mellitus Type 1, Diabetes Mellitus Type 2, Hyperthyroidism, Hypothyroidism Renal/ Medical History: Denies: End Stage Renal Disease GI Medical History: Denies: Cirrhosis, Crohn's Disease, Gastroesophageal Reflux Disease, Hepatitis, Ulcerative Colitis Musculoskeltal Medical History: Reports: Arthritis Denies: Gout Skin Medical History: Denies: Eczema, Psoriasis Psychiatric Medical History: Denies: Bipolar Disorder, Depression Hematology: Denies: Anemia, Bleeding Tendencies Past Surgical History Past Surgical History: Reports: Appendectomy, Orthopedic Surgery - Back surgery, right femur fracture, left wrist fracture, Other - Colonoscopy with biopsies, tracheostomy Social History Information Source: Emergency Med Personnel Lives with: Alone Smoking Status: Former Smoker Frequency of Alcohol Use: Rare Hx Recreational Drug Use: No Drugs: None Hx Prescription Drug Abuse: No - Advance Directive Resuscitation Status: Do Not Resuscitate Family History Family History: Reviewed & Not Pertinent, COPD, Hypertension, Other Parental Family History Reviewed: Yes - Unknown Children Family History Reviewed: Unknown Sibling(s) Family History Reviewed.: Unknown Medication/Allergy Home Medications: Diazepam [Valium 5 mg Tablet] 5 mg PO TID PRN 01/08/20 Levothyroxine Sodium 50 mcg PO QAM 01/08/20 Fentanyl 1 each TD ASDIR PRN 06/13/20 Hydromorphone HCl [Dilaudid] 4 mg PO ASDIR PRN 06/13/20 Allergies/Adverse Reactions: No Known Allergies Allergy (Verified 04/03/19 16:14) Review of Systems ROS unobtainable: Due to mental status Constitutional: PRESENT: fatigue, weakness. ABSENT: fever(s) Eyes: ABSENT: visual disturbances Ears: ABSENT: hearing changes Nose, Mouth, and Throat: ABSENT: sore throat Cardiovascular: PRESENT: dyspnea on exertion. ABSENT: chest pain, orthropnea, palpitations Respiratory: PRESENT: dyspnea Gastrointestinal: ABSENT: diarrhea, dysphagia, heartburn Genitourinary: ABSENT: dysuria, hematuria Musculoskeletal: PRESENT: muscle weakness Neurological: PRESENT: other - Patient was found unresponsive at home. Physical Exam Vital Signs: Temp Pulse Resp BP Pulse Ox 40 H 126/54 H 100 08/12/20 12:44 08/12/20 12:44 08/12/20 12:44 Intake & Output 08/11/20 08/12/20 08/13/20 06:59 06:59 06:59 Intake Total 2049 Balance 2049 General appearance: PRESENT: cooperative, disheveled, mild distress, thin Head exam: PRESENT: atraumatic Eye exam: PRESENT: PERRLA. ABSENT: conjunctiva pale Mouth exam: PRESENT: other - Tracheostomy without any trach, blackish discoloration of the skin around the trach site. Teeth exam: PRESENT: poor dentation Neck exam: PRESENT: tracheostomy Respiratory exam: PRESENT: decreased breath sounds Cardiovascular exam: PRESENT: tachycardia GI/Abdominal exam: PRESENT: normal bowel sounds, soft. ABSENT: distended, guarding, mass, organolmegaly, rebound, tenderness Rectal exam: PRESENT: deferred Gentrourinary exam: PRESENT: indwelling catheter Extremities exam: PRESENT: full ROM. ABSENT: calf tenderness, clubbing, pedal edema Neurological exam: PRESENT: alert, awake, CN II-XII grossly intact Skin exam: PRESENT: other Results Laboratory Results: 08/12/20 12:43 08/12/20 15:20 08/12/20 08/12/20 08/12/20 12:43 12:43 12:43 WBC 17.4 H RBC 5.24 Hgb 14.7 Hct 47.0 MCV 90 MCH 28.1 MCHC 31.3 L RDW 18.4 H Plt Count 499 H Seg Neutrophils % Not Reportable VBG pH 7.34 VBG pCO2 41.9 VBG HCO3 22.0 VBG Base Excess -3.6 Sodium Cancelled Potassium Cancelled Chloride Cancelled Carbon Dioxide Cancelled Anion Gap Cancelled BUN Cancelled Creatinine Cancelled Est GFR ( Amer) Cancelled Est GFR (Non-Af Amer) Cancelled Glucose Cancelled Lactic Acid Calcium Cancelled Magnesium 2.6 H Total Bilirubin Cancelled AST Cancelled Alkaline Phosphatase Cancelled Total Protein Cancelled Albumin Cancelled Urine Color Urine Appearance Urine pH Ur Specific [place] Urine Protein Urine Glucose (UA) Urine Ketones Urine Blood Urine Nitrite Ur Leukocyte Esterase Urine WBC (Auto) Urine RBC (Auto) 08/12/20 08/12/20 08/12/20 12:43 13:20 15:20 WBC RBC Hgb Hct MCV MCH MCHC RDW Plt Count Seg Neutrophils % VBG pH VBG pCO2 VBG HCO3 VBG Base Excess Sodium 149.8 H Potassium 4.6 Chloride 113 H Carbon Dioxide 25 Anion Gap 12 BUN 61 H Creatinine 1.11 Est GFR ( Amer) > 60 Est GFR (Non-Af Amer) Glucose 120 H Lactic Acid 5.3 H Calcium 9.1 Magnesium Total Bilirubin 1.0 AST 60 H Alkaline Phosphatase 146 H Total Protein 6.0 L Albumin 3.0 L Urine Color KAITLYNN Urine Appearance SLIGHTLY-CLOUDY Urine pH 5.0 Ur Specific [place] 1.025 Urine Protein 30 H Urine Glucose (UA) NEGATIVE Urine Ketones NEGATIVE Urine Blood NEGATIVE Urine Nitrite NEGATIVE Ur Leukocyte Esterase NEGATIVE Urine WBC (Auto) 2 Urine RBC (Auto) 1 08/12/20 08/12/20 12:43 12:43 Creatine Kinase 771 H Troponin I < 0.012 Impressions: Chest X-Ray 08/12/20 14:38 IMPRESSION: New dense left basilar consolidation, possibly atelectasis or infection. Small left effusion. Assessment and Plan - Diagnosis (1) Pneumonia Qualifiers: Pneumonia type: due to unspecified organism Laterality: left Lung location: lower lobe of lung Qualified Code(s): J18.9 - Pneumonia, unspecified organism Is this a current diagnosis for this admission?: Yes Plan: 08/12/2020-chest x-ray suggestive of left-sided pneumonia to start on IV Zosyn, IV vancomycin. Blood cultures are requested. IV fluids are initiated 75 cc/h. GI prophylaxis DVT prophylaxis initiated. 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 He has a open trach. Consultation with Dr. Torres was requested. To continue fentanyl and morphine. (3) Rhabdomyolysis Qualifiers: Rhabdomyolysis type: traumatic Encounter type: initial encounter Qualified Code(s): T79.6XXA - Traumatic ischemia of muscle, initial encounter Is this a current diagnosis for this admission?: Yes Plan: 08/12/2020 CK 771. [employer] found him on the floor at home. Patient is receiving IV fluids to check for CK levels tomorrow. (4) Malnutrition due to starvation Is this a current diagnosis for this admission?: Yes Plan: 08/12/2020-patient BMI is less than 15. Dietary consult will be requested and nutrition supplementations will be provided. (5) Leukocytosis Qualifiers: Leukocytosis type: bandemia Qualified Code(s): D72.825 - Bandemia Is this a current diagnosis for this admission?: Yes Plan: 08/12/2020-WBC count is elevated more than 17,000. Most likely secondary to pneumonia. (6) CLIFFORD (acute kidney injury) Is this a current diagnosis for this admission?: Yes Plan: 08/12/2020-patient admitted with CLIFFORD and hypotension. Received 3 L of normal saline in the ER. Continue normal saline at 75 cc/h. (7) Decubitus ulcer Is this a current diagnosis for this admission?: Yes Plan: 08/12/2020-2 decubitus ulcers present on the back. One on the upper back one at the sacrum. For me looks like stage III at the sacrum and stage I on the upper back. Wound care consult was requested daily wound care dressings will be provided. - Time Anticipated Discharge Disposition: Hospice Center Anticipated Discharge Timeframe: within 72 hours
[2020-08-12] MEDS ORDERED: IPRATROPIUM/ALBUTEROL 0.5-2.5 MG/3 ML AMPUL NEB ONE (18:30)
[2020-08-12 20:55] LABS: URINE AMPHETAMINES SCREEN NEGATIVE; URINE BARBITURATES SCREEN NEGATIVE; URINE BENZODIAZEPINES SCREEN UNCONFIRMED POSITIVE; URINE COCAINE SCREEN NEGATIVE; URINE MARIJUANA (THC) SCREEN NEGATIVE; URINE METHADONE SCREEN NEGATIVE; URINE PHENCYCLIDINE SCREEN NEGATIVE
[2020-08-12] MEDS: NORMAL SALINE 1000 ML 1,000 ML IV PRN (21:56)
[2020-08-12] MEDS: PANTOPRAZOLE SODIUM 40 MG VIAL IV SCH (21:57)
[2020-08-12] MEDS: PIPERACILLIN SODIUM/TAZOBACTAM 3.375 GM in DEXTROSE 5%-WATER 100 ML IV SCH (21:57)
[2020-08-12] MEDS: VANCOMYCIN HCL 750 MG in DEXTROSE 5%-WATER 250 ML IV SCH (21:57)
[2020-08-12] MEDS ORDERED: PIPERACILLIN/TAZOBACTAM 3.375 GM VIAL IV SCH (22:00)
[2020-08-12] MEDS ORDERED: PIPERACILLIN SODIUM/TAZOBACTAM 3.375 GM in NORMAL SALINE 100 ML IV SCH (22:00)
[2020-08-13] MEDS: PIPERACILLIN SODIUM/TAZOBACTAM 3.375 GM in DEXTROSE 5%-WATER 100 ML IV SCH ×3 (05:40→21:29)
[2020-08-13 06:20] LABS: ALBUMIN 2.4 g/dL (3.5-5.0); ALKALINE PHOSPHATASE 143 U/L (38-126); ANION GAP 8 (5-19); ASPARTATE AMINO TRANSFERASE 51 U/L (17-59); BILIRUBIN,DIRECT 0.4 mg/dL (0.0-0.4); BILIRUBIN,TOTAL 0.8 mg/dL (0.2-1.3); BLOOD UREA NITROGEN 54 mg/dL (7-20); CALCIUM 7.9 mg/dL (8.4-10.2); CARBON DIOXIDE 20 mmol/L (22-30); CHLORIDE 119 mmol/L (98-107); CREATINE KINASE 489 U/L (55-170); GLUCOSE 115 mg/dL (75-110); HEMATOCRIT 40.6 % (37.9-51.0); HEMOGLOBIN 12.7 g/dL (13.5-17.0); MEAN CORPUSCULAR HGB CONC 31.4 g/dL (32.0-36.0); MEAN CORPUSCULAR VOLUME 89 fl (80-97); PLATELET COUNT 315 10^3/uL (150-450); POTASSIUM 4.3 mmol/L (3.6-5.0); RED BLOOD COUNT 4.55 10^6/uL (4.35-5.55); RED CELL DISTRIBUTION WIDTH 18.5 % (11.5-14.0); TOTAL PROTEIN 5.2 g/dL (6.3-8.2); WHITE BLOOD COUNT 24.6 10^3/uL (4.0-10.5)
[2020-08-13 06:23] LABS: ABSOLUTE LYMPHOCYTES# (MANUAL) 0.5 10^3/uL (0.5-4.7); ABSOLUTE MONOCYTES # (MANUAL) 2.7 10^3/uL (0.1-1.4); ANISOCYTOSIS 2+; BAND NEUTROPHILS % (MANUAL) 7 % (3-5); BASOPHILS % (MANUAL) 0 % (0-2); EOSINOPHILS % (MANUAL) 0 % (0-6); LYMPHOCYTES % (MANUAL) 2 % (13-45); MONOCYTES % (MANUAL) 11 % (3-13); PLATELET COMMENT ADEQUATE; POLYCHROMASIA 1+; SEGMENTED NEUTROPHILS % (MAN) 80 % (42-78); TOTAL CELLS COUNTED 100
[2020-08-13 06:43] LABS: NT PRO BNP 2090 pg/mL (<125)
[2020-08-13 06:47] LABS: TROPONIN I < 0.012 ng/mL
[2020-08-13] MEDS ORDERED: VANCOMYCIN HCL INJ 1000 MG VIAL IV SCH (10:00)
[2020-08-13] MEDS: VANCOMYCIN HCL 750 MG in DEXTROSE 5%-WATER 250 ML IV SCH ×2 (10:19→22:23)
[2020-08-13] MEDS: PANTOPRAZOLE SODIUM 40 MG VIAL IV SCH ×2 (10:19→21:29)
[2020-08-13] MEDS: ENOXAPARIN SODIUM INJ 30 MG/0.3 ML DISP.SYRIN SUBCUT SCH (10:19)
--- NOTE | 2020-08-13 11:04 | PDOC CONSULTATION ---
Consultation Consult Date: 08/13/20 Attending physician:: JUAN C HERNANDEZ Provider Consulted: KENNY ESPAÑA Consult reason:: Patient well-known to our oncology clinic with stage IV head neck cancer here with hypotension, weakness, confusion History of Present Illness Admission Date/PCP: 08/12/20 17:41 OJ SIMON PA-C Patient complains of: Confusion, weakness, found down History of Present Illness: REJI FERRELL is a 65 year old male With known history of stage IV head neck cancer with progressive disease mostly bilateral axilla, some disease in the head neck remaining. Most recent has been on third line chemotherapy with 5-FU infusion. Received that last about about 3 weeks ago and was due for treatment Last week. But missed appointment, we were not able to get a hold of him, police was sent out for a welfare check, and found him down, EMS brought him to the ER, he was hypotensive, tachycardic, x-ray indicated infiltrate, and appeared to be with infection and distress. He has been given aggressive hydration, IV antibiotics, and seems a little bit better in terms of mental status today, upon presentation he was mostly obtunded. He was asking for water this morning and pain medication. Past Medical History Cardiac Medical History: Reports: Hypertension Denies: Atrial Fibrillation, Congestive Heart Failure, Coronary Artery Disease, Myocardial Infarction, Hyperlipidema, Peripheral Vascular Disease Pulmonary Medical History: Reports: Asthma - Childhood asthma, Chronic Obstructive Pulmonary Disease (COPD) Denies: Bronchitis, Intubation, Pneumonia, Respiratory Failure, Sleep Apnea, Tuberculosis Neurological Medical History: Denies: Seizures Endocrine Medical History: Denies: Diabetes Mellitus Type 1, Diabetes Mellitus Type 2, Hyperthyroidism, Hypothyroidism Renal/ Medical History: Denies: End Stage Renal Disease Malignancy Medical History: Reports: Other - Stage IV head neck cancer GI Medical History: Denies: Cirrhosis, Crohn's Disease, Gastroesophageal Reflux Disease, Hepatitis, Ulcerative Colitis Musculoskeltal Medical History: Reports: Arthritis Denies: Gout Skin Medical History: Denies: Eczema, Psoriasis Psychiatric Medical History: Denies: Bipolar Disorder, Depression Hematology: Denies: Anemia, Bleeding Tendencies Past Surgical History Past Surgical History: Reports: Appendectomy, Orthopedic Surgery - Back surgery, right femur fracture, left wrist fracture, Other - Colonoscopy with biopsies, tracheostomy Social History Lives with: Alone Smoking Status: Former Smoker Frequency of Alcohol Use: Rare Hx Recreational Drug Use: No Drugs: None Hx Prescription Drug Abuse: No - Advance Directive Resuscitation Status: Do Not Resuscitate Family History Family History: Reviewed & Not Pertinent, COPD, Hypertension, Other Parental Family History Reviewed: Yes Children Family History Reviewed: Yes Sibling(s) Family History Reviewed.: Yes Medication/Allergy Home Medications: Diazepam [Valium 5 mg Tablet] 5 mg PO TID PRN 01/08/20 Levothyroxine Sodium 50 mcg PO QAM 01/08/20 Fentanyl 1 each TD ASDIR PRN 06/13/20 Hydromorphone HCl [Dilaudid] 4 mg PO ASDIR PRN 06/13/20 Allergies/Adverse Reactions: No Known Allergies Allergy (Verified 04/03/19 16:14) Review of Systems Constitutional: ABSENT: chills, fever(s), headache(s), weight gain, weight loss Eyes: ABSENT: visual disturbances Ears: ABSENT: hearing changes Cardiovascular: ABSENT: chest pain, dyspnea on exertion, edema, orthropnea, palpitations Respiratory: ABSENT: cough, hemoptysis Gastrointestinal: ABSENT: abdominal pain, constipation, diarrhea, hematemesis, hematochezia, nausea, vomiting Genitourinary: ABSENT: dysuria, hematuria Musculoskeletal: ABSENT: joint swelling Integumentary: ABSENT: rash, wounds Neurological: ABSENT: abnormal gait, abnormal speech, confusion, dizziness, focal weakness, syncope Psychiatric: ABSENT: anxiety, depression, homidical ideation, suicidal ideation Endocrine: ABSENT: cold intolerance, heat intolerance, polydipsia, polyuria Hematologic/Lymphatic: ABSENT: easy bleeding, easy bruising Physical Exam Vital Signs: Temp Pulse Resp BP Pulse Ox 97.4 F 98 21 H 113/67 94 08/13/20 08:56 08/13/20 08:56 08/13/20 08:56 08/13/20 08:56 08/13/20 08:50 Intake & Output 08/12/20 08/13/20 08/14/20 06:59 06:59 06:59 Intake Total 3200 250 Output Total 250 Balance 2950 250 Weight 64.9 kg 64.9 kg General appearance: PRESENT: no acute distress, well-developed, well-nourished Head exam: PRESENT: atraumatic, normocephalic Eye exam: PRESENT: conjunctiva pink, EOMI, PERRLA. ABSENT: scleral icterus Ear exam: PRESENT: normal external ear exam Mouth exam: PRESENT: moist, tongue midline Neck exam: ABSENT: carotid bruit, JVD, lymphadenopathy, thyromegaly Respiratory exam: PRESENT: clear to auscultation philly. ABSENT: rales, rhonchi, wheezes Cardiovascular exam: PRESENT: RRR. ABSENT: diastolic murmur, rubs, systolic murmur Pulses: PRESENT: normal dorsalis pedis pul Vascular exam: PRESENT: normal capillary refill GI/Abdominal exam: PRESENT: normal bowel sounds, soft. ABSENT: distended, guarding, mass, organolmegaly, rebound, tenderness Rectal exam: PRESENT: deferred Extremities exam: PRESENT: full ROM. ABSENT: calf tenderness, clubbing, pedal edema Neurological exam: PRESENT: alert, awake, oriented to person, oriented to place, oriented to time, oriented to situation, CN II-XII grossly intact. ABSENT: motor sensory deficit Psychiatric exam: PRESENT: appropriate affect, normal mood. ABSENT: homicidal ideation, suicidal ideation Skin exam: PRESENT: dry, intact, warm. ABSENT: cyanosis, rash Results Laboratory Results: 08/13/20 05:34 08/13/20 05:34 08/12/20 08/12/20 08/12/20 12:43 12:43 12:43 WBC 17.4 H RBC 5.24 Hgb 14.7 Hct 47.0 MCV 90 MCH 28.1 MCHC 31.3 L RDW 18.4 H Plt Count 499 H Seg Neutrophils % Not Reportable VBG pH 7.34 VBG pCO2 41.9 VBG HCO3 22.0 VBG Base Excess -3.6 Sodium Cancelled Potassium Cancelled Chloride Cancelled Carbon Dioxide Cancelled Anion Gap Cancelled BUN Cancelled Creatinine Cancelled Est GFR ( Amer) Cancelled Est GFR (Non-Af Amer) Cancelled Glucose Cancelled Lactic Acid Calcium Cancelled Magnesium 2.6 H Total Bilirubin Cancelled AST Cancelled Alkaline Phosphatase Cancelled Total Protein Cancelled Albumin Cancelled TSH Urine Color Urine Appearance Urine pH Ur Specific Leivasy Urine Protein Urine Glucose (UA) Urine Ketones Urine Blood Urine Nitrite Ur Leukocyte Esterase Urine WBC (Auto) Urine RBC (Auto) 08/12/20 08/12/20 08/12/20 12:43 13:20 15:20 WBC RBC Hgb Hct MCV MCH MCHC RDW Plt Count Seg Neutrophils % VBG pH VBG pCO2 VBG HCO3 VBG Base Excess Sodium 149.8 H Potassium 4.6 Chloride 113 H Carbon Dioxide 25 Anion Gap 12 BUN 61 H Creatinine 1.11 Est GFR ( Amer) > 60 Est GFR (Non-Af Amer) Glucose 120 H Lactic Acid 5.3 H Calcium 9.1 Magnesium Total Bilirubin 1.0 AST 60 H Alkaline Phosphatase 146 H Total Protein 6.0 L Albumin 3.0 L TSH Urine Color KAITLYNN Urine Appearance SLIGHTLY-CLOUDY Urine pH 5.0 Ur Specific Leivasy 1.025 Urine Protein 30 H Urine Glucose (UA) NEGATIVE Urine Ketones NEGATIVE Urine Blood NEGATIVE Urine Nitrite NEGATIVE Ur Leukocyte Esterase NEGATIVE Urine WBC (Auto) 2 Urine RBC (Auto) 1 08/12/20 08/13/20 08/13/20 21:12 05:34 05:34 WBC 24.6 H RBC 4.55 Hgb 12.7 L Hct 40.6 MCV 89 MCH 28.0 MCHC 31.4 L RDW 18.5 H Plt Count 315 Seg Neutrophils % Not Reportable VBG pH VBG pCO2 VBG HCO3 VBG Base Excess Sodium 146.7 H Potassium 4.3 Chloride 119 H Carbon Dioxide 20 L Anion Gap 8 BUN 54 H Creatinine 1.23 Est GFR ( Amer) > 60 Est GFR (Non-Af Amer) Glucose 115 H Lactic Acid 4.1 H Calcium 7.9 L Magnesium 2.6 H Total Bilirubin 0.8 AST 51 Alkaline Phosphatase 143 H Total Protein 5.2 L Albumin 2.4 L TSH Urine Color Urine Appearance Urine pH Ur Specific Leivasy Urine Protein Urine Glucose (UA) Urine Ketones Urine Blood Urine Nitrite Ur Leukocyte Esterase Urine WBC (Auto) Urine RBC (Auto) 08/13/20 05:34 WBC RBC Hgb Hct MCV MCH MCHC RDW Plt Count Seg Neutrophils % VBG pH VBG pCO2 VBG HCO3 VBG Base Excess Sodium Potassium Chloride Carbon Dioxide Anion Gap BUN Creatinine Est GFR ( Amer) Est GFR (Non-Af Amer) Glucose Lactic Acid Calcium Magnesium Total Bilirubin AST Alkaline Phosphatase Total Protein Albumin TSH 11.80 H Urine Color Urine Appearance Urine pH Ur Specific Leivasy Urine Protein Urine Glucose (UA) Urine Ketones Urine Blood Urine Nitrite Ur Leukocyte Esterase Urine WBC (Auto) Urine RBC (Auto) 08/12/20 08/12/20 08/13/20 12:43 12:43 05:34 Creatine Kinase 771 H 489 H Troponin I < 0.012 NT-Pro-B Natriuret Pep 08/13/20 05:34 Creatine Kinase Troponin I < 0.012 NT-Pro-B Natriuret Pep 2090 H Impressions: Chest X-Ray 08/12/20 14:38 IMPRESSION: New dense left basilar consolidation, possibly atelectasis or infection. Small left effusion. Status: Image reviewed by me Assessment & Plan - Diagnosis (1) Larynx cancer Is this a current diagnosis for this admission?: Yes Plan: On third line therapy, agree with DNR status, continue with supportive care for now. If he does not improve I will try and have hospice discussions with him but at present I do not think his mental status is appropriate enough yet. (2) Malnutrition due to starvation Is this a current diagnosis for this admission?: Yes Plan: Agree with hydration for now ultimately may need something more substantial. Hopefully he will start eating on his own in the next 24 to 48 hours. (3) Pneumonia Qualifiers: Pneumonia type: due to unspecified organism Laterality: left Lung location: lower lobe of lung Qualified Code(s): J18.9 - Pneumonia, unspecified organism Is this a current diagnosis for this admission?: Yes Plan: Agree with current antibiotic regimen, continue for now (4) Dehydration Is this a current diagnosis for this admission?: Yes Plan: Continue with aggressive hydration (5) CLIFFORD (acute kidney injury) Is this a current diagnosis for this admission?: Yes Plan: Secondary to poor p.o. intake, continue aggressive hydration - Time Time Spent: Greater than 70 Minutes
--- NOTE | 2020-08-13 11:04 | PDOC PROGRESS REPORT ---
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 As per ER physician's note patient is missing oncology appointments, he missed wound care appointments. 911 was was called by [facility]. [employer] arrived on the scene and found the patient down so EMS was called. At the time of arrival in the ER is unresponsive. And also found to be hypotensive. Patient was given IV levofloxacin, 3 L of IV fluids. Patient perked up able to respond by nodding his head. Lab investigation indicates elevated WBC count, possible left-sided pneumonia, rhabdomyolysis. Medical consult was called for admission. At the time of my examination patient responding to verbal commands by nodding his head. He agreed to be DNR/DNI. At the time of examination to the nurses are with me. He verbalized understanding is that patient agreed for DNR/DNI. 08/13/20 patient is comfortably in the bed communicating by nodding his head. No acute events in the last 24 hours. To continue to provide IV fluids, IV antibiotic therapy. Wound care consult was requested. Overall prognosis poor condition is critical. Reason For Visit: CLIFFORD Physical Exam Vital Signs: Temp Pulse Resp BP Pulse Ox 97.4 F 98 21 H 113/67 94 08/13/20 08:56 08/13/20 08:56 08/13/20 08:56 08/13/20 08:56 08/13/20 08:50 Intake & Output 08/12/20 08/13/20 08/14/20 06:59 06:59 06:59 Intake Total 3200 250 Output Total 250 Balance 2950 250 Weight 64.9 kg 64.9 kg General appearance: PRESENT: no acute distress, cooperative, disheveled, thin Head exam: PRESENT: atraumatic Eye exam: PRESENT: conjunctiva pale, PERRLA Ear exam: PRESENT: normal external ear exam Mouth exam: PRESENT: neck supple Teeth exam: PRESENT: poor dentation Neck exam: PRESENT: tracheostomy Respiratory exam: PRESENT: decreased breath sounds Cardiovascular exam: PRESENT: systolic murmur, tachycardia GI/Abdominal exam: PRESENT: ascites Rectal exam: PRESENT: deferred Gentrourinary exam: PRESENT: indwelling catheter Extremities exam: PRESENT: full ROM. ABSENT: calf tenderness, clubbing, pedal edema Neurological exam: PRESENT: alert, awake Skin exam: PRESENT: other - Decubitus wounds on the back, fungating lesions in both axilla present. Results Laboratory Results: 08/13/20 05:34 08/13/20 05:34 08/12/20 08/12/20 08/12/20 12:43 12:43 12:43 WBC 17.4 H RBC 5.24 Hgb 14.7 Hct 47.0 MCV 90 MCH 28.1 MCHC 31.3 L RDW 18.4 H Plt Count 499 H Seg Neutrophils % Not Reportable VBG pH 7.34 VBG pCO2 41.9 VBG HCO3 22.0 VBG Base Excess -3.6 Sodium Cancelled Potassium Cancelled Chloride Cancelled Carbon Dioxide Cancelled Anion Gap Cancelled BUN Cancelled Creatinine Cancelled Est GFR ( Amer) Cancelled Est GFR (Non-Af Amer) Cancelled Glucose Cancelled Lactic Acid Calcium Cancelled Magnesium 2.6 H Total Bilirubin Cancelled AST Cancelled Alkaline Phosphatase Cancelled Total Protein Cancelled Albumin Cancelled TSH Urine Color Urine Appearance Urine pH Ur Specific Zachary Urine Protein Urine Glucose (UA) Urine Ketones Urine Blood Urine Nitrite Ur Leukocyte Esterase Urine WBC (Auto) Urine RBC (Auto) 08/12/20 08/12/20 08/12/20 12:43 13:20 15:20 WBC RBC Hgb Hct MCV MCH MCHC RDW Plt Count Seg Neutrophils % VBG pH VBG pCO2 VBG HCO3 VBG Base Excess Sodium 149.8 H Potassium 4.6 Chloride 113 H Carbon Dioxide 25 Anion Gap 12 BUN 61 H Creatinine 1.11 Est GFR ( Amer) > 60 Est GFR (Non-Af Amer) Glucose 120 H Lactic Acid 5.3 H Calcium 9.1 Magnesium Total Bilirubin 1.0 AST 60 H Alkaline Phosphatase 146 H Total Protein 6.0 L Albumin 3.0 L TSH Urine Color KAITLYNN Urine Appearance SLIGHTLY-CLOUDY Urine pH 5.0 Ur Specific Zachary 1.025 Urine Protein 30 H Urine Glucose (UA) NEGATIVE Urine Ketones NEGATIVE Urine Blood NEGATIVE Urine Nitrite NEGATIVE Ur Leukocyte Esterase NEGATIVE Urine WBC (Auto) 2 Urine RBC (Auto) 1 08/12/20 08/13/20 08/13/20 21:12 05:34 05:34 WBC 24.6 H RBC 4.55 Hgb 12.7 L Hct 40.6 MCV 89 MCH 28.0 MCHC 31.4 L RDW 18.5 H Plt Count 315 Seg Neutrophils % Not Reportable VBG pH VBG pCO2 VBG HCO3 VBG Base Excess Sodium 146.7 H Potassium 4.3 Chloride 119 H Carbon Dioxide 20 L Anion Gap 8 BUN 54 H Creatinine 1.23 Est GFR ( Amer) > 60 Est GFR (Non-Af Amer) Glucose 115 H Lactic Acid 4.1 H Calcium 7.9 L Magnesium 2.6 H Total Bilirubin 0.8 AST 51 Alkaline Phosphatase 143 H Total Protein 5.2 L Albumin 2.4 L TSH Urine Color Urine Appearance Urine pH Ur Specific Zachary Urine Protein Urine Glucose (UA) Urine Ketones Urine Blood Urine Nitrite Ur Leukocyte Esterase Urine WBC (Auto) Urine RBC (Auto) 08/13/20 05:34 WBC RBC Hgb Hct MCV MCH MCHC RDW Plt Count Seg Neutrophils % VBG pH VBG pCO2 VBG HCO3 VBG Base Excess Sodium Potassium Chloride Carbon Dioxide Anion Gap BUN Creatinine Est GFR ( Amer) Est GFR (Non-Af Amer) Glucose Lactic Acid Calcium Magnesium Total Bilirubin AST Alkaline Phosphatase Total Protein Albumin TSH 11.80 H Urine Color Urine Appearance Urine pH Ur Specific Zachary Urine Protein Urine Glucose (UA) Urine Ketones Urine Blood Urine Nitrite Ur Leukocyte Esterase Urine WBC (Auto) Urine RBC (Auto) 08/12/20 08/12/20 08/13/20 12:43 12:43 05:34 Creatine Kinase 771 H 489 H Troponin I < 0.012 NT-Pro-B Natriuret Pep 08/13/20 05:34 Creatine Kinase Troponin I < 0.012 NT-Pro-B Natriuret Pep 2090 H Impressions: Chest X-Ray 08/12/20 14:38 IMPRESSION: New dense left basilar consolidation, possibly atelectasis or infection. Small left effusion. Assessment and Plan - Diagnosis (1) Pneumonia Qualifiers: Qualified Code(s): J18.9 - Pneumonia, unspecified organism Is this a current diagnosis for this admission?: Yes Plan: 08/12/2020-chest x-ray suggestive of left-sided pneumonia to start on IV Zosyn, IV vancomycin. Blood cultures are requested. IV fluids are initiated 75 cc/h. GI prophylaxis DVT prophylaxis initiated. 08/13/2020-patient is receiving IV vancomycin, Zosyn. WBC count is 24,600. Blood cultures are pending. Plan is to continue oxygen supplementations and and antibiotic therapy. 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 He has a open trach. Consultation with Dr. Torres was requested. To continue fentanyl and morphine. (3) Rhabdomyolysis Qualifiers: Qualified Code(s): T79.6XXA - Traumatic ischemia of muscle, initial encounter Is this a current diagnosis for this admission?: Yes Plan: 08/12/2020 CK 771. j[employer] found him on the floor at home. Patient is receiving IV fluids to check for CK levels tomorrow. 08/13/2020-CK level came down to 489. Rhabdomyolysis resolving. (4) Malnutrition due to starvation Is this a current diagnosis for this admission?: Yes Plan: 08/12/2020-patient BMI is less than 15. Dietary consult will be requested and nutrition supplementations will be provided. (5) Leukocytosis Qualifiers: Qualified Code(s): D72.825 - Bandemia Is this a current diagnosis for this admission?: Yes Plan: 08/12/2020-WBC count is elevated more than 17,000. Most likely secondary to pneumonia. 08/13/2020-WBC count is 24,500. Afebrile blood pressures are improving plan is to continue IV antibiotic therapy. Blood cultures are pending. (6) CLIFFORD (acute kidney injury) Is this a current diagnosis for this admission?: Yes Plan: 08/12/2020-patient admitted with CLIFFORD and hypotension. Received 3 L of normal saline in the ER. Continue normal saline at 75 cc/h. (7) Decubitus ulcer Is this a current diagnosis for this admission?: Yes Plan: 08/12/2020-2 decubitus ulcers present on the back. One on the upper back one at the sacrum. For me looks like stage III at the sacrum and stage I on the upper back. Wound care consult was requested daily wound care dressings will be provided. - Time Anticipated Discharge Disposition: Residential Care Facility Anticipated Discharge Timeframe: within 72 hours
[2020-08-13] MEDS: NORMAL SALINE 1000 ML 1,000 ML IV PRN (15:07)
--- NOTE | 2020-08-13 17:20 | EKG REPORT ---
SEVERITY:- ABNORMAL ECG - SINUS RHYTHM LEFT ATRIAL ABNORMALITY NONSPECIFIC INTRAVENTRICULAR CONDUCTION DELAY LVH WITH SECONDARY REPOLARIZATION ABNORMALITY INFERIOR INFARCT, AGE INDETERMINATE : Confirmed by: Abi Thomas MD 13-Aug-2020 17:19:47
[2020-08-14] MEDS: PIPERACILLIN SODIUM/TAZOBACTAM 3.375 GM in DEXTROSE 5%-WATER 100 ML IV SCH ×2 (05:27→14:17)
[2020-08-14] MEDS: NORMAL SALINE 1000 ML 1,000 ML IV PRN ×2 (06:22→20:24)
[2020-08-14 06:54] LABS: C DIFFICILE GDH POSITIVE (NEGATIVE)
[2020-08-14] MEDS: IPRATROPIUM/ALBUTEROL 0.5-2.5 MG/3 ML AMPUL NEB SCH ×3 (09:12→20:19)
--- NOTE | 2020-08-14 09:42 | PDOC PROGRESS REPORT ---
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 As per ER physician's note patient is missing oncology appointments, he missed wound care appointments. 911 was was called by [facility]. [employer] arrived on the scene and found the patient down so EMS was called. At the time of arrival in the ER is unresponsive. And also found to be hypotensive. Patient was given IV levofloxacin, 3 L of IV fluids. Patient perked up able to respond by nodding his head. Lab investigation indicates elevated WBC count, possible left-sided pneumonia, rhabdomyolysis. Medical consult was called for admission. At the time of my examination patient responding to verbal commands by nodding his head. He agreed to be DNR/DNI. At the time of examination to the nurses are with me. He verbalized understanding is that patient agreed for DNR/DNI. 08/13/20 patient is comfortably in the bed communicating by nodding his head. No acute events in the last 24 hours. To continue to provide IV fluids, IV antibiotic therapy. Wound care consult was requested. Overall prognosis poor condition is critical. 08/14/20-no acute events in the last 24 hours. Afebrile. Patient has a loose stools from yesterday and 6 C. difficile came back positive. Started on p.o. vancomycin 125 mg every 6 hours. Reason For Visit: CLIFFORD Physical Exam Vital Signs: Temp Pulse Resp BP Pulse Ox 97.4 F 78 16 120/65 100 08/13/20 22:00 08/14/20 09:12 08/14/20 09:12 08/14/20 08:08 08/14/20 09:12 Intake & Output 08/13/20 08/14/20 08/15/20 06:59 06:59 06:59 Intake Total 3200 2771 Output Total 250 450 Balance 2950 2321 Weight 64.9 kg 63.8 kg General appearance: PRESENT: no acute distress, thin Head exam: PRESENT: atraumatic Eye exam: PRESENT: conjunctiva pale, PERRLA Mouth exam: PRESENT: neck supple Teeth exam: PRESENT: poor dentation Neck exam: PRESENT: tracheostomy Respiratory exam: PRESENT: decreased breath sounds GI/Abdominal exam: PRESENT: normal bowel sounds, soft. ABSENT: distended, guarding, mass, organolmegaly, rebound, tenderness Rectal exam: PRESENT: deferred Gentrourinary exam: PRESENT: indwelling catheter Extremities exam: PRESENT: full ROM. ABSENT: calf tenderness, clubbing, pedal e hillary Neurological exam: PRESENT: alert, awake Results Laboratory Results: 08/13/20 05:34 08/13/20 05:34 08/14/20 04:00 Stl C.difficile Tox PCR POSITIVE 08/12/20 08/12/20 08/13/20 12:43 12:43 05:34 Creatine Kinase 771 H 489 H Troponin I < 0.012 NT-Pro-B Natriuret Pep 08/13/20 05:34 Creatine Kinase Troponin I < 0.012 NT-Pro-B Natriuret Pep 2090 H Impressions: Chest X-Ray 08/12/20 14:38 IMPRESSION: New dense left basilar consolidation, possibly atelectasis or infection. Small left effusion. Assessment and Plan - Diagnosis (1) Pneumonia Qualifiers: Pneumonia type: due to unspecified organism Laterality: left Lung location: lower lobe of lung Qualified Code(s): J18.9 - Pneumonia, unspecified organism Is this a current diagnosis for this admission?: Yes Plan: 08/12/2020-chest x-ray suggestive of left-sided pneumonia to start on IV Zosyn, IV vancomycin. Blood cultures are requested. IV fluids are initiated 75 cc/h. GI prophylaxis DVT prophylaxis initiated. 08/13/2020-patient is receiving IV vancomycin, Zosyn. WBC count is 24,600. Blood cultures are pending. Plan is to continue oxygen supplementations and and antibiotic therapy. 08/14/2020-patient admitted with pneumonia. Receiving IV Zosyn, vancomycin. Today's labs are pending. Afebrile. Blood pressure stable. Blood cultures are negative so far urine culture is pending. 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 He has a open trach. Consultation with Dr. Torres was requested. To continue fentanyl and morphine. (3) Rhabdomyolysis Qualifiers: Rhabdomyolysis type: traumatic Encounter type: initial encounter Qualified Code(s): T79.6XXA - Traumatic ischemia of muscle, initial encounter Is this a current diagnosis for this admission?: Yes Plan: 08/12/2020 CK 771. jPD found him on the floor at home. Patient is receiving IV fluids to check for CK levels tomorrow. 08/13/2020-CK level came down to 489. Rhabdomyolysis resolving. (4) Malnutrition due to starvation Is this a current diagnosis for this admission?: Yes Plan: 08/12/2020-patient BMI is less than 15. Dietary consult will be requested and nutrition supplementations will be provided. (5) Leukocytosis Qualifiers: Leukocytosis type: bandemia Qualified Code(s): D72.825 - Bandemia Is this a current diagnosis for this admission?: Yes Plan: 08/12/2020-WBC count is elevated more than 17,000. Most likely secondary to pneumonia. 08/13/2020-WBC count is 24,500. Afebrile blood pressures are improving plan is to continue IV antibiotic therapy. Blood cultures are pending. 08/14/2020-today's labs are pending. (6) CLIFFORD (acute kidney injury) Is this a current diagnosis for this admission?: Yes Plan: 08/12/2020-patient admitted with CLIFFORD and hypotension. Received 3 L of normal saline in the ER. Continue normal saline at 75 cc/h. (7) Decubitus ulcer Is this a current diagnosis for this admission?: Yes Plan: 08/12/2020-2 decubitus ulcers present on the back. One on the upper back one at the sacrum. For me looks like stage III at the sacrum and stage I on the upper back. Wound care consult was requested daily wound care dressings will be provided. - Time Anticipated Discharge Disposition: [facility] Anticipated Discharge Timeframe: within 72 hours
[2020-08-14] MEDS: ENOXAPARIN SODIUM INJ 30 MG/0.3 ML DISP.SYRIN SUBCUT SCH (10:15)
[2020-08-14] MEDS: PANTOPRAZOLE SODIUM 40 MG VIAL IV SCH ×2 (10:15→21:25)
[2020-08-14] MEDS: OXYCODONE HCL IR 5 MG TABLET PO PRN ×2 (10:15→23:51)
[2020-08-14] MEDS: VANCOMYCIN HCL INJ 500 MG VIAL PO SCH ×3 (12:34→23:52)
[2020-08-14 15:21] LABS: HEMATOCRIT 39.4 % (37.9-51.0); HEMOGLOBIN 12.3 g/dL (13.5-17.0); MEAN CORPUSCULAR HEMOGLOBIN 27.9 pg (27.0-33.4); MEAN CORPUSCULAR HGB CONC 31.2 g/dL (32.0-36.0); MEAN CORPUSCULAR VOLUME 90 fl (80-97); PLATELET COUNT 177 10^3/uL (150-450); RED CELL DISTRIBUTION WIDTH 18.7 % (11.5-14.0)
[2020-08-14 15:35] LABS: WHITE BLOOD COUNT 43.9 10^3/uL (4.0-10.5)
[2020-08-14 15:47] LABS: ABSOLUTE LYMPHOCYTES# (MANUAL) 0.4 10^3/uL (0.5-4.7); ABSOLUTE MONOCYTES # (MANUAL) 0.9 10^3/uL (0.1-1.4); BAND NEUTROPHILS % (MANUAL) 9 % (3-5); BASOPHILS % (MANUAL) 0 % (0-2); EOSINOPHILS % (MANUAL) 0 % (0-6); IMMATURE MONONUCLEAR% (MANUAL) 1 % (0); LYMPHOCYTES % (MANUAL) 1 % (13-45); MONOCYTES % (MANUAL) 2 % (3-13); SEGMENTED NEUTROPHILS % (MAN) 87 % (42-78); TOTAL CELLS COUNTED 100
[2020-08-14 15:48] LABS: ANISOCYTOSIS 2+; BURR CELLS 1+; POLYCHROMASIA SLIGHT; TOXIC GRANULATION 2+; TOXIC VACUOLATION PRESENT
[2020-08-14 15:49] LABS: PLATELET COMMENT ADEQUATE
[2020-08-14 18:44] LABS: ALBUMIN 2.1 g/dL (3.5-5.0); ANION GAP 7 (5-19); BILIRUBIN,DIRECT 0.4 mg/dL (0.0-0.4); BILIRUBIN,TOTAL 0.7 mg/dL (0.2-1.3); BLOOD UREA NITROGEN 46 mg/dL (7-20); CALCIUM 7.2 mg/dL (8.4-10.2); CARBON DIOXIDE 19 mmol/L (22-30); CHLORIDE 113 mmol/L (98-107); TOTAL PROTEIN 4.7 g/dL (6.3-8.2)
[2020-08-14 18:50] LABS: GLUCOSE 110 mg/dL (75-110)
[2020-08-14 18:51] LABS: POTASSIUM 4.3 mmol/L (3.6-5.0)
[2020-08-14 18:52] LABS: ALKALINE PHOSPHATASE 132 U/L (38-126); ASPARTATE AMINO TRANSFERASE 61 U/L (17-59)
[2020-08-14] MEDS: PIPERACILLIN SODIUM/TAZOBACTAM 3.375 GM in NORMAL SALINE 100 ML IV SCH (21:25)
[2020-08-15] MEDS: IPRATROPIUM/ALBUTEROL 0.5-2.5 MG/3 ML AMPUL NEB SCH ×4 (01:41→19:56)
[2020-08-15] MEDS: VANCOMYCIN HCL INJ 500 MG VIAL PO SCH ×3 (05:07→17:28)
[2020-08-15] MEDS: PIPERACILLIN SODIUM/TAZOBACTAM 3.375 GM in NORMAL SALINE 100 ML IV SCH ×3 (05:07→21:41)
[2020-08-15 06:18] LABS: HEMATOCRIT 36.4 % (37.9-51.0); HEMOGLOBIN 11.2 g/dL (13.5-17.0); MEAN CORPUSCULAR HEMOGLOBIN 27.8 pg (27.0-33.4); MEAN CORPUSCULAR HGB CONC 30.8 g/dL (32.0-36.0); MEAN CORPUSCULAR VOLUME 90 fl (80-97); PLATELET COUNT 177 10^3/uL (150-450); RED BLOOD COUNT 4.03 10^6/uL (4.35-5.55); WHITE BLOOD COUNT 26.8 10^3/uL (4.0-10.5)
[2020-08-15 06:45] LABS: ALBUMIN 2.2 g/dL (3.5-5.0); ALKALINE PHOSPHATASE 202 U/L (38-126); ANION GAP 10 (5-19); ASPARTATE AMINO TRANSFERASE 51 U/L (17-59); BILIRUBIN,DIRECT 0.2 mg/dL (0.0-0.4); BILIRUBIN,TOTAL 0.5 mg/dL (0.2-1.3); BLOOD UREA NITROGEN 36 mg/dL (7-20); CARBON DIOXIDE 19 mmol/L (22-30); CHLORIDE 108 mmol/L (98-107); GLUCOSE 109 mg/dL (75-110); POTASSIUM 3.4 mmol/L (3.6-5.0); TOTAL PROTEIN 4.7 g/dL (6.3-8.2)
[2020-08-15 07:02] LABS: CALCIUM 6.9 mg/dL (8.4-10.2)
[2020-08-15 07:40] LABS: ABSOLUTE LYMPHOCYTES# (MANUAL) 0.3 10^3/uL (0.5-4.7); ABSOLUTE MONOCYTES # (MANUAL) 0.5 10^3/uL (0.1-1.4); ANISOCYTOSIS 2+; BAND NEUTROPHILS % (MANUAL) 3 % (3-5); BASOPHILS % (MANUAL) 0 % (0-2); EOSINOPHILS % (MANUAL) 1 % (0-6); LYMPHOCYTES % (MANUAL) 1 % (13-45); MONOCYTES % (MANUAL) 2 % (3-13); NUCLEATED RED BLOOD CELLS 2 /100 WBC (0); SEGMENTED NEUTROPHILS % (MAN) 93 % (42-78); TOTAL CELLS COUNTED 100
[2020-08-15 07:41] LABS: OVALOCYTES 2+; PLATELET COMMENT ADEQUATE; POIKILOCYTOSIS 2+; POLYCHROMASIA 1+
--- NOTE | 2020-08-15 07:57 | PDOC PROGRESS REPORT ---
Subjective Date:: 08/15/20 Subjective:: No acute events overnight, still confused this morning Reason For Visit: CLIFFORD Physical Exam Vital Signs: Temp Pulse Resp BP Pulse Ox 97.2 F 79 17 125/59 L 96 08/15/20 05:29 08/15/20 05:29 08/15/20 05:29 08/15/20 05:29 08/15/20 05:29 Intake & Output 08/14/20 08/15/20 08/16/20 06:59 06:59 06:59 Intake Total 2771 3160 Output Total 450 1300 Balance 2321 1860 Weight 63.8 kg 62.9 kg General appearance: PRESENT: no acute distress, well-developed, well-nourished Head exam: PRESENT: atraumatic, normocephalic Eye exam: PRESENT: conjunctiva pink, EOMI, PERRLA. ABSENT: scleral icterus Ear exam: PRESENT: normal external ear exam Mouth exam: PRESENT: moist, tongue midline Neck exam: ABSENT: carotid bruit, JVD, lymphadenopathy, thyromegaly Respiratory exam: PRESENT: clear to auscultation philly. ABSENT: rales, rhonchi, wheezes Cardiovascular exam: PRESENT: RRR. ABSENT: diastolic murmur, rubs, systolic murmur Pulses: PRESENT: normal dorsalis pedis pul Vascular exam: PRESENT: normal capillary refill GI/Abdominal exam: PRESENT: normal bowel sounds, soft. ABSENT: distended, guarding, mass, organolmegaly, rebound, tenderness Rectal exam: PRESENT: deferred Extremities exam: PRESENT: full ROM. ABSENT: calf tenderness, clubbing, pedal edema Neurological exam: PRESENT: alert, awake, oriented to person, oriented to place, oriented to time, oriented to situation, CN II-XII grossly intact. ABSENT: motor sensory deficit Psychiatric exam: PRESENT: appropriate affect, normal mood. ABSENT: homicidal ideation, suicidal ideation Skin exam: PRESENT: dry, intact, warm. ABSENT: cyanosis, rash Results Laboratory Results: 08/15/20 05:55 08/15/20 05:55 08/14/20 08/14/20 08/14/20 04:00 12:05 15:00 WBC 43.9 H* RBC 4.40 Hgb 12.3 L Hct 39.4 MCV 90 MCH 27.9 MCHC 31.2 L RDW 18.7 H Plt Count 177 Seg Neutrophils % Not Reportable Sodium Cancelled Potassium Cancelled Chloride Cancelled Carbon Dioxide Cancelled Anion Gap Cancelled BUN Cancelled Creatinine Cancelled Est GFR ( Amer) Cancelled Est GFR (Non-Af Amer) Cancelled Glucose Cancelled Calcium Cancelled Magnesium Cancelled Total Bilirubin Cancelled AST Cancelled Alkaline Phosphatase Cancelled Total Protein Cancelled Albumin Cancelled Stl C.difficile Tox PCR POSITIVE 08/14/20 08/14/20 08/14/20 15:00 15:00 18:07 WBC RBC Hgb Hct MCV MCH MCHC RDW Plt Count Seg Neutrophils % Sodium Cancelled 138.6 Potassium Cancelled 4.3 Chloride Cancelled 113 H Carbon Dioxide Cancelled 19 L Anion Gap Cancelled 7 BUN Cancelled 46 H Creatinine Cancelled Cancelled 1.14 Est GFR ( Amer) Cancelled Cancelled > 60 Est GFR (Non-Af Amer) Cancelled Cancelled Glucose Cancelled 110 Calcium Cancelled 7.2 L Magnesium Cancelled 2.4 H Total Bilirubin Cancelled 0.7 AST Cancelled 61 H Alkaline Phosphatase Cancelled 132 H Total Protein Cancelled 4.7 L Albumin Cancelled 2.1 L Stl C.difficile Tox PCR 08/15/20 08/15/20 05:55 05:55 WBC 26.8 H RBC 4.03 L Hgb 11.2 L Hct 36.4 L MCV 90 MCH 27.8 MCHC 30.8 L RDW 19.0 H Plt Count 177 Seg Neutrophils % Not Reportable Sodium 137.3 Potassium 3.4 L Chloride 108 H Carbon Dioxide 19 L Anion Gap 10 BUN 36 H Creatinine 1.16 Est GFR ( Amer) > 60 Est GFR (Non-Af Amer) Glucose 109 Calcium 6.9 L* Magnesium 2.3 Total Bilirubin 0.5 AST 51 Alkaline Phosphatase 202 H Total Protein 4.7 L Albumin 2.2 L Stl C.difficile Tox PCR 08/12/20 08/12/20 08/13/20 12:43 12:43 05:34 Creatine Kinase 771 H 489 H Troponin I < 0.012 NT-Pro-B Natriuret Pep 08/13/20 05:34 Creatine Kinase Troponin I < 0.012 NT-Pro-B Natriuret Pep 2090 H Impressions: Chest X-Ray 08/12/20 14:38 IMPRESSION: New dense left basilar consolidation, possibly atelectasis or infection. Small left effusion. Assessment & Plan - Diagnosis (1) Larynx cancer Is this a current diagnosis for this admission?: Yes Plan: Holding on all therapy. (2) Malnutrition due to starvation Is this a current diagnosis for this admission?: Yes Plan: We will need to consider starting some form of nutrition soon (3) Pneumonia Qualifiers: Pneumonia type: due to unspecified organism Laterality: left Lung location: lower lobe of lung Qualified Code(s): J18.9 - Pneumonia, unspecified organism Is this a current diagnosis for this admission?: Yes Plan: Continue with antibiotics (4) Dehydration Is this a current diagnosis for this admission?: Yes Plan: Continue with fluids (5) CLIFFORD (acute kidney injury) Is this a current diagnosis for this admission?: Yes Plan: Seems to be improved (6) Diarrhea Qualifiers: Diarrhea type: infectious Qualified Code(s): A09 - Infectious gastroenteritis and colitis, unspecified Is this a current diagnosis for this admission?: Yes Plan: Continue with supportive care and vancomycin - Time Time Spent with patient: 35 or more minutes
--- NOTE | 2020-08-15 09:36 | PDOC PROGRESS REPORT ---
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 As per ER physician's note patient is missing oncology appointments, he missed wound care appointments. 911 was was called by [facility]. [employer] arrived on the scene and found the patient down so EMS was called. At the time of arrival in the ER is unresponsive. And also found to be hypotensive. Patient was given IV levofloxacin, 3 L of IV fluids. Patient perked up able to respond by nodding his head. Lab investigation indicates elevated WBC count, possible left-sided pneumonia, rhabdomyolysis. Medical consult was called for admission. At the time of my examination patient responding to verbal commands by nodding his head. He agreed to be DNR/DNI. At the time of examination to the nurses are with me. He verbalized understanding is that patient agreed for DNR/DNI. 08/13/20 patient is comfortably in the bed communicating by nodding his head. No acute events in the last 24 hours. To continue to provide IV fluids, IV antibiotic therapy. Wound care consult was requested. Overall prognosis poor condition is critical. 08/14/20-no acute events in the last 24 hours. Afebrile. Patient has a loose stools from yesterday and 6 C. difficile came back positive. Started on p.o. vancomycin 125 mg every 6 hours. 08/15/2025-44-[id number]-old male admitted for severe dehydration, sepsis. WBC count improving to 26,800. C. difficile positive on p.o. Flagyl. Patient can clear liquids speech consult was requested. Reason For Visit: CLIFFORD Physical Exam Vital Signs: Temp Pulse Resp BP Pulse Ox 97.2 F 76 14 125/59 L 97 08/15/20 05:29 08/15/20 08:08 08/15/20 08:08 08/15/20 05:29 08/15/20 08:08 Intake & Output 08/14/20 08/15/20 08/16/20 06:59 06:59 06:59 Intake Total 2771 3160 Output Total 450 1300 Balance 2321 1860 Weight 63.8 kg 62.9 kg General appearance: PRESENT: no acute distress, cooperative, disheveled Head exam: PRESENT: atraumatic Eye exam: PRESENT: conjunctiva pale, PERRLA Mouth exam: PRESENT: moist, tongue midline Teeth exam: PRESENT: poor dentation Neck exam: PRESENT: tracheostomy Respiratory exam: PRESENT: decreased breath sounds Cardiovascular exam: PRESENT: RRR. ABSENT: diastolic murmur, rubs, systolic murmur GI/Abdominal exam: PRESENT: normal bowel sounds, soft. ABSENT: distended, guarding, mass, organolmegaly, rebound, tenderness Rectal exam: PRESENT: deferred Extremities exam: PRESENT: full ROM. ABSENT: calf tenderness, clubbing, pedal edema Neurological exam: PRESENT: alert, awake, oriented to person, oriented to place, oriented to time, oriented to situation, CN II-XII grossly intact. ABSENT: motor sensory deficit Psychiatric exam: PRESENT: appropriate affect, normal mood. ABSENT: homicidal ideation, suicidal ideation Results Laboratory Results: 08/15/20 05:55 08/15/20 05:55 08/14/20 08/14/20 08/14/20 12:05 15:00 15:00 WBC 43.9 H* RBC 4.40 Hgb 12.3 L Hct 39.4 MCV 90 MCH 27.9 MCHC 31.2 L RDW 18.7 H Plt Count 177 Seg Neutrophils % Not Reportable Sodium Cancelled Potassium Cancelled Chloride Cancelled Carbon Dioxide Cancelled Anion Gap Cancelled BUN Cancelled Creatinine Cancelled Cancelled Est GFR ( Amer) Cancelled Cancelled Est GFR (Non-Af Amer) Cancelled Cancelled Glucose Cancelled Calcium Cancelled Magnesium Cancelled Total Bilirubin Cancelled AST Cancelled Alkaline Phosphatase Cancelled Total Protein Cancelled Albumin Cancelled 08/14/20 08/14/20 08/15/20 15:00 18:07 05:55 WBC 26.8 H RBC 4.03 L Hgb 11.2 L Hct 36.4 L MCV 90 MCH 27.8 MCHC 30.8 L RDW 19.0 H Plt Count 177 Seg Neutrophils % Not Reportable Sodium Cancelled 138.6 Potassium Cancelled 4.3 Chloride Cancelled 113 H Carbon Dioxide Cancelled 19 L Anion Gap Cancelled 7 BUN Cancelled 46 H Creatinine Cancelled 1.14 Est GFR ( Amer) Cancelled > 60 Est GFR (Non-Af Amer) Cancelled Glucose Cancelled 110 Calcium Cancelled 7.2 L Magnesium Cancelled 2.4 H Total Bilirubin Cancelled 0.7 AST Cancelled 61 H Alkaline Phosphatase Cancelled 132 H Total Protein Cancelled 4.7 L Albumin Cancelled 2.1 L 08/15/20 05:55 WBC RBC Hgb Hct MCV MCH MCHC RDW Plt Count Seg Neutrophils % Sodium 137.3 Potassium 3.4 L Chloride 108 H Carbon Dioxide 19 L Anion Gap 10 BUN 36 H Creatinine 1.16 Est GFR ( Amer) > 60 Est GFR (Non-Af Amer) Glucose 109 Calcium 6.9 L* Magnesium 2.3 Total Bilirubin 0.5 AST 51 Alkaline Phosphatase 202 H Total Protein 4.7 L Albumin 2.2 L 08/13/20 07:15 Catheterized Urine Urine Culture - Final NO GROWTH 2 DAYS 08/12/20 08/12/20 08/13/20 12:43 12:43 05:34 Creatine Kinase 771 H 489 H Troponin I < 0.012 NT-Pro-B Natriuret Pep 08/13/20 05:34 Creatine Kinase Troponin I < 0.012 NT-Pro-B Natriuret Pep 2090 H Impressions: Chest X-Ray 08/12/20 14:38 IMPRESSION: New dense left basilar consolidation, possibly atelectasis or infection. Small left effusion. Assessment and Plan - Diagnosis (1) Pneumonia Qualifiers: Pneumonia type: due to unspecified organism Laterality: left Lung location: lower lobe of lung Qualified Code(s): J18.9 - Pneumonia, unspecified organism Is this a current diagnosis for this admission?: Yes Plan: 08/12/2020-chest x-ray suggestive of left-sided pneumonia to start on IV Zosyn, IV vancomycin. Blood cultures are requested. IV fluids are initiated 75 cc/h. GI prophylaxis DVT prophylaxis initiated. 08/13/2020-patient is receiving IV vancomycin, Zosyn. WBC count is 24,600. Blood cultures are pending. Plan is to continue oxygen supplementations and and antibiotic therapy. 08/14/2020-patient admitted with pneumonia. Receiving IV Zosyn, vancomycin. Today's labs are pending. Afebrile. Blood pressure stable. Blood cultures are negative so far urine culture is pending. 08/15/2020-WBC count is improved to 26,800. To continue IV vancomycin and Zosyn at this time. Blood cultures no growth so far. 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 He has a open trach. Consultation with Dr. Trores was requested. To continue fentanyl and morphine. (3) Rhabdomyolysis Qualifiers: Rhabdomyolysis type: traumatic Encounter type: initial encounter Qualified Code(s): T79.6XXA - Traumatic ischemia of muscle, initial encounter Is this a current diagnosis for this admission?: Yes Plan: 08/12/2020 CK 771. [employer] found him on the floor at home. Patient is receiving IV fluids to check for CK levels tomorrow. 08/13/2020-CK level came down to 489. Rhabdomyolysis resolving. (4) Malnutrition due to starvation Is this a current diagnosis for this admission?: Yes Plan: 08/12/2020-patient BMI is less than 15. Dietary consult will be requested and nutrition supplementations will be provided. 08/15/2020-patient is presently on clear liquids speech consult was requested. Plan is to arrange for modified barium swallow. (5) Leukocytosis Qualifiers: Leukocytosis type: bandemia Qualified Code(s): D72.825 - Bandemia Is this a current diagnosis for this admission?: Yes Plan: 08/12/2020-WBC count is elevated more than 17,000. Most likely secondary to pneumonia. 08/13/2020-WBC count is 24,500. Afebrile blood pressures are improving plan is to continue IV antibiotic therapy. Blood cultures are pending. 08/14/2020-today's labs are pending. 08/15/2020-WBC count improved to 26,800. Most likely secondary to sepsis. (6) CLIFFORD (acute kidney injury) Is this a current diagnosis for this admission?: Yes Plan: 08/12/2020-patient admitted with CLIFFORD and hypotension. Received 3 L of normal saline in the ER. Continue normal saline at 75 cc/h. (7) Decubitus ulcer Is this a current diagnosis for this admission?: Yes Plan: 08/12/2020-2 decubitus ulcers present on the back. One on the upper back one at the sacrum. For me looks like stage III at the sacrum and stage I on the upper back. Wound care consult was requested daily wound care dressings will be provided. - Time Anticipated Discharge Disposition: [facility] Anticipated Discharge Timeframe: within 72 hours
[2020-08-15] MEDS: ENOXAPARIN SODIUM INJ 30 MG/0.3 ML DISP.SYRIN SUBCUT SCH (10:11)
[2020-08-15] MEDS: PANTOPRAZOLE SODIUM 40 MG VIAL IV SCH ×2 (10:11→21:41)
[2020-08-15] MEDS: OXYCODONE HCL IR 5 MG TABLET PO PRN ×2 (10:11→14:11)
[2020-08-15] MEDS: NORMAL SALINE 1000 ML 1,000 ML IV PRN (10:17)
[2020-08-15 10:53] LABS: PATH REVIEW PATHOLOGIST REVIEWED
[2020-08-15 10:54] LABS: PATH REVIEW PATHOLOGIST REVIEWED
[2020-08-16] MEDS: NORMAL SALINE 1000 ML 1,000 ML IV PRN ×2 (00:27→14:10)
[2020-08-16] MEDS: OXYCODONE HCL IR 5 MG TABLET PO PRN ×4 (00:30→22:36)
[2020-08-16] MEDS: VANCOMYCIN HCL INJ 500 MG VIAL PO SCH ×4 (00:32→18:36)
[2020-08-16] MEDS: IPRATROPIUM/ALBUTEROL 0.5-2.5 MG/3 ML AMPUL NEB SCH ×4 (05:05→19:55)
[2020-08-16] MEDS: PIPERACILLIN SODIUM/TAZOBACTAM 3.375 GM in NORMAL SALINE 100 ML IV SCH ×3 (05:41→22:26)
--- NOTE | 2020-08-16 08:06 | PDOC PROGRESS REPORT ---
Subjective Date:: 08/16/20 Subjective:: Had long discussion with patient at bedside, discussed that he is not a candidate for further chemotherapy and he is hospice appropriate. He seems to understand now and agreed to hospice. Reason For Visit: CLIFFORD Physical Exam Vital Signs: Temp Pulse Resp BP Pulse Ox 98.0 F 82 17 120/76 97 08/16/20 03:34 08/16/20 03:34 08/16/20 03:34 08/16/20 03:34 08/16/20 03:34 Intake & Output 08/15/20 08/16/20 08/17/20 06:59 06:59 06:59 Intake Total 3160 2877 Output Total 1300 1850 Balance 1860 1027 Weight 62.9 kg 76.3 kg General appearance: PRESENT: no acute distress, well-developed, well-nourished Head exam: PRESENT: atraumatic, normocephalic Eye exam: PRESENT: conjunctiva pink, EOMI, PERRLA. ABSENT: scleral icterus Ear exam: PRESENT: normal external ear exam Mouth exam: PRESENT: moist, tongue midline Neck exam: ABSENT: carotid bruit, JVD, lymphadenopathy, thyromegaly Respiratory exam: PRESENT: clear to auscultation philly. ABSENT: rales, rhonchi, wheezes Cardiovascular exam: PRESENT: RRR. ABSENT: diastolic murmur, rubs, systolic murmur Pulses: PRESENT: normal dorsalis pedis pul Vascular exam: PRESENT: normal capillary refill GI/Abdominal exam: PRESENT: normal bowel sounds, soft. ABSENT: distended, guarding, mass, organolmegaly, rebound, tenderness Rectal exam: PRESENT: deferred Extremities exam: PRESENT: full ROM. ABSENT: calf tenderness, clubbing, pedal edema Neurological exam: PRESENT: alert, awake, oriented to person, oriented to place, oriented to time, oriented to situation, CN II-XII grossly intact. ABSENT: motor sensory deficit Psychiatric exam: PRESENT: appropriate affect, normal mood. ABSENT: homicidal ideation, suicidal ideation Skin exam: PRESENT: dry, intact, warm. ABSENT: cyanosis, rash Results Laboratory Results: 08/15/20 05:55 08/15/20 05:55 08/13/20 07:15 Catheterized Urine Urine Culture - Final NO GROWTH 2 DAYS 08/12/20 08/12/20 08/13/20 12:43 12:43 05:34 Creatine Kinase 771 H 489 H Troponin I < 0.012 NT-Pro-B Natriuret Pep 08/13/20 05:34 Creatine Kinase Troponin I < 0.012 NT-Pro-B Natriuret Pep 2090 H Impressions: Chest X-Ray 08/12/20 14:38 IMPRESSION: New dense left basilar consolidation, possibly atelectasis or infection. Small left effusion. Assessment & Plan - Diagnosis (1) Larynx cancer Is this a current diagnosis for this admission?: Yes Plan: Hospice appropriate, actually believe he is inpatient hospice appropriate because he does need continuous IV pain medication, cannot really take p.o. easily, does have fentanyl patch but requires continuous IV pain medication as well. Also he is bedbound and total care and is imminent in my opinion, potentially in the next 1 to 2 weeks. (2) Malnutrition due to starvation Is this a current diagnosis for this admission?: Yes Plan: No feeding planned, hospice appropriate, comfort care measures to start (3) Pneumonia Qualifiers: Pneumonia type: due to unspecified organism Laterality: left Lung location: lower lobe of lung Qualified Code(s): J18.9 - Pneumonia, unspecified organism Is this a current diagnosis for this admission?: Yes Plan: Antibiotics currently given (4) Dehydration Is this a current diagnosis for this admission?: Yes Plan: Fluids currently given (5) CLIFFORD (acute kidney injury) Is this a current diagnosis for this admission?: Yes Plan: Fluids currently given (6) Diarrhea Qualifiers: Diarrhea type: infectious Qualified Code(s): A09 - Infectious gastroenteritis and colitis, unspecified Is this a current diagnosis for this admission?: Yes Plan: Fluids currently given - Time Time Spent with patient: 35 or more minutes Anticipated discharge: Hospice Disposition: Had long discussion with the brother, patient who now seem agreeable to hospice. Hope that inpatient hospice can be initiated. He is inpatient hospice appropriate his is eminent as well as he does require IV pain medication for continuous treatment. - Inpatient Certification Based on my medical assessment, after consideration of the patient's comorbidities, presenting symptoms, or acuity I expect that the services needed warrant INPATIENT care.: Yes I certify that my determination is in accordance with my understanding of Medicare's requirements for reasonable and necessary INPATIENT services [42 CFR 412.3e].: Yes Medical Necessity: Risk of Complication if Not Cared For in Hospital
[2020-08-16] MEDS: PANTOPRAZOLE SODIUM 40 MG VIAL IV SCH ×2 (10:51→22:26)
[2020-08-16] MEDS: ENOXAPARIN SODIUM INJ 30 MG/0.3 ML DISP.SYRIN SUBCUT SCH (10:52)
--- NOTE | 2020-08-16 11:09 | ST Inp Modified Barium Swallow ---
Medical Diagnosis - Medical Diagnoses Medical Diagnosis Description & ICD-10 Code(s): R13.10, dysphagia - ICD-10 Tx Diagnosis Coding (2) Pneumonia ICD-10 Code(s): J18.9 - PNEUMONIA, UNSPECIFIED ORGANISM ST Inpatient [facility] - General Date: 08/16/20 - History Medical History: per EMR: patient admitted 08/12 after being found unresponsive and hypotensive by EMS. 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 Patient is currently on a clear liquid diet, there is some concern for aspiration. This day, therapist observed patient's stoma site appeared to look like s/p laryngectomy. Asked patient, who confirmed he had a laryngectomy. Medications: Medications Reviewed Allergies: No known allergies - Subjective Current Nutritional Means: PO - clear liquid Current Symptoms: Weight loss, Poor intake Pain: 3/ - patient demonstrated van of pain/discomfort sitting up in 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 - Pharyngeal Stage Initiation of Pharyngeal Stage: Normal Reduced Pressure Generation: Yes Pre-Swallowing Pooling in Valleculae: Moderate Reduced Pharyngeal Peristalsis: Yes Multiple Swallows With: Cleared w/ Liquid Assist - partially Post Swallow Residuals in Valleculae: Significant Post Swallow Residuals: throughout pharynx Pahryngeal Stage Comments: due to surgical intervention, pharyngeal anatomy is atypical - Recommendations Regular Diet: Yes - per patient comfort level Dysphagia Therapy with OCCUPATIONAL HEALTH PROFESSIONAL: No Recommended Techniques: Small Bites and Sips, Alternate Bites/Sips Other Recommendations: As patient is a laryngectomy, risk of aspiration does not exist, barring other anatomical abnormalities (fistula, etc.). However, there is poor pressure generation, resulting in significant residue in pharynx. Residue is present on all textures, and increases as texture increases. this partially resolved with liquid wash. Recommend patient decide on diet according to comfort level. Regular solids and liquids will not decrease safety with meals, but may be difficult to clear and lead to discomfort. - Time Total Time: 30 Total Timed Minutes: 30
--- NOTE | 2020-08-16 12:07 | PDOC PROGRESS REPORT ---
Subjective Date:: 08/16/20 Subjective:: Copious hodge secretions from the laryngectomy stoma. Appears very weak. Reason For Visit: CLIFFORD Physical Exam Vital Signs: Temp Pulse Resp BP Pulse Ox 98.7 F 82 18 123/45 L 99 08/16/20 08:00 08/16/20 08:00 08/16/20 08:00 08/16/20 08:00 08/16/20 08:00 Intake & Output 08/15/20 08/16/20 08/17/20 06:59 06:59 06:59 Intake Total 3160 2877 Output Total 1300 1850 Balance 1860 1027 Weight 62.9 kg 76.3 kg General appearance: PRESENT: cooperative, mild distress, thin, well-developed Head exam: PRESENT: atraumatic, normocephalic Ear exam: PRESENT: normal external ear exam. ABSENT: bleeding, drainage Mouth exam: PRESENT: dry mucosa Neck exam: PRESENT: tenderness - With suctioning to the ostomy, other - Laryngectomy stoma. ABSENT: carotid bruit Respiratory exam: PRESENT: rhonchi, other - Coarse congested breath sounds. ABSENT: accessory muscle use, rales, tachypnea, wheezes Cardiovascular exam: PRESENT: RRR, +S1, +S2. ABSENT: bradycardia, diastolic murmur, irregular rhythm, systolic murmur, tachycardia GI/Abdominal exam: PRESENT: hypoactive bowel sounds, soft. ABSENT: distended, guarding, tenderness Rectal exam: PRESENT: deferred Extremities exam: ABSENT: pedal edema Musculoskeletal exam: PRESENT: other - Decreased muscle mass. ABSENT: deformity, dislocation Neurological exam: PRESENT: alert, awake, oriented to person, aphasic - Secondary to laryngectomy, other - Difficult to assess full orientation due to laryngectomy. ABSENT: altered Psychiatric exam: PRESENT: flat affect. ABSENT: agitated, anxious Focused psych exam: ABSENT: delusional, paranoid, restlessness Skin exam: PRESENT: dry, warm. ABSENT: cyanosis, erythema Results Laboratory Results: 08/15/20 05:55 08/15/20 05:55 08/13/20 07:15 Catheterized Urine Urine Culture - Final NO GROWTH 2 DAYS 08/12/20 08/12/20 08/13/20 12:43 12:43 05:34 Creatine Kinase 771 H 489 H Troponin I < 0.012 NT-Pro-B Natriuret Pep 12/19/20 05:34 Creatine Kinase Troponin I < 0.012 NT-Pro-B Natriuret Pep 2090 H Impressions: Chest X-Ray 08/12/20 14:38 IMPRESSION: New dense left basilar consolidation, possibly atelectasis or infection. Small left effusion. Assessment and Plan - Diagnosis (1) Pneumonia Qualifiers: Pneumonia type: due to unspecified organism Laterality: left Lung location: lower lobe of lung Qualified Code(s): J18.9 - Pneumonia, unspecified organism Is this a current diagnosis for this admission?: Yes (2) Larynx cancer Is this a current diagnosis for this admission?: Yes (3) Rhabdomyolysis Qualifiers: Rhabdomyolysis type: traumatic Encounter type: initial encounter Qualified Code(s): T79.6XXA - Traumatic ischemia of muscle, initial encounter Is this a current diagnosis for this admission?: Yes (4) Malnutrition due to starvation Is this a current diagnosis for this admission?: Yes (5) Leukocytosis Qualifiers: Leukocytosis type: bandemia Qualified Code(s): D72.825 - Bandemia Is this a current diagnosis for this admission?: Yes (6) CLIFFORD (acute kidney injury) Is this a current diagnosis for this admission?: Yes (7) Decubitus ulcer Qualifiers: Pressure injury location: sacral region Pressure injury stage: stage 3 Qualified Code(s): L89.153 - Pressure ulcer of sacral region, stage 3 Is this a current diagnosis for this admission?: Yes - Plan Summary Summary: (1) Pneumonia Qualifiers: Pneumonia type: due to unspecified organism Laterality: left Lung location: lower lobe of lung Qualified Code(s): J18.9 - Pneumonia, unspecified organism Is this a current diagnosis for this admission?: Yes Plan: 08/12/2020-chest x-ray suggestive of left-sided pneumonia to start on IV Zosyn, IV vancomycin. Blood cultures are requested. IV fluids are initiated 75 cc/h. GI prophylaxis DVT prophylaxis initiated. 08/13/2020-patient is receiving IV vancomycin, Zosyn. WBC count is 24,600. Blood cultures are pending. Plan is to continue oxygen supplementations and and antibiotic therapy. 08/14/2020-patient admitted with pneumonia. Receiving IV Zosyn, vancomycin. Today's labs are pending. Afebrile. Blood pressure stable. Blood cultures are negative so far urine culture is pending. 08/15/2020-WBC count is improved to 26,800. To continue IV vancomycin and Zosyn at this time. Blood cultures no growth so far. 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 He has a open trach. Consultation with Dr. Torres was requested. To continue fentanyl and morphine. (3) Rhabdomyolysis Qualifiers: Rhabdomyolysis type: traumatic Encounter type: initial encounter Quali fied Code(s): T79.6XXA - Traumatic ischemia of muscle, initial encounter Is this a current diagnosis for this admission?: Yes Plan: 08/12/2020 CK 771. jPD found him on the floor at home. Patient is receiving IV fluids to check for CK levels tomorrow. 08/13/2020-CK level came down to 489. Rhabdomyolysis resolving. (4) Malnutrition due to starvation Is this a current diagnosis for this admission?: Yes Plan: 08/12/2020-patient BMI is less than 15. Dietary consult will be requested and nutrition supplementations will be provided. 08/15/2020-patient is presently on clear liquids speech consult was requested. Plan is to arrange for modified barium swallow. (5) Leukocytosis Qualifiers: Leukocytosis type: bandemia Qualified Code(s): D72.825 - Bandemia Is this a current diagnosis for this admission?: Yes Plan: 08/12/2020-WBC count is elevated more than 17,000. Most likely secondary to pneumonia. 08/13/2020-WBC count is 24,500. Afebrile blood pressures are improving plan is to continue IV antibiotic therapy. Blood cultures are pending. 08/14/2020-today's labs are pending. 08/15/2020-WBC count improved to 26,800. Most likely secondary to sepsis. (6) CLIFFORD (acute kidney injury) Is this a current diagnosis for this admission?: Yes Plan: 08/12/2020-patient admitted with CLIFFORD and hypotension. Received 3 L of normal saline in the ER. Continue normal saline at 75 cc/h. (7) Decubitus ulcer Is this a current diagnosis for this admission?: Yes Plan: 08/12/2020-2 decubitus ulcers present on the back. One on the upper back one at the sacrum. For me looks like stage III at the sacrum and stage I on the upper back. Wound care consult was requested daily wound care dressings will be provided. 08/16/2020 At this time continue vancomycin and Zosyn for pneumonia. The plan is for patient to go to hospice. Multiple medication changes at that time. For now continue antibiotics. Monitor renal function as this combination can tend towards kidney failure. Renal function is slowly improving. Continue gentle IV fluids. White count is improving with antibiotic therapy. Blood and urine cultures are no growth so far White blood cell count is beginning to improve with antibiotic therapy. Creatinine kinase was improving. Rhabdomyolysis was resolving. I have stopped trending creatinine kinase levels as the disposition will be hospice. Blood pressures are stable. Diet advanced. With laryngectomy there is no potential for aspiration. We will start with mechanical soft ground meats. No realistic goal of reversing malnutrition as the final disposition will be hospice. - Time Time Spent with patient: 15-24 minutes Medications reviewed and adjusted accordingly: Yes Anticipated Discharge Disposition: Hospice Center Anticipated Discharge Timeframe: when bed available
--- NOTE | 2020-08-16 13:34 | RADIOLOGY REPORT (SQ) ---
EXAM DESCRIPTION: COOKIE SWALLOW IMAGES COMPLETED DATE/TIME: 08/16/2020 10:04 am REASON FOR STUDY: laryngeal ca., trach laryngectomy COMPARISON: None. TECHNIQUE: Videofluoroscopic swallowing examination was performed in conjunction with speech patholo gy. Videofluoroscopic imaging was obtained and reviewed and these are the findings: RADIATION DOSE: 4 minutes 3 seconds of fluoroscopy was used. 1 images saved to PACS. LIMITATIONS: None FINDINGS: The patient was brought into the fluoro room and placed upright on a modified barium swall ow chair. The patient was then given multiple consistencies mixed with barium to swallow under live fluoroscopic video guidance. According to the Speech Pathologist there was no penetration or aspirat ion. Post swallow residuals within the vallecular. IMPRESSION: NO EVIDENCE OF PENETRATION OR ASPIRATION. PLEASE SEE SPEECH PATHOLOGIST REPORT FOR OTHER FINDINGS AND RECOMMENDATIONS. COMMENT: Quality ID [id number]: Final reports for procedures using fluoroscopy that document radiation exp osure indices, or exposure time and number of fluorographic images (if radiation exposure indices are not available) TECHNICAL DOCUMENTATION: JOB ID: [id number] 2010 [employer]- All Rights Reserved Reading location - IP/workstation name: [facility]
[2020-08-16] MEDS: DIAZEPAM 5 MG TABLET PO PRN (22:36)
[2020-08-17] MEDS: VANCOMYCIN HCL INJ 500 MG VIAL PO SCH ×4 (02:16→17:11)
[2020-08-17] MEDS: IPRATROPIUM/ALBUTEROL 0.5-2.5 MG/3 ML AMPUL NEB SCH ×4 (02:36→20:06)
[2020-08-17] MEDS: OXYCODONE HCL IR 5 MG TABLET PO PRN ×3 (05:25→17:15)
[2020-08-17] MEDS: PIPERACILLIN SODIUM/TAZOBACTAM 3.375 GM in NORMAL SALINE 100 ML IV SCH ×3 (05:25→22:45)
[2020-08-17] MEDS: NORMAL SALINE 1000 ML 1,000 ML IV PRN ×3 (05:26→22:48)
--- NOTE | 2020-08-17 07:34 | PDOC PROGRESS REPORT ---
Subjective Date:: 08/17/20 Subjective:: Seemed comfortable overnight, LCP inpt hospice was planned to see pt yesterday but don't see notes about their assessment. Reason For Visit: CLIFFORD Physical Exam Vital Signs: Temp Pulse Resp BP Pulse Ox 98.7 F 77 20 134/89 H 94 08/17/20 05:17 08/17/20 05:17 08/17/20 05:17 08/17/20 05:17 08/17/20 05:17 Intake & Output 08/16/20 08/17/20 08/18/20 06:59 06:59 06:59 Intake Total 2877 2950 Output Total 1850 2350 Balance 1027 600 Weight 76.3 kg 76 kg General appearance: PRESENT: no acute distress, well-developed, well-nourished Head exam: PRESENT: atraumatic, normocephalic Eye exam: PRESENT: conjunctiva pink, EOMI, PERRLA. ABSENT: scleral icterus Ear exam: PRESENT: normal external ear exam Mouth exam: PRESENT: moist, tongue midline Neck exam: ABSENT: carotid bruit, JVD, lymphadenopathy, thyromegaly Respiratory exam: PRESENT: clear to auscultation philly. ABSENT: rales, rhonchi, wheezes Cardiovascular exam: PRESENT: RRR. ABSENT: diastolic murmur, rubs, systolic murmur Pulses: PRESENT: normal dorsalis pedis pul Vascular exam: PRESENT: normal capillary refill GI/Abdominal exam: PRESENT: normal bowel sounds, soft. ABSENT: distended, guarding, mass, organolmegaly, rebound, tenderness Rectal exam: PRESENT: deferred Extremities exam: PRESENT: full ROM. ABSENT: calf tenderness, clubbing, pedal edema Neurological exam: PRESENT: alert, awake, oriented to person, oriented to place, oriented to time, oriented to situation, CN II-XII grossly intact. ABSENT: motor sensory deficit Psychiatric exam: PRESENT: appropriate affect, normal mood. ABSENT: homicidal ideation, suicidal ideation Skin exam: PRESENT: dry, intact, warm. ABSENT: cyanosis, rash Results Laboratory Results: 08/15/20 05:55 08/15/20 05:55 08/12/20 08/12/20 08/13/20 12:43 12:43 05:34 Creatine Kinase 771 H 489 H Troponin I < 0.012 NT-Pro-B Natriuret Pep 08/13/20 05:34 Creatine Kinase Troponin I < 0.012 NT-Pro-B Natriuret Pep 0 H Impressions: Chest X-Ray 08/12/20 14:38 IMPRESSION: New dense left basilar consolidation, possibly atelectasis or infection. Small left effusion. Modified Barium Swallow 08/16/20 00:00 IMPRESSION: NO EVIDENCE OF PENETRATION OR ASPIRATION. PLEASE SEE SPEECH PATHOLOGIST REPORT FOR OTHER FINDINGS AND RECOMMENDATIONS. Assessment & Plan - Diagnosis (1) Larynx cancer Is this a current diagnosis for this admission?: Yes Plan: Inpt hospice appropriate, con't comfort care. (2) Malnutrition due to starvation Is this a current diagnosis for this admission?: Yes Plan: No further rx, comfort feeds as desired (3) Pneumonia Qualifiers: Pneumonia type: due to unspecified organism Laterality: left Lung location: lower lobe of lung Qualified Code(s): J18.9 - Pneumonia, unspecified organism Is this a current diagnosis for this admission?: Yes Plan: atbx con't but ok to decrease spectrum of antbx, consider d/c vancomycin at least (4) Dehydration Is this a current diagnosis for this admission?: Yes Plan: would stop IVF (5) CLIFFORD (acute kidney injury) Is this a current diagnosis for this admission?: Yes Plan: improved but will worsen later (6) Diarrhea Qualifiers: Diarrhea type: infectious Qualified Code(s): A09 - Infectious gastroenteritis and colitis, unspecified Is this a current diagnosis for this admission?: Yes Plan: seems resolved - Time Time Spent with patient: 15-24 minutes
[2020-08-17] MEDS: ENOXAPARIN SODIUM INJ 30 MG/0.3 ML DISP.SYRIN SUBCUT SCH (09:59)
[2020-08-17] MEDS: PANTOPRAZOLE SODIUM 40 MG VIAL IV SCH ×2 (09:59→22:45)
[2020-08-17] MEDS ORDERED: MORPHINE SULFATE 10 MG/ML INJ IV ONE ×2 (19:07→23:00)
--- NOTE | 2020-08-17 19:15 | PDOC PROGRESS REPORT ---
Subjective Date:: 08/17/20 Subjective:: Patient looks very uncomfortable. He does not appear to be coughing up as much secretions as yesterday. He wanted to sit up more in the bed and when I did move the head of the bed up he clearly had significant discomfort. Reason For Visit: CLIFFORD Physical Exam Vital Signs: Temp Pulse Resp BP Pulse Ox 97.1 F 75 18 154/86 H 97 08/17/20 12:34 08/17/20 14:49 08/17/20 14:49 08/17/20 12:34 08/17/20 16:00 Intake & Output 08/16/20 08/17/20 08/18/20 06:59 06:59 06:59 Intake Total 2877 2950 1411 Output Total 1850 2350 220 Balance 2383 330 6887 Weight 76.3 kg 76 kg 76 kg General appearance: PRESENT: thin, other - Moderate distress Head exam: PRESENT: atraumatic, normocephalic, other - Temporal wasting Mouth exam: PRESENT: dry mucosa, tongue midline Respiratory exam: PRESENT: clear to auscultation philly - Clear on the periphery but very congested central breath sounds, symmetrical, unlabored. ABSENT: rhonchi, tachypnea, wheezes Cardiovascular exam: PRESENT: RRR, +S1, +S2. ABSENT: bradycardia, diastolic murmur, irregular rhythm, systolic murmur, tachycardia GI/Abdominal exam: PRESENT: diminished bowel sounds, soft. ABSENT: tenderness Rectal exam: PRESENT: deferred Musculoskeletal exam: PRESENT: other - Decreased muscle mass Neurological exam: PRESENT: alert, awake Psychiatric exam: PRESENT: appropriate affect - Affect clearly reflects his pain. ABSENT: agitated, anxious Results Laboratory Results: 08/15/20 05:55 08/15/20 05:55 08/12/20 13:25 Blood Blood Culture - Final NO GROWTH IN 5 DAYS 08/12/20 13:33 Blood Blood Culture - Final NO GROWTH IN 5 DAYS 08/12/20 08/12/20 08/13/20 12:43 12:43 05:34 Creatine Kinase 771 H 489 H Troponin I < 0.012 NT-Pro-B Natriuret Pep 08/13/20 05:34 Creatine Kinase Troponin I < 0.012 NT-Pro-B Natriuret Pep 2090 H Impressions: Chest X-Ray 08/12/20 14:38 IMPRESSION: New dense left basilar consolidation, possibly atelectasis or infection. Small left effusion. Modified Barium Swallow 08/16/20 00:00 IMPRESSION: NO EVIDENCE OF PENETRATION OR ASPIRATION. PLEASE SEE SPEECH PATHOLOGIST REPORT FOR OTHER FINDINGS AND RECOMMENDATIONS. Assessment and Plan - Diagnosis (1) Pneumonia Qualifiers: Pneumonia type: due to unspecified organism Laterality: left Lung location: lower lobe of lung Qualified Code(s): J18.9 - Pneumonia, unspecified organism Is this a current diagnosis for this admission?: Yes (2) Larynx cancer Is this a current diagnosis for this admission?: Yes (3) Rhabdomyolysis Qualifiers: Rhabdomyolysis type: traumatic Encounter type: initial encounter Qualified Code(s): T79.6XXA - Traumatic ischemia of muscle, initial encounter Is this a current diagnosis for this admission?: Yes (4) Malnutrition due to starvation Is this a current diagnosis for this admission?: Yes (5) Leukocytosis Qualifiers: Leukocytosis type: bandemia Qualified Code(s): D72.825 - Bandemia Is this a current diagnosis for this admission?: Yes (6) CLIFFORD (acute kidney injury) Is this a current diagnosis for this admission?: Yes (7) Decubitus ulcer Qualifiers: Pressure injury location: sacral region Pressure injury stage: stage 3 Qualified Code(s): L89.153 - Pressure ulcer of sacral region, stage 3 Is this a current diagnosis for this admission?: Yes - Plan Summary Summary: (1) Pneumonia Qualifiers: Pneumonia type: due to unspecified organism Laterality: left Lung location: lower lobe of lung Qualified Code(s): J18.9 - Pneumonia, unspecified organism Is this a current diagnosis for this admission?: Yes Plan: 08/12/2020-chest x-ray suggestive of left-sided pneumonia to start on IV Zosyn, IV vancomycin. Blood cultures are requested. IV fluids are initiated 75 cc/h. GI prophylaxis DVT prophylaxis initiated. 08/13/2020-patient is receiving IV vancomycin, Zosyn. WBC count is 24,600. Blood cultures are pending. Plan is to continue oxygen supplementations and and antibiotic therapy. 08/14/2020-patient admitted with pneumonia. Receiving IV Zosyn, vancomycin. Today's labs are pending. Afebrile. Blood pressure stable. Blood cultures are negative so far urine culture is pending. 08/15/2020-WBC count is improved to 26,800. To continue IV vancomycin and Zosyn at this time. Blood cultures no growth so far. 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 He has a open trach. Consultation with Dr. Torres was requested. To continue fentanyl and morphine. (3) Rhabdomyolysis Qualifiers: Rhabdomyolysis type: traumatic Encounter type: initial encounter Qualifie d Code(s): T79.6XXA - Traumatic ischemia of muscle, initial encounter Is this a current diagnosis for this admission?: Yes Plan: 08/12/2020 CK 771. jPD found him on the floor at home. Patient is receiving IV fluids to check for CK levels tomorrow. 08/13/2020-CK level came down to 489. Rhabdomyolysis resolving. (4) Malnutrition due to starvation Is this a current diagnosis for this admission?: Yes Plan: 08/12/2020-patient BMI is less than 15. Dietary consult will be requested and nutrition supplementations will be provided. 08/15/2020-patient is presently on clear liquids speech consult was requested. Plan is to arrange for modified barium swallow. (5) Leukocytosis Qualifiers: Leukocytosis type: bandemia Qualified Code(s): D72.825 - Bandemia Is this a current diagnosis for this admission?: Yes Plan: 08/12/2020-WBC count is elevated more than 17,000. Most likely secondary to pneumonia. 08/13/2020-WBC count is 24,500. Afebrile blood pressures are improving plan is to continue IV antibiotic therapy. Blood cultures are pending. 08/14/2020-today's labs are pending. 08/15/2020-WBC count improved to 26,800. Most likely secondary to sepsis. (6) CLIFFORD (acute kidney injury) Is this a current diagnosis for this admission?: Yes Plan: 08/12/2020-patient admitted with CLIFFORD and hypotension. Received 3 L of normal saline in the ER. Continue normal saline at 75 cc/h. (7) Decubitus ulcer Is this a current diagnosis for this admission?: Yes Plan: 08/12/2020-2 decubitus ulcers present on the back. One on the upper back one at the sacrum. For me looks like stage III at the sacrum and stage I on the upper back. Wound care consult was requested daily wound care dressings will be provided. 08/16/2020 At this time continue vancomycin and Zosyn for pneumonia. The plan is for patient to go to hospice. Multiple medication changes at that time. For now continue antibiotics. Monitor renal function as this combination can tend towards kidney failure. Renal function is slowly improving. Continue gentle IV fluids. White count is improving with antibiotic therapy. Blood and urine cultures are no growth so far White blood cell count is beginning to improve with antibiotic therapy. Creatinine kinase was improving. Rhabdomyolysis was resolving. I have stopped trending creatinine kinase levels as the disposition will be hospice. Blood pressures are stable. Diet advanced. With laryngectomy there is no potential for aspiration. We will start with mechanical soft ground meats. No realistic goal of reversing malnutrition as the final disposition will be hospice. 08/17/[address] Torres's note. I have discontinued the vancomycin. Consider discontinuing Zosyn in the next day or so. Unfortunately [facility] does not feel the patient is inpatient appropriate. Actually disagree with this. Will be looking for other placement for hospice level care. The patient will continue gentle fluids at this point. I am going to try a single intravenous dose of morphine. Currently the patient has to take 4 of the oxycodone pills to equal the 20 mg dose. If he is still having that much pain then he may benefit from intravenous dosing temporarily. If he does go to a facility then intravenous medications can still be used. No further blood work will be done at this point. We will focus on comfort and slowly decrease other medications. - Time Time Spent with patient: 15-24 minutes Medications reviewed and adjusted accordingly: Yes Anticipated Discharge Disposition: [facility] - With hospice level care Anticipated Discharge Timeframe: when bed available
[2020-08-18] MEDS: IPRATROPIUM/ALBUTEROL 0.5-2.5 MG/3 ML AMPUL NEB SCH ×4 (01:54→19:25)
[2020-08-18] MEDS: PIPERACILLIN SODIUM/TAZOBACTAM 3.375 GM in NORMAL SALINE 100 ML IV SCH ×3 (06:33→21:53)
[2020-08-18] MEDS: PANTOPRAZOLE SODIUM 40 MG VIAL IV SCH ×2 (09:35→21:52)
--- NOTE | 2020-08-18 09:59 | PDOC PROGRESS REPORT ---
Subjective Date:: 08/18/20 Subjective:: Patient still having a lot of pain, discussed case with hospitalist team who will be scheduling IV pain medication. Reason For Visit: CLIFFORD Physical Exam Vital Signs: Temp Pulse Resp BP Pulse Ox 97.9 F 88 16 127/89 H 100 08/17/20 23:57 08/18/20 08:06 08/18/20 08:06 08/17/20 23:57 08/18/20 08:06 Intake & Output 08/17/20 08/18/20 08/19/20 06:59 06:59 06:59 Intake Total 2950 2877 Output Total 2350 660 Balance 600 2217 Weight 76 kg 75.8 kg General appearance: PRESENT: no acute distress, well-developed, well-nourished Head exam: PRESENT: atraumatic, normocephalic Eye exam: PRESENT: conjunctiva pink, EOMI, PERRLA. ABSENT: scleral icterus Ear exam: PRESENT: normal external ear exam Mouth exam: PRESENT: moist, tongue midline Neck exam: ABSENT: carotid bruit, JVD, lymphadenopathy, thyromegaly Respiratory exam: PRESENT: clear to auscultation philly. ABSENT: rales, rhonchi, wheezes Cardiovascular exam: PRESENT: RRR. ABSENT: diastolic murmur, rubs, systolic murmur Pulses: PRESENT: normal dorsalis pedis pul Vascular exam: PRESENT: normal capillary refill GI/Abdominal exam: PRESENT: normal bowel sounds, soft. ABSENT: distended, guarding, mass, organolmegaly, rebound, tenderness Rectal exam: PRESENT: deferred Extremities exam: PRESENT: full ROM. ABSENT: calf tenderness, clubbing, pedal edema Neurological exam: PRESENT: alert, awake, oriented to person, oriented to place, oriented to time, oriented to situation, CN II-XII grossly intact. ABSENT: motor sensory deficit Psychiatric exam: PRESENT: appropriate affect, normal mood. ABSENT: homicidal ideation, suicidal ideation Skin exam: PRESENT: dry, intact, warm. ABSENT: cyanosis, rash Results Laboratory Results: 08/15/20 05:55 08/15/20 05:55 08/12/20 13:25 Blood Blood Culture - Final NO GROWTH IN 5 DAYS 08/12/20 13:33 Blood Blood Culture - Final NO GROWTH IN 5 DAYS 08/12/20 08/12/20 08/13/20 12:43 12:43 05:34 Creatine Kinase 771 H 489 H Troponin I < 0.012 NT-Pro-B Natriuret Pep 08/13/20 05:34 Creatine Kinase Troponin I < 0.012 NT-Pro-B Natriuret Pep 2090 H Impressions: Chest X-Ray 08/12/20 14:38 IMPRESSION: New dense left basilar consolidation, possibly atelectasis or infection. Small left effusion. Modified Barium Swallow 08/16/20 00:00 IMPRESSION: NO EVIDENCE OF PENETRATION OR ASPIRATION. PLEASE SEE SPEECH PATHOLOGIST REPORT FOR OTHER FINDINGS AND RECOMMENDATIONS. Assessment & Plan - Diagnosis (1) Larynx cancer Is this a current diagnosis for this admission?: Yes Plan: Still believe patient is inpatient hospice appropriate but they are trying to get him to a facility. He cannot go home. (2) Malnutrition due to starvation Is this a current diagnosis for this admission?: Yes Plan: No further plan (3) Pneumonia Qualifiers: Pneumonia type: due to unspecified organism Laterality: left Lung location: lower lobe of lung Qualified Code(s): J18.9 - Pneumonia, unspecified organism Is this a current diagnosis for this admission?: Yes Plan: Continue on antibiotic. (4) Dehydration Is this a current diagnosis for this admission?: Yes Plan: Fluids as needed (5) Pain, neoplasm-related Is this a current diagnosis for this admission?: Yes Plan: Agree with IV pain medication, continue with other scheduled medication. - Time Time Spent with patient: 35 or more minutes
[2020-08-18] MEDS ORDERED: MORPHINE SULFATE 10 MG/ML INJ IV ONE (13:00)
[2020-08-18] MEDS: NORMAL SALINE 1000 ML 1,000 ML IV PRN (13:21)
[2020-08-18] MEDS ORDERED: MORPHINE SULFATE IR 15 MG TABLET PO SCH (15:00)
--- NOTE | 2020-08-18 16:08 | PDOC PROGRESS REPORT ---
Subjective Date:: 08/18/20 Subjective:: Patient actually looks more comfortable today. He is not having the congested p roductive cough that he had yesterday. He still reports significant pain from earlier today. He does acknowledge that his breathing is a little better. Reason For Visit: CLIFFORD Physical Exam Vital Signs: Temp Pulse Resp BP Pulse Ox 97.9 F 87 16 127/89 H 100 08/18/20 10:00 08/18/20 14:00 08/18/20 13:36 08/17/20 23:57 08/18/20 13:36 Intake & Output 08/17/20 08/18/20 08/19/20 06:59 06:59 06:59 Intake Total 2950 2877 1000 Output Total 2350 660 Balance 600 2217 1000 Weight 76 kg 75.8 kg General appearance: PRESENT: cooperative, mild distress, thin Head exam: PRESENT: atraumatic, normocephalic, other - Temporal wasting Ear exam: PRESENT: normal external ear exam. ABSENT: bleeding, drainage Mouth exam: PRESENT: dry mucosa, tongue midline Neck exam: PRESENT: other - Stoma secondary to laryngectomy Respiratory exam: PRESENT: clear to auscultation philly - Anteriorly, symmetrical, unlabored. ABSENT: accessory muscle use, rales, rhonchi, tachypnea, wheezes Cardiovascular exam: PRESENT: RRR, +S1, +S2. ABSENT: bradycardia, diastolic murmur, irregular rhythm, systolic murmur, tachycardia GI/Abdominal exam: PRESENT: normal bowel sounds, soft. ABSENT: tenderness Rectal exam: PRESENT: deferred Neurological exam: PRESENT: alert, awake, oriented to person, oriented to place, oriented to situation, aphasic - Status post laryngectomy. ABSENT: altered Psychiatric exam: PRESENT: appropriate affect - Affect reflects his current clinical status. ABSENT: agitated, anxious Results Laboratory Results: 08/15/20 05:55 08/15/20 05:55 08/12/20 13:25 Blood Blood Culture - Final NO GROWTH IN 5 DAYS 08/12/20 13:33 Blood Blood Culture - Final NO GROWTH IN 5 DAYS 08/12/20 08/12/20 08/13/20 12:43 12:43 05:34 Creatine Kinase 771 H 489 H Troponin I < 0.012 NT-Pro-B Natriuret Pep 08/13/20 05:34 Creatine Kinase Troponin I < 0.012 NT-Pro-B Natriuret Pep 2089 H Impressions: Chest X-Ray 08/12/20 14:38 IMPRESSION: New dense left basilar consolidation, possibly atelectasis or infection. Small left effusion. Modified Barium Swallow 08/16/20 00:00 IMPRESSION: NO EVIDENCE OF PENETRATION OR ASPIRATION. PLEASE SEE SPEECH PATHOLOGIST REPORT FOR OTHER FINDINGS AND RECOMMENDATIONS. Assessment and Plan - Diagnosis (1) Pneumonia Qualifiers: Pneumonia type: due to unspecified organism Laterality: left Lung location: lower lobe of lung Qualified Code(s): J18.9 - Pneumonia, unspecified organism Is this a current diagnosis for this admission?: Yes (2) Larynx cancer Is this a current diagnosis for this admission?: Yes (3) Rhabdomyolysis Qualifiers: Rhabdomyolysis type: traumatic Encounter type: initial encounter Qualified Code(s): T79.6XXA - Traumatic ischemia of muscle, initial encounter Is this a current diagnosis for this admission?: Yes (4) Malnutrition due to starvation Is this a current diagnosis for this admission?: Yes (5) Leukocytosis Qualifiers: Leukocytosis type: bandemia Qualified Code(s): D72.825 - Bandemia Is this a current diagnosis for this admission?: Yes (6) CLIFFORD (acute kidney injury) Is this a current diagnosis for this admission?: Yes (7) Decubitus ulcer Qualifiers: Pressure injury location: sacral region Pressure injury stage: stage 3 Qualified Code(s): L89.153 - Pressure ulcer of sacral region, stage 3 Is this a current diagnosis for this admission?: Yes - Plan Summary Summary: (1) Pneumonia Qualifiers: Pneumonia type: due to unspecified organism Laterality: left Lung location: lower lobe of lung Qualified Code(s): J18.9 - Pneumonia, unspecified organism Is this a current diagnosis for this admission?: Yes Plan: 08/12/2020-chest x-ray suggestive of left-sided pneumonia to start on IV Zosyn, IV vancomycin. Blood cultures are requested. IV fluids are initiated 75 cc/h. GI prophylaxis DVT prophylaxis initiated. 08/13/2020-patient is receiving IV vancomycin, Zosyn. WBC count is 24,600. Blood cultures are pending. Plan is to continue oxygen supplementations and and antibiotic therapy. 08/14/2020-patient admitted with pneumonia. Receiving IV Zosyn, vancomycin. Today's labs are pending. Afebrile. Blood pressure stable. Blood cultures are negative so far urine culture is pending. 08/15/2020-WBC count is improved to 26,800. To continue IV vancomycin and Zosyn at this time. Blood cultures no growth so far. 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 He has a open trach. Consultation with Dr. Torres was requested. To continue fentanyl and morphine. (3) Rhabdomyolysis Qualifiers: Rhabdomyolysis type: traumatic Encounter type: initial encounter Qualifie d Code(s): T79.6XXA - Traumatic ischemia of muscle, initial encounter Is this a current diagnosis for this admission?: Yes Plan: 08/12/2020 CK 771. jPD found him on the floor at home. Patient is receiving IV fluids to check for CK levels tomorrow. 08/13/2020-CK level came down to 489. Rhabdomyolysis resolving. (4) Malnutrition due to starvation Is this a current diagnosis for this admission?: Yes Plan: 08/12/2020-patient BMI is less than 15. Dietary consult will be requested and nutrition supplementations will be provided. 08/15/2020-patient is presently on clear liquids speech consult was requested. Plan is to arrange for modified barium swallow. (5) Leukocytosis Qualifiers: Leukocytosis type: bandemia Qualified Code(s): D72.825 - Bandemia Is this a current diagnosis for this admission?: Yes Plan: 08/12/2020-WBC count is elevated more than 17,000. Most likely secondary to pneumonia. 08/13/2020-WBC count is 24,500. Afebrile blood pressures are improving plan is to continue IV antibiotic therapy. Blood cultures are pending. 08/14/2020-today's labs are pending. 08/15/2020-WBC count improved to 26,800. Most likely secondary to sepsis. (6) CLIFFORD (acute kidney injury) Is this a current diagnosis for this admission?: Yes Plan: 08/12/2020-patient admitted with CLIFFORD and hypotension. Received 3 L of normal saline in the ER. Continue normal saline at 75 cc/h. (7) Decubitus ulcer Is this a current diagnosis for this admission?: Yes Plan: 08/12/2020-2 decubitus ulcers present on the back. One on the upper back one at the sacrum. For me looks like stage III at the sacrum and stage I on the upper back. Wound care consult was requested daily wound care dressings will be provided. 08/16/2020 At this time continue vancomycin and Zosyn for pneumonia. The plan is for patient to go to hospice. Multiple medication changes at that time. For now continue antibiotics. Monitor renal function as this combination can tend towards kidney failure. Renal function is slowly improving. Continue gentle IV fluids. White count is improving with antibiotic therapy. Blood and urine cultures are no growth so far White blood cell count is beginning to improve with antibiotic therapy. Creatinine kinase was improving. Rhabdomyolysis was resolving. I have stopped trending creatinine kinase levels as the disposition will be hospice. Blood pressures are stable. Diet advanced. With laryngectomy there is no potential for aspiration. We will start with mechanical soft ground meats. No realistic goal of reversing malnutrition as the final disposition will be hospice. 08/17/[address] Torres's note. I have discontinued the vancomycin. Consider discontinuing Zosyn in the next day or so. Unfortunately [facility] does not feel the patient is inpatient appropriate. Actually disagree with this. Will be looking for other placement for hospice level care. The patient will continue gentle fluids at this point. I am going to try a single intravenous dose of morphine. Currently the patient has to take 4 of the oxycodone pills to equal the 20 mg dose. If he is still having that much pain then he may benefit from intravenous dosing temporarily. If he does go to a facility then intravenous medications can still be used. No further blood work will be done at this point. We will focus on comfort and slowly decrease other medications. 08/18/2020 Little by little moving towards a more aggressive comfort plan. Multiple changes were implemented today including changing to oral morphine sulfate immediate release on a scheduled basis at an equivalent dose to the oxycodone. He will also have IV morphine available for breakthrough pain. His lungs sounded better so we will continue and complete the antibiotic therapy The patient did receive his first dose of 30 mg of morphine sulfate immediate release and in fact does seem more comfortable. I did tell him that I would not be doing any more blood tests as they were not warranted at this time. - Time Time Spent with patient: 15-24 minutes Medications reviewed and adjusted accordingly: Yes Anticipated Discharge Disposition: Hospice Center Anticipated Discharge Timeframe: Unknown
[2020-08-18] MEDS ORDERED: MORPHINE SULFATE 10 MG/ML INJ IV PRN (16:09)
[2020-08-18] MEDS: MORPHINE SULFATE IR 15 MG TABLET PO SCH ×2 (17:17→21:53)
[2020-08-19] MEDS: NORMAL SALINE 1000 ML 1,000 ML IV PRN (00:43)
[2020-08-19] MEDS: MORPHINE SULFATE IR 15 MG TABLET PO SCH ×5 (01:20→17:17)
[2020-08-19] MEDS: IPRATROPIUM/ALBUTEROL 0.5-2.5 MG/3 ML AMPUL NEB SCH ×4 (02:11→21:44)
[2020-08-19] MEDS: PIPERACILLIN SODIUM/TAZOBACTAM 3.375 GM in NORMAL SALINE 100 ML IV SCH ×2 (06:08→13:21)
[2020-08-19] MEDS: DIAZEPAM 5 MG TABLET PO PRN (10:00)
[2020-08-19] MEDS: PANTOPRAZOLE SODIUM 40 MG VIAL IV SCH (10:00)
--- NOTE | 2020-08-19 16:17 | PDOC PROGRESS REPORT ---
Subjective Date:: 08/19/20 Subjective:: Patient is clearly medicated but still reported that he is having some pain. I reviewed the nursing notes through optimization engineer. They all seem to indicate that he was comfortable. In addition his head is slumped over to the left and either his lunch or vomitus is on his left shoulder and arm. Liquid was leaking from the left corner of his mouth. Reason For Visit: CLIFFORD Physical Exam Vital Signs: Temp Pulse Resp BP Pulse Ox 97.9 F 94 18 117/74 96 08/19/20 12:33 08/19/20 14:00 08/19/20 13:25 08/19/20 12:33 08/19/20 13:25 Intake & Output 08/18/20 08/19/20 08/20/20 06:59 06:59 06:59 Intake Total 2877 3813 Output Total 660 725 Balance 2217 3088 Weight 75.8 kg 76.2 kg General appearance: PRESENT: other - Patient quite somnolent from medication. Head exam: PRESENT: atraumatic, normocephalic Ear exam: PRESENT: normal external ear exam. ABSENT: bleeding, drainage Respiratory exam: PRESENT: clear to auscultation philly - Anteriorly, symmetrical. ABSENT: prolonged expiratory phas, tachypnea, wheezes Cardiovascular exam: PRESENT: RRR, +S1, +S2 GI/Abdominal exam: PRESENT: diminished bowel sounds, soft Rectal exam: PRESENT: deferred Neurological exam: PRESENT: altered - Clearly medicated., aphasic - Secondary to laryngectomy, other - The patient has his head tilted to the left. There is saliva drooling from the left corner of his mouth. Left shoulder sleeve of his hospital gown is stained with greenish fluid. Is unclear if this is vomitus or part of his dinner. Psychiatric exam: PRESENT: unusual affect - Secondary to medication, other - Still complaining of pain despite extremely somnolent state Results Laboratory Results: 08/15/20 05:55 08/15/20 05:55 08/12/20 08/12/20 08/13/20 12:43 12:43 05:34 Creatine Kinase 771 H 489 H Troponin I < 0.012 NT-Pro-B Natriuret Pep 08/13/20 05:34 Creatine Kinase Troponin I < 0.012 NT-Pro-B Natriuret Pep 2090 H Impressions: Chest X-Ray 08/12/20 14:38 IMPRESSION: New dense left basilar consolidation, possibly atelectasis or infection. Small left effusion. Modified Barium Swallow 08/16/20 00:00 IMPRESSION: NO EVIDENCE OF PENETRATION OR ASPIRATION. PLEASE SEE SPEECH PATHOLOGIST REPORT FOR OTHER FINDINGS AND RECOMMENDATIONS. Assessment and Plan - Diagnosis (1) Pneumonia Qualifiers: Pneumonia type: due to unspecified organism Laterality: left Lung location: lower lobe of lung Qualified Code(s): J18.9 - Pneumonia, unspecified organism Is this a current diagnosis for this admission?: Yes (2) Larynx cancer Is this a current diagnosis for this admission?: Yes (3) Rhabdomyolysis Qualifiers: Rhabdomyolysis type: traumatic Encounter type: initial encounter Qualified Code(s): T79.6XXA - Traumatic ischemia of muscle, initial encounter Is this a current diagnosis for this admission?: Yes (4) Malnutrition due to starvation Is this a current diagnosis for this admission?: Yes (5) Leukocytosis Qualifiers: Leukocytosis type: bandemia Qualified Code(s): D72.825 - Bandemia Is this a current diagnosis for this admission?: Yes (6) CLIFFORD (acute kidney injury) Is this a current diagnosis for this admission?: Yes (7) Decubitus ulcer Qualifiers: Pressure injury location: sacral region Pressure injury stage: stage 3 Qualified Code(s): L89.153 - Pressure ulcer of sacral region, stage 3 Is this a current diagnosis for this admission?: Yes - Plan Summary Summary: (1) Pneumonia Qualifiers: Pneumonia type: due to unspecified organism Laterality: left Lung location: lower lobe of lung Qualified Code(s): J18.9 - Pneumonia, unspecified organism Is this a current diagnosis for this admission?: Yes Plan: 08/12/2020-chest x-ray suggestive of left-sided pneumonia to start on IV Zosyn, IV vancomycin. Blood cultures are requested. IV fluids are initiated 75 cc/h. GI prophylaxis DVT prophylaxis initiated. 08/13/2020-patient is receiving IV vancomycin, Zosyn. WBC count is 24,600. Blood cultures are pending. Plan is to continue oxygen supplementations and and antibiotic therapy. 08/14/2020-patient admitted with pneumonia. Receiving IV Zosyn, vancomycin. Today's labs are pending. Afebrile. Blood pressure stable. Blood cultures are negative so far urine culture is pending. 08/15/2020-WBC count is improved to 26,800. To continue IV vancomycin and Zosyn at this time. Blood cultures no growth so far. 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 He has a open trach. Consultation with Dr. Torres was requested. To continue fentanyl and morphine. (3) Rhabdomyolysis Qualifiers: Rhabdomyolysis type: traumatic Encounter type: initial encounter Qualified Code(s): T79.6XXA - Traumatic ischemia of muscle, initial encounter Is this a current diagnosis for this admission?: Yes Plan: 08/12/2020 CK 771. jPD found him on the floor at home. Patient is receiving IV fluids to check for CK levels tomorrow. 08/13/2020-CK level came down to 489. Rhabdomyolysis resolving. (4) Malnutrition due to starvation Is this a current diagnosis for this admission?: Yes Plan: 08/12/2020-patient BMI is less than 15. Dietary consult will be requested and nutrition supplementations will be provided. 08/15/2020-patient is presently on clear liquids speech consult was requested. Plan is to arrange for modified barium swallow. (5) Leukocytosis Qualifiers: Leukocytosis type: bandemia Qualified Code(s): D72.825 - Bandemia Is this a current diagnosis for this admission?: Yes Plan: 08/12/2020-WBC count is elevated more than 17,000. Most likely secondary to pneumonia. 08/13/2020-WBC count is 24,500. Afebrile blood pressures are improving plan is to continue IV antibiotic therapy. Blood cultures are pending. 08/14/2020-today's labs are pending. 08/15/2020-WBC count improved to 26,800. Most likely secondary to sepsis. (6) CLIFFORD (acute kidney injury) Is this a current diagnosis for this admission?: Yes Plan: 08/12/2020-patient admitted with CLIFFORD and hypotension. Received 3 L of normal saline in the ER. Continue normal saline at 75 cc/h. (7) Decubitus ulcer Is this a current diagnosis for this admission?: Yes Plan: 08/12/2020-2 decubitus ulcers present on the back. One on the upper back one at the sacrum. For me looks like stage III at the sacrum and stage I on the upper back. Wound care consult was requested daily wound care dressings will be provided. 08/16/2020 At this time continue vancomycin and Zosyn for pneumonia. The plan is for patient to go to hospice. Multiple medication changes at that time. For now continue antibiotics. Monitor renal function as this combination can tend towards kidney failure. Renal function is slowly improving. Continue gentle IV fluids. White count is improving with antibiotic therapy. Blood and urine cultures are no growth so far White blood cell count is beginning to improve with antibiotic therapy. Creatinine kinase was improving. Rhabdomyolysis was resolving. I have stopped trending creatinine kinase levels as the disposition will be hospice. Blood pressures are stable. Diet advanced. With laryngectomy there is no potential for aspiration. We will start with mechanical soft ground meats. No realistic goal of reversing malnutrition as the final disposition will be hospice. 08/17/[address] Torres's note. I have discontinued the vancomycin. Consider discontinuing Zosyn in the next day or so. Unfortunately [facility] does not feel the patient is inpatient appropriate. Actually disagree with this. Will be looking for other placement for hospice level care. The patient will continue gentle fluids at this point. I am going to try a single intravenous dose of morphine. Currently the patient has to take 4 of the oxycodone pills to equal the 20 mg dose. If he is still having that much pain then he may benefit from intravenous dosing temporarily. If he does go to a facility then intravenous medications can still be used. No further blood work will be done at this point. We will focus on comfort and slowly decrease other medications. 08/18/2020 Little by little moving towards a more aggressive comfort plan. Multiple changes were implemented today including changing to oral morphine sulfate immediate release on a scheduled basis at an equivalent dose to the oxycodone. He will also have IV morphine available for breakthrough pain. His lungs sounded better so we will continue and complete the antibiotic therapy The patient did receive his first dose of 30 mg of morphine sulfate immediate release and in fact does seem more comfortable. I did tell him that I would not be doing any more blood tests as they were not warranted at this time. 08/19/2020 Unfortunately the patient appears to be declining. Based on all of the nursing notes reviewed through optimization engineer and last night they report that he has had good pain control. Despite an almost obtunded state he used a thumbs up/thumbs down signal to let me know that he was still having pain. I am going to hold adjusting the medications just yet. He does have breakthrough medication available. Pneumonia-at this point I am going to stop the Zosyn. His lungs are improved. His prognosis is grave and aggressively treating a pneumonia does not make much sense and in fact seems futile. It appears that the patient may be having some difficulty processing foods. N jessica reports that he is able to take his pills. Because of his laryngectomy there is no risk of aspiration as there is no longer a connection between the esophagus and the lungs. Based on the food or emesis on his left shoulder and arm he may be having more difficulty. We will continue to focus more on comfort at this point. I will continue the IV fluids as his oral intake has been poor. If he continues to decline then consider discontinuing IV fluid as well. - Time Time Spent with patient: 15-24 minutes Medications reviewed and adjusted accordingly: Yes Anticipated Discharge Disposition: Hospice Center Anticipated Discharge Timeframe: when bed available
[2020-08-20] MEDS: MORPHINE SULFATE IR 15 MG TABLET PO SCH ×7 (00:37→23:11)
[2020-08-20] MEDS: NORMAL SALINE 1000 ML 1,000 ML IV PRN (01:15)
[2020-08-20] MEDS: IPRATROPIUM/ALBUTEROL 0.5-2.5 MG/3 ML AMPUL NEB SCH ×4 (02:59→19:06)
--- NOTE | 2020-08-20 10:44 | PDOC PROGRESS REPORT ---
Subjective Date:: 08/20/20 Subjective:: No acute events overnight, seems comfortable on current pain regimen Reason For Visit: CLIFFORD Physical Exam Vital Signs: Temp Pulse Resp BP Pulse Ox 97.4 F 76 20 117/69 96 08/20/20 08:58 08/20/20 07:00 08/20/20 05:06 08/20/20 05:06 08/20/20 05:06 Intake & Output 08/19/20 08/20/20 08/21/20 06:59 06:59 06:59 Intake Total 3813 1737 Output Total 725 1180 Balance 3088 557 Weight 76.2 kg 76.5 kg General appearance: PRESENT: no acute distress, well-developed, well-nourished Head exam: PRESENT: atraumatic, normocephalic Eye exam: PRESENT: conjunctiva pink, EOMI, PERRLA. ABSENT: scleral icterus Ear exam: PRESENT: normal external ear exam Mouth exam: PRESENT: moist, tongue midline Neck exam: ABSENT: carotid bruit, JVD, lymphadenopathy, thyromegaly Respiratory exam: PRESENT: clear to auscultation philly. ABSENT: rales, rhonchi, wheezes Cardiovascular exam: PRESENT: RRR. ABSENT: diastolic murmur, rubs, systolic murmur Pulses: PRESENT: normal dorsalis pedis pul Vascular exam: PRESENT: normal capillary refill GI/Abdominal exam: PRESENT: normal bowel sounds, soft. ABSENT: distended, guarding, mass, organolmegaly, rebound, tenderness Rectal exam: PRESENT: deferred Extremities exam: PRESENT: full ROM. ABSENT: calf tenderness, clubbing, pedal edema Neurological exam: PRESENT: alert, awake, oriented to person, oriented to place, oriented to time, oriented to situation, CN II-XII grossly intact. ABSENT: motor sensory deficit Psychiatric exam: PRESENT: appropriate affect, normal mood. ABSENT: homicidal ideation, suicidal ideation Skin exam: PRESENT: dry, intact, warm. ABSENT: cyanosis, rash Results Laboratory Results: 08/15/20 05:55 08/15/20 05:55 08/12/20 08/12/20 08/13/20 12:43 12:43 05:34 Creatine Kinase 771 H 489 H Troponin I < 0.012 NT-Pro-B Natriuret Pep 08/13/20 05:34 Creatine Kinase Troponin I < 0.012 NT-Pro-B Natriuret Pep 2089 H Impressions: Chest X-Ray 08/12/20 14:38 IMPRESSION: New dense left basilar consolidation, possibly atelectasis or infection. Small left effusion. Modified Barium Swallow 08/16/20 00:00 IMPRESSION: NO EVIDENCE OF PENETRATION OR ASPIRATION. PLEASE SEE SPEECH PATHOLOGIST REPORT FOR OTHER FINDINGS AND RECOMMENDATIONS. Assessment & Plan - Diagnosis (1) Larynx cancer Is this a current diagnosis for this admission?: Yes Plan: Inpatient hospice currently going on, comfort care continue (2) Malnutrition due to starvation Is this a current diagnosis for this admission?: Yes Plan: Comfort feedings as needed (3) Pneumonia Qualifiers: Pneumonia type: due to unspecified organism Laterality: left Lung location: lower lobe of lung Qualified Code(s): J18.9 - Pneumonia, unspecified organism Is this a current diagnosis for this admission?: Yes Plan: Antibiotic discontinued, comfort care only (4) Dehydration Is this a current diagnosis for this admission?: Yes Plan: Getting some fluids through pain medication (5) Pain, neoplasm-related Is this a current diagnosis for this admission?: Yes Plan: Pain seems controlled now - Time Time Spent with patient: 15-24 minutes Anticipated discharge: SNF, Hospice Anticipated DC Timeframe: within 48 hours Disposition: We will follow peripherally, please call with questions, agree with placement - Inpatient Certification Based on my medical assessment, after consideration of the patient's comorbidities, presenting symptoms, or acuity I expect that the services needed warrant INPATIENT care.: Yes I certify that my determination is in accordance with my understanding of Medicare's requirements for reasonable and necessary INPATIENT services [42 CFR 412.3e].: Yes Medical Necessity: Need for Pain Control
--- NOTE | 2020-08-20 17:47 | PDOC PROGRESS REPORT ---
Subjective Date:: 08/20/20 Subjective:: The patient appears more comfortable today. He has a very congested cough again . When I asked him specifically about pain medications he wavered between status quo and increasing doses. We did specifically discuss his current goals. Reason For Visit: CLIFFORD Physical Exam Vital Signs: Temp Pulse Resp BP Pulse Ox 97.2 F 73 18 124/80 95 08/20/20 11:22 08/20/20 14:00 08/20/20 13:50 08/20/20 11:22 08/20/20 16:00 Intake & Output 08/19/20 08/20/20 08/21/20 06:59 06:59 06:59 Intake Total 3813 1737 1260 Output Total 725 1180 Balance 3088 557 1260 Weight 76.2 kg 76.5 kg General appearance: PRESENT: cooperative, mild distress Head exam: PRESENT: atraumatic, other - Temporal wasting Ear exam: PRESENT: normal external ear exam. 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 Coughing up hodge-colored mucus.. ABSENT: prolonged expiratory phas, rales, tachypnea, wheezes Cardiovascular exam: PRESENT: RRR, +S1, +S2 GI/Abdominal exam: PRESENT: normal bowel sounds, soft. ABSENT: tenderness Rectal exam: PRESENT: deferred Extremities exam: PRESENT: +1 edema - Upper extremities Musculoskeletal exam: ABSENT: ambulatory Neurological exam: PRESENT: alert, awake, oriented to person, oriented to place, oriented to situation, aphasic Psychiatric exam: PRESENT: flat affect. ABSENT: agitated, anxious Results Laboratory Results: 08/15/20 05:55 08/15/20 05:55 08/12/20 08/12/20 08/13/20 12:43 12:43 05:34 Creatine Kinase 771 H 489 H Troponin I < 0.012 NT-Pro-B Natriuret Pep 08/13/20 05:34 Creatine Kinase Troponin I < 0.012 NT-Pro-B Natriuret Pep 2090 H Impressions: Chest X-Ray 08/12/20 14:38 IMPRESSION: New dense left basilar consolidation, possibly atelectasis or infection. Small left effusion. Modified Barium Swallow 08/16/20 00:00 IMPRESSION: NO EVIDENCE OF PENETRATION OR ASPIRATION. PLEASE SEE SPEECH PATHOLOGIST REPORT FOR OTHER FINDINGS AND RECOMMENDATIONS. Assessment and Plan - Diagnosis (1) Pneumonia Qualifiers: Pneumonia type: due to unspecified organism Laterality: left Lung location: lower lobe of lung Qualified Code(s): J18.9 - Pneumonia, unspecified organism Is this a current diagnosis for this admission?: Yes (2) Larynx cancer Is this a current diagnosis for this admission?: Yes (3) Rhabdomyolysis Qualifiers: Rhabdomyolysis type: traumatic Encounter type: initial encounter Qualified Code(s): T79.6XXA - Traumatic ischemia of muscle, initial encounter Is this a current diagnosis for this admission?: Yes (4) Malnutrition due to starvation Is this a current diagnosis for this admission?: Yes (5) Leukocytosis Qualifiers: Leukocytosis type: bandemia Qualified Code(s): D72.825 - Bandemia Is this a current diagnosis for this admission?: Yes (6) CLIFFORD (acute kidney injury) Is this a current diagnosis for this admission?: Yes (7) Decubitus ulcer Qualifiers: Pressure injury location: sacral region Pressure injury stage: stage 3 Qualified Code(s): L89.153 - Pressure ulcer of sacral region, stage 3 Is this a current diagnosis for this admission?: Yes - Plan Summary Summary: (1) Pneumonia Qualifiers: Pneumonia type: due to unspecified organism Laterality: left Lung location: lower lobe of lung Qualified Code(s): J18.9 - Pneumonia, unspecified organism Is this a current diagnosis for this admission?: Yes Plan: 08/12/2020-chest x-ray suggestive of left-sided pneumonia to start on IV Zosyn, IV vancomycin. Blood cultures are requested. IV fluids are initiated 75 cc/h. GI prophylaxis DVT prophylaxis initiated. 08/13/2020-patient is receiving IV vancomycin, Zosyn. WBC count is 24,600. Blood cultures are pending. Plan is to continue oxygen supplementations and and antibiotic therapy. 08/14/2020-patient admitted with pneumonia. Receiving IV Zosyn, vancomycin. Today's labs are pending. Afebrile. Blood pressure stable. Blood cultures are negative so far urine culture is pending. 08/15/2020-WBC count is improved to 26,800. To continue IV vancomycin and Zosyn at this time. Blood cultures no growth so far. 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 He has a open trach. Consultation with Dr. Torres was requested. To continue fentanyl and morphine. (3) Rhabdomyolysis Qualifiers: Rhabdomyolysis type: traumatic Encounter type: initial encounter Qualified Code(s): T79.6XXA - Traumatic ischemia of muscle, initial encounter Is this a current diagnosis for this admission?: Yes Plan: 08/12/2020 CK 771. jPD found him on the floor at home. Patient is receiving IV fluids to check for CK levels tomorrow. 08/13/2020-CK level came down to 489. Rhabdomyolysis resolving. (4) Malnutrition due to starvation Is this a current diagnosis for this admission?: Yes Plan: 08/12/2020-patient BMI is less than 15. Dietary consult will be requested and nutrition supplementations will be provided. 08/15/2020-patient is presently on clear liquids speech consult was requested. Plan is to arrange for modified barium swallow. (5) Leukocytosis Qualifiers: Leukocytosis type: bandemia Qualified Code(s): D72.825 - Bandemia Is this a current diagnosis for this admission?: Yes Plan: 08/12/2020-WBC count is elevated more than 17,000. Most likely secondary to pneumonia. 08/13/2020-WBC count is 24,500. Afebrile blood pressures are improving plan is to continue IV antibiotic therapy. Blood cultures are pending. 08/14/2020-today's labs are pending. 08/15/2020-WBC count improved to 26,800. Most likely secondary to sepsis. (6) CLIFFORD (acute kidney injury) Is this a current diagnosis for this admission?: Yes Plan: 08/12/2020-patient admitted with CLIFFORD and hypotension. Received 3 L of normal saline in the ER. Continue normal saline at 75 cc/h. (7) Decubitus ulcer Is this a current diagnosis for this admission?: Yes Plan: 08/12/2020-2 decubitus ulcers present on the back. One on the upper back one at the sacrum. For me looks like stage III at the sacrum and stage I on the upper back. Wound care consult was requested daily wound care dressings will be provided. 08/16/2020 At this time continue vancomycin and Zosyn for pneumonia. The plan is for patient to go to hospice. Multiple medication changes at that time. For now continue antibiotics. Monitor renal function as this combination can tend towards kidney failure. Renal function is slowly improving. Continue gentle IV fluids. White count is improving with antibiotic therapy. Blood and urine cultures are no growth so far White blood cell count is beginning to improve with antibiotic therapy. Creatinine kinase was improving. Rhabdomyolysis was resolving. I have stopped trending creatinine kinase levels as the disposition will be hospice. Blood pressures are stable. Diet advanced. With laryngectomy there is no potential for aspiration. We will start with mechanical soft ground meats. No realistic goal of reversing malnutrition as the final disposition will be hospice. 08/17/[address] Torres's note. I have discontinued the vancomycin. Consider discontinuing Zosyn in the next day or so. Unfortunately [facility] does not feel the patient is inpatient appropriate. Actually disagree with this. Will be looking for other placement for hospice level care. The patient will continue gentle fluids at this point. I am going to try a single intravenous dose of morphine. Currently the patient has to take 4 of the oxycodone pills to equal the 20 mg dose. If he is still having that much pain then he may benefit from intravenous dosing temporarily. If he does go to a facility then intravenous medications can still be used. No further blood work will be done at this point. We will focus on comfort and slowly decrease other medications. 08/18/2020 Little by little moving towards a more aggressive comfort plan. Multiple changes were implemented today including changing to oral morphine sulfate immediate release on a scheduled basis at an equivalent dose to the oxycodone. He will also have IV morphine available for breakthrough pain. His lungs sounded better so we will continue and complete the antibiotic therapy The patient did receive his first dose of 30 mg of morphine sulfate immediate release and in fact does seem more comfortable. I did tell him that I would not be doing any more blood tests as they were not warranted at this time. 08/19/2020 Unfortunately the patient appears to be declining. Based on all of the nursing notes reviewed through [employer] operator and last night they report that he has had good pain control. Despite an almost obtunded state he used a thumbs up/thumbs down signal to let me know that he was still having pain. I am going to hold adjusting the medications just yet. He does have breakthrough medication available. Pneumonia-at this point I am going to stop the Zosyn. His lungs are improved. His prognosis is grave and aggressively treating a pneumonia does not make much sense and in fact seems futile. It appears that the patient may be having some difficulty processing foods. Nursing reports that he is able to take his pills. Because of his laryngectomy there is no risk of aspiration as there is no longer a connection between the esophagus and the lungs. Based on the food or emesis on his left shoulder and arm he may be having more difficulty. We will continue to focus more on comfort at this point. I will continue the IV fluids as his oral intake has been poor. If he continues to decline then consider discontinuing IV fluid as well. 08/20/2020 I did discontinue the remaining antibiotics yesterday due to the futility c onsidering the patient's overall condition. We increased his pain medication after discussion with oncology. This seems to be fairly effective. I believe the congested breaths with mucus production are uncomfortable. He now has increased edema in both upper extremities. For this reason I must stop the IV fluids. His blood pressures are normal but I do not think he could tolerate a large dose of furosemide. I will give a one-time moderate dose to see how well it improves his edema. He did ask for a phone manager case management. I believe his intention is to text with any family members to possibly help with the decision to fully commit to comfort measures only. - Time Time Spent with patient: 15-24 minutes Medications reviewed and adjusted accordingly: Yes Anticipated Discharge Disposition: Hospice Center Anticipated Discharge Timeframe: Unknown
--- NOTE | 2020-08-20 17:55 | ADVANCED CARE ---
- Diagnosis (1) Pneumonia Diagnosis Current: Yes (2) Larynx cancer Diagnosis Current: Yes (3) Rhabdomyolysis Diagnosis Current: Yes (4) Malnutrition due to starvation Diagnosis Current: Yes (5) Leukocytosis Diagnosis Current: Yes (6) CLIFFORD (acute kidney injury) Diagnosis Current: Yes (7) Decubitus ulcer Diagnosis Current: Yes Attendance: Discussion was held at the bedside with the patient Resuscitation Status: Do Not Resuscitate Discussion: As the patient is aphasic status post laryngectomy he did write notes on his pad. I discussed the fact that stopping the antibiotics were appropriate with regard to his grave prognosis and futility of antibiotic treatment. I increased his pain medication significantly 2 days ago. He certainly seems to be comfortable but always answers the question of more pain medication with the suggestion that he is still having pain. I presented the option of comfort measures only and explained that it would really liberalize the use of antianxiety and pain medications. I explained that at higher doses it is going to suppress his breathing. With comfort measures only we would be able to utilize medications regardless of the effect of his respiratory rate as long as he was not experiencing any pain. He did write that he wanted to wait to make a final decision. I reviewed all of this with his nurse. Unfortunately we do not believe he has had any family visiting him here. There is a local person who is listed as the person to notify. Due to the increased risk of Covid infection they may be staying out of the hospital. I did tell the patient that we would discuss this again tomorrow. I told him that my opinion was that comfort measures would be the best treatment plan for him. Care Planning Goals: Advance to comfort measures only which in my opinion is the most appropriate treatment plan for this unfortunate gentleman Document(s) Completed: None Time Spent: 20 minutes
[2020-08-20] MEDS ORDERED: FUROSEMIDE INJ/PF 20 MG/2 ML SDV IV ONE (18:30)
[2020-08-21] MEDS: IPRATROPIUM/ALBUTEROL 0.5-2.5 MG/3 ML AMPUL NEB SCH ×4 (01:46→19:43)
[2020-08-21] MEDS: MORPHINE SULFATE IR 15 MG TABLET PO SCH ×6 (03:36→23:58)
--- NOTE | 2020-08-21 15:14 | PDOC PROGRESS REPORT ---
Subjective Date:: 08/21/20 Subjective:: Patient is resting comfortably. We did discuss pain management. He would like to try a slightly higher dose and I told him I would adjust the breakthrough medication first. Reason For Visit: CLIFFORD Physical Exam Vital Signs: Temp Pulse Resp BP Pulse Ox 97.5 F 88 18 113/69 99 08/21/20 08:49 08/21/20 14:00 08/21/20 08:49 08/21/20 08:49 08/21/20 08:49 Intake & Output 08/20/20 08/21/20 08/22/20 06:59 06:59 06:59 Intake Total 1737 2260 Output Total 1180 1850 Balance 557 410 Weight 76.5 kg 74.6 kg General appearance: PRESENT: cooperative, mild distress, thin Head exam: PRESENT: atraumatic, normocephalic Mouth exam: PRESENT: moist, tongue midline Respiratory exam: PRESENT: symmetrical, unlabored, other - Congested cough. ABSENT: rales, rhonchi, tachypnea, wheezes Cardiovascular exam: PRESENT: RRR, +S1, +S2. ABSENT: bradycardia, diastolic murmur, irregular rhythm, systolic murmur, tachycardia GI/Abdominal exam: PRESENT: diminished bowel sounds, soft. ABSENT: distended, tenderness Rectal exam: PRESENT: deferred Extremities exam: ABSENT: pedal edema Musculoskeletal exam: ABSENT: ambulatory Neurological exam: PRESENT: alert, awake, aphasic Psychiatric exam: PRESENT: appropriate affect - Affect does reflect his discomfort however he did smile once.. ABSENT: agitated, anxious Focused psych exam: ABSENT: delusional, paranoid, restlessness Results Laboratory Results: 08/15/20 05:55 08/15/20 05:55 08/12/20 08/12/20 08/13/20 12:43 12:43 05:34 Creatine Kinase 771 H 489 H Troponin I < 0.012 NT-Pro-B Natriuret Pep 08/13/20 05:34 Creatine Kinase Troponin I < 0.012 NT-Pro-B Natriuret Pep 2090 H Impressions: Chest X-Ray 08/12/20 14:38 IMPRESSION: New dense left basilar consolidation, possibly atelectasis or infection. Small left effusion. Modified Barium Swallow 08/16/20 00:00 IMPRESSION: NO EVIDENCE OF PENETRATION OR ASPIRATION. PLEASE SEE SPEECH PATHOLOGIST REPORT FOR OTHER FINDINGS AND RECOMMENDATIONS. Assessment and Plan - Diagnosis (1) Pneumonia Qualifiers: Pneumonia type: due to unspecified organism Laterality: left Lung location: lower lobe of lung Qualified Code(s): J18.9 - Pneumonia, unspecified organism Is this a current diagnosis for this admission?: Yes (2) Larynx cancer Is this a current diagnosis for this admission?: Yes (3) Rhabdomyolysis Qualifiers: Rhabdomyolysis type: traumatic Encounter type: initial encounter Qualified Code(s): T79.6XXA - Traumatic ischemia of muscle, initial encounter Is this a current diagnosis for this admission?: Yes (4) Malnutrition due to starvation Is this a current diagnosis for this admission?: Yes (5) Leukocytosis Qualifiers: Leukocytosis type: bandemia Qualified Code(s): D72.825 - Bandemia Is this a current diagnosis for this admission?: Yes (6) CLIFFORD (acute kidney injury) Is this a current diagnosis for this admission?: Yes (7) Decubitus ulcer Qualifiers: Pressure injury location: sacral region Pressure injury stage: stage 3 Qualified Code(s): L89.153 - Pressure ulcer of sacral region, stage 3 Is this a current diagnosis for this admission?: Yes - Plan Summary Summary: (1) Pneumonia Qualifiers: Pneumonia type: due to unspecified organism Laterality: left Lung location: lower lobe of lung Qualified Code(s): J18.9 - Pneumonia, unspecified organism Is this a current diagnosis for this admission?: Yes Plan: 08/12/2020-chest x-ray suggestive of left-sided pneumonia to start on IV Zosyn, IV vancomycin. Blood cultures are requested. IV fluids are initiated 75 cc/h. GI prophylaxis DVT prophylaxis initiated. 08/13/2020-patient is receiving IV vancomycin, Zosyn. WBC count is 24,600. Blood cultures are pending. Plan is to continue oxygen supplementations and and antibiotic therapy. 08/14/2020-patient admitted with pneumonia. Receiving IV Zosyn, vancomycin. Today's labs are pending. Afebrile. Blood pressure stable. Blood cultures are negative so far urine culture is pending. 08/15/2020-WBC count is improved to 26,800. To continue IV vancomycin and Zosyn at this time. Blood cultures no growth so far. 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 He has a open trach. Consultation with Dr. Torres was requested. To continue fentanyl and morphine. (3) Rhabdomyolysis Qualifiers: Rhabdomyolysis type: traumatic Encounter type: initial encounter Qualified Code(s): T79.6XXA - Traumatic ischemia of muscle, initial encounter Is this a current diagnosis for this admission?: Yes Plan: 08/12/2020 CK 771. jPD found him on the floor at home. Patient is receiving IV fluids to check for CK levels tomorrow. 08/13/2020-CK level came down to 489. Rhabdomyolysis resolving. (4) Malnutrition due to starvation Is this a current diagnosis for this admission?: Yes Plan: 08/12/2020-patient BMI is less than 15. Dietary consult will be requested and nutrition supplementations will be provided. 08/15/2020-patient is presently on clear liquids speech consult was requested. Plan is to arrange for modified barium swallow. (5) Leukocytosis Qualifiers: Leukocytosis type: bandemia Qualified Code(s): D72.825 - Bandemia Is this a current diagnosis for this admission?: Yes Plan: 08/12/2020-WBC count is elevated more than 17,000. Most likely secondary to pneumonia. 08/13/2020-WBC count is 24,500. Afebrile blood pressures are improving plan is to continue IV antibiotic therapy. Blood cultures are pending. 08/14/2020-today's labs are pending. 08/15/2020-WBC count improved to 26,800. Most likely secondary to sepsis. (6) CLIFFORD (acute kidney injury) Is this a current diagnosis for this admission?: Yes Plan: 08/12/2020-patient admitted with CLIFFORD and hypotension. Received 3 L of normal saline in the ER. Continue normal saline at 75 cc/h. (7) Decubitus ulcer Is this a current diagnosis for this admission?: Yes Plan: 08/12/2020-2 decubitus ulcers present on the back. One on the upper back one at the sacrum. For me looks like stage III at the sacrum and stage I on the upper back. Wound care consult was requested daily wound care dressings will be provided. 08/16/2020 At this time continue vancomycin and Zosyn for pneumonia. The plan is for patient to go to hospice. Multiple medication changes at that time. For now continue antibiotics. Monitor renal function as this combination can tend towards kidney failure. Renal function is slowly improving. Continue gentle IV fluids. White count is improving with antibiotic therapy. Blood and urine cultures are no growth so far White blood cell count is beginning to improve with antibiotic therapy. Creatinine kinase was improving. Rhabdomyolysis was resolving. I have stopped trending creatinine kinase levels as the disposition will be hospice. Blood pressures are stable. Diet advanced. With laryngectomy there is no potential for aspiration. We will start with mechanical soft ground meats. No realistic goal of reversing malnutrition as the final disposition will be hospice. 08/17/[address] Torres's note. I have discontinued the vancomycin. Consider discontinuing Zosyn in the next day or so. Unfortunately [facility] does not feel the patient is inpatient appropriate. Actually disagree with this. Will be looking for other placement for hospice level care. The patient will continue gentle fluids at this point. I am going to try a single intravenous dose of morphine. Currently the patient has to take 4 of the oxycodone pills to equal the 20 mg dose. If he is still having that much pain then he may benefit from intravenous dosing temporarily. If he does go to a facility then intravenous medications can still be used. No further blood work will be done at this point. We will focus on comfort and slowly decrease other medications. 08/18/2020 Little by little moving towards a more aggressive comfort plan. Multiple ch anges were implemented today including changing to oral morphine sulfate immediate release on a scheduled basis at an equivalent dose to the oxycodone. He will also have IV morphine available for breakthrough pain. His lungs sounded better so we will continue and complete the antibiotic therapy The patient did receive his first dose of 30 mg of morphine sulfate immediate release and in fact does seem more comfortable. I did tell him that I would not be doing any more blood tests as they were not warranted at this time. 08/19/2020 Unfortunately the patient appears to be declining. Based on all of the nursing notes reviewed through occasional caregiver and last night they report that he has had good pain control. Despite an almost obtunded state he used a thumbs up/thumbs down signal to let me know that he was still having pain. I am going to hold adjusting the medications just yet. He does have breakthrough medication available. Pneumonia-at this point I am going to stop the Zosyn. His lungs are improved. His prognosis is grave and aggressively treating a pneumonia does not make much sense and in fact seems futile. It appears that the patient may be having some difficulty processing foods. Nursing reports that he is able to take his pills. Because of his laryngectomy there is no risk of aspiration as there is no longer a connection between the esophagus and the lungs. Based on the food or emesis on his left shoulder and arm he may be having more difficulty. We will continue to focus more on comfort at this point. I will continue the IV fluids as his oral intake has been poor. If he continues to decline then consider discontinuing IV fluid as well. 08/20/2020 I did discontinue the remaining antibiotics yesterday due to the futility considering the patient's overall condition. We increased his pain medication after discussion with oncology. This seems to be fairly effective. I believe the congested breaths with mucus production are uncomfortable. He now has increased edema in both upper extremities. For this reason I must stop the IV fluids. His blood pressures are normal but I do not think he could tolerate a large dose of furosemide. I will give a one-time moderate dose to see how well it improves his edema. He did ask for a phone supercharger repair supervisor. I believe his intention is to text with any family members to possibly help with the decision to fully commit to comfort measures only. 08/21/2020 The patient is stable. He does exhibit expressions of discomfort intermittently. For now he is frustrated due to his aphasia status post laryngectomy. He did in fact show me his lunch which was a ham and cheese sandwich that was chopped into little pieces. This was very off putting for him. We did go up and at least he laughed. I have discontinued his IV fluid and his upper extremities are still edematous. I am going to hold off on giving him furosemide at this time. I am going to adjust his pain medications by decreasing his IV morphine to every 2 hours as needed. The next step would be to increase his immediate release morphine. Unfortunately this would mean additional pills in I think is getting uncomfortable for him to swallow so we might resort to topical and intravenous medication administration. I believe he is very close to a comfort measures status. I will discuss with him tomorrow regarding oral versus topical and IV administration of pain medications. I think the next step would be trying a fentanyl patch with IV morphine. - Time Time Spent with patient: 15-24 minutes Medications reviewed and adjusted accordingly: Yes Anticipated Discharge Disposition: Hospice Center - Still trying to find placement Anticipated Discharge Timeframe: Unknown
[2020-08-21] MEDS: MORPHINE SULFATE 10 MG/ML INJ IV PRN ×2 (16:24→20:03)
[2020-08-22] MEDS: IPRATROPIUM/ALBUTEROL 0.5-2.5 MG/3 ML AMPUL NEB SCH ×4 (01:43→19:43)
[2020-08-22] MEDS: MORPHINE SULFATE IR 15 MG TABLET PO SCH ×4 (03:19→14:17)
[2020-08-22] MEDS: MORPHINE SULFATE IR 30 MG TABLET PO SCH ×3 (14:49→22:57)
--- NOTE | 2020-08-22 16:24 | PDOC PROGRESS REPORT ---
Subjective Date:: 08/22/20 Subjective:: The patient is sitting up in bed. He appears reasonably comfortable. Having a congested cough again. Reason For Visit: CLIFFORD Physical Exam Vital Signs: Temp Pulse Resp BP Pulse Ox 97.3 F 874 H 18 101/70 94 08/22/20 11:09 08/22/20 14:00 08/22/20 13:23 08/22/20 11:09 08/22/20 13:23 Intake & Output 08/21/20 08/22/20 08/23/20 06:59 06:59 06:59 Intake Total 2260 1957 560 Output Total 1850 900 Balance 410 1057 560 Weight 74.6 kg 74.6 kg 74.6 kg General appearance: PRESENT: mild distress Respiratory exam: PRESENT: rhonchi, other - Garza mucus from stoma status post laryngectomy. ABSENT: tachypnea, wheezes Cardiovascular exam: PRESENT: RRR, +S1, +S2. ABSENT: bradycardia, diastolic murmur, irregular rhythm, systolic murmur, tachycardia GI/Abdominal exam: PRESENT: normal bowel sounds, soft. ABSENT: tenderness Rectal exam: PRESENT: deferred Extremities exam: PRESENT: +1 edema - Left hand Musculoskeletal exam: ABSENT: ambulatory Neurological exam: PRESENT: alert, awake, oriented to person, oriented to place, oriented to time, oriented to situation, aphasic - Status post laryngectomy Psychiatric exam: PRESENT: flat affect. ABSENT: agitated, anxious Results Laboratory Results: 08/15/20 05:55 08/15/20 05:55 08/12/20 08/12/20 08/13/20 12:43 12:43 05:34 Creatine Kinase 771 H 489 H Troponin I < 0.012 NT-Pro-B Natriuret Pep 08/13/20 05:34 Creatine Kinase Troponin I < 0.012 NT-Pro-B Natriuret Pep 2090 H Impressions: Chest X-Ray 08/12/20 14:38 IMPRESSION: New dense left basilar consolidation, possibly atelectasis or infection. Small left effusion. Modified Barium Swallow 08/16/20 00:00 IMPRESSION: NO EVIDENCE OF PENETRATION OR ASPIRATION. PLEASE SEE SPEECH PATHOLOGIST REPORT FOR OTHER FINDINGS AND RECOMMENDATIONS. Assessment and Plan - Diagnosis (1) Pneumonia Qualifiers: Pneumonia type: due to unspecified organism Laterality: left Lung location: lower lobe of lung Qualified Code(s): J18.9 - Pneumonia, unspecified organism Is this a current diagnosis for this admission?: Yes (2) Larynx cancer Is this a current diagnosis for this admission?: Yes (3) Rhabdomyolysis Qualifiers: Rhabdomyolysis type: traumatic Encounter type: initial encounter Qualified Code(s): T79.6XXA - Traumatic ischemia of muscle, initial encounter Is this a current diagnosis for this admission?: Yes (4) Malnutrition due to starvation Is this a current diagnosis for this admission?: Yes (5) Leukocytosis Qualifiers: Leukocytosis type: bandemia Qualified Code(s): D72.825 - Bandemia Is this a current diagnosis for this admission?: Yes (6) CLIFFORD (acute kidney injury) Is this a current diagnosis for this admission?: Yes (7) Decubitus ulcer Qualifiers: Pressure injury location: sacral region Pressure injury stage: stage 3 Qualified Code(s): L89.153 - Pressure ulcer of sacral region, stage 3 Is this a current diagnosis for this admission?: Yes - Plan Summary Summary: (1) Pneumonia Qualifiers: Pneumonia type: due to unspecified organism Laterality: left Lung location: lower lobe of lung Qualified Code(s): J18.9 - Pneumonia, unspecified organism Is this a current diagnosis for this admission?: Yes Plan: 08/12/2020-chest x-ray suggestive of left-sided pneumonia to start on IV Zosyn, IV vancomycin. Blood cultures are requested. IV fluids are initiated 75 cc/h. GI prophylaxis DVT prophylaxis initiated. 08/13/2020-patient is receiving IV vancomycin, Zosyn. WBC count is 24,600. Blood cultures are pending. Plan is to continue oxygen supplementations and and antibiotic therapy. 08/14/2020-patient admitted with pneumonia. Receiving IV Zosyn, vancomycin. Today's labs are pending. Afebrile. Blood pressure stable. Blood cultures are negative so far urine culture is pending. 08/15/2020-WBC count is improved to 26,800. To continue IV vancomycin and Zosyn at this time. Blood cultures no growth so far. 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 He has a open trach. Consultation with Dr. Torres was requested. To continue fentanyl and morphine. (3) Rhabdomyolysis Qualifiers: Rhabdomyolysis type: traumatic Encounter type: initial encounter Qualified Code(s): T79.6XXA - Traumatic ischemia of muscle, initial encounter Is this a current diagnosis for this admission?: Yes Plan: 08/12/2020 CK 771. jPD found him on the floor at home. Patient is receiving IV fluids to check for CK levels tomorrow. 08/13/2020-CK level came down to 489. Rhabdomyolysis resolving. (4) Malnutrition due to starvation Is this a current diagnosis for this admission?: Yes Plan: 08/12/2020-patient BMI is less than 15. Dietary consult will be requested and nutrition supplementations will be provided. 08/15/2020-patient is presently on clear liquids speech consult was requested. Plan is to arrange for modified barium swallow. (5) Leukocytosis Qualifiers: Leukocytosis type: bandemia Qualified Code(s): D72.825 - Bandemia Is this a current diagnosis for this admission?: Yes Plan: 08/12/2020-WBC count is elevated more than 17,000. Most likely secondary to pneumonia. 08/13/2020-WBC count is 24,500. Afebrile blood pressures are improving plan is to continue IV antibiotic therapy. Blood cultures are pending. 08/14/2020-today's labs are pending. 08/15/2020-WBC count improved to 26,800. Most likely secondary to sepsis. (6) CLIFFORD (acute kidney injury) Is this a current diagnosis for this admission?: Yes Plan: 08/12/2020-patient admitted with CLIFFORD and hypotension. Received 3 L of normal saline in the ER. Continue normal saline at 75 cc/h. (7) Decubitus ulcer Is this a current diagnosis for this admission?: Yes Plan: 08/12/2020-2 decubitus ulcers present on the back. One on the upper back one at the sacrum. For me looks like stage III at the sacrum and stage I on the upper back. Wound care consult was requested daily wound care dressings will be provided. 08/16/2020 At this time continue vancomycin and Zosyn for pneumonia. The plan is for patient to go to hospice. Multiple medication changes at that time. For now continue antibiotics. Monitor renal function as this combination can tend to wards kidney failure. Renal function is slowly improving. Continue gentle IV fluids. White count is improving with antibiotic therapy. Blood and urine cultures are no growth so far White blood cell count is beginning to improve with antibiotic therapy. Creatinine kinase was improving. Rhabdomyolysis was resolving. I have stopped trending creatinine kinase levels as the disposition will be hospice. Blood pressures are stable. Diet advanced. With laryngectomy there is no potential for aspiration. We will start with mechanical soft ground meats. No realistic goal of reversing malnutrition as the final disposition will be hospice. 08/17/[address] Torres's note. I have discontinued the vancomycin. Consider discontinuing Zosyn in the next day or so. Unfortunately [facility] does not feel the patient is inpatient appropriate. Actually disagree with this. Will be looking for other placement for hospice level care. The patient will continue gentle fluids at this point. I am going to try a single intravenous dose of morphine. Currently the patient has to take 4 of the oxycodone pills to equal the 20 mg dose. If he is still having that much pain then he may benefit from intravenous dosing temporarily. If he does go to a facility then intravenous medications can still be used. No further blood work will be done at this point. We will focus on comfort and slowly decrease other medications. 08/18/2020 Little by little moving towards a more aggressive comfort plan. Multiple changes were implemented today including changing to oral morphine sulfate i mmediate release on a scheduled basis at an equivalent dose to the oxycodone. He will also have IV morphine available for breakthrough pain. His lungs sounded better so we will continue and complete the antibiotic therapy The patient did receive his first dose of 30 mg of morphine sulfate immediate release and in fact does seem more comfortable. I did tell him that I would not be doing any more blood tests as they were not warranted at this time. 08/19/2020 Unfortunately the patient appears to be declining. Based on all of the nursing notes reviewed through signaling design engineer and last night they report that he has had good pain control. Despite an almost obtunded state he used a thumbs up/thumbs down signal to let me know that he was still having pain. I am going to hold adjusting the medications just yet. He does have breakthrough medication available. Pneumonia-at this point I am going to stop the Zosyn. His lungs are improved. His prognosis is grave and aggressively treating a pneumonia does not make much sense and in fact seems futile. It appears that the patient may be having some difficulty processing foods. Nursing reports that he is able to take his pills. Because of his laryngectomy there is no risk of aspiration as there is no longer a connection between the esophagus and the lungs. Based on the food or emesis on his left shoulder and arm he may be having more difficulty. We will continue to focus more on comfort at this point. I will continue the IV fluids as his oral intake has been poor. If he continues to decline then consider discontinuing IV fluid as well. 08/20/2020 I did discontinue the remaining antibiotics yesterday due to the futility consid ering the patient's overall condition. We increased his pain medication after discussion with oncology. This seems to be fairly effective. I believe the congested breaths with mucus production are uncomfortable. He now has increased edema in both upper extremities. For this reason I must stop the IV fluids. His blood pressures are normal but I do not think he could tolerate a large dose of furosemide. I will give a one-time moderate dose to see how well it improves his edema. He did ask for a phone laboratory animal caretaker. I believe his intention is to text with any family members to possibly help with the decision to fully commit to comfort measures only. 08/21/2020 The patient is stable. He does exhibit expressions of discomfort intermittently. For now he is frustrated due to his aphasia status post laryngectomy. He did in fact show me his lunch which was a ham and cheese sandwich that was chopped into little pieces. This was very off putting for him. We did go up and at least he laughed. I have discontinued his IV fluid and his upper extremities are still edematous. I am going to hold off on giving him furosemide at this time. I am going to adjust his pain medications by decreasing his IV morphine to every 2 hours as needed. The next step would be to increase his immediate release morphine. Unfortunately this would mean additional pills in I think is getting uncomfortable for him to swallow so we might resort to topical and intravenous medication administration. I believe he is very close to a comfort measures status. I will discuss with him tomorrow regarding oral versus topical and IV administration of pain medications. I think the next step would be trying a fentanyl patch with IV morphine. 08/22/2020 It appears that we have achieve reasonable pain control. Still with congested cough. Still with edema left hand greater than right. I did discontinue IV fluids. I will now try scopolamine patch to help with her secretions. IV morphine available every 2 hours. Because of the upper extremity edema (left greater than right) I will try another dose of furosemide. - Time Time Spent with patient: Less than 15 minutes Medications reviewed and adjusted accordingly: Yes Anticipated Discharge Disposition: Hospice Center Anticipated Discharge Timeframe: when bed available
[2020-08-22] MEDS: SCOPOLAMINE HYDROBROMIDE 1.5 MG PATCH.TD72 TD SCH (18:22)
[2020-08-23] MEDS: MORPHINE SULFATE IR 30 MG TABLET PO SCH ×6 (01:45→22:03)
[2020-08-23] MEDS: IPRATROPIUM/ALBUTEROL 0.5-2.5 MG/3 ML AMPUL NEB SCH ×4 (02:06→19:53)
[2020-08-23] MEDS: MORPHINE SULFATE 10 MG/ML INJ IV PRN (12:35)
--- NOTE | 2020-08-23 18:22 | PDOC PROGRESS REPORT ---
Subjective Date:: 08/23/20 Subjective:: C/o pain at site of wounds. Explained to him that we are still trying to set him up with hospice. Reason For Visit: CLIFFORD Physical Exam Vital Signs: Temp Pulse Resp BP Pulse Ox 97 F L 88 20 137/68 H 93 08/23/20 16:00 08/23/20 16:00 08/23/20 16:00 08/23/20 16:00 08/23/20 16:21 Intake & Output 08/22/20 08/23/20 08/24/20 06:59 06:59 06:59 Intake Total 1957 760 500 Output Total 900 550 400 Balance 1057 210 100 Weight 74.6 kg 84.1 kg General appearance: PRESENT: no acute distress, cooperative Neck exam: PRESENT: tracheostomy Respiratory exam: PRESENT: rhonchi, symmetrical, unlabored. ABSENT: tachypnea, wheezes Skin exam: PRESENT: other - multiple ulcers in b/l axillae, upper and lower back Results Laboratory Results: 08/15/20 05:55 08/15/20 05:55 08/12/20 08/12/20 08/13/20 12:43 12:43 05:34 Creatine Kinase 771 H 489 H Troponin I < 0.012 NT-Pro-B Natriuret Pep 08/13/20 05:34 Creatine Kinase Troponin I < 0.012 NT-Pro-B Natriuret Pep 2090 H Impressions: Chest X-Ray 08/12/20 14:38 IMPRESSION: New dense left basilar consolidation, possibly atelectasis or infection. Small left effusion. Modified Barium Swallow 08/16/20 00:00 IMPRESSION: NO EVIDENCE OF PENETRATION OR ASPIRATION. PLEASE SEE SPEECH P ATHOLOGIST REPORT FOR OTHER FINDINGS AND RECOMMENDATIONS. Assessment and Plan - Diagnosis (1) Larynx cancer Is this a current diagnosis for this admission?: Yes (3) Decubitus ulcer Qualifiers: Pressure injury location: sacral region Pressure injury stage: stage 3 Qualified Code(s): L89.153 - Pressure ulcer of sacral region, stage 3 Is this a current diagnosis for this admission?: Yes (4) Leukocytosis Qualifiers: Leukocytosis type: bandemia Qualified Code(s): D72.825 - Bandemia Is this a current diagnosis for this admission?: Yes (5) Malnutrition due to starvation Is this a current diagnosis for this admission?: Yes (6) Pneumonia Qualifiers: Pneumonia type: due to unspecified organism Laterality: left Lung location: lower lobe of lung Qualified Code(s): J18.9 - Pneumonia, unspecified organism Is this a current diagnosis for this admission?: Yes (7) Rhabdomyolysis Qualifiers: Rhabdomyolysis type: traumatic Encounter type: initial encounter Qualified Code(s): T79.6XXA - Traumatic ischemia of muscle, initial encounter Is this a current diagnosis for this admission?: Yes - Plan Summary Summary: (1) Pneumonia Qualifiers: Pneumonia type: due to unspecified organism Laterality: left Lung location: lower lobe of lung Qualified Code(s): J18.9 - Pneumonia, unspecified organism Is this a current diagnosis for this admission?: Yes Plan: 08/12/2020-chest x-ray suggestive of left-sided pneumonia to start on IV Zosyn, IV vancomycin. Blood cultures are requested. IV fluids are initiated 75 cc/h. GI prophylaxis DVT prophylaxis initiated. 08/13/2020-patient is receiving IV vancomycin, Zosyn. WBC count is 24,600. Blood cultures are pending. Plan is to continue oxygen supplementations and and antibiotic therapy. 08/14/2020-patient admitted with pneumonia. Receiving IV Zosyn, vancomycin. Today's labs are pending. Afebrile. Blood pressure stable. Blood cultures are negative so far urine culture is pending. 08/15/2020-WBC count is improved to 26,800. To continue IV vancomycin and Zosyn at this time. Blood cultures no growth so far. 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 He has a open trach. Consultation with Dr. Torres was requested. To continue fentanyl and morphine. (3) Rhabdomyolysis Qualifiers: Rhabdomyolysis type: traumatic Encounter type: initial encounter Qualified Code(s): T79.6XXA - Traumatic ischemia of muscle, initial encounter Is this a current diagnosis for this admission?: Yes Plan: 08/12/2020 CK 771. jPD found him on the floor at home. Patient is receiving IV fluids to check for CK levels tomorrow. 08/13/2020-CK level came down to 489. Rhabdomyolysis resolving. (4) Malnutrition due to starvation Is this a current diagnosis for this admission?: Yes Plan: 08/12/2020-patient BMI is less than 15. Dietary consult will be requested and nutrition supplementations will be provided. 08/15/2020-patient is presently on clear liquids speech consult was requested. Plan is to arrange for modified barium swallow. (5) Leukocytosis Qualifiers: Leukocytosis type: bandemia Qualified Code(s): D72.825 - Bandemia Is this a current diagnosis for this admission?: Yes Plan: 08/12/2020-WBC count is elevated more than 17,000. Most likely secondary to p neumonia. 08/13/2020-WBC count is 24,500. Afebrile blood pressures are improving plan is to continue IV antibiotic therapy. Blood cultures are pending. 08/14/2020-today's labs are pending. 08/15/2020-WBC count improved to 26,800. Most likely secondary to sepsis. (6) CLIFFORD (acute kidney injury) Is this a current diagnosis for this admission?: Yes Plan: 08/12/2020-patient admitted with CLIFFORD and hypotension. Received 3 L of normal saline in the ER. Continue normal saline at 75 cc/h. (7) Decubitus ulcer Is this a current diagnosis for this admission?: Yes Plan: 08/12/2020-2 decubitus ulcers present on the back. One on the upper back one at the sacrum. For me looks like stage III at the sacrum and stage I on the upper back. Wound care consult was requested daily wound care dressings will be provided. 08/16/2020 At this time continue vancomycin and Zosyn for pneumonia. The plan is for patient to go to hospice. Multiple medication changes at that time. For now continue antibiotics. Monitor renal function as this combination can tend towards kidney failure. Renal function is slowly improving. Continue gentle IV fluids. White count is improving with antibiotic therapy. Blood and urine cultures are no growth so far White blood cell count is beginning to improve with antibiotic therapy. Creatinine kinase was improving. Rhabdomyolysis was resolving. I have stopped trending creatinine kinase levels as the disposition will be hospice. Blood pressures are stable. Diet advanced. With laryngectomy there is no potential for aspiration. We will start with mechanical soft ground meats. No realistic goal of reversing malnutrition as the final disposition will be hospice. 08/17/[address] Torres's note. I have discontinued the vancomycin. Consider discontinuing Zosyn in the next day or so. Unfortunately [facility] does not feel the patient is inpatient appropriate. Actually disagree with this. Will be looking for other placement for hospice level care. The patient will continue gentle fluids at this point. I am going to try a single intravenous dose of morphine. Currently the patient has to take 4 of the oxycodone pills to equal the 20 mg dose. If he is still having that much pain then he may benefit from intravenous dosing temporarily. If he does go to a facility then intravenous medications can still be used. No further blood work will be done at this point. We will focus on comfort and slowly decrease other medications. 08/18/2020 Little by little moving towards a more aggressive comfort plan. Multiple changes were implemented today including changing to oral morphine sulfate immediate release on a scheduled basis at an equivalent dose to the oxycodone. He will also have IV morphine available for breakthrough pain. His lungs sounded better so we will continue and complete the antibiotic therapy The patient did receive his first dose of 30 mg of morphine sulfate immediate release and in fact does seem more comfortable. I did tell him that I would not be doing any more blood tests as they were not warranted at this time. 08/19/2020 Unfortunately the patient appears to be declining. Based on all of the nursing notes reviewed through language teacher and last night they report that he has had good pain control. Despite an almost obtunded state he used a thumbs up/thumbs down signal to let me know that he was still having pain. I am going to hold adjusting the medications just yet. He does have breakthrough medication available. Pneumonia-at this point I am going to stop the Zosyn. His lungs are improved. His prognosis is grave and aggressively treating a pneumonia does not make much sense and in fact seems futile. It appears that the patient may be having some difficulty processing foods. Nursing reports that he is able to take his pills. Because of his laryngectomy there is no risk of aspiration as there is no longer a connection between the esophagus and the lungs. Based on the food or emesis on his left shoulder and arm he may be having more difficulty. We will continue to focus more on comfort at this point. I will continue the IV fluids as his oral intake has been poor. If he continues to decline then consider discontinuing IV fluid as well. 08/20/2020 I did discontinue the remaining antibiotics yesterday due to the futility considering the patient's overall condition. We increased his pain medication after discussion with oncology. This seems to be fairly effective. I believe the congested breaths with mucus production are uncomfortable. He now has increased edema in both upper extremities. For this reason I must stop the IV fluids. His blood pressures are normal but I do not think he could tolerate a large dose of furosemide. I will give a one-time moderate dose to see how well it improves his edema. He did ask for a phone enterprise applications manager. I believe his intention is to text with any family members to possibly help with the decision to fully commit to comfort measures only. 08/21/2020 The patient is stable. He does exhibit expressions of discomfort intermittently. For now he is frustrated due to his aphasia status post larynge ctomy. He did in fact show me his lunch which was a ham and cheese sandwich that was chopped into little pieces. This was very off putting for him. We did go up and at least he laughed. I have discontinued his IV fluid and his upper extremities are still edematous. I am going to hold off on giving him furosemide at this time. I am going to adjust his pain medications by decreasing his IV morphine to every 2 hours as needed. The next step would be to increase his immediate release morphine. Unfortunately this would mean additional pills in I think is getting uncomfortable for him to swallow so we might resort to topical and intravenous medication administration. I believe he is very close to a comfort measures status. I will discuss with him tomorrow regarding oral versus topical and IV administration of pain medications. I think the next step would be trying a fentanyl patch with IV morphine. 08/22/2020 It appears that we have achieve reasonable pain control. Still with congested cough. Still with edema left hand greater than right. I did discontinue IV fluids. I will now try scopolamine patch to help with her secretions. IV morphine available every 2 hours. Because of the upper extremity edema (left greater than right) I will try another dose of furosemide. 08/23/2020 Patient with metastatic malignancy status post tracheostomy C/w morphine for pain. Patient is significantly debilitated with multiple skin erosions which appear to be nonhealing at this point. Continue local wound care. Wound care have given recommendations which in place. Discharge planning working on getting patient to hospice home versus facility. It will likely be very hard to take care of this patient at home. - Time Time Spent with patient: 35 or more minutes Anticipated Discharge Disposition: Hospice Center Anticipated Discharge Timeframe: when bed available
[2020-08-24] MEDS: MORPHINE SULFATE IR 30 MG TABLET PO SCH ×6 (01:37→22:55)
[2020-08-24] MEDS: IPRATROPIUM/ALBUTEROL 0.5-2.5 MG/3 ML AMPUL NEB SCH ×4 (02:06→20:04)
[2020-08-24] MEDS: MORPHINE SULFATE 10 MG/ML INJ IV PRN ×2 (08:38→16:53)
[2020-08-24] MEDS ORDERED: CALCIUM CARBONATE 500 MG TAB.CHEW PO PRN (12:00)
--- NOTE | 2020-08-24 12:48 | PDOC PROGRESS REPORT ---
Subjective Date:: 08/24/20 Subjective:: Patient is awake and sitting up in bed. He is complaining of pain, but further communication is limited due to trach collar. Nurses report that he has been stable with current pain medications and they are still awaiting placement. Reason For Visit: CLIFFORD Physical Exam Vital Signs: Temp Pulse Resp BP Pulse Ox 98.1 F 67 14 91/64 L 98 08/24/20 07:48 08/24/20 08:00 08/24/20 08:00 08/24/20 07:48 08/24/20 08:00 Intake & Output 08/23/20 08/24/20 08/25/20 06:59 06:59 06:59 Intake Total 760 1250 Output Total 550 600 Balance 210 650 Weight 84.1 kg 84.1 kg General appearance: PRESENT: thin Eye exam: PRESENT: EOMI Neck exam: PRESENT: tracheostomy Respiratory exam: PRESENT: unlabored Neurological exam: PRESENT: alert, awake Skin exam: PRESENT: pallor Results Laboratory Results: 08/15/20 05:55 08/15/20 05:55 08/12/20 08/12/20 08/13/20 12:43 12:43 05:34 Creatine Kinase 771 H 489 H Troponin I < 0.012 NT-Pro-B Natriuret Pep 08/13/20 05:34 Creatine Kinase Troponin I < 0.012 NT-Pro-B Natriuret Pep 2090 H Impressions: Chest X-Ray 08/12/20 14:38 IMPRESSION: New dense left basilar consolidation, possibly atelectasis or infection. Small left effusion. Modified Barium Swallow 08/16/20 00:00 IMPRESSION: NO EVIDENCE OF PENETRATION OR ASPIRATION. PLEASE SEE SPEECH PATHOLOGIST REPORT FOR OTHER FINDINGS AND RECOMMENDATIONS. Assessment & Plan - Diagnosis (1) Larynx cancer Is this a current diagnosis for this admission?: Yes Plan: Plans are to transfer to SNF with Hospice services. I would stop the Heparin prophylaxis and continue comfort measures only. I am happy to assist if needed. - Time Time Spent with patient: Less than 15 minutes
--- NOTE | 2020-08-24 16:08 | PDOC PROGRESS REPORT ---
Subjective Date:: 08/24/20 Reason For Visit: CLIFFORD Physical Exam Vital Signs: Temp Pulse Resp BP Pulse Ox 97.9 F 88 20 105/73 98 08/24/20 13:01 08/24/20 13:57 08/24/20 13:57 08/24/20 13:01 08/24/20 13:57 Intake & Output 08/23/20 08/24/20 08/25/20 06:59 06:59 06:59 Intake Total 760 1250 600 Output Total 550 600 Balance 210 650 600 Weight 84.1 kg 84.1 kg General appearance: PRESENT: no acute distress, cooperative Neck exam: PRESENT: tracheostomy Respiratory exam: PRESENT: unlabored. ABSENT: accessory muscle use, retraction, tachypnea Neurological exam: PRESENT: alert, awake Psychiatric exam: ABSENT: agitated, anxious Skin exam: PRESENT: skin tears Results Laboratory Results: 08/15/20 05:55 08/15/20 05:55 08/12/20 08/12/20 08/13/20 12:43 12:43 05:34 Creatine Kinase 771 H 489 H Troponin I < 0.012 NT-Pro-B Natriuret Pep 08/13/20 05:34 Creatine Kinase Troponin I < 0.012 NT-Pro-B Natriuret Pep 2090 H Impressions: Chest X-Ray 08/12/20 14:38 IMPRESSION: New dense left basilar consolidation, possibly atelectasis or infection. Small left effusion. Modified Barium Swallow 08/16/20 00:00 IMPRESSION: NO EVIDENCE OF PENETRATION OR ASPIRATION. PLEASE SEE SPEECH PATHOLOGIST REPORT FOR OTHER FINDINGS AND RECOMMENDATIONS. Assessment and Plan - Diagnosis (1) Larynx cancer Is this a current diagnosis for this admission?: Yes (3) Decubitus ulcer Qualifiers: Pressure injury location: sacral region Pressure injury stage: stage 3 Qualified Code(s): L89.153 - Pressure ulcer of sacral region, stage 3 Is this a current diagnosis for this admission?: Yes (4) Leukocytosis Qualifiers: Leukocytosis type: bandemia Qualified Code(s): D72.825 - Bandemia Is this a current diagnosis for this admission?: Yes (5) Malnutrition due to starvation Is this a current diagnosis for this admission?: Yes (6) Pneumonia Qualifiers: Pneumonia type: due to unspecified organism Laterality: left Lung location: lower lobe of lung Qualified Code(s): J18.9 - Pneumonia, unspecified organism Is this a current diagnosis for this admission?: Yes (7) Rhabdomyolysis Qualifiers: Rhabdomyolysis type: traumatic Encounter type: initial encounter Romaine lified Code(s): T79.6XXA - Traumatic ischemia of muscle, initial encounter Is this a current diagnosis for this admission?: Yes - Plan Summary Summary: (1) Pneumonia Qualifiers: Pneumonia type: due to unspecified organism Laterality: left Lung l ocation: lower lobe of lung Qualified Code(s): J18.9 - Pneumonia, unspecified organism Is this a current diagnosis for this admission?: Yes Plan: 08/12/2020-chest x-ray suggestive of left-sided pneumonia to start on IV Zosyn, IV vancomycin. Blood cultures are requested. IV fluids are initiated 75 cc/h. GI prophylaxis DVT prophylaxis initiated. 08/13/2020-patient is receiving IV vancomycin, Zosyn. WBC count is 24,600. Blood cultures are pending. Plan is to continue oxygen supplementations and and antibiotic therapy. 08/14/2020-patient admitted with pneumonia. Receiving IV Zosyn, vancomycin. Today's labs are pending. Afebrile. Blood pressure stable. Blood cultures are negative so far urine culture is pending. 08/15/2020-WBC count is improved to 26,800. To continue IV vancomycin and Zosyn at this time. Blood cultures no growth so far. 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 He has a open trach. Consultation with Dr. Torres was requested. To continue fentanyl and morphine. (3) Rhabdomyolysis Qualifiers: Rhabdomyolysis type: traumatic Encounter type: initial encounter Qualified Code(s): T79.6XXA - Traumatic ischemia of muscle, initial encounter Is this a current diagnosis for this admission?: Yes Plan: 08/12/2020 CK 771. Carissa found him on the floor at home. Patient is receiving IV fluids to check for CK levels tomorrow. 08/13/2020-CK level came down to 489. Rhabdomyolysis resolving. (4) Malnutrition due to starvation Is this a current diagnosis for this admission?: Yes Plan: 08/12/2020-patient BMI is less than 15. Dietary consult will be requested and nutrition supplementations will be provided. 08/15/2020-patient is presently on clear liquids speech consult was requested. Plan is to arrange for modified barium swallow. (5) Leukocytosis Qualifiers: Leukocytosis type: bandemia Qualified Code(s): D72.825 - Bandemia Is this a current diagnosis for this admission?: Yes Plan: 08/12/2020-WBC count is elevated more than 17,000. Most likely secondary to pneumonia. 08/13/2020-WBC count is 24,500. Afebrile blood pressures are improving plan is to continue IV antibiotic therapy. Blood cultures are pending. 08/14/2020-today's labs are pending. 08/15/2020-WBC count improved to 26,800. Most likely secondary to sepsis. (6) CLIFFORD (acute kidney injury) Is this a current diagnosis for this admission?: Yes Plan: 08/12/2020-patient admitted with CLIFFORD and hypotension. Received 3 L of normal saline in the ER. Continue normal saline at 75 cc/h. (7) Decubitus ulcer Is this a current diagnosis for this admission?: Yes Plan: 08/12/2020-2 decubitus ulcers present on the back. One on the upper back one at the sacrum. For me looks like stage III at the sacrum and stage I on the upper back. Wound care consult was requested daily wound care dressings will be provided. 08/16/2020 At this time continue vancomycin and Zosyn for pneumonia. The plan is for patient to go to hospice. Multiple medication changes at that time. For now continue antibiotics. Monitor renal function as this combination can tend towards kidney failure. Renal function is slowly improving. Continue gentle IV fluids. White count is improving with antibiotic therapy. Blood and urine cultures are no growth so far White blood cell count is beginning to improve with antibiotic therapy. Creatinine kinase was improving. Rhabdomyolysis was resolving. I have stopped trending creatinine kinase levels as the disposition will be hospice. Blood pressures are stable. Diet advanced. With laryngectomy there is no potential for aspiration. We will start with mechanical soft ground meats. No realistic goal of reversing malnutrition as the final disposition will be hospice. 08/17/[address] Torres's note. I have discontinued the vancomycin. Consider discontinuing Zosyn in the next day or so. Unfortunately [facility] does not feel the patient is inpatient appropriate. Actually disagree with this. Will be looking for other placement for hospice level care. The patient will continue gentle fluids at this point. I am going to try a single intravenous dose of morphine. Currently the patient has to take 4 of the oxycodone pills to equal the 20 mg dose. If he is still having that much pain then he may benefit from intravenous dosing temporarily. If he does go to a facility then intravenous medications can still be used. No further blood work will be done at this point. We will focus on comfort and slowly decrease other medications. 08/18/2020 Little by little moving towards a more aggressive comfort plan. Multiple changes were implemented today including changing to oral morphine sulfate immediate release on a scheduled basis at an equivalent dose to the oxycodone. He will also have IV morphine available for breakthrough pain. His lungs sounded better so we will continue and complete the antibiotic therapy The patient did receive his first dose of 30 mg of morphine sulfate immediate release and in fact does seem more comfortable. I did tell him that I would not be doing any more blood tests as they were not warranted at this time. 08/19/2020 Unfortunately the patient appears to be declining. Based on all of the nursing notes reviewed through senior lead java developer and last night they report that he has had good pain control. Despite an almost obtunded state he used a thumbs up/thumbs down signal to let me know that he was still having pain. I am going to hold adjusting the medications just yet. He does have breakthrough medication available. Pneumonia-at this point I am going to stop the Zosyn. His lungs are improved. His prognosis is grave and aggressively treating a pneumonia does not make much sense and in fact seems futile. It appears that the patient may be having some difficulty processing foods. Nursing reports that he is able to take his pills. Because of his laryngectomy there is no risk of aspiration as there is no longer a connection between the esophagus and the lungs. Based on the food or emesis on his left shoulder and arm he may be having more difficulty. We will continue to focus more on comfort at this point. I will continue the IV fluids as his oral intake has been poor. If he continues to decline then consider discontinuing IV fluid as well. 08/20/2020 I did discontinue the remaining antibiotics yesterday due to the futility considering the patient's overall condition. We increased his pain medication after discussion with oncology. This seems to be fairly effective. I believe the congested breaths with mucus production are uncomfortable. He now has increased edema in both upper extremities. For this reason I must stop the IV fluids. His blood pressures are normal but I do not think he could tolerate a large dose of furosemide. I will give a one-time moderate dose to see how well it improves his edema. He did ask for a phone cmm technician. I believe his intention is to text with any family members to possibly help with the decision to fully commit to comfort measures only. 08/21/2020 The patient is stable. He does exhibit expressions of discomfort intermittently. For now he is frustrated due to his aphasia status post laryngectomy. He did in fact show me his lunch which was a ham and cheese sandwich that was chopped into little pieces. This was very off putting for him. We did go up and at least he laughed. I have discontinued his IV fluid and his upper extremities are still edematous. I am going to hold off on giving him furosemide at this time. I am going to adjust his pain medications by decreasing his IV morphine to every 2 hours as needed. The next step would be to increase his immediate release morphine. Unfortunately this would mean additional pills in I think is getting uncomfortable for him to swallow so we might resort to topical and intravenous medication administration. I believe he is very close to a comfort measures status. I will discuss with him tomorrow regarding oral versus topical and IV administration of pain medications. I think the next step would be trying a fentanyl patch with IV morphine. 08/22/2020 It appears that we have achieve reasonable pain control. Still with congested cough. Still with edema left hand greater than right. I did discontinue IV fluids. I will now try scopolamine patch to help with her secretions. IV morphine available every 2 hours. Because of the upper extremity edema (left greater than right) I will try another dose of furosemide. 08/23/2020 Patient with metastatic malignancy status post tracheostomy C/w morphine for pain. Patient is significantly debilitated with multiple skin erosions which appear to be nonhealing at this point. Continue local wound care. Wound care have given recommendations which in place. Discharge planning working on getting patient to hospice home versus facility. It will likely be very hard to take care of this patient at home. 08/24/2020 Continue IV pain medications. Continue local wound care Continue turns and repositioning Awaiting disposition for hospice - Time Time Spent with patient: Less than 15 minutes Anticipated Discharge Disposition: hospice Anticipated Discharge Timeframe: when bed available
[2020-08-25] MEDS: IPRATROPIUM/ALBUTEROL 0.5-2.5 MG/3 ML AMPUL NEB SCH ×4 (02:14→19:55)
[2020-08-25] MEDS: MORPHINE SULFATE IR 30 MG TABLET PO SCH ×5 (02:33→22:27)
[2020-08-25] MEDS: MORPHINE SULFATE 10 MG/ML INJ IV PRN ×5 (04:24→23:30)
[2020-08-25] MEDS: SCOPOLAMINE HYDROBROMIDE 1.5 MG PATCH.TD72 TD SCH (11:21)
--- NOTE | 2020-08-25 12:29 | PDOC PROGRESS REPORT ---
Subjective Date:: 08/25/20 Subjective:: No much complaint today. Continue his pain medications as scheduled. Still radha ting on placement for him regarding where he is going to continue his hospice services. Reason For Visit: CLIFFORD Physical Exam Vital Signs: Temp Pulse Resp BP Pulse Ox 98.9 F 63 15 105/67 99 08/25/20 08:12 08/25/20 08:12 08/25/20 08:12 08/25/20 08:12 08/25/20 08:12 Intake & Output 08/24/20 08/25/20 08/26/20 06:59 06:59 06:59 Intake Total 1250 950 Output Total 600 1100 Balance 650 -150 Weight 84.1 kg 80.6 kg General appearance: PRESENT: no acute distress, cooperative Respiratory exam: PRESENT: unlabored. ABSENT: accessory muscle use, retraction Extremities exam: PRESENT: pedal edema Neurological exam: PRESENT: alert, awake Psychiatric exam: ABSENT: agitated, anxious Skin exam: PRESENT: skin tears Results Laboratory Results: 08/15/20 05:55 08/15/20 05:55 08/12/20 08/12/20 08/13/20 12:43 12:43 05:34 Creatine Kinase 771 H 489 H Troponin I < 0.012 NT-Pro-B Natriuret Pep 08/13/20 05:34 Creatine Kinase Troponin I < 0.012 NT-Pro-B Natriuret Pep 2090 H Impressions: Chest X-Ray 08/12/20 14:38 IMPRESSION: New dense left basilar consolidation, possibly atelectasis or infection. Small left effusion. Modified Barium Swallow 08/16/20 00:00 IMPRESSION: NO EVIDENCE OF PENETRATION OR ASPIRATION. PLEASE SEE SPEECH PATHOLOGIST REPORT FOR OTHER FINDINGS AND RECOMMENDATIONS. Assessment and Plan - Diagnosis (1) Larynx cancer Is this a current diagnosis for this admission?: Yes (3) Decubitus ulcer Qualifiers: Pressure injury location: sacral region Pressure injury stage: stage 3 Qualified Code(s): L89.153 - Pressure ulcer of sacral region, stage 3 Is this a current diagnosis for this admission?: Yes (4) Leukocytosis Qualifiers: Leukocytosis type: bandemia Qualified Code(s): D72.825 - Bandemia Is this a current diagnosis for this admission?: Yes (5) Malnutrition due to starvation Is this a current diagnosis for this admission?: Yes (6) Pneumonia Qualifiers: Pneumonia type: due to unspecified organism Laterality: left Lung location: lower lobe of lung Qualified Code(s): J18.9 - Pneumonia, unspecified organism Is this a current diagnosis for this admission?: Yes (7) Rhabdomyolysis Qualifiers: Rhabdomyolysis type: traumatic Encounter type: initial encounter Qual ified Code(s): T79.6XXA - Traumatic ischemia of muscle, initial encounter Is this a current diagnosis for this admission?: Yes - Plan Summary Summary: (1) Pneumonia Qualifiers: Pneumonia type: due to unspecified organism Laterality: left Lung lo cation: lower lobe of lung Qualified Code(s): J18.9 - Pneumonia, unspecified organism Is this a current diagnosis for this admission?: Yes Plan: 08/12/2020-chest x-ray suggestive of left-sided pneumonia to start on IV Zosyn, IV vancomycin. Blood cultures are requested. IV fluids are initiated 75 cc/h. GI prophylaxis DVT prophylaxis initiated. 08/13/2020-patient is receiving IV vancomycin, Zosyn. WBC count is 24,600. Blood cultures are pending. Plan is to continue oxygen supplementations and and antibiotic therapy. 08/14/2020-patient admitted with pneumonia. Receiving IV Zosyn, vancomycin. Today's labs are pending. Afebrile. Blood pressure stable. Blood cultures are negative so far urine culture is pending. 08/15/2020-WBC count is improved to 26,800. To continue IV vancomycin and Zosyn at this time. Blood cultures no growth so far. 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 He has a open trach. Consultation with Dr. Torres was requested. To continue fentanyl and morphine. (3) Rhabdomyolysis Qualifiers: Rhabdomyolysis type: traumatic Encounter type: initial encounter Qualified Code(s): T79.6XXA - Traumatic ischemia of muscle, initial encounter Is this a current diagnosis for this admission?: Yes Plan: 08/12/2020 CK 771. jPD found him on the floor at home. Patient is receiving IV fluids to check for CK levels tomorrow. 08/13/2020-CK level came down to 489. Rhabdomyolysis resolving. (4) Malnutrition due to starvation Is this a current diagnosis for this admission?: Yes Plan: 08/12/2020-patient BMI is less than 15. Dietary consult will be requested and nutrition supplementations will be provided. 08/15/2020-patient is presently on clear liquids speech consult was requested. Plan is to arrange for modified barium swallow. (5) Leukocytosis Qualifiers: Leukocytosis type: bandemia Qualified Code(s): D72.825 - Bandemia Is this a current diagnosis for this admission?: Yes Plan: 08/12/2020-WBC count is elevated more than 17,000. Most likely secondary to pneumonia. 08/13/2020-WBC count is 24,500. Afebrile blood pressures are improving plan is to continue IV antibiotic therapy. Blood cultures are pending. 08/14/2020-today's labs are pending. 08/15/2020-WBC count improved to 26,800. Most likely secondary to sepsis. (6) CLIFFORD (acute kidney injury) Is this a current diagnosis for this admission?: Yes Plan: 08/12/2020-patient admitted with CLIFFORD and hypotension. Received 3 L of normal saline in the ER. Continue normal saline at 75 cc/h. (7) Decubitus ulcer Is this a current diagnosis for this admission?: Yes Plan: 08/12/2020-2 decubitus ulcers present on the back. One on the upper back one at the sacrum. For me looks like stage III at the sacrum and stage I on the upper back. Wound care consult was requested daily wound care dressings will be provided. 08/16/2020 At this time continue vancomycin and Zosyn for pneumonia. The plan is for patient to go to hospice. Multiple medication changes at that time. For now continue antibiotics. Monitor renal function as this combination can tend towards kidney failure. Renal function is slowly improving. Continue gentle IV fluids. White count is improving with antibiotic therapy. Blood and urine cultures are no growth so far White blood cell count is beginning to improve with antibiotic therapy. Creatinine kinase was improving. Rhabdomyolysis was resolving. I have stopped trending creatinine kinase levels as the disposition will be hospice. Blood pressures are stable. Diet advanced. With laryngectomy there is no potential for aspiration. We will start with mechanical soft ground meats. No realistic goal of reversing malnutrition as the final disposition will be hospice. 08/17/[address] Torres's note. I have discontinued the vancomycin. Consider discontinuing Zosyn in the next day or so. Unfortunately [facility] does not feel the patient is inpatient appropriate. Actually disagree with this. Will be looking for other placement for hospice level care. The patient will continue gentle fluids at this point. I am going to try a single intravenous dose of morphine. Currently the patient has to take 4 of the oxycodone pills to equal the 20 mg dose. If he is still having that much pain then he may benefit from intravenous dosing temporarily. If he does go to a f acility then intravenous medications can still be used. No further blood work will be done at this point. We will focus on comfort and slowly decrease other medications. 08/18/2020 Little by little moving towards a more aggressive comfort plan. Multiple changes were implemented today including changing to oral morphine sulfate immediate release on a scheduled basis at an equivalent dose to the oxycodone. He will also have IV morphine available for breakthrough pain. His lungs sounded better so we will continue and complete the antibiotic therapy The patient did receive his first dose of 30 mg of morphine sulfate immediate release and in fact does seem more comfortable. I did tell him that I would not be doing any more blood tests as they were not warranted at this time. 08/19/2020 Unfortunately the patient appears to be declining. Based on all of the nursing notes reviewed through early learning teacher and last night they report that he has had good pain control. Despite an almost obtunded state he used a thumbs up/thumbs down signal to let me know that he was still having pain. I am going to hold adjusting the medications just yet. He does have breakthrough medication available. Pneumonia-at this point I am going to stop the Zosyn. His lungs are improved. His prognosis is grave and aggressively treating a pneumonia does not make much sense and in fact seems futile. It appears that the patient may be having some difficulty processing foods. Nursing reports that he is able to take his pills. Because of his laryngectomy there is no risk of aspiration as there is no longer a connection between the esophagus and the lungs. Based on the food or emesis on his left shoulder and arm he may be having more difficulty. We will continue to focus more on comfort at this point. I will continue the IV fluids as his oral intake has been poor. If he continues to decline then consider discontinuing IV fluid as well. 08/20/2020 I did discontinue the remaining antibiotics yesterday due to the futility considering the patient's overall condition. We increased his pain medication after discussion with oncology. This seems to be fairly effective. I believe the congested breaths with mucus production are uncomfortable. He now has increased edema in both upper extremities. For this reason I must stop the IV fluids. His blood pressures are normal but I do not think he could tolerate a large dose of furosemide. I will give a one-time moderate dose to see how well it improves his edema. He did ask for a phone aviation metalsmith. I believe his intention is to text with any family members to possibly help with the decision to fully commit to comfort measures only. 08/21/2020 The patient is stable. He does exhibit expressions of discomfort intermittently. For now he is frustrated due to his aphasia status post laryngectomy. He did in fact show me his lunch which was a ham and cheese sandwich that was chopped into little pieces. This was very off putting for him. We did go up and at least he laughed. I have discontinued his IV fluid and his upper extremities are still edematous. I am going to hold off on giving him furosemide at this time. I am going to adjust his pain medications by decreasing his IV morphine to every 2 hours as needed. The next step would be to increase his immediate release morphine. Unfortunately this would mean additional pills in I think is getting uncomfortable for him to swallow so we might resort to topical and intravenous medication administration. I believe he is very close to a comfort measures status. I will discuss with him tomorrow regarding oral versus topical and IV administration of pain medications. I think the next step would be trying a fentanyl patch with IV morphine. 08/22/2020 It appears that we have achieve reasonable pain control. Still with congested cough. Still with edema left hand greater than right. I did discontinue IV fluids. I will now try scopolamine patch to help with her secretions. IV morphine available every 2 hours. Because of the upper extremity edema (left greater than right) I will try another dose of furosemide. 08/23/2020 Patient with metastatic malignancy status post tracheostomy C/w morphine for pain. Patient is significantly debilitated with multiple skin erosions which appear to be nonhealing at this point. Continue local wound care. Wound care have given recommendations which in place. Discharge planning working on getting patient to hospice home versus facility. It will likely be very hard to take care of this patient at home. 08/24/2020 Continue IV pain medications. Continue local wound care Continue turns and repositioning Awaiting disposition for hospice 08/25/2020 Continue plan as before. Still awaiting placement at SNF or another facility where patient can continue on hospice care. - Time Time Spent with patient: Less than 15 minutes Anticipated Discharge Disposition: Hospice Anticipated Discharge Timeframe: when bed available
[2020-08-25] MEDS: CALCIUM CARBONATE 500 MG TAB.CHEW PO SCH (18:10)
[2020-08-25] MEDS ORDERED: MORPHINE SULFATE IR 30 MG TABLET PO PRN (20:18)
[2020-08-26] MEDS: MORPHINE SULFATE IR 30 MG TABLET PO SCH ×6 (02:10→22:28)
[2020-08-26] MEDS: IPRATROPIUM/ALBUTEROL 0.5-2.5 MG/3 ML AMPUL NEB SCH ×4 (02:19→20:33)
[2020-08-26] MEDS: MORPHINE SULFATE 10 MG/ML INJ IV PRN ×3 (03:52→12:01)
[2020-08-26] MEDS: CALCIUM CARBONATE 500 MG TAB.CHEW PO SCH ×2 (10:36→18:04)
--- NOTE | 2020-08-26 18:27 | PDOC PROGRESS REPORT ---
Subjective Date:: 08/26/20 Subjective:: requesting pain meds frequently Reason For Visit: CLIFFORD Physical Exam Vital Signs: Temp Pulse Resp BP Pulse Ox 98.4 F 79 18 119/82 92 08/26/20 16:26 08/26/20 16:26 08/26/20 16:26 08/26/20 16:26 08/26/20 16:52 Intake & Output 08/25/20 08/26/20 08/27/20 06:59 06:59 06:59 Intake Total 950 696 118 Output Total 1100 775 Balance -150 -79 118 Weight 80.6 kg 80 kg General appearance: PRESENT: no acute distress, cooperative Respiratory exam: PRESENT: unlabored Neurological exam: PRESENT: alert, awake Results Laboratory Results: 08/15/20 05:55 08/15/20 05:55 08/12/20 08/12/20 08/13/20 12:43 12:43 05:34 Creatine Kinase 771 H 489 H Troponin I < 0.012 NT-Pro-B Natriuret Pep 08/13/20 05:34 Creatine Kinase Troponin I < 0.012 NT-Pro-B Natriuret Pep 2090 H Impressions: Chest X-Ray 08/12/20 14:38 IMPRESSION: New dense left basilar consolidation, possibly atelectasis or infection. Small left effusion. Modified Barium Swallow 08/16/20 00:00 IMPRESSION: NO EVIDENCE OF PENETRATION OR ASPIRATION. PLEASE SEE SPEECH PATHOLOGIST REPORT FOR OTHER FINDINGS AND RECOMMENDATIONS. Assessment and Plan - Diagnosis (1) Larynx cancer Is this a current diagnosis for this admission?: Yes (3) Decubitus ulcer Qualifiers: Pressure injury location: sacral region Pressure injury stage: stage 3 Qualified Code(s): L89.153 - Pressure ulcer of sacral region, stage 3 Is this a current diagnosis for this admission?: Yes (4) Leukocytosis Qualifiers: Leukocytosis type: bandemia Qualified Code(s): D72.825 - Bandemia Is this a current diagnosis for this admission?: Yes (5) Malnutrition due to starvation Is this a current diagnosis for this admission?: Yes (6) Pneumonia Qualifiers: Pneumonia type: due to unspecified organism Laterality: left Lung location: lower lobe of lung Qualified Code(s): J18.9 - Pneumonia, unspecified organism Is this a current diagnosis for this admission?: Yes (7) Rhabdomyolysis Qualifiers: Rhabdomyolysis type: traumatic Encounter type: initial encounter Qualified Code(s): T79.6XXA - Traumatic ischemia of muscle, initial encounter Is this a current diagnosis for this admission?: Yes - Plan Summary Summary: (1) Pneumonia Qualifiers: Pneumonia type: due to unspecified organism Laterality: left Lung location: lower lobe of lung Qualified Code(s): J18.9 - Pneumonia, unspecified organism Is this a current diagnosis for this admission?: Yes Plan: 08/12/2020-chest x-ray suggestive of left-sided pneumonia to start on IV Zosyn, IV vancomycin. Blood cultures are requested. IV fluids are initiated 75 cc/h. GI prophylaxis DVT prophylaxis initiated. 08/13/2020-patient is receiving IV vancomycin, Zosyn. WBC count is 24,600. Blood cultures are pending. Plan is to continue oxygen supplementations and and antibiotic therapy. 08/14/2020-patient admitted with pneumonia. Receiving IV Zosyn, vancomycin. Today's labs are pending. Afebrile. Blood pressure stable. Blood cultures are negative so far urine culture is pending. 08/15/2020-WBC count is improved to 26,800. To continue IV vancomycin and Zosyn at this time. Blood cultures no growth so far. 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 He has a open trach. Consultation with Dr. Torres was requested. To continue fentanyl and morphine. (3) Rhabdomyolysis Qualifiers: Rhabdomyolysis type: traumatic Encounter type: initial encounter Qualified Code(s): T79.6XXA - Traumatic ischemia of muscle, initial encounter Is this a current diagnosis for this admission?: Yes Plan: 08/12/2020 CK 771. jPD found him on the floor at home. Patient is receiving IV fluids to check for CK levels tomorrow. 08/13/2020-CK level came down to 489. Rhabdomyolysis resolving. (4) Malnutrition due to starvation Is this a current diagnosis for this admission?: Yes Plan: 08/12/2020-patient BMI is less than 15. Dietary consult will be requested and nutrition supplementations will be provided. 08/15/2020-patient is presently on clear liquids speech consult was requested. Plan is to arrange for modified barium swallow. (5) Leukocytosis Qualifiers: Leukocytosis type: bandemia Qualified Code(s): D72.825 - Bandemia Is this a current diagnosis for this admission?: Yes Plan: 08/12/2020-WBC count is elevated more than 17,000. Most likely secondary to pneumonia. 08/13/2020-WBC count is 24,500. Afebrile blood pressures are improving plan is to continue IV antibiotic therapy. Blood cultures are pending. 08/14/2020-today's labs are pending. 08/15/2020-WBC count improved to 26,800. Most likely secondary to sepsis. (6) CLIFFORD (acute kidney injury) Is this a current diagnosis for this admission?: Yes Plan: 08/12/2020-patient admitted with CLIFFORD and hypotension. Received 3 L of normal saline in the ER. Continue normal saline at 75 cc/h. (7) Decubitus ulcer Is this a current diagnosis for this admission?: Yes Plan: 08/12/2020-2 decubitus ulcers present on the back. One on the upper back one at the sacrum. For me looks like stage III at the sacrum and stage I on the upper back. Wound care consult was requested daily wound care dressings will be provided. 08/16/2020 At this time continue vancomycin and Zosyn for pneumonia. The plan is for patient to go to hospice. Multiple medication changes at that time. For now continue antibiotics. Monitor renal function as this combination can tend towards kidney failure. Renal function is slowly improving. Continue gentle IV fluids. White count is improving with antibiotic therapy. Blood and urine cultures are no growth so far White blood cell count is beginning to improve with antibiotic therapy. Creatinine kinase was improving. Rhabdomyolysis was resolving. I have stopped trending creatinine kinase levels as the disposition will be hospice. Blood pressures are stable. Diet advanced. With laryngectomy there is no potential for aspiration. We will start with mechanical soft ground meats. No realistic goal of reversing malnutrition as the final disposition will be hospice. 08/17/[address] Torres's note. I have discontinued the vancomycin. Consider dis continuing Zosyn in the next day or so. Unfortunately [facility] does not feel the patient is inpatient appropriate. Actually disagree with this. Will be looking for other placement for hospice level care. The patient will continue gentle fluids at this point. I am going to try a sin gle intravenous dose of morphine. Currently the patient has to take 4 of the oxycodone pills to equal the 20 mg dose. If he is still having that much pain then he may benefit from intravenous dosing temporarily. If he does go to a facility then intravenous medications can still be used. No further blood work will be done at this point. We will focus on comfort and slowly decrease other medications. 08/18/2020 Little by little moving towards a more aggressive comfort plan. Multiple changes were implemented today including changing to oral morphine sulfate immediate release on a scheduled basis at an equivalent dose to the oxycodone. He will also have IV morphine available for breakthrough pain. His lungs sounded better so we will continue and complete the antibiotic therapy The patient did receive his first dose of 30 mg of morphine sulfate immediate release and in fact does seem more comfortable. I did tell him that I would not be doing any more blood tests as they were not warranted at this time. 08/19/2020 Unfortunately the patient appears to be declining. Based on all of the nursing notes reviewed through genetic scientist and last night they report that he has had good pain control. Despite an almost obtunded state he used a thumbs up/thumbs down signal to let me know that he was still having pain. I am going to hold adjusting the medications just yet. He does have breakthrough medication available. Pneumonia-at this point I am going to stop the Zosyn. His lungs are improved. His prognosis is grave and aggressively treating a pneumonia does not make much sense and in fact seems futile. It appears that the patient may be having some difficulty processing foods. Nursing reports that he is able to take his pills. Because of his laryngectomy there is no risk of aspiration as there is no longer a connection between the esophagus and the lungs. Based on the food or emesis on his left shoulder and arm he may be having more difficulty. We will continue to focus more on comfort at this point. I will continue the IV fluids as his oral intake has been poor. If he continues to decline then consider discontinuing IV fluid as well. 08/20/2020 I did discontinue the remaining antibiotics yesterday due to the futility considering the patient's overall condition. We increased his pain medication after discussion with oncology. This seems to be fairly effective. I believe the congested breaths with mucus production are uncomfortable. He now has increased edema in both upper extremities. For this reason I must stop the IV fluids. His blood pressures are normal but I do not think he could tolerate a large dose of furosemide. I will give a one-time moderate dose to see how well it improves his edema. He did ask for a phone pad extraction tender. I believe his intention is to text with any family members to possibly help with the decision to fully commit to comfort measures only. 08/21/2020 The patient is stable. He does exhibit expressions of discomfort intermittently. For now he is frustrated due to his aphasia status post laryngectomy. He did in fact show me his lunch which was a ham and cheese sandwich that was chopped into little pieces. This was very off putting for him. We did go up and at least he laughed. I have discontinued his IV fluid and his upper extremities are still edematous. I am going to hold off on giving him furosemide at this time. I am going to adjust his pain medications by decreasing his IV morphine to every 2 hours as needed. The next step would be to increase his immediate release morphine. Unfortunately this would mean additional pills in I think is getting uncomfortable for him to swallow so we might resort to topical and intravenous medication administration. I believe he is very close to a comfort measures status. I will discuss with him tomorrow regarding oral versus topical and IV administration of pain medications. I think the next step would be trying a fentanyl patch with IV morphine. 08/22/2020 It appears that we have achieve reasonable pain control. Still with congested cough. Still with edema left hand greater than right. I did discontinue IV fluids. I will now try scopolamine patch to help with her secretions. IV morphine available every 2 hours. Because of the upper extremity edema (left greater than right) I will try another dose of furosemide. 08/23/2020 Patient with metastatic malignancy status post tracheostomy C/w morphine for pain. Patient is significantly debilitated with multiple skin erosions which appear to be nonhealing at this point. Continue local wound care. Wound care have given recommendations which in place. Discharge planning working on getting patient to hospice home versus facility. It will likely be very hard to take care of this patient at home. 08/24/2020 Continue IV pain medications. Continue local wound care Continue turns and repositioning Awaiting disposition for hospice 08/25/2020 Continue plan as before. Still awaiting placement at SNF or another facility where patient can continue on hospice care. 08/26/2020 awaiting hospice. Continue pain meds - Time Time Spent with patient: Less than 15 minutes Anticipated Discharge Disposition: hospice Anticipated Discharge Timeframe: when bed available
[2020-08-27] MEDS: IPRATROPIUM/ALBUTEROL 0.5-2.5 MG/3 ML AMPUL NEB SCH ×4 (02:17→19:54)
[2020-08-27] MEDS: MORPHINE SULFATE IR 30 MG TABLET PO SCH ×6 (02:44→22:32)
[2020-08-27] MEDS: CALCIUM CARBONATE 500 MG TAB.CHEW PO SCH ×2 (09:48→17:07)
[2020-08-27] MEDS: MORPHINE SULFATE 10 MG/ML INJ IV PRN ×2 (12:33→19:50)
--- NOTE | 2020-08-27 18:06 | PDOC PROGRESS REPORT ---
Subjective Date:: 08/27/20 Reason For Visit: CLIFFORD Physical Exam Vital Signs: Temp Pulse Resp BP Pulse Ox 98.3 F 74 16 109/63 92 08/27/20 12:26 08/27/20 14:00 08/27/20 14:00 08/27/20 12:26 08/27/20 16:00 Intake & Output 08/26/20 08/27/20 08/28/20 06:59 06:59 06:59 Intake Total 696 554 480 Output Total 775 650 Balance -79 -96 480 Weight 80 kg 80.2 kg 80.2 kg General appearance: PRESENT: no acute distress, cooperative Respiratory exam: PRESENT: unlabored. ABSENT: accessory muscle use Neurological exam: PRESENT: alert, awake Psychiatric exam: ABSENT: agitated, anxious Skin exam: PRESENT: skin tears Results Laboratory Results: 08/15/20 05:55 08/15/20 05:55 08/12/20 08/12/20 08/13/20 12:43 12:43 05:34 Creatine Kinase 771 H 489 H Troponin I < 0.012 NT-Pro-B Natriuret Pep 08/13/20 05:34 Creatine Kinase Troponin I < 0.012 NT-Pro-B Natriuret Pep 2090 H Impressions: Chest X-Ray 08/12/20 14:38 IMPRESSION: New dense left basilar consolidation, possibly atelectasis or infection. Small left effusion. Modified Barium Swallow 08/16/20 00:00 IMPRESSION: NO EVIDENCE OF PENETRATION OR ASPIRATION. PLEASE SEE SPEECH PATHOLOGIST REPORT FOR OTHER FINDINGS AND RECOMMENDATIONS. Assessment and Plan - Diagnosis (1) Larynx cancer Is this a current diagnosis for this admission?: Yes (3) Decubitus ulcer Qualifiers: Pressure injury location: sacral region Pressure injury stage: stage 3 Qualified Code(s): L89.153 - Pressure ulcer of sacral region, stage 3 Is this a current diagnosis for this admission?: Yes (4) Leukocytosis Qualifiers: Leukocytosis type: bandemia Qualified Code(s): D72.825 - Bandemia Is this a current diagnosis for this admission?: Yes (5) Malnutrition due to starvation Is this a current diagnosis for this admission?: Yes (6) Pneumonia Qualifiers: Pneumonia type: due to unspecified organism Laterality: left Lung location: lower lobe of lung Qualified Code(s): J18.9 - Pneumonia, unspecified organism Is this a current diagnosis for this admission?: Yes (7) Rhabdomyolysis Qualifiers: Rhabdomyolysis type: traumatic Encounter type: initial encounter Qualified Code(s): T79.6XXA - Traumatic ischemia of muscle, initial encounter Is this a current diagnosis for this admission?: Yes - Plan Summary Summary: (1) Pneumonia Qualifiers: Pneumonia type: due to unspecified organism Laterality: left Lung location: lower lobe of lung Qualified Code(s): J18.9 - Pneumonia, unspecified organism Is this a current diagnosis for this admission?: Yes Plan: 08/12/2020-chest x-ray suggestive of left-sided pneumonia to start on IV Zosyn, IV vancomycin. Blood cultures are requested. IV fluids are initiated 75 cc/h. GI prophylaxis DVT prophylaxis initiated. 08/13/2020-patient is receiving IV vancomycin, Zosyn. WBC count is 24,600. Blood cultures are pending. Plan is to continue oxygen supplementations and and antibiotic therapy. 08/14/2020-patient admitted with pneumonia. Receiving IV Zosyn, vancomycin. Today's labs are pending. Afebrile. Blood pressure stable. Blood cultures are negative so far urine culture is pending. 08/15/2020-WBC count is improved to 26,800. To continue IV vancomycin and Zosyn at this time. Blood cultures no growth so far. 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 He has a open trach. Consultation with Dr. Torres was requested. To continue fentanyl and morphine. (3) Rhabdomyolysis Qualifiers: Rhabdomyolysis type: traumatic Encounter type: initial encounter Qualified Code(s): T79.6XXA - Traumatic ischemia of muscle, initial encounter Is this a current diagnosis for this admission?: Yes Plan: 08/12/2020 CK 771. jPD found him on the floor at home. Patient is receiving IV fluids to check for CK levels tomorrow. 08/13/2020-CK level came down to 489. Rhabdomyolysis resolving. (4) Malnutrition due to starvation Is this a current diagnosis for this admission?: Yes Plan: 08/12/2020-patient BMI is less than 15. Dietary consult will be requested and nutrition supplementations will be provided. 08/15/2020-patient is presently on clear liquids speech consult was requested. Plan is to arrange for modified barium swallow. (5) Leukocytosis Qualifiers: Leukocytosis type: bandemia Qualified Code(s): D72.825 - Bandemia Is this a current diagnosis for this admission?: Yes Plan: 08/12/2020-WBC count is elevated more than 17,000. Most likely secondary to pneumonia. 08/13/2020-WBC count is 24,500. Afebrile blood pressures are improving plan is to continue IV antibiotic therapy. Blood cultures are pending. 08/14/2020-today's labs are pending. 08/15/2020-WBC count improved to 26,800. Most likely secondary to sepsis. (6) CLIFFORD (acute kidney injury) Is this a current diagnosis for this admission?: Yes Plan: 08/12/2020-patient admitted with CLIFFORD and hypotension. Received 3 L of normal saline in the ER. Continue normal saline at 75 cc/h. (7) Decubitus ulcer Is this a current diagnosis for this admission?: Yes Plan: 08/12/2020-2 decubitus ulcers present on the back. One on the upper back one at the sacrum. For me looks like stage III at the sacrum and stage I on the upper back. Wound care consult was requested daily wound care dressings will be provided. 08/16/2020 At this time continue vancomycin and Zosyn for pneumonia. The plan is for patient to go to hospice. Multiple medication changes at that time. For now continue antibiotics. Monitor renal function as this combination can tend towards kidney failure. Renal function is slowly improving. Continue gentle IV fluids. White count is improving with antibiotic therapy. Blood and urine cultures are no growth so far White blood cell count is beginning to improve with antibiotic therapy. Creatinine kinase was improving. Rhabdomyolysis was resolving. I have stopped trending creatinine kinase levels as the disposition will be hospice. Blood pressures are stable. Diet advanced. With laryngectomy there is no potential for aspiration. We will start with mechanical soft ground meats. No realistic goal of reversing malnutrition as the final disposition will be hospice. 08/17/[address] Torres's note. I have discontinued the vancomycin. Consider discontinuing Zosyn in the next day or so. Unfortunately [facility] does not feel the patient is inpatient appropriate. Actually disagree with this. Will be looking for other placement for hospice level care. The patient will continue gentle fluids at this point. I am going to try a single intravenous dose of morphine. Currently the patient has to take 4 of the oxycodone pills to equal the 20 mg dose. If he is still having that much pain then he may benefit from intravenous dosing temporarily. If he does go to a facility then intravenous medications can still be used. No further blood work will be done at this point. We will focus on comfort and slowly decrease other medications. 08/18/2020 Little by little moving towards a more aggressive comfort plan. Multiple changes were implemented today including changing to oral morphine sulfate immediate release on a scheduled basis at an equivalent dose to the oxycodone. He will also have IV morphine available for breakthrough pain. His lungs sounded better so we will continue and complete the antibiotic therapy The patient did receive his first dose of 30 mg of morphine sulfate immediate release and in fact does seem more comfortable. I did tell him that I would not be doing any more blood tests as they were not warranted at this time. 08/19/2020 Unfortunately the patient appears to be declining. Based on all of the nursing notes reviewed through analytical manager and last night they report that he has had good pain control. Despite an almost obtunded state he used a thumbs up/thumbs down signal to let me know that he was still having pain. I am going to hold adjusting the medications just yet. He does have breakthrough medication available. Pneumonia-at this point I am going to stop the Zosyn. His lungs are improved. His prognosis is grave and aggressively treating a pneumonia does not make much sense and in fact seems futile. It appears that the patient may be having some difficulty processing foods. Nursing reports that he is able to take his pills. Because of his laryngectomy there is no risk of aspiration as there is no longer a connection between the esophagus and the lungs. Based on the food or emesis on his left shoulder and arm he may be having more difficulty. We will continue to focus more on comfort at this point. I will continue the IV fluids as his oral intake has been poor. If he continues to decline then consider discontinuing IV fluid as well. 08/20/2020 I did discontinue the remaining antibiotics yesterday due to the futility considering the patient's overall condition. We increased his pain medication after discussion with oncology. This seems to be fairly effective. I believe the congested breaths with mucus production are uncomfortable. He now has increased edema in both upper extremities. For this reason I must stop the IV fluids. His blood pressures are normal but I do not think he could tolerate a large dose of furosemide. I will give a one-time moderate dose to see how well it improves his edema. He did ask for a phone recording clerk. I believe his intention is to text with any family members to possibly help with the decision to fully commit to comfort measures only. 08/21/2020 The patient is stable. He does exhibit expressions of discomfort intermitten tly. For now he is frustrated due to his aphasia status post laryngectomy. He did in fact show me his lunch which was a ham and cheese sandwich that was chopped into little pieces. This was very off putting for him. We did go up and at least he laughed. I have discontinued his IV fluid and his upper extremities are still edematous. I am going to hold off on giving him furosemide at this time. I am going to adjust his pain medications by decreasing his IV morphine to every 2 hours as needed. The next step would be to increase his immediate release morphine. Unfortunately this would mean additional pills in I think is getting uncomfortable for him to swallow so we might resort to topical and intravenous medication administration. I believe he is very close to a comfort measures status. I will discuss with him tomorrow regarding oral versus topical and IV administration of pain medications. I think the next step would be trying a fentanyl patch with IV morphine. 08/22/2020 It appears that we have achieve reasonable pain control. Still with congested cough. Still with edema left hand greater than right. I did discontinue IV fluids. I will now try scopolamine patch to help with her secretions. IV morphine available every 2 hours. Because of the upper extremity edema (left greater than right) I will try another dose of furosemide. 08/23/2020 Patient with metastatic malignancy status post tracheostomy C/w morphine for pain. Patient is significantly debilitated with multiple skin erosions which appear to be nonhealing at this point. Continue local wound care. Wound care have given recommendations which in place. Discharge planning working on getting patient to hospice home versus facility. It will likely be very hard to take care of this patient at home. 08/24/2020 Continue IV pain medications. Continue local wound care Continue turns and repositioning Awaiting disposition for hospice 08/25/2020 Continue plan as before. Still awaiting placement at SNF or another facility where patient can continue on hospice care. 08/26/2020 awaiting hospice. Continue pain meds 08/27/2020 Today is quite an outlier as he has only received IV morphine about once. In t he past several days he has been requiring IV morphine quite frequently. We will continue to monitor. If patient starts to require morphine very frequently as before, will place a fentanyl patch. Continue hospice care. Awaiting placement. - Time Time Spent with patient: Less than 15 minutes Anticipated Discharge Disposition: Hospice Center Anticipated Discharge Timeframe: when bed available
[2020-08-28] MEDS: IPRATROPIUM/ALBUTEROL 0.5-2.5 MG/3 ML AMPUL NEB SCH ×4 (01:50→20:27)
[2020-08-28] MEDS: MORPHINE SULFATE IR 30 MG TABLET PO SCH ×4 (02:11→13:04)
[2020-08-28] MEDS: MORPHINE SULFATE 10 MG/ML INJ IV PRN (08:05)
[2020-08-28] MEDS: SCOPOLAMINE HYDROBROMIDE 1.5 MG PATCH.TD72 TD SCH (09:25)
[2020-08-28] MEDS: CALCIUM CARBONATE 500 MG TAB.CHEW PO SCH ×2 (09:25→17:06)
--- NOTE | 2020-08-28 11:44 | PDOC TRANSFER SUMMARY ---
General - Admit/Disc Date/PCP Admission Date/Primary Care Provider: 08/12/20 17:41 OJ SIMON PA-C Discharge Date: 08/28/20 - Discharge Diagnosis (1) Larynx cancer Is this a current diagnosis for this admission?: Yes (2) Metastatic cancer Is this a current diagnosis for this admission?: Yes (3) Skin ulcer of multiple sites Is this a current diagnosis for this admission?: Yes (4) Decubitus ulcer Is this a current diagnosis for this admission?: Yes (5) Leukocytosis Is this a current diagnosis for this admission?: Yes (6) Malnutrition due to starvation Is this a current diagnosis for this admission?: Yes (7) Pneumonia Is this a current diagnosis for this admission?: Yes (8) Rhabdomyolysis Is this a current diagnosis for this admission?: Yes - Additional Information Resuscitation Status: Do Not Resuscitate Home Medications: Diazepam [Valium 5 mg Tablet] 5 mg PO TID PRN 01/08/20 Ipratropium/Albuterol Sulfate [Duoneb 3 ml Ampul] 3 ml NEB RTQ6 08/13/20 Acetaminophen [Tylenol 325 mg Tablet] 650 mg PO Q4HP PRN tablet 08/28/20 Calcium Carbonate [Tums Chewable 500 mg Tab.chew] 1,000 mg PO BID tab.chew 08/28/20 Morphine Sulfate [Morphine 10 mg/ml Inj] 10 mg IV Q2HP PRN vial 08/28/20 Morphine Sulfate [Morphine Ir 30 mg Tablet] 30 mg PO Q4 tablet 08/28/20 Scopolamine Hydrobromide [Transderm-Scop 1.5 mg Patch] 1 each TD Q3DAYS patch.td72 08/28/20 History of Present Illness Admission Date/PCP: 08/12/20 17:41 OJ SIMON PA-C History of Present Illness: According to admitting provider: REJI FERRELL is a 65 year old male 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 As per ER physician's note patient is missing oncology appointments, he missed wound care appointments. 911 was was called by [facility]. [employer] arrived on the scene and found the patient down so EMS was called. At the time of arrival in the ER is unresponsive. And also found to be hypotensive. Patient was given IV levofloxacin, 3 L of IV fluids. Patient perked up able to respond by nodding his head. Lab in vestigation indicates elevated WBC count, possible left-sided pneumonia, rhabdomyolysis. Medical consult was called for admission. At the time of my examination patient responding to verbal commands by nodding his head. He agreed to be DNR/DNI. At the time of examination to the nurses are with me. He verbalized understanding is that patient agreed for DNR/DNI. Hospital Course Hospital Course: 08/12/2020-2 decubitus ulcers present on the back. One on the upper back one at the sacrum. For me looks like stage III at the sacrum and stage I on the upper back. Wound care consult was requested daily wound care dressings will be provided. 08/16/2020 At this time continue vancomycin and Zosyn for pneumonia. The plan is for patient to go to hospice. Multiple medication changes at that time. For now continue antibiotics. Monitor renal function as this combination can tend towards kidney failure. Renal function is slowly improving. Continue gentle IV fluids. White count is improving with antibiotic therapy. Blood and urine cultures are no growth so far White blood cell count is beginning to improve with antibiotic therapy. Creatinine kinase was improving. Rhabdomyolysis was resolving. I have stopped trending creatinine kinase levels as the disposition will be hospice. Blood pressures are stable. Diet advanced. With laryngectomy there is no potential for aspiration. We will start with mechanical soft ground meats. No realistic goal of reversing malnutrition as the final disposition will be hospice. 08/17/[address] Torres's note. I have discontinued the vancomycin. Consider discontinuing Zosyn in the next day or so. Unfortunately [facility] does not feel the patient is inpatient appropriate. Actually disagree with this. Will be looking for other placement for hospice level care. The patient will continue gentle fluids at this point. I am going to try a single intravenous dose of morphine. Currently the patient has to take 4 of the oxycodone pills to equal the 20 mg dose. If he is still having that much pain then he may benefit from intravenous dosing temporarily. If he does go to a cili then intravenous medications can still be used. No further blood work will be done at this point. We will focus on comfort and slowly decrease other medications. 08/18/2020 Little by little moving towards a more aggressive comfort plan. Multiple changes were implemented today including changing to oral morphine sulfate immediate release on a scheduled basis at an equivalent dose to the oxycodone. He will also have IV morphine available for breakthrough pain. His lungs sounded better so we will continue and complete the antibiotic therapy The patient did receive his first dose of 30 mg of morphine sulfate immediate release and in fact does seem more comfortable. I did tell him that I would not be doing any more blood tests as they were not warranted at this time. 08/19/2020 Unfortunately the patient appears to be declining. Based on all of the nursing notes reviewed through [facility] [employer] and last night they report that he has had good pain control. Despite an almost obtunded state he used a thumbs up/thumbs down signal to let me know that he was still having pain. I am going to hold adjusting the medications just yet. He does have breakthrough medication available. Pneumonia-at this point I am going to stop the Zosyn. His lungs are improved. His prognosis is grave and aggressively treating a pneumonia does not make much sense and in fact seems futile. It appears that the patient may be having some difficulty processing foods. Nursing reports that he is able to take his pills. Because of his laryngectomy there is no risk of aspiration as there is no longer a connection between the esophagus and the lungs. Based on the food or emesis on his left shoulder and arm he may be having more difficulty. We will continue to focus more on comfort at this point. I will continue the IV fluids as his oral intake has been poor. If he continues to decline then c onsider discontinuing IV fluid as well. 08/20/2020 I did discontinue the remaining antibiotics yesterday due to the futility considering the patient's overall condition. We increased his pain medication after discussion with oncology. This seems to be fairly effective. I believe the congested breaths with mucus production are uncomfortable. He now has increased edema in both upper extremities. For this reason I must stop the IV fluids. His blood pressures are normal but I do not think he could tolerate a large dose of furosemide. I will give a one-time moderate dose to see how well it improves his edema. 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 I believe his intention is to text with any family members to possibly help with the decision to fully commit to comfort measures only. 08/21/2020 The patient is stable. He does exhibit expressions of discomfort intermittently. For now he is frustrated due to his aphasia status post laryngectomy. He did in fact show me his lunch which was a ham and cheese sandwich that was chopped into little pieces. This was very off putting for him. We did go up and at least he laughed. I have discontinued his IV fluid and his upper extremities are still edematous. I am going to hold off on giving him furosemide at this time. I am going to adjust his pain medications by decreasing his IV morphine to every 2 hours as needed. The next step would be to increase his immediate release morphine. Unfortunately this would mean additional pills in I think is getting uncomfortable for him to swallow so we might resort to topical and intravenous medication administration. I believe he is very close to a comfort measures status. I will discuss with him tomorrow regarding oral versus topical and IV administration of pain medications. I think the next step would be trying a fentanyl patch with IV morphine. 08/22/2020 It appears that we have achieve reasonable pain control. Still with congested cough. Still with edema left hand greater than right. I did discontinue IV fluids. I will now try scopolamine patch to help with her secretions. IV morphine available every 2 hours. Because of the upper extremity edema (left greater than right) I will try another dose of furosemide. 08/23/2020 Patient with metastatic malignancy status post tracheostomy C/w morphine for pain. Patient is significantly debilitated with multiple skin erosions which appear to be nonhealing at this point. Continue local wound care. Wound care have given recommendations which in place. Discharge planning working on getting patient to hospice home versus facility. It will likely be very hard to take care of this patient at home. 08/24/2020 Continue IV pain medications. Continue local wound care Continue turns and repositioning Awaiting disposition for hospice 08/25/2020 Continue plan as before. Still awaiting placement at SNF or another facility where patient can continue on hospice care. 08/26/2020 awaiting hospice. Continue pain meds 08/27/2020 Today is quite an outlier as he has only received IV morphine about once. In the past several days he has been requiring IV morphine quite frequently. We will continue to monitor. If patient starts to require morphine very frequently as before, will place a fentanyl patch. Continue hospice care. Awaiting placement. Physical Exam Vital Signs: Temp Pulse Resp BP Pulse Ox 98.2 F 60 16 110/66 95 08/28/20 08:24 08/28/20 08:40 08/28/20 08:40 08/28/20 07:41 08/28/20 08:40 Intake & Output 08/27/20 08/28/20 08/29/20 06:59 06:59 06:59 Intake Total 554 680 Output Total 650 800 Balance -96 -120 Weight 80.2 kg 82.4 kg General appearance: PRESENT: no acute distress, cooperative Neck exam: ABSENT: JVD Respiratory exam: PRESENT: unlabored. ABSENT: accessory muscle use, retraction Cardiovascular exam: PRESENT: +S1, +S2. ABSENT: tachycardia GI/Abdominal exam: PRESENT: soft. ABSENT: tenderness Extremities exam: PRESENT: joint swelling, pedal edema Neurological exam: PRESENT: alert, awake, oriented to person, oriented to place Psychiatric exam: ABSENT: agitated, anxious Skin exam: PRESENT: skin tears Results Laboratory Results: 08/15/20 05:55 08/15/20 05:55 08/12/20 08/12/20 08/13/20 12:43 12:43 05:34 Creatine Kinase 771 H 489 H Troponin I < 0.012 NT-Pro-B Natriuret Pep 08/13/20 05:34 Creatine Kinase Troponin I < 0.012 NT-Pro-B Natriuret Pep 2090 H Impressions: Chest X-Ray 08/12/20 14:38 IMPRESSION: New dense left basilar consolidation, possibly atelectasis or infection. Small left effusion. Modified Barium Swallow 08/16/20 00:00 IMPRESSION: NO EVIDENCE OF PENETRATION OR ASPIRATION. PLEASE SEE SPEECH PATHOLOGIST REPORT FOR OTHER FINDINGS AND RECOMMENDATIONS. Transfer Plan - Time Spent with Patient Time spent with patient: Less than 30 Minutes Qualifiers PATIENT BEING DISCHARGED WITH ANY OF THE FOLLOWING DIAGNOSIS: No
--- NOTE | 2020-08-28 15:41 | PDOC PROGRESS REPORT ---
Subjective Date:: 08/28/20 Subjective:: Today, hospice facility was finally secured for patient. We had prepared everyt leona for discharge. Just before discharge patient changed his mind about going to hospice facility. I had a very long conversation with patient with patient's primary nurse and social services director at the bedside. We once again reviewed the whole concept of hospice and that he has been established not be a candidate for further treatment for his stage IV metastatic laryngeal cancer. He refuses to go to the hospice facility because he feels that if he gets in there he will be committed to the facility and will not be able to figure out who murdered his father in 1970 before he dies. We discussed with his brother Tonio about him. Tonio informs us that he gets very schneider and very indecisive about hospice and has been going back and forth for the past several weeks even as outpatient. His brother Tonio states he has a shaky relationship with him but will come in and talk to him tomorrow. Patient currently seems indecisive about hospice now. Reason For Visit: CLIFFORD Physical Exam Vital Signs: Temp Pulse Resp BP Pulse Ox 98.8 F 84 16 113/71 93 08/28/20 12:00 08/28/20 12:00 08/28/20 12:00 08/28/20 12:00 08/28/20 12:00 Intake & Output 08/27/20 08/28/20 08/29/20 06:59 06:59 06:59 Intake Total 554 680 Output Total 650 800 Balance -96 -120 Weight 80.2 kg 82.4 kg General appearance: PRESENT: no acute distress, cooperative Neck exam: PRESENT: tracheostomy Respiratory exam: PRESENT: symmetrical, unlabored. ABSENT: accessory muscle use, retraction, tachypnea Cardiovascular exam: PRESENT: RRR, +S1, +S2. ABSENT: tachycardia GI/Abdominal exam: PRESENT: soft. ABSENT: rebound, rigid, tenderness Extremities exam: PRESENT: other - Swelling mostly in the left arm both lower legs Neurological exam: PRESENT: alert, awake, oriented to person, oriented to place, oriented to time, oriented to situation, other - Nonverbal due to trach Psychiatric exam: ABSENT: agitated, anxious Skin exam: PRESENT: skin tears - Bilateral axillae upper and lower back Results Laboratory Results: 08/15/20 05:55 08/15/20 05:55 08/12/20 08/12/20 08/13/20 12:43 12:43 05:34 Creatine Kinase 771 H 489 H Troponin I < 0.012 NT-Pro-B Natriuret Pep 08/13/20 05:34 Creatine Kinase Troponin I < 0.012 NT-Pro-B Natriuret Pep 2090 H Impressions: Chest X-Ray 08/12/20 14:38 IMPRESSION: New dense left basilar consolidation, possibly atelectasis or infection. Small left effusion. Modified Barium Swallow 08/16/20 00:00 IMPRESSION: NO EVIDENCE OF PENETRATION OR ASPIRATION. PLEASE SEE SPEECH PATHOLOGIST REPORT FOR OTHER FINDINGS AND RECOMMENDATIONS. Assessment and Plan - Diagnosis (1) Larynx cancer Is this a current diagnosis for this admission?: Yes (2) Metastatic cancer Is this a current diagnosis for this admission?: Yes (3) Skin ulcer of multiple sites Is this a current diagnosis for this admission?: Yes (4) Decubitus ulcer Qualifiers: Pressure injury location: sacral region Pressure injury stage: stage 3 Qualified Code(s): L89.153 - Pressure ulcer of sacral region, stage 3 Is this a current diagnosis for this admission?: Yes (5) Leukocytosis Qualifiers: Leukocytosis type: bandemia Qualified Code(s): D72.825 - Bandemia Is this a current diagnosis for this admission?: Yes (6) Malnutrition due to starvation Is this a current diagnosis for this admission?: Yes (7) Pneumonia Qualifiers: Pneumonia type: due to unspecified organism Laterality: left Lung location: lower lobe of lung Qualified Code(s): J18.9 - Pneumonia, unspecified organism Is this a current diagnosis for this admission?: Yes (8) Rhabdomyolysis Qualifiers: Rhabdomyolysis type: traumatic Encounter type: initial encounter Qualified Code(s): T79.6XXA - Traumatic ischemia of muscle, initial encounter Is this a current diagnosis for this admission?: Yes (9) C. difficile colitis Is this a current diagnosis for this admission?: Yes - Plan Summary Summary: (1) Pneumonia Qualifiers: Pneumonia type: due to unspecified organism Laterality: left Lung location: lower lobe of lung Qualified Code(s): J18.9 - Pneumonia, unspecified organism Is this a current diagnosis for this admission?: Yes Plan: 08/12/2020-chest x-ray suggestive of left-sided pneumonia to start on IV Zosyn, IV vancomycin. Blood cultures are requested. IV fluids are initiated 75 cc/h. GI prophylaxis DVT prophylaxis initiated. 08/13/2020-patient is receiving IV vancomycin, Zosyn. WBC count is 24,600. Blood cultures are pending. Plan is to continue oxygen supplementations and and antibiotic therapy. 08/14/2020-patient admitted with pneumonia. Receiving IV Zosyn, vancomycin. Today's labs are pending. Afebrile. Blood pressure stable. Blood cultures are negative so far urine culture is pending. 08/15/2020-WBC count is improved to 26,800. To continue IV vancomycin and Zosyn at this time. Blood cultures no growth so far. 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 He has a open trach. Consultation with Dr. Torres was requested. To continue fentanyl and morphine. (3) Rhabdomyolysis Qualifiers: Rhabdomyolysis type: traumatic Encounter type: initial encounter Qualified Code(s): T79.6XXA - Traumatic ischemia of muscle, initial encounter Is this a current diagnosis for this admission?: Yes Plan: 08/12/2020 CK 771. jPD found him on the floor at home. Patient is receiving IV fluids to check for CK levels tomorrow. 08/13/2020-CK level came down to 489. Rhabdomyolysis resolving. (4) Malnutrition due to starvation Is this a current diagnosis for this admission?: Yes Plan: 08/12/2020-patient BMI is less than 15. Dietary consult will be requested and nutrition supplementations will be provided. 08/15/2020-patient is presently on clear liquids speech consult was requested. Plan is to arrange for modified barium swallow. (5) Leukocytosis Qualifiers: Leukocytosis type: bandemia Qualified Code(s): D72.825 - Bandemia Is this a current diagnosis for this admission?: Yes Plan: 08/12/2020-WBC count is elevated more than 17,000. Most likely secondary to pneumonia. 08/13/2020-WBC count is 24,500. Afebrile blood pressures are improving plan is to continue IV antibiotic therapy. Blood cultures are pending. 08/14/2020-today's labs are pending. 08/15/2020-WBC count improved to 26,800. Most likely secondary to sepsis. (6) CLIFFORD (acute kidney injury) Is this a current diagnosis for this admission?: Yes Plan: 08/12/2020-patient admitted with CLIFFORD and hypotension. Received 3 L of normal saline in the ER. Continue normal saline at 75 cc/h. (7) Decubitus ulcer Is this a current diagnosis for this admission?: Yes Plan: 08/12/2020-2 decubitus ulcers present on the back. One on the upper back one at the sacrum. For me looks like stage III at the sacrum and stage I on the upper back. Wound care consult was requested daily wound care dressings will be provided. 08/16/2020 At this time continue vancomycin and Zosyn for pneumonia. The plan is for patient to go to hospice. Multiple medication changes at that time. For now continue antibiotics. Monitor renal function as this combination can tend towards kidney failure. Renal function is slowly improving. Continue gentle IV fluids. White count is improving with antibiotic therapy. Blood and urine cultures are no growth so far White blood cell count is beginning to improve with antibiotic therapy. Creatinine kinase was improving. Rhabdomyolysis was resolving. I have stopped trending creatinine kinase levels as the disposition will be hospice. Blood pressures are stable. Diet advanced. With laryngectomy there is no potential for aspiration. We will start with mechanical soft ground meats. No realistic goal of reversing malnutrition as the final disposition will be hospice. 08/17/[address] Torres's note. I have discontinued the vancomycin. Consider discontinuing Zosyn in the next day or so. Unfortunately [facility] does not feel the patient is inpatient appropriate. Actually disagree with this. Will be looking for other placement for hospice level care. The patient will continue gentle fluids at this point. I am going to try a single intravenous dose of morphine. Currently the patient has to take 4 of the oxycodone pills to equal the 20 mg dose. If he is still having that much pain then he may benefit from intravenous dosing temporarily. If he does go to a facility then intravenous medications can still be used. No further blood work will be done at this point. We will focus on comfort and slowly decrease other medications. 08/18/2020 Little by little moving towards a more aggressive comfort plan. Multiple changes were implemented today including changing to oral morphine sulfate immediate release on a scheduled basis at an equivalent dose to the oxycodone. He will also have IV morphine available for breakthrough pain. His lungs sounded better so we will continue and complete the antibiotic therapy The patient did receive his first dose of 30 mg of morphine sulfate immediate release and in fact does seem more comfortable. I did tell him that I would not be doing any more blood tests as they were not warranted at this time. 08/19/2020 Unfortunately the patient appears to be declining. Based on all of the nursing notes reviewed through catastrophe claims supervisor and last night they report that he has had good pain control. Despite an almost obtunded state he used a thumbs up/thumbs down signal to let me know that he was still having pain. I am going to hold adjusting the medications just yet. He does have breakthrough medication available. Pneumonia-at this point I am going to stop the Zosyn. His lungs are improved. His prognosis is grave and aggressively treating a pneumonia does not make much sense and in fact seems futile. It appears that the patient may be having some difficulty processing foods. Nursing reports that he is able to take his pills. Because of his laryngectomy there is no risk of aspiration as there is no longer a connection between the esophagus and the lungs. Based on the food or emesis on his left shoulder and arm he may be having more difficulty. We will continue to focus more on comfort at this point. I will continue the IV fluids as his oral intake has been poor. If he continues to decline then consider discontinuing IV fluid as well. 08/20/2020 I did discontinue the remaining antibiotics yesterday due to the futility considering the patient's overall condition. We increased his pain medication after discussion with oncology. This seems to be fairly effective. I believe the congested breaths with mucus production are uncomfortable. He now has increased edema in both upper extremities. For this reason I must stop the IV fluids. His blood pressures are normal but I do not think he could tolerate a large dose of furosemide. I will give a one-time moderate dose to see how well it improves his edema. He did ask for a phone international tax manager. I believe his intention is to text with any family members to possibly help with the decision to fully commit to comfort measures only. 08/21/2020 The patient is stable. He does exhibit expressions of discomfort intermittently. For now he is frustrated due to his aphasia status post laryngectomy. He did in fact show me his lunch which was a ham and cheese sandwich that was chopped into little pieces. This was very off putting for him. We did go up and at least he laughed. I have discontinued his IV fluid and his upper extremities are still edematous. I am going to hold off on giving him furosemide at this time. I am going to adjust his pain medications by decreasing his IV morphine to every 2 hours as needed. The next step would be to increase his immediate release morphine. Unfortunately this would mean additional pills in I think is getting uncomfortable for him to swallow so we might resort to topical and intravenous medication administration. I believe he is very close to a comfort measures status. I will discuss with him tomorrow regarding oral versus topical and IV administration of pain medications. I think the next step would be trying a fentanyl patch with IV morphine. 08/22/2020 It appears that we have achieve reasonable pain control. Still with congested cough. Still with edema left hand greater than right. I did discontinue IV fluids. I will now try scopolamine patch to help with her secretions. IV morphine available every 2 hours. Because of the upper extremity edema (left greater than right) I will try anot her dose of furosemide. 08/23/2020 Patient with metastatic malignancy status post tracheostomy C/w morphine for pain. Patient is significantly debilitated with multiple skin erosions which appear to be nonhealing at this point. Continue local wound care. Wound care have given recommendations which in place. Discharge planning working on getting patient to hospice home versus facility. It will likely be very hard to take care of this patient at home. 08/24/2020 Continue IV pain medications. Continue local wound care Continue turns and repositioning Awaiting disposition for hospice 08/25/2020 Continue plan as before. Still awaiting placement at SNF or another facility where patient can continue on hospice care. 08/26/2020 awaiting hospice. Continue pain meds 08/27/2020 Today is quite an outlier as he has only received IV morphine about once. In the past several days he has been requiring IV morphine quite frequently. We will continue to monitor. If patient starts to require morphine very frequently as before, will place a fentanyl patch. Continue hospice care. Awaiting angel ement. 08/28/20 Patient has been becoming decisive about his disposition. He seems to still be somewhat interested in hospice care but does not want to go to hospice facility. We have secured a hospice facility for him he was meant to be discharged today but has not declined this. He is now reluctant towards hospice. He states that he wants time to figure out who murdered his father. We had very prolonged conversation as to how he has metastatic stage IV cancer not amenable to chemotherapy and that he has been deemed to not be a candidate for chemo or any further treatment for this. I once again reiterated the recommendation of oncology for hospice. After very prolonged conversation, patient still wants to be DNR but wants more time to decide on hospice. His brother will be coming in to talk to him about his decision. At this point, plan is to discharge patient to SNF and will start working on getting patient to SNF facility for placement. Unfortunately this may be difficult as he is on a trach collar. He is comfortable. As he is seeming indecisive about his decision I will go ahead and procure labs on him. Receiving vancomycin for his C. difficile. Adjustments made to his pain regimen. - Time Time Spent with patient: 35 or more minutes Anticipated Discharge Disposition: Care Home Facility Anticipated Discharge Timeframe: when bed available
[2020-08-28] MEDS: VANCOMYCIN HCL INJ 500 MG VIAL PO SCH ×2 (17:06→23:00)
[2020-08-28] MEDS: MORPHINE SULFATE IR 30 MG TABLET PO PRN ×2 (17:06→21:30)
[2020-08-28] MEDS: DOCUSATE SODIUM 100 MG CAPSULE PO SCH (17:07)
[2020-08-28 17:16] LABS: ALBUMIN 2.1 g/dL (3.5-5.0); ALKALINE PHOSPHATASE 147 U/L (38-126); ASPARTATE AMINO TRANSFERASE 24 U/L (17-59); BILIRUBIN,DIRECT 0.2 mg/dL (0.0-0.4); BILIRUBIN,TOTAL 0.4 mg/dL (0.2-1.3); BLOOD UREA NITROGEN 8 mg/dL (7-20); CALCIUM 7.9 mg/dL (8.4-10.2); GLUCOSE 116 mg/dL (75-110); TOTAL PROTEIN 4.7 g/dL (6.3-8.2)
[2020-08-28 17:21] LABS: CARBON DIOXIDE 33 mmol/L (22-30); CHLORIDE 93 mmol/L (98-107)
[2020-08-28 17:27] LABS: ANION GAP 3 (5-19)
[2020-08-28 18:03] LABS: HEMATOCRIT 29.7 % (37.9-51.0); HEMOGLOBIN 9.9 g/dL (13.5-17.0); MEAN CORPUSCULAR HEMOGLOBIN 28.4 pg (27.0-33.4); MEAN CORPUSCULAR HGB CONC 33.2 g/dL (32.0-36.0); PLATELET COUNT 228 10^3/uL (150-450); RED BLOOD COUNT 3.47 10^6/uL (4.35-5.55); RED CELL DISTRIBUTION WIDTH 20.5 % (11.5-14.0)
[2020-08-28 18:32] LABS: MEAN CORPUSCULAR VOLUME 86 fl (80-97)
[2020-08-28 18:34] LABS: ABSOLUTE MONOCYTES # (MANUAL) 0.4 10^3/uL (0.1-1.4); BASOPHILS % (MANUAL) 1 % (0-2); EOSINOPHILS % (MANUAL) 1 % (0-6); LYMPHOCYTES % (MANUAL) 0 % (13-45); MONOCYTES % (MANUAL) 7 % (3-13); SEGMENTED NEUTROPHILS % (MAN) 91 % (42-78); TOTAL CELLS COUNTED 100
[2020-08-28 18:35] LABS: ANISOCYTOSIS 2+; OVALOCYTES SLIGHT; PLATELET COMMENT ADEQUATE; TARGET CELLS SLIGHT
[2020-08-28] MEDS: MORPHINE SULFATE SR 30 MG TABLET PO SCH (21:30)
[2020-08-29] MEDS: IPRATROPIUM/ALBUTEROL 0.5-2.5 MG/3 ML AMPUL NEB SCH ×4 (02:40→20:25)
[2020-08-29] MEDS: VANCOMYCIN HCL INJ 500 MG VIAL PO SCH ×4 (06:21→23:00)
[2020-08-29] MEDS: MORPHINE SULFATE IR 30 MG TABLET PO PRN ×4 (06:52→21:15)
--- NOTE | 2020-08-29 07:56 | PDOC PROGRESS REPORT ---
Subjective Date:: 08/29/20 Subjective:: I had a long conversation w/ pt today. He understands now the reasoning behind hospice and the goals behind hospice. I assured him that they would not actively take his life, he was afraid that they would perform euthanasia. I explained to him that there was no physician assisted suicide in the state of [place] and he now understands. He agrees to go to to the [place], [place] hospice facility. Hopefully bed still available. Reason For Visit: CLIFFORD Physical Exam Vital Signs: Temp Pulse Resp BP Pulse Ox 97.9 F 96 20 107/67 96 08/29/20 01:33 08/29/20 02:40 08/29/20 02:40 08/29/20 01:33 08/29/20 05:50 Intake & Output 08/28/20 08/29/20 08/30/20 06:59 06:59 06:59 Intake Total 680 150 Output Total 800 900 Balance -120 -750 Weight 82.4 kg 81.3 kg General appearance: PRESENT: no acute distress, well-developed, well-nourished Head exam: PRESENT: atraumatic, normocephalic Eye exam: PRESENT: conjunctiva pink, EOMI, PERRLA. ABSENT: scleral icterus Ear exam: PRESENT: normal external ear exam Mouth exam: PRESENT: moist, tongue midline Neck exam: ABSENT: carotid bruit, JVD, lymphadenopathy, thyromegaly Respiratory exam: PRESENT: clear to auscultation philly. ABSENT: rales, rhonchi, wheezes Cardiovascular exam: PRESENT: RRR. ABSENT: diastolic murmur, rubs, systolic murmur Pulses: PRESENT: normal dorsalis pedis pul Vascular exam: PRESENT: normal capillary refill GI/Abdominal exam: PRESENT: normal bowel sounds, soft. ABSENT: distended, guarding, mass, organolmegaly, rebound, tenderness Rectal exam: PRESENT: deferred Extremities exam: PRESENT: full ROM. ABSENT: calf tenderness, clubbing, pedal edema Neurological exam: PRESENT: alert, awake, oriented to person, oriented to place, oriented to time, oriented to situation, CN II-XII grossly intact. ABSENT: motor sensory deficit Psychiatric exam: PRESENT: appropriate affect, normal mood. ABSENT: homicidal ideation, suicidal ideation Skin exam: PRESENT: dry, intact, warm. ABSENT: cyanosis, rash Results Laboratory Results: 08/28/20 17:45 08/28/20 16:20 08/28/20 08/28/20 08/28/20 16:20 16:20 17:45 WBC Cancelled 6.0 RBC Cancelled 3.47 L Hgb Cancelled 9.9 L Hct Cancelled 29.7 L MCV Cancelled 86 D MCH Cancelled 28.4 MCHC Cancelled 33.2 RDW Cancelled 20.5 H Plt Count Cancelled 228 Seg Neutrophils % Cancelled Not Reportable Sodium 128.5 L Potassium 4.0 Chloride 93 L Carbon Dioxide 33 H Anion Gap 3 L BUN 8 Creatinine 0.56 Est GFR ( Amer) > 60 Glucose 116 H Calcium 7.9 L Magnesium 1.7 Total Bilirubin 0.4 AST 24 Alkaline Phosphatase 147 H Total Protein 4.7 L Albumin 2.1 L 08/12/20 08/12/20 08/13/20 12:43 12:43 05:34 Creatine Kinase 771 H 489 H Troponin I < 0.012 NT-Pro-B Natriuret Pep 08/13/20 05:34 Creatine Kinase Troponin I < 0.012 NT-Pro-B Natriuret Pep 2090 H Impressions: Chest X-Ray 08/12/20 14:38 IMPRESSION: New dense left basilar consolidation, possibly atelectasis or infection. Small left effusion. Modified Barium Swallow 08/16/20 00:00 IMPRESSION: NO EVIDENCE OF PENETRATION OR ASPIRATION. PLEASE SEE SPEECH PATHOLOGIST REPORT FOR OTHER FINDINGS AND RECOMMENDATIONS. Assessment & Plan - Diagnosis (1) Larynx cancer Is this a current diagnosis for this admission?: Yes Plan: Hospice transfer soon (2) Malnutrition due to starvation Is this a current diagnosis for this admission?: Yes Plan: comfort feeds as pt desires (3) Pain, neoplasm-related Is this a current diagnosis for this admission?: Yes Plan: Cont current pain regimen, it is keeping him comfortable - Time Time Spent with patient: 35 or more minutes
[2020-08-29] MEDS: DOCUSATE SODIUM 100 MG CAPSULE PO SCH ×2 (09:21→17:13)
[2020-08-29] MEDS: MORPHINE SULFATE SR 30 MG TABLET PO SCH ×2 (09:21→21:16)
[2020-08-29] MEDS: CALCIUM CARBONATE 500 MG TAB.CHEW PO SCH ×2 (09:22→17:13)
[2020-08-29] MEDS ORDERED: ONDANSETRON HCL INJ/PF 4 MG/2 ML SDV IV PRN (10:00)
[2020-08-29] MEDS ORDERED: MORPHINE SULFATE 10 MG/ML INJ IV PRN (12:42)
--- NOTE | 2020-08-29 15:44 | PDOC PROGRESS REPORT ---
Subjective Date:: 08/29/20 Subjective:: Patient is now agreeable to hospice Reason For Visit: CLIFFORD Physical Exam Vital Signs: Temp Pulse Resp BP Pulse Ox 98.6 F 73 16 117/76 95 08/29/20 12:22 08/29/20 14:20 08/29/20 14:20 08/29/20 12:22 08/29/20 14:20 Intake & Output 08/28/20 08/29/20 08/30/20 06:59 06:59 06:59 Intake Total 680 150 Output Total 800 900 Balance -120 -750 Weight 82.4 kg 81.3 kg General appearance: PRESENT: no acute distress, cooperative Neck exam: PRESENT: tracheostomy Neurological exam: PRESENT: alert, awake Psychiatric exam: ABSENT: agitated, anxious Results Laboratory Results: 08/28/20 17:45 08/28/20 16:20 08/28/20 08/28/20 08/28/20 16:20 16:20 17:45 WBC Cancelled 6.0 RBC Cancelled 3.47 L Hgb Cancelled 9.9 L Hct Cancelled 29.7 L MCV Cancelled 86 D MCH Cancelled 28.4 MCHC Cancelled 33.2 RDW Cancelled 20.5 H Plt Count Cancelled 228 Seg Neutrophils % Cancelled Not Reportable Sodium 128.5 L Potassium 4.0 Chloride 93 L Carbon Dioxide 33 H Anion Gap 3 L BUN 8 Creatinine 0.56 Est GFR ( Amer) > 60 Glucose 116 H Calcium 7.9 L Magnesium 1.7 Total Bilirubin 0.4 AST 24 Alkaline Phosphatase 147 H Total Protein 4.7 L Albumin 2.1 L 08/12/20 08/12/20 08/13/20 12:43 12:43 05:34 Creatine Kinase 771 H 489 H Troponin I < 0.012 NT-Pro-B Natriuret Pep 08/13/20 05:34 Creatine Kinase Troponin I < 0.012 NT-Pro-B Natriuret Pep 2090 H Impressions: Chest X-Ray 08/12/20 14:38 IMPRESSION: New dense left basilar consolidation, possibly atelectasis or infection. Small left effusion. Modified Barium Swallow 08/16/20 00:00 IMPRESSION: NO EVIDENCE OF PENETRATION OR ASPIRATION. PLEASE SEE SPEECH PATHOLOGIST REPORT FOR OTHER FINDINGS AND RECOMMENDATIONS. Assessment and Plan - Diagnosis (1) Larynx cancer Is this a current diagnosis for this admission?: Yes (2) Metastatic cancer Is this a current diagnosis for this admission?: Yes (3) Skin ulcer of multiple sites Is this a current diagnosis for this admission?: Yes (4) Decubitus ulcer Qualifiers: Pressure injury location: sacral region Pressure injury stage: stage 3 Qualified Code(s): L89.153 - Pressure ulcer of sacral region, stage 3 Is this a current diagnosis for this admission?: Yes (5) Leukocytosis Qualifiers: Leukocytosis type: bandemia Qualified Code(s): D72.825 - Bandemia Is this a current diagnosis for this admission?: Yes (6) Malnutrition due to starvation Is this a current diagnosis for this admission?: Yes (7) Pneumonia Qualifiers: Pneumonia type: due to unspecified organism Laterality: left Lung location: lower lobe of lung Qualified Code(s): J18.9 - Pneumonia, unspecified organism Is this a current diagnosis for this admission?: Yes (8) Rhabdomyolysis Qualifiers: Rhabdomyolysis type: traumatic Encounter type: initial encounter Qualified Code(s): T79.6XXA - Traumatic ischemia of muscle, initial encounter Is this a current diagnosis for this admission?: Yes (9) C. difficile colitis Is this a current diagnosis for this admission?: Yes - Plan Summary Summary: (1) Pneumonia Qualifiers: Pneumonia type: due to unspecified organism Laterality: left Lung location: lower lobe of lung Qualified Code(s): J18.9 - Pneumonia, unspecified organism Is this a current diagnosis for this admission?: Yes Plan: 08/12/2020-chest x-ray suggestive of left-sided pneumonia to start on IV Zosyn, IV vancomycin. Blood cultures are requested. IV fluids are initiated 75 cc/h. GI prophylaxis DVT prophylaxis initiated. 08/13/2020-patient is receiving IV vancomycin, Zosyn. WBC count is 24,600. Blood cultures are pending. Plan is to continue oxygen supplementations and and antibiotic therapy. 08/14/2020-patient admitted with pneumonia. Receiving IV Zosyn, vancomycin. Today's labs are pending. Afebrile. Blood pressure stable. Blood cultures are negative so far urine culture is pending. 08/15/2020-WBC count is improved to 26,800. To continue IV vancomycin and Zosyn at this time. Blood cultures no growth so far. 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 He has a open trach. Consultation with Dr. Torres was requested. To continue fentanyl and morphine. (3) Rhabdomyolysis Qualifiers: Rhabdomyolysis type: traumatic Encounter type: initial encounter Qualified Code(s): T79.6XXA - Traumatic ischemia of muscle, initial encounter Is this a current diagnosis for this admission?: Yes Plan: 08/12/2020 CK 771. jPD found him on the floor at home. Patient is receiving IV fluids to check for CK levels tomorrow. 08/13/2020-CK level came down to 489. Rhabdomyolysis resolving. (4) Malnutrition due to starvation Is this a current diagnosis for this admission?: Yes Plan: 08/12/2020-patient BMI is less than 15. Dietary consult will be requested and nutrition supplementations will be provided. 08/15/2020-patient is presently on clear liquids speech consult was requested. Plan is to arrange for modified barium swallow. (5) Leukocytosis Qualifiers: Leukocytosis type: bandemia Qualified Code(s): D72.825 - Bandemia Is this a current diagnosis for this admission?: Yes Plan: 08/12/2020-WBC count is elevated more than 17,000. Most likely secondary to pneumonia. 08/13/2020-WBC count is 24,500. Afebrile blood pressures are improving plan is to continue IV antibiotic therapy. Blood cultures are pending. 08/14/2020-today's labs are pending. 08/15/2020-WBC count improved to 26,800. Most likely secondary to sepsis. (6) CLIFFORD (acute kidney injury) Is this a current diagnosis for this admission?: Yes Plan: 08/12/2020-patient admitted with CLIFFORD and hypotension. Received 3 L of normal saline in the ER. Continue normal saline at 75 cc/h. (7) Decubitus ulcer Is this a current diagnosis for this admission?: Yes Plan: 08/12/2020-2 decubitus ulcers present on the back. One on the upper back one at the sacrum. For me looks like stage III at the sacrum and stage I on the upper back. Wound care consult was requested daily wound care dressings will be provided. 08/16/2020 At this time continue vancomycin and Zosyn for pneumonia. The plan is for patient to go to hospice. Multiple medication changes at that time. For now continue antibiotics. Monitor renal function as this combination can tend towards kidney failure. Renal function is slowly improving. Continue gentle IV fluids. White count is improving with antibiotic therapy. Blood and urine cultures are no growth so far White blood cell count is beginning to improve with antibiotic therapy. Creatinine kinase was improving. Rhabdomyolysis was resolving. I have stopped trending creatinine kinase levels as the disposition will be hospice. Blood pressures are stable. Diet advanced. With laryngectomy there is no potential for aspiration. We will start with mechanical soft ground meats. No realistic goal of reversing malnutrition as the final disposition will be hospice. 08/17/[address] Torres's note. I have discontinued the vancomycin. Consider discontinuing Zosyn in the next day or so. Unfortunately [facility] does not feel the patient is inpatient appropriate. Actually disagree with this. Will be looking for other placement for hospice level care. The patient will continue gentle fluids at this point. I am going to try a single intravenous dose of morphine. Currently the patient has to take 4 of the oxycodone pills to equal the 20 mg dose. If he is still having that much pain then he may benefit from intravenous dosing temporarily. If he does go to a facility then intravenous medications can still be used. No further blood work will be done at this point. We will focus on comfort and slowly decrease other medications. 08/18/2020 Little by little moving towards a more aggressive comfort plan. Multiple changes were implemented today including changing to oral morphine sulfate immediate release on a scheduled basis at an equivalent dose to the oxycodone. He will also have IV morphine available for breakthrough pain. His lungs sounded better so we will continue and complete the antibiotic therapy The patient did receive his first dose of 30 mg of morphine sulfate immediate release and in fact does seem more comfortable. I did tell him that I would not be doing any more blood tests as they were not warranted at this time. 08/19/2020 Unfortunately the patient appears to be declining. Based on all of the nursing notes reviewed through [employer] and last night they report that he has had good pain control. Despite an almost obtunded state he used a thumbs up/thumbs down signal to let me know that he was still having pain. I am going to hold adjusting the medications just yet. He does have breakthrough medication available. Pneumonia-at this point I am going to stop the Zosyn. His lungs are improved. His prognosis is grave and aggressively treating a pneumonia does not make much sense and in fact seems futile. It appears that the patient may be having some difficulty processing foods. Nursing reports that he is able to take his pills. Because of his laryngectomy there is no risk of aspiration as there is no longer a connection between the esophagus and the lungs. Based on the food or emesis on his left shoulder and arm he may be having more difficulty. We will continue to focus more on comfort at this point. I will continue the IV fluids as his oral intake has been poor. If he continues to decline then consider discontinuing IV fluid as well. 08/20/2020 I did discontinue the remaining antibiotics yesterday due to the futility considering the patient's overall condition. We increased his pain medication after discussion with oncology. This seems to be fairly effective. I believe the congested breaths with mucus production are uncomfortable. He now has increased edema in both upper extremities. For this reason I must stop the IV fluids. His blood pressures are normal but I do not think he could tolerate a large dose of furosemide. I will give a one-time moderate dose to see how well it improves his edema. He did ask for a phone dials inspector. I believe his intention is to text with any family members to possibly help with the decision to fully commit to comfort measures only. 08/21/2020 The patient is stable. He does exhibit expressions of discomfort intermittently. For now he is frustrated due to his aphasia status post la ryngectomy. He did in fact show me his lunch which was a ham and cheese sandwich that was chopped into little pieces. This was very off putting for him. We did go up and at least he laughed. I have discontinued his IV fluid and his upper extremities are still edematous. I am going to hold off on giving him furosemide at this time. I am going to adjust his pain medications by decreasing his IV morphine to every 2 hours as needed. The next step would be to increase his immediate release morphine. Unfortunately this would mean additional pills in I think is getting uncomfortable for him to swallow so we might resort to topical and intravenous medication administration. I believe he is very close to a comfort measures status. I will discuss with him tomorrow regarding oral versus topical and IV administration of pain medications. I think the next step would be trying a fentanyl patch with IV morphine. 08/22/2020 It appears that we have achieve reasonable pain control. Still with congested cough. Still with edema left hand greater than right. I did discontinue IV fluids. I will now try scopolamine patch to help with her secretions. IV morphine available every 2 hours. Because of the upper extremity edema (left greater than right) I will try another dose of furosemide. 08/23/2020 Patient with metastatic malignancy status post tracheostomy C/w morphine for pain. Patient is significantly debilitated with multiple skin erosions which appear to be nonhealing at this point. Continue local wound care. Wound care have given recommendations which in place. Discharge planning working on getting patient to hospice home versus facility. It will likely be very hard to take care of this patient at home. 08/24/2020 Continue IV pain medications. Continue local wound care Continue turns and repositioning Awaiting disposition for hospice 08/25/2020 Continue plan as before. Still awaiting placement at SNF or another facility where patient can continue on hospice care. 08/26/2020 awaiting hospice. Continue pain meds 08/27/2020 Today is quite an outlier as he has only received IV morphine about once. In the past several days he has been requiring IV morphine quite frequently. We will continue to monitor. If patient starts to require morphine very frequently as before, will place a fentanyl patch. Continue hospice care. Awaiting placement. 08/28/20 Patient has been becoming decisive about his disposition. He seems to still be somewhat interested in hospice care but does not want to go to hospice facility. We have secured a hospice facility for him he was meant to be discharged today but has not declined this. He is now reluctant towards hospice. He states that he wants time to figure out who murdered his father. We had very prolonged conversation as to how he has metastatic stage IV cancer not amenable to chemotherapy and that he has been deemed to not be a candidate for chemo or any further treatment for this. I once again reiterated the recommendation of oncology for hospice. After very prolonged conversation, patient still wants to be DNR but wants more time to decide on hospice. His brother will be coming in to talk to him about his decision. At this point, plan is to discharge patient to SNF and will start working on getting patient to SNF facility for placement. Unfortunately this may be difficult as he is on a trach collar. He is comfortable. As he is seeming indecisive about his decision I will go ahead and procure labs on him. Receiving vancomycin for his C. difficile. Adjustments made to his pain regimen. 08/29 After further conversation today with Dr. Torres, patient has now agreed to go to hospice. shutdown planner will work on getting patient to hospice center or to SNF with hospice services. - Time Time Spent with patient: Less than 15 minutes Anticipated Discharge Disposition: Hospice Center Anticipated Discharge Timeframe: when bed available
[2020-08-30] MEDS: IPRATROPIUM/ALBUTEROL 0.5-2.5 MG/3 ML AMPUL NEB SCH ×3 (01:53→14:33)
[2020-08-30] MEDS: MORPHINE SULFATE IR 30 MG TABLET PO PRN ×2 (02:09→13:16)
[2020-08-30] MEDS: VANCOMYCIN HCL INJ 500 MG VIAL PO SCH ×2 (06:43→13:16)
[2020-08-30] MEDS: MORPHINE SULFATE SR 30 MG TABLET PO SCH (09:08)
[2020-08-30] MEDS: DOCUSATE SODIUM 100 MG CAPSULE PO SCH (09:09)
[2020-08-30] MEDS: CALCIUM CARBONATE 500 MG TAB.CHEW PO SCH (09:09)
--- NOTE | 2020-08-30 13:47 | PDOC PROGRESS REPORT ---
Subjective Date:: 08/30/20 Reason For Visit: CLIFFORD Physical Exam Vital Signs: Temp Pulse Resp BP Pulse Ox 97.7 F 65 15 112/67 98 08/30/20 12:13 08/30/20 12:13 08/30/20 12:13 08/30/20 12:13 08/30/20 12:13 Intake & Output 08/29/20 08/30/20 08/31/20 06:59 06:59 06:59 Intake Total 150 300 250 Output Total 900 725 300 Balance -750 -425 -50 Weight 81.3 kg 81.3 kg General appearance: PRESENT: no acute distress Respiratory exam: PRESENT: unlabored. ABSENT: accessory muscle use, tachypnea Cardiovascular exam: ABSENT: tachycardia Neurological exam: PRESENT: alert, awake Results Laboratory Results: 08/28/20 17:45 08/28/20 16:20 08/12/20 08/12/20 08/13/20 12:43 12:43 05:34 Creatine Kinase 771 H 489 H Troponin I < 0.012 NT-Pro-B Natriuret Pep 08/13/20 05:34 Creatine Kinase Troponin I < 0.012 NT-Pro-B Natriuret Pep 2090 H Impressions: Chest X-Ray 08/12/20 14:38 IMPRESSION: New dense left basilar consolidation, possibly atelectasis or infection. Small left effusion. Modified Barium Swallow 08/16/20 00:00 IMPRESSION: NO EVIDENCE OF PENETRATION OR ASPIRATION. PLEASE SEE SPEECH PATHOLOGIST REPORT FOR OTHER FINDINGS AND RECOMMENDATIONS. Assessment and Plan - Diagnosis (1) Larynx cancer Is this a current diagnosis for this admission?: Yes (2) Metastatic cancer Is this a current diagnosis for this admission?: Yes (3) Skin ulcer of multiple sites Is this a current diagnosis for this admission?: Yes (4) Decubitus ulcer Qualifiers: Pressure injury location: sacral region Pressure injury stage: stage 3 Qualified Code(s): L89.153 - Pressure ulcer of sacral region, stage 3 Is this a current diagnosis for this admission?: Yes (5) Leukocytosis Qualifiers: Leukocytosis type: bandemia Qualified Code(s): D72.825 - Bandemia Is this a current diagnosis for this admission?: Yes (6) Malnutrition due to starvation Is this a current diagnosis for this admission?: Yes (7) Pneumonia Qualifiers: Pneumonia type: due to unspecified organism Laterality: left Lung location: lower lobe of lung Qualified Code(s): J18.9 - Pneumonia, unspecified organism Is this a current diagnosis for this admission?: Yes (8) Rhabdomyolysis Qualifiers: Rhabdomyolysis type: traumatic Encounter type: initial encounter Qualified Code(s): T79.6XXA - Traumatic ischemia of muscle, initial encounter Is this a current diagnosis for this admission?: Yes (9) C. difficile colitis Is this a current diagnosis for this admission?: Yes - Plan Summary Summary: (1) Pneumonia Qualifiers: Pneumonia type: due to unspecified organism Laterality: left Lung location: lower lobe of lung Qualified Code(s): J18.9 - Pneumonia, unspecified organism Is this a current diagnosis for this admission?: Yes Plan: 08/12/2020-chest x-ray suggestive of left-sided pneumonia to start on IV Zosyn, IV vancomycin. Blood cultures are requested. IV fluids are initiated 75 cc/h. GI prophylaxis DVT prophylaxis initiated. 08/13/2020-patient is receiving IV vancomycin, Zosyn. WBC count is 24,600. Blood cultures are pending. Plan is to continue oxygen supplementations and and antibiotic therapy. 08/14/2020-patient admitted with pneumonia. Receiving IV Zosyn, vancomycin. Today's labs are pending. Afebrile. Blood pressure stable. Blood cultures are negative so far urine culture is pending. 08/15/2020-WBC count is improved to 26,800. To continue IV vancomycin and Zosyn at this time. Blood cultures no growth so far. 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 He has a open trach. Consultation with Dr. Torres was requested. To continue fentanyl and morphine. (3) Rhabdomyolysis Qualifiers: Rhabdomyolysis type: traumatic Encounter type: initial encounter Qualified Code(s): T79.6XXA - Traumatic ischemia of muscle, initial encounter Is this a current diagnosis for this admission?: Yes Plan: 08/12/2020 CK 771. jPD found him on the floor at home. Patient is receiving IV fluids to check for CK levels tomorrow. 08/13/2020-CK level came down to 489. Rhabdomyolysis resolving. (4) Malnutrition due to starvation Is this a current diagnosis for this admission?: Yes Plan: 08/12/2020-patient BMI is less than 15. Dietary consult will be requested and nutrition supplementations will be provided. 08/15/2020-patient is presently on clear liquids speech consult was requested. Plan is to arrange for modified barium swallow. (5) Leukocytosis Qualifiers: Leukocytosis type: bandemia Qualified Code(s): D72.825 - Bandemia Is this a current diagnosis for this admission?: Yes Plan: 08/12/2020-WBC count is elevated more than 17,000. Most likely secondary to pneumonia. 08/13/2020-WBC count is 24,500. Afebrile blood pressures are improving plan is to continue IV antibiotic therapy. Blood cultures are pending. 08/14/2020-today's labs are pending. 08/15/2020-WBC count improved to 26,800. Most likely secondary to sepsis. (6) CLIFFORD (acute kidney injury) Is this a current diagnosis for this admission?: Yes Plan: 08/12/2020-patient admitted with CLIFFORD and hypotension. Received 3 L of normal saline in the ER. Continue normal saline at 75 cc/h. (7) Decubitus ulcer Is this a current diagnosis for this admission?: Yes Plan: 08/12/2020-2 decubitus ulcers present on the back. One on the upper back one at the sacrum. For me looks like stage III at the sacrum and stage I on the upper back. Wound care consult was requested daily wound care dressings will be provided. 08/16/2020 At this time continue vancomycin and Zosyn for pneumonia. The plan is for patient to go to hospice. Multiple medication changes at that time. For now continue antibiotics. Monitor renal function as this combination can tend towards kidney failure. Renal function is slowly improving. Continue gentle IV fluids. White count is improving with antibiotic therapy. Blood and urine cultures are no growth so far White blood cell count is beginning to improve with antibiotic therapy. Creatinine kinase was improving. Rhabdomyolysis was resolving. I have stopped trending creatinine kinase levels as the disposition will be hospice. Blood pressures are stable. Diet advanced. With laryngectomy there is no potential for aspiration. We will start with mechanical soft ground meats. No realistic goal of reversing malnutrition as the final disposition will be hospice. 08/17/[address] Torres's note. I have discontinued the vancomycin. Consider discontinuing Zosyn in the next day or so. Unfortunately [facility] does not feel the patient is inpatient appropriate. Actually disagree with this. Will be looking for other placement for hospice level care. The patient will continue gentle fluids at this point. I am going to try a single intravenous dose of morphine. Currently the patient has to take 4 of the oxycodone pills to equal the 20 mg dose. If he is still having that much pain then he may benefit from intravenous dosing temporarily. If he does go to a facility then intravenous medications can still be used. No further blood work will be done at this point. We will focus on comfort and slowly decrease other medications. 08/18/2020 Little by little moving towards a more aggressive comfort plan. Multiple changes were implemented today including changing to oral morphine sulfate immediate release on a scheduled basis at an equivalent dose to the oxycodone. He will also have IV morphine available for breakthrough pain. His lungs sounded better so we will continue and complete the antibiotic therapy The patient did receive his first dose of 30 mg of morphine sulfate immediate release and in fact does seem more comfortable. I did tell him that I would not be doing any more blood tests as they were not warranted at this time. 08/19/2020 Unfortunately the patient appears to be declining. Based on all of the nursing notes reviewed through sports complex attendant and last night they report that he has had good pain control. Despite an almost obtunded state he used a thumbs up/thumbs down signal to let me know that he was still having pain. I am going to hold adjusting the medications just yet. He does have breakthrough medication available. Pneumonia-at this point I am going to stop the Zosyn. His lungs are improved. His prognosis is grave and aggressively treating a pneumonia does not make much sense and in fact seems futile. It appears that the patient may be having some difficulty processing foods. Evelina burger reports that he is able to take his pills. Because of his laryngectomy there is no risk of aspiration as there is no longer a connection between the esophagus and the lungs. Based on the food or emesis on his left shoulder and arm he may be having more difficulty. We will continue to focus more on comfort at this point. I will continue the IV fluids as his oral intake has been poor. If he continues to decline then consider discontinuing IV fluid as well. 08/20/2020 I did discontinue the remaining antibiotics yesterday due to the futility considering the patient's overall condition. We increased his pain medication after discussion with oncology. This seems to be fairly effective. I believe the congested breaths with mucus production are uncomfortable. He now has increased edema in both upper extremities. For this reason I must stop the IV fluids. His blood pressures are normal but I do not think he could tolerate a large dose of furosemide. I will give a one-time moderate dose to see how well it improves his edema. He did ask for a phone coffee machine technician. I believe his intention is to text with any family members to possibly help with the decision to fully commit to comfort m easures only. 08/21/2020 The patient is stable. He does exhibit expressions of discomfort intermit tently. For now he is frustrated due to his aphasia status post laryngectomy. He did in fact show me his lunch which was a ham and cheese sandwich that was chopped into little pieces. This was very off putting for him. We did go up and at least he laughed. I have discontinued his IV fluid and his upper extremities are still edematous. I am going to hold off on giving him furosemide at this time. I am going to adjust his pain medications by decreasing his IV morphine to every 2 hours as needed. The next step would be to increase his immediate release morphine. Unfortunately this would mean additional pills in I think is getting uncomfortable for him to swallow so we might resort to topical and intravenous medication administration. I believe he is very close to a comfort measures st atus. I will discuss with him tomorrow regarding oral versus topical and IV administration of pain medications. I think the next step would be trying a fentanyl patch with IV morphine. 08/22/2020 It appears that we have achieve reasonable pain control. Still with congested cough. Still with edema left hand greater than right. I did discontinue IV fluids. I will now try scopolamine patch to help with her secretions. IV morphine available every 2 hours. Because of the upper extremity edema (left greater than right) I will try another dose of furosemide. 08/23/2020 Patient with metastatic malignancy status post tracheostomy C/w morphine for pain. Patient is significantly debilitated with multiple skin erosions which appear to be nonhealing at this point. Continue local wound care. Wound care have given recommendations which in place. Discharge planning working on getting patient to hospice home versus facility. It will likely be very hard to take care of this patient at home. 08/24/2020 Continue IV pain medications. Continue local wound care Continue turns and repositioning Awaiting disposition for hospice 08/25/2020 Continue plan as before. Still awaiting placement at SNF or another facility where patient can continue on hospice care. 08/26/2020 awaiting hospice. Continue pain meds 08/27/2020 Today is quite an outlier as he has only received IV morphine about once. In the past several days he has been requiring IV morphine quite frequently. We will continue to monitor. If patient starts to require morphine very frequently as before, will place a fentanyl patch. Continue hospice care. Awaiting placement. 08/28/20 Patient has been becoming decisive about his disposition. He seems to still be somewhat interested in hospice care but does not want to go to hospice facility. We have secured a hospice facility for him he was meant to be discharged today but has not declined this. He is now reluctant towards hospice. He states that he wants time to figure out who murdered his father. We had very prolonged conversation as to how he has metastatic stage IV cancer not amenable to chemotherapy and that he has been deemed to not be a candidate for chemo or any further treatment for this. I once again reiterated the recommendation of oncology for hospice. After very prolonged conversation, patient still wants to be DNR but wants more time to decide on hospice. His brother will be coming in to talk to him about his decision. At this point, plan is to discharge patient to SNF and will start working on getting patient to SNF facility for placement. Unfortunately this may be difficult as he is on a trach collar. He is comfortable. As he is seeming indecisive about his decision I will go ahead and procure labs on him. Receiving vancomycin for his C. difficile. Adjustments made to his pain regimen. 08/29 After further conversation today with Dr. Torres, patient has now agreed to go to hospice. logistics planner will work on getting patient to hospice center or to SNF with hospice services. 08/30 Awaiting hospice placement. Continue C. difficile. Continue pain medications. logistics planner working on placement. - Time Time Spent with patient: Less than 15 minutes Anticipated Discharge Disposition: Hospice Center Anticipated Discharge Timeframe: when bed available
[2020-08-30 16:25] VITALS: BP 113/71
== END 2020-08-30 16:22 | disposition hospice, inpatient (51) | DRG 871 ==
LOC: ER 11:19 → EH 17:41 → 5 21:37 → 4W 08-26 20:23
PROVIDERS: ADMIT Internal Medicine; ATTEND Internal Medicine
DX: A41.9 Sepsis, unspecified organism (principal); L89.153 Pressure ulcer of sacral region, stage 3; J18.9 Pneumonia, unspecified organism; N17.9 Acute kidney failure, unspecified; E46 Unspecified protein-calorie malnutrition; Z68.1 Body mass index [BMI] 19.9 or less, adult; R47.01 Aphasia; C79.89 Secondary malignant neoplasm of other specified sites; A04.72 Enterocolitis due to Clostridium difficile, not specified as recurrent; R65.20 Severe sepsis without septic shock; I95.9 Hypotension, unspecified; Z20.822 Contact with and (suspected) exposure to COVID-19; C32.9 Malignant neoplasm of larynx, unspecified; T73.0XXA Starvation, initial encounter; X58.XXXA Exposure to other specified factors, initial encounter; T79.6XXA Traumatic ischemia of muscle, initial encounter; Z93.0 Tracheostomy status; L89.101 Pressure ulcer of unspecified part of back, stage 1; Z90.02 Acquired absence of larynx; Z66 Do not resuscitate; E86.0 Dehydration; G89.3 Neoplasm related pain (acute) (chronic); J44.9 Chronic obstructive pulmonary disease, unspecified; I10 Essential (primary) hypertension; F41.9 Anxiety disorder, unspecified; Y92.009 Unspecified place in unspecified non-institutional (private) residence as the place of occurrence of the external cause; Z92.21 Personal history of antineoplastic chemotherapy; Z60.2 Problems related to living alone; Z87.891 Personal history of nicotine dependence
CPT/HCPCS: 36415; 71045; 74230; 80053; 80307; 81001; 82550; 82803; 82962; 83605; 83735; 83880; 84443; 84484; 85025; 87040; 87086; 87324; 87449; 87493; 93005; 93010; 94640; 96361; 96365; 99285; 0241U; C9113; C9803; J1642; J1650; J1940; J1956; J2270; J2405; J2543; J3370; J3411; J7030; J7050; J7060; J7121